=== PATIENT | female | born 1950 | race Caucasian/White ===

== ENCOUNTER 2022-09-20 12:44 | Outpatient (OUT) | payer MEDICARE, SELFPAY ==
--- NOTE | 2022-09-20 12:57 | XR_ITS ---
The [address] [address] Patient Name: SONDRA MERCHANT MRN: [id number] date: 1950 Sex: F Assigned Patient Location: [facility] Current Patient Location: Accession/Order Number: [id number] Exam Date: 09/20/2022 13:15 Report Date: 09/21/2022 10:07 At the request of: LEROY DUQUE Procedure: XR lumbar spine min 4V EXAMINATION: XR lumbar spine min 4V HISTORY: Bilateral Hip Pain, Low Back Pain , chronic COMPARISON: XR L-spine 01/26/2021, 04/06/2019 FINDINGS: BONES: Partial collapse of right half of L5 vertebral body and approximately 1.3 cm right lateral listhesis of L4 on 5. Moderate degenerative facet arthropathy L4-5, L5-S1. DISC SPACES: Marked disc space narrowing L4-5, L5-S1. PARASPINOUS: Negative. No paraspinous abnormality is seen. OTHER: Negative. XR/XR lumbar spine min 4V IMPRESSION: 1. Advanced degenerative changes which have progressed since prior study. 2. Partial collapse of right side of L5 which continues to progress; compression fracture versus neoplasm versus infectious etiology. Consider MRI for further evaluation. Electronically authenticated by: PEARL DORMAN Date: 09/21/2022 10:07
--- NOTE | 2022-09-20 12:57 | XR_ITS ---
The [address] [address] Patient Name: SONDRA MERCHANT MRN: [id number] date: 1950 Sex: F Assigned Patient Location: [facility] Current Patient Location: [facility] Accession/Order Number: [id number] Exam Date: 09/20/2022 13:15 Report Date: 09/21/2022 10:17 At the request of: LEROY DUQUE Procedure: XR pelvis 1-2V PROCEDURE: XR pelvis 1-2V HISTORY: Low Back Pain, Bilateral Hip Pain COMPARISON: XR hip left 06/11/2020, XR hip right 02/20/2019 FINDINGS: BONES:Mild narrowing of the hip joint spaces without significant periarticular osteophytes. No fracture, dislocation, or articular surface irregularity. SOFT TISSUES:Prominent calcifications within the soft tissues cephalad to the femoral neck bilaterally, unchanged and favoring heterotopic bone formation from remote injury. EFFUSION:None visible. OTHER: Advanced degenerative changes of the lower lumbar spine. XR/XR pelvis 1-2V IMPRESSION: 1. Moderate degenerative changes of hip joints bilaterally, not appreciably changed. 2. Advanced degenerative changes and anterolisthesis of lower lumbar spine which has progressed since prior studies. Please see today's XR lumbar spine report for discussion. Electronically authenticated by: PEARL DORMAN Date: 09/21/2022 10:17
== END 2022-09-20 12:45 | disposition home or self-care (01) ==
LOC: RAD 12:50
PROVIDERS: PCP Family Medicine; Visit Provider Anesthesiology Pain Medicine
DX: M54.50 Low back pain, unspecified (principal); M25.552 Pain in left hip; M25.551 Pain in right hip; M16.0 Bilateral primary osteoarthritis of hip; M47.816 Spondylosis without myelopathy or radiculopathy, lumbar region; M43.16 Spondylolisthesis, lumbar region
CPT/HCPCS: 72110; 72170

== ENCOUNTER 2022-10-05 10:47 | Outpatient (OUT) | payer MEDICARE, SELFPAY ==
--- NOTE | 2022-10-05 11:18 | PM.CN ---
Consult Note: HPI Data of Consult Patient: known to practice within the last 3 years Requesting Physician: Tammy Worrell NP Primary Care Provider: Ashia Ga MD Consult Narrative cc:: CC: Tammy Worrell NP Review of Systems ROS Status of ROS 10 or more systems reviewed and unremarkable except as noted in history and below Exam Constitutional Common normals: no apparent distress, oriented x3 and alert General appearance: frail appearing Nutritional appearance: thin and underweight Other: denies recent weight loss HENMT Common normals: normocephalic and hearing grossly normal bilaterally Head and scalp: normal to inspection Eye Common normals: PERRL Pupil: PERRL Neck & C-Spine Common normals: full ROM Cervical spine: cervical ROM normal Chest Common normals: inspection of chest normal Respiratory Common normals: normal respiratory effort, no retractions and no use of accessory muscles Back & Pelvis Thoracic spine/upper back: normal to inspection, ROM limited, pain with ROM and paraspinal muscle tenderness Lumbar spine/lower back: normal to inspection, ROM limited, pain with ROM and paraspinal muscle tenderness Other: pain with facet bearing maneuvers Extremity Common normals: normal to inspection and full ROM Neuro Common normals: oriented x3, CN's II-XII intact bilaterally, moves all extremities and no sensory deficits noted Motor exam: strength abnormal (3/5 weak upper and lower extremeties) Other: patient experiencing leg tremors/increased respirations after taking parkinsons medications. Patient has neurology follow up in October, encouraged to discuss with Neurologist. F/u with PCP for updated bloodwork. Psych Common normals: mental status grossly normal, thought process normal, cooperative, affect normal, speech normal and activity/motor behavior normal Attitude: calm Activity/motor behavior: appropriate eye contact Speech: normal speech Thought process: normal thought process Assessment and Plan Assessment and Plan (1) Lumbar spondylosis: (2) Spondylosis of lumbar region without myelopathy or radiculopathy: (3) Medication management: Plan Patient presents to office today for lumbar pain without radiculopathy. Patient has had chronic lumbar pain, years, and has failed conservative approaches NSAIDS/heat/ice, has not had PT recently. Patients recent xrays of lumbar spine/hips show degenerative changes, possible lumbar compression fx and recommending MRI to rule out neoplasm/infection/fracture. Pt reports she has moderate pain relief for 3hrs after taking her norco, no s/e from medication. Patient supplements with extra strength tylenol, not exceeding 3000mg in total, to assist with pain relief until next [place] dose. Patient has not had any recent falls/injury. Denies change in weight. No change in bowel/bladder continence. Patient had pain with facet weight bearing maneuvers bilateral lumbar back. patient experiencing leg tremors/increased respirations after taking parkinsons medications. Patient has neurology follow up in October, encouraged to discuss with Neurologist. F/u with PCP for updated bloodwork. MRI lumbar spine ordered [place] 5/325 BID refilled f/u in office after MRI
== END 2022-10-05 10:48 | disposition home or self-care (01) ==
LOC: PM 10:47
PROVIDERS: PCP Family Medicine; Visit Provider Nurse Practitioner
DX: M47.816 Spondylosis without myelopathy or radiculopathy, lumbar region (principal); Z79.899 Other long term (current) drug therapy
CPT/HCPCS: G0463

== ENCOUNTER 2022-10-18 13:25 | Outpatient (OUT) | payer MEDICARE, SELFPAY ==
--- NOTE | 2022-10-18 14:10 | MR_ITS ---
[address] [address] Patient Name: SONDRA MERCHANT MRN: [id number] date: 1950 Sex: F Assigned Patient Location: MRI Current Patient Location: Accession/Order Number: [id number] Exam Date: 10/18/2022 14:10 Report Date: 10/19/2022 11:19 At the request of: LEROY DUQUE Procedure: MR lumbar spine wo con EXAMINATION: MR lumbar spine wo con HISTORY: Lumbar spondylosis ; chronic lumbar pain radiating into hips; right leg weakness COMPARISON: XR L-spine 09/20/2022 TECHNIQUE: A variety of imaging planes and parameters were utilized for visualization of suspected pathology. FINDINGS: For the purposes of numbering, sagittal T2 image # 9 extends from the T11 vertebral body superiorly to the S4 level inferiorly. PARASPINAL AREA: Normal with no visible mass. BONES: 10 mm right lateral listhesis of L3 on 4. Moderate compression fracture of left lateral aspect of L3 inferior endplate and right lateral aspect of L4 superior endplate with marked sclerotic degenerative endplate changes. CORD/CAUDA EQUINA: Normal caliber, contour, and signal intensity. DISC LEVELS: 12-L1: No significant disc/facet abnormality, spinal stenosis, or foraminal stenosis. L1-L2: No significant disc/facet abnormality, spinal stenosis, or foraminal stenosis. L2-L3: Mild central canal and bilateral foramen narrowing. Mild diffuse disc bulging and minimal disc height reduction. Mild degenerative facet arthropathy, left greater than right. L3-L4: Marked central canal and bilateral foramen narrowing. Marked diffuse disc bulging, marked disc height reduction, and moderate degenerative facet arthropathy and ligamentum flavum thickening. L4-L5: Marked central canal and bilateral foramen narrowing. Marked diffuse disc bulging with complete loss of disc height. Moderate degenerative facet arthropathy and ligamentum flavum thickening bilaterally. L5-S1: Moderate marked central canal narrowing. Marked right, moderate left foramen narrowing. Marked trace disc bulging with complete loss of disc height. Marked degenerative facet arthropathy in the mentum flavum thickening. MR/MR lumbar spine wo con IMPRESSION: 1. Advanced degenerative changes of the lower lumbar spine resulting in marked central canal and foraminal stenosis. Electronically authenticated by: PEARL Anderson: 10/19/2022 11:19
== END 2022-10-18 13:26 | disposition home or self-care (01) ==
PROVIDERS: PCP Family Medicine; Visit Provider Anesthesiology Pain Medicine
DX: M47.816 Spondylosis without myelopathy or radiculopathy, lumbar region (principal)
CPT/HCPCS: 72148

== ENCOUNTER 2022-10-31 14:03 | Outpatient (OUT) | payer MEDICARE, SELFPAY ==
--- NOTE | 2022-10-31 14:11 | P.CN_ITS ---
Consult Note: HPI Data of Consult Patient: known to practice within the last 3 years Requesting Physician: Tammy Worrell NP Primary Care Provider: Ashia Ga MD Consult Narrative Reason for consult: imaging follow up Narrative: Martha Min a pleasant 72 year old female with chronic low back pain, bilateral hip pain, and shoulder pain presents for follow up. Patient rating 7/10 pain today and would like to discuss results of imaging and talk about injection therapy. cc:: CC: Tammy Worrell NP Review of Systems ROS Status of ROS 10 or more systems reviewed and unremarkable except as noted in history and below Exam Constitutional Documenting provider has reviewed patient's vital signs: yes Common normals: no apparent distress, oriented x3, healthy appearing, alert and well nourished Exam limitations: physical limitations General appearance: cooperative Nutritional appearance: thin HENMT Common normals: normocephalic, hearing grossly normal bilaterally and moist oral mucous membranes Head and scalp: normocephalic Eye Common normals: PERRL Pupil: PERRL Neck & C-Spine Common normals: full ROM General: normal visual inspection Chest Common normals: inspection of chest normal Respiratory Common normals: normal respiratory effort, no retractions and no use of accessory muscles Back & Pelvis Lumbar spine/lower back: ROM limited and pain with ROM Other: predominately axial low back pain without radiculopathy, bilateral facet loading positive Neuro Common normals: oriented x3, CN's II-XII intact bilaterally, moves all extrem ities, no focal motor deficits, no sensory deficits noted and deep tendon reflexes 2+ bilaterally Sensorium/orientation: alert Gait (neuro): unable to assess gait and assistive device used (wheelchair) Motor exam: strength 5/5 throughout and no movement abnormalities noted Psych Common normals: mental status grossly normal, thought process normal, cooperative, affect normal, speech normal and activity/motor behavior normal Speech: normal speech Thought process: normal thought process Results Additional Findings Additional findings: I have checked an OARRS report on this patient today and there are no aberrancies noted in the prescribing history.?? A drug screen was completed and reviewed within the last year, and if there has not been a drug screen completed we ordered one today to monitor higher risk, state monitored pain medication use. As part of providing excellent, safe, comprehensive care, the following was completed at our patient's visit: 1. A medication reconciliation and review to ensure accurate knowledge of current/active medications, including asking our patients to inform us about any xmpk-sio-viiqion medications or herbal remedies/nutritional supplements/alternative remedies. 2. A review to specifically ensure our patients have had annual screening for: elevated body mass index (BMI), tobacco use, screening for depression, and screening for unhealthy alcohol use. When screening is concerning, patients are provided with education and the specific recommendation to discuss the concerning health issue and treatment options with their primary care provider. RADHA 66% with severe pain, pain interfering with self care, cannot lift anything at all, cannot walk more than 100 yards, cannot sit for more than 10 minutes, cannot stand for more than 30 mins, cannot sleep for more than 4 hours, no social life or travel due to pain. Assessment and Plan Assessment and Plan (1) Lumbar spondylosis: (2) Medication management: (3) Chronic, continuous use of opioids: Assessment and Plan: I have refilled the patient's opioid prescriptions at the above noted dose and schedule.? I feel these medications are improving the patient's quality of life and allow them to tolerate activities of daily living as well as participate in recreational activity.? The patient does not report intolerable side effects. The patient is NOT opioid naive and non-pharmacologic and non-opioid treatment has failed to significantly relieve the patient's pain and improve functionality. The patient has a diagnosis that is related to a somatic or visceral pain etiology.??I reviewed with the patient the potential risks and side effects with the use of?opioid medications including but not limited to respiratory depression,?sedation, and even . I verified the patient has access to naloxone should?these effects occur. I advised the patient to avoid the use of any other? sedation substances including alcohol, THC, and benzodiazepines while?taking opioid medications due to the risk of compounding side effects and?detrimental outcomes. I reviewed the [employer] WORK[employer], pain treatment agreement, urine? drug screen, and opioid start talking forms. The patient was advised to let?their family know they had Naloxone in case they would need to administer?the medication.? Plan Reviewed xray and MRI findings with patient and daughter bilateral L3/4 L5/4 MBB, patient has had good relief from RFAs at this level historically last in 2019, working towards RFA refill and continue norco 5-325mg BID PRN pain f/u after procedure
== END 2022-10-31 14:04 | disposition home or self-care (01) ==
PROVIDERS: PCP Family Medicine; Visit Provider Nurse Practitioner
DX: M47.816 Spondylosis without myelopathy or radiculopathy, lumbar region (principal); Z51.81 Encounter for therapeutic drug level monitoring; Z79.891 Long term (current) use of opiate analgesic
CPT/HCPCS: G0463

== ENCOUNTER 2022-12-03 10:47 | Day surgery (SDC) | payer MEDICARE, SELFPAY ==
[2022-12-03 12:15] VITALS: BP 90/64; PULSE 70; RESP 14; TEMP 36.4; O2SAT 97
[2022-12-03] MEDS: LIDOCAINE HCL 2% PF 100 MG/5 ML VIAL INJ (13:02)
[2022-12-03] MEDS: BUPIVACAINE HCL 0.25% PF 25 MG/10 ML VIAL INJ (13:02)
[2022-12-03 13:03] VITALS: BP 151/86; PULSE 73; RESP 18; O2SAT 97
[2022-12-03] MEDS: TRIAMCINOLONE ACETONIDE 40 MG/ML VIAL INJ (13:03)
[2022-12-03 13:04] VITALS: PULSE 75; RESP 18; O2SAT 97
[2022-12-03 13:05] VITALS: BP 210/94
--- NOTE | 2022-12-03 13:06 | W.PM.PROCNOT ---
Date of procedure: 12/03/22 Pre-op diagnosis: lumbar spondylosis Post-op diagnosis: same as pre-op Procedure: Procedure: Bilateral L3/4, L4/5 medial branch block Medications: Bupivacaine 0.25% 4cc The patient was seen and examined in the preoperative holding area.? An informed consent was obtained and placed on the chart.? The patient was brought to the medical procedure unit and placed in the prone position.? A timeout was completed verifying correct patient, procedure site, positioning, plan, and special equipment.? Using aseptic technique, the needle was placed at left L3. Under direct fluoroscopic visualization a Quincke-tipped spinal needle was advanced to the junction of the superior articulating process with the transverse process at the designated medial branch segment.? Preceded by negative aspiration, the above-mentioned injectate was placed in 1 mL aliquots.? The procedure was repeated at left L4, 5.? The needle was removed and insertion site was covered. The same procedure, at the same levels, was completed on the right side. The patient was taken to the postprocedural recovery area and monitored for an appropriate length of time before found suitable for discharge in the company of a responsible adult. Anesthesia: Local Surgeon: Carlota Huertas Pathology: none sent Condition: stable Disposition: no change
== END 2022-12-03 13:09 | disposition home or self-care (01) ==
PROVIDERS: PCP Family Medicine; Visit Provider Anesthesiology
DX: M47.816 Spondylosis without myelopathy or radiculopathy, lumbar region (principal)
CPT/HCPCS: 64493; 64494

== ENCOUNTER 2022-12-19 13:40 | Outpatient (OUT) | payer MEDICARE, SELFPAY ==
--- NOTE | 2022-12-19 14:21 | P.CN_ITS ---
Consult Note: HPI Data of Consult Patient: known to practice within the last 3 years Requesting Physician: Tammy Worrell NP Primary Care Provider: Ashia Ga MD Consult Narrative Reason for consult: f/u Narrative: Martha Min a pleasant 72 year old female presents for evaluation and management of chronic low back pain. Patient rating pain 7/10, most recent procedure was bilateral L3, 4, 5 MBB without pain relief or functional improvement. Patients weight has maintained. She follows with a specialist for parkinsons. cc:: CC: Tammy Wrorell NP Review of Systems ROS Status of ROS 10 or more systems reviewed and unremarkable except as noted in history and below Musculoskeletal Reports: back pain Meds Home Medications and Allergies Home Medications Medication Instructions Recorded Confirmed Type hydrocodone 5 mg-acetaminophen 325 1 tab PO BID PRN pain #60 tabs 10/31/22 11/28/22 Rx mg tablet acetaminophen 500 mg capsule 1,000 mg PO TID PRN pain 11/28/22 12/03/22 History calcium polycarbophil 625 mg 1,250 mg PO DAILY 11/28/22 12/03/22 History tablet (Fiber (calcium polycarbophil)) carbidopa 25 mg-levodopa 100 mg 1 tab PO .5 times per day 11/28/22 12/03/22 History tablet carvedilol 25 mg tablet (Coreg) 25 mg PO BID 11/28/22 12/03/22 History citalopram 10 mg tablet 30 mg PO DAILY 11/28/22 12/03/22 History clonidine HCl 0.1 mg tablet 0.2 mg PO Q12H 11/28/22 12/03/22 History gluc iuxr-uhnllcfnaled-tztmbgs ea mucous membrane 11/28/22 History mouthwash levetiracetam 500 mg tablet 500 mg PO Q12H 11/28/22 12/03/22 History lisinopril 40 mg tablet 40 mg PO DAILY 11/28/22 12/03/22 History rotigotine 1 mg/24 hour 1 patch transdermal DAILY 11/28/22 12/03/22 History transdermal 24 hour patch (Neupro) hydrocodone 5 mg-acetaminophen 325 1 tab PO BID PRN pain #60 tabs 11/29/22 Rx mg tablet Allergies Allergy/AdvReac Type Severity Reaction Status Date / Time Penicillins Allergy Verified 11/28/22 15:03 Exam Constitutional Documenting provider has reviewed patient's vital signs: yes Common normals: no apparent distress, oriented x3, healthy appearing, alert and well nourished Exam limitations: physical limitations General appearance: cooperative Nutritional appearance: thin HENMT Common normals: normocephalic, hearing grossly normal bilaterally and moist oral mucous membranes Head and scalp: normocephalic Eye Common normals: PERRL Pupil: PERRL Neck & C-Spine Common normals: full ROM General: normal visual inspection Chest Common normals: inspection of chest normal Respiratory Common normals: normal respiratory effort, no retractions and no use of accessory muscles Back & Pelvis Lumbar spine/lower back: ROM limited and pain with ROM Other: predominately axial low back pain without radiculopathy, bilateral facet loading positive Neuro Common normals: oriented x3, CN's II-XII intact bilaterally, moves all extremities, no focal motor deficits, no sensory deficits noted and deep tendon reflexes 2+ bilaterally Sensorium/orientation: alert Gait (neuro): antalgic, shuffling and assistive device used (wheelchair and walker at home) Motor exam: strength 5/5 throughout and no movement abnormalities noted Psych Common normals: mental status grossly normal, thought process normal, coope rative, affect normal, speech normal and activity/motor behavior normal Speech: normal speech Thought process: normal thought process Results Additional Findings Additional findings: I have checked an OARRS report on this patient today and there are no aberrancies noted in the prescribing history.?? A drug screen was completed and reviewed within the last year, and if there has not been a drug screen completed we ordered one today to monitor higher risk, state monitored pain medication use. As part of providing excellent, safe, comprehensive care, the following was completed at our patient's visit: 1. A medication reconciliation and review to ensure accurate knowledge of current/active medications, including asking our patients to inform us about any qlnj-uog-viezlfk medications or herbal remedies/nutritional supplements/alternative remedies. 2. A review to specifically ensure our patients have had annual screening for: elevated body mass index (BMI), tobacco use, screening for depression, and screening for unhealthy alcohol use. When screening is concerning, patients are provided with education and the specific recommendation to discuss the concerning health issue and treatment options with their primary care provider. Assessment and Plan Assessment and Plan (1) Chronic, continuous use of opioids: Assessment and Plan: I feel these medications are improving the patient's quality of life and allow them to tolerate activities of daily living as well as participate in recreational activity.? The patient does not report intolerable side effects. The patient is NOT opioid naive and non-pharmacologic and non-opioid treatment has failed to significantly relieve the patient's pain and improve functionality. The patient has a diagnosis that is related to a somatic or visceral pain etiology. ? ?? I reviewed with the patient the potential risks and side effects with the use of? opioid medications including but not limited to respiratory depression,? sedation, and even . I verified the patient has access to naloxone should? these effects occur. I advised the patient to avoid the use of any other? sedation substances including alcohol, THC, and benzodiazepines while? taking opioid medications due to the risk of compounding side effects and? detrimental outcomes. I reviewed the [employer]ENGER [employer]ICITOR, pain treatment agreement, urine? drug screen, and opioid start talking forms. The patient was advised to let? their family know they had Naloxone in case they would need to administer? the medication.? ?? A drug screen was completed within the last year, and no aberrancies were noted regarding their use of controlled substances. The patient understands they are subject to the terms and conditions of the pain contract that they have signed. ? ?? I have checked an OARRS report on this patient today and there are no aberrancies noted in the prescribing history.? (2) Medication management: (3) Spondylosis of lumbar region without myelopathy or radiculopathy: (4) Lumbar spondylosis: (5) Low BMI: Assessment and Plan: continue follow up with pcp for weight encouraged meal replacements and increase calories Plan increase hydrocodone-oxycodone to 7.5mg-325mg BID PRN naloxone discussed and prescribed f/u 2 months
== END 2022-12-19 13:41 | disposition home or self-care (01) ==
PROVIDERS: PCP Family Medicine; Visit Provider Nurse Practitioner
DX: M47.816 Spondylosis without myelopathy or radiculopathy, lumbar region (principal); Z79.899 Other long term (current) drug therapy
CPT/HCPCS: G0463

== ENCOUNTER 2023-02-20 13:32 | Outpatient (OUT) | payer MEDICARE, SELFPAY ==
--- NOTE | 2023-02-20 14:12 | PM.CN ---
Consult Note: HPI Data of Consult Patient: known to practice within the last 3 years Requesting Physician: Tammy Worrell NP Primary Care Provider: Ashia Ga MD Consult Narrative Reason for consult: f/u Narrative: Martha Min a pleasant 72 year old female presents for evaluation and management of chronic low back pain. Patient rating pain today 8/10, and left shoulder pain for which she has an orthopedic consult. Patient finding mild benefit from dose increase and would like to discuss increasing the frequency of her medications as she finds they do not provide 8 hours of relief. cc:: CC: Tammy Worrell NP Review of Systems ROS Status of ROS 10 or more systems reviewed and unremarkable except as noted in history and below Musculoskeletal Reports: back pain Meds Home Medications and Allergies Home Medications Medication Instructions Recorded Confirmed Type acetaminophen 500 mg capsule 1,000 mg PO TID PRN pain 11/28/22 12/19/22 History calcium polycarbophil 625 mg 1,250 mg PO DAILY 11/28/22 12/19/22 History tablet (Fiber (calcium polycarbophil)) carbidopa 25 mg-levodopa 100 mg 1 tab PO .5 times per day 11/28/22 12/03/22 History tablet carvedilol 25 mg tablet (Coreg) 25 mg PO BID 11/28/22 12/19/22 History citalopram 10 mg tablet 30 mg PO DAILY 11/28/22 12/19/22 History clonidine HCl 0.1 mg tablet 0.2 mg PO Q12H 11/28/22 12/19/22 History gluc zkvh-stwlblhjndrz-iwuyykc ea mucous membrane 11/28/22 History mouthwash levetiracetam 500 mg tablet 500 mg PO Q12H 11/28/22 12/03/22 History lisinopril 40 mg tablet 40 mg PO DAILY 11/28/22 12/19/22 History rotigotine 1 mg/24 hour 1 patch transdermal DAILY 11/28/22 12/03/22 History transdermal 24 hour patch (Neupro) hydrocodone 5 mg-acetaminophen 325 1 tab PO TID PRN pain #90 tabs 12/19/22 Rx mg tablet hydrocodone 7.5 mg-acetaminophen 1 tab PO BID 12/19/22 12/19/22 History 325 mg tablet hydrocodone 7.5 mg-acetaminophen 1 tab PO BID PRN pain #60 tabs 12/19/22 Rx 325 mg tablet hydrocodone 7.5 mg-acetaminophen 1 tab PO BID PRN pain #60 tabs 01/30/23 Rx 325 mg tablet Allergies Allergy/AdvReac Type Severity Reaction Status Date / Time Penicillins Allergy Verified 11/28/22 15:03 Exam Constitutional Documenting provider has reviewed patient's vital signs: yes Common normals: no apparent distress, oriented x3, healthy appearing, alert and well nourished Exam limitations: physical limitations General appearance: cooperative Nutritional appearance: thin HENMT Common normals: normocephalic, hearing grossly normal bilaterally and moist oral mucous membranes Head and scalp: normocephalic Eye Common normals: PERRL Pupil: PERRL Neck & C-Spine Common normals: full ROM General: normal visual inspection Chest Common normals: inspection of chest normal Respiratory Common normals: normal respiratory effort, no retractions and no use of accessory muscles Back & Pelvis Lumbar spine/lower back: ROM limited and pain with ROM Other: predominately axial low back pain without radiculopathy, bilateral facet loading positive Neuro Common normals: oriented x3, CN's II-XII intact bilaterally, moves all extremities, no focal motor deficits, no sensory deficits noted and deep tendon reflexes 2+ bilaterally Sensorium/orientation: alert Gait (neuro): antalgic, shuffling and assistive device used (wheelchair and walker at home) Motor exam: strength 5/5 throughout and no movement abnormalities noted Psych Common normals: mental status grossly normal, thought process normal, cooperative, affect normal, speech normal and activity/motor behavior normal Speech: normal speech Thought process: normal thought process Assessment and Plan Assessment and Plan (1) Chronic, continuous use of opioids: Assessment and Plan: I feel these medications are improving the patient's quality of life and allow them to tolerate activities of daily living as well as participate in recreational activity.? The patient does not report intolerable side effects. The patient is NOT opioid naive and non-pharmacologic and non-opioid treatment has failed to significantly relieve the patient's pain and improve functionality. The patient has a diagnosis that is related to a somatic or visceral pain etiology. ? ?? I reviewed with the patient the potential risks and side effects with the use of? opioid medications including but not limited to respiratory depression,? sedation, and even . I verified the patient has access to naloxone should? these effects occur. I advised the patient to avoid the use of any other? sedation substances including alcohol, THC, and benzodiazepines while? taking opioid medications due to the risk of compounding side effects and? detrimental outcomes. I reviewed the [employer], pain treatment agreement, urine? drug screen, and opioid start talking forms. The patient was advised to let? their family know they had Naloxone in case they would need to administer? the medication.? ?? A drug screen was completed within the last year, and no aberrancies were noted regarding their use of controlled substances. The patient understands they are subject to the terms and conditions of the pain contract that they have signed. ? ?? I have checked an [place] report on this patient today and there are no aberrancies noted in the prescribing history.? (2) Medication management: (3) Spondylosis of lumbar region without myelopathy or radiculopathy: (4) Lumbar spondylosis: (5) Low BMI: Assessment and Plan: continue follow up with pcp for weight encouraged meal replacements and increase calories Plan increase hydrocodone-oxycodone to 7.5mg-325mg BID-TID PRN #75 tablets per month. risks vs benefits discussed. sister engaged in care plan today naloxone discussed and prescribed f/u 2-3 months for medication management
== END 2023-02-20 13:33 | disposition home or self-care (01) ==
PROVIDERS: PCP Family Medicine; Visit Provider Nurse Practitioner
DX: Z79.891 Long term (current) use of opiate analgesic (principal); Z51.81 Encounter for therapeutic drug level monitoring; M47.816 Spondylosis without myelopathy or radiculopathy, lumbar region
CPT/HCPCS: G0463

== ENCOUNTER 2023-03-13 00:46 | Outpatient (REF) | payer MEDICARE, SELFPAY ==
--- OUTSIDE RECORDS SUMMARY | 2023-03-13 00:51 | XMS_ITS | CCD ---
Author Name Unknown Address [address] [address] [place] [address] Organization [facility] Care Team Providers Care Banjo Repair Person Name Role Phone ASHIA LOTT Attending Unavaila bhargav LOTT, ASHIA VALERIO Primary Care Unavaila ble OREN, DR ASHIA Dunham Primary Care Unavailable LOTT, DR ASHIA Dunham Admitting Unavailable LOTT, DR ASHIA Dunham Attending Unavailable LOTT, DR ASHIA Dunham Attending Unavailable LOTT, DR ASHIA Dunham Consulting Unavailable LOTT, DR ASHIA Dunham Primary Care Unavailable LOTT, DR ASHIA Dunham Admitting Unavailable SHAIKH Cleopatra GRAHAM Attending Unavailable LOTT, DR ASHIA Dunham Primary Care Unavailable CURLEW, DR DIAMANTE Cruz Consulting Unavailable GLADYS, H Admitting Unavailable LOTT, DR ASHIA Dunham Consulting Unavailable LOTT, DR ASHIA Dunham Consulting Unavailable LOTT, DR ASHIA Dunham Primary Care Unavailable LOTT, DR ASHIA Dunham Admitting Unavailable LOTT, DR ASHIA Dunham Attending Unavailable DUQUE ., DR LEROY Hamm Admitting Unavailable DUQUE ., DR LEROY Hamm Attending Unavailable ELLIOTT ., CINDI Consulting Unavailable LOTT, DR ASHIA Dunham Primary Care Unavailable DUQUE ., DR LEROY Hamm Attending Unavailable ELLIOTT ., CINDI Consulting Unavailable LOTT, DR ASHIA Dunham Primary Care Unavailable DUQUE ., DR LEROY Hamm Admitting Unavailable DUQUE ., DR LEROY Hamm Attending Unavailable LOTT, DR ASHIA Dunham Primary Care Unavailable DUQUE ., DR LEROY Hamm Admitting Unavailable ELLIOTT ., CINDI Consulting Unavailable DUQUE ., DR LEROY Hamm Admitting Unavailable DUQUE ., DR LEROY aHmm Attending Unavailable LOTT, DR ASHIA Dunham Consulting Unavailable LOTT, DR ASHIA Dunham Primary Care Unavailable DUQUE ., DR LEROY Hamm Consulting Unavailable EVONMIKELIN ARMANDO Attending Unava ilable OREN, DR ASHIA Dunham Primary Care Unavailable KALYAN, NARHOLLY Admitting Unava ilAshia Brock Allergies Allergy Classification Reported Allergen(s) Allergy Type Date of Onset Reaction(s) Facility (2 sources) Penicillins Drug allergy (disorder) 08-22-19 15 [facility] Repository (2 sources) House dust mite Propensity to adverse reactions Unknown [facility] Other (2 sources) Penicillin Drug Allergy rash [facility] Other (2 sources) Pseudoephedrine Drug Allergy hives [facility] Other (2 sources) Streptococcus pneumoniae type 1 capsular polysaccharide antigen / Streptococcus pneumoniae type 10A capsular polysaccharide antigen / Streptococcus pneumoniae type 11A capsular polysaccharide antigen / Streptococcus pneumoniae type 12F capsular polysaccharide antigen / Streptococcus pneumoniae type 14 capsular polysaccharide antigen / Streptococcus pneumoniae type 15B capsular polysaccharide antigen / Streptococcus pneumoniae type 17F capsular polysaccharide antigen / Streptococcus pneumoniae type 18C capsular polysaccharide antigen / Streptococcus pneumoniae type 19A capsular polysaccharide antigen / Streptococcus pneumoniae type 19F capsular polysaccharide antigen / Streptococcus pneumoniae type 2 capsular polysaccharide antigen / Streptococcus pneumoniae type 20 capsular polysaccharide antigen / Streptococcus pneumoniae type 22F capsular polysaccharide antigen / Streptococcus pneumoniae type 23F capsular polysaccharide antigen / Streptococcus pneumoniae type 3 capsular polysaccharide antigen / Streptococcus pneumoniae type 33F capsular polysaccharide antigen / Streptococcus pneumoniae type 4 capsular polysaccharide antigen / Streptococcus pneumoniae type 5 capsular polysaccharide antigen / Streptococcus pneumoniae type 6B capsular polysaccharide antigen / Streptococcus pneumoniae type 7F capsular polysaccharide antigen / Streptococcus pneumoniae type 8 capsular polysaccharide antigen / Streptococcus pneumoniae type 9N capsular polysaccharide antigen / Streptococcus pneumoniae type 9V capsular polysaccharide antigen Drug Allergy SWELLING [facility] Other (2 sources) Substance with penicillin structure and antibacterial mechanism of action (substance) Drug allergy Unknown [facility] Other (2 sources) Allergies Reconciled Propensity to adverse reactions 12-28-19 Unknown [facility] Other Medications Current Medications Medication Drug Class(es) Dates Sig (Normalized) Sig (Original) acetaminophen 325 mg oral tablet (2 sources) take 1 tablet by mouth every four hours Tylenol 325 MG 1 tablet as needed Orally every 4 hrs Active acetaminophen 325 mg / HYDROcodone bitartrate 7.5 mg oral tablet (5 sources) Opioid Agonist Start: 03-12-2023 take 1 tablet by mouth twice daily as needed HYDROcodone-Aceta minophen 7.5-325 MG 1 tablet as needed Orally bid prn for 30 days Mar, Active Start: 01-09-2022 HYDROcodone-Ac etaminophen 5-325 MG HYDROcodone-Acetaminophen( 5-325MG Oral two times daily, as needed ) Active -Hx Entry Oral two times daily, as needed for 0 Jan, Active take 1 tablet by maninder th every six hours HYDROcodone-Acetaminophen 5-325 MG 1 tab let as needed Orally every 6 hrs Not-Taking/PRN amLODIPine 5 mg oral tablet (2 sources) Dihydropyridine Calcium Channel Savage take 1 tablet by mouth once daily amLODIPine Besylate 5 MG TAKE 1 TABLET BY MOUTH EVERY DAY for 90 Active bisacodyl 5 mg delayed release oral tablet (2 sources) Stimulant Laxative take 1 tablet by mouth every twenty-four hours Dulcolax 5 MG 1 tablet as needed Orally Once a day Active calcium carbonate 1250 mg oral tablet (2 sources) take 1 tablet by mouth every twelve hours Calcium 500 MG 1 tablet with meals Orally Twice a day Active carbidopa 25 mg / levodopa 100 mg oral tablet (4 sources) Aromatic Amino Acid Decarboxylation Inhibitor, Aromatic Amino Acid take 1 tablet by mouth every twenty-four hours Carbidopa-Levodopa 25-100 MG 1 tablet Orally Once a day for 30 days Active take 1 tablet by maninder th every twenty-four hours Carbidopa-Levodopa ER 25-100 MG 1 tablet once a day Active carvedilol 25 mg oral tablet (2 sources) alpha-Adrenergic Savage, beta-Adrenergic Savage take 1 tablet by mouth twice daily Carvedilol 25 MG TAKE 1 TABLET BY MOUTH TWICE A DAY for 90 Active citalopram 20 mg oral tablet (2 sources) Serotonin Reuptake Inhibitor take 1 tablet by mouth every twenty-four hours Citalopram Hydrobromide 20 MG 1 tablet Orally Once a day Active cloNIDine hydrochloride 0.1 mg oral tablet (2 sources) Central alpha-2 Adrenergic Agonist take 2 tablets by mouth twice daily cloNIDine HCl 0.1 MG TAKE 2 TABLETS BY MOUTH TWICE A DAY for 90 Active ferrous sulfate 325 mg oral tablet (2 sources) take 1 tablet by mouth every twenty-four hours Iron 325 (65 Fe) MG 1 tablet Orally Once a day Active hydroCHLOROthiazide 25 mg oral tablet (2 sources) Thiazide Diuretic take 1 tablet by mouth every twenty-four hours hydroCHLOROthiazide 25 MG 1 tablet in the morning Orally Once a day Active levETIRAcetam 500 mg oral tablet (4 sources) take 1 tablet by mouth twice daily levETIRAcetam 500 MG TAKE 1 TABLET BY MOUTH TWICE A DAY for 90 Active take 5 mL by mouth e very twelve hours as needed Keppra 100 MG/ML 5 ml Orally every 12 hr s Not-Taking/PRN lisinopril 40 mg oral tablet (2 sources) Angiotensin Converting Enzyme Inhibitor take 1 tablet by mouth once daily Lisinopril 40 MG TAKE 1 TABLET BY MOUTH EVERY DAY for 90 Active Magnesium (2 sources) take 2 capsules by mouth once daily at bedtime as needed Magnesium 500 MG 2 capsules at bedtime as needed Orally Once a day Active melatonin 5 mg oral tablet (2 sources) take 1 tablet by mouth every twenty-four hours Melatonin 5 MG 1 tablet at bedtime as needed with food Orally Once a day Active naproxen sodium 220 mg oral tablet (2 sources) Nonsteroidal Anti-inflammatory Drug take 1 tablet by mouth every twelve hours at mealtime as needed Aleve 220 MG 1 tablet with food or milk as needed Orally every 12 hrs Active vitamin b12 0.5 mg oral tablet (2 sources) Vitamin B12 take 1 tablet by mouth every twenty-four hours Vitamin B12 500 MCG 1 tablet Orally Once a day Active Completed/Discontinued Medications Medication Drug Class(es) Dates Sig (Normalized) Sig (Original) amitriptyline hydrochloride 25 mg oral tablet (2 sources) Tricyclic Antidepressant Start: 09-23-2017 take 1 tablet by mouth at bedtime Amitriptyline HCl 25 MG 1 tablet Orally AT BEDTIME for 30 day(s) Sep, Not-Taking/PRN Baclofen (2 sources) gamma-Aminobutyric Acid-ergic Agonist Baclofen Not-Taking/PRN Biotene Dry Mouth (2 sources) Biotene Dry Mout h Not-Taking/PRN clonazePAM 0.5 mg disintegrating oral tablet (2 sources) Benzodiazepine take 1 tablet by mouth every twenty-four hours clonazePAM 0.5 MG 1 tablet on the tongue and allow to dissolve at bedtime Orally Once a day Not-Taking/PRN Dicyclomine (2 sources) Anticholinergic Dicyclomine HCl Not-Taking/PRN Docusate (2 sources) Colace Not-Taking/PRN hyoscyamine sulfate 0.125 mg sublingual tablet (2 sources) Start: 05-22-2017 take 1 tablet under the tongue three times daily as needed Hyoscyamine Sulfate SL 0.125 MG 1 tablet under the tongue and allow to dissolve as needed Sublingual TID PRN for 30 days May, Not-Taking/PRN meclizine hydrochloride 25 mg oral tablet (2 sources) Antiemetic Meclizine HCl 25 MG Orally EVERY 6 HRS PRN Not-Taking/PRN pantoprazole 40 mg delayed release oral tablet (2 sources) Proton Pump Inhibitor take 1 tablet by mouth every twelve hours Pantoprazole Sodium 40 MG 1 tablet Orally BID Not-Taking/PRN Problems Active Problems Problem Classification Problem Date Documented Da te Episodic/Chronic Abdominal pain (12 sources) Generalized abdominal pain; Translations: [Generalized abdominal pain] Onset: 11-14-2017 Episodic Anxiety disorders (4 sources) Anxiety disorder; Translations: [Other specified anxiety disorders] Onset: 09-12-2017 Chronic Conditions associated with dizziness or vertigo (2 sources) Dizziness and giddiness; Translations: [Dizziness and giddiness] Episodic Disorders of lipid metabolism (2 sources) Hyperlipidemia; Translations: [Hyperlipidemia, unspecified] Chronic Esophageal disorders (2 sources) Esophageal reflux finding; Translations: [Esophageal reflux] Onset: 09-12-2017 Chronic Essential hypertension (2 sources) Essential hypertension; Translations: [Essential (primary) hypertension] Chronic Fluid and electrolyte disorders (3 sources) Hypo-osmolality and hyponatremia; Translations: [Hypo-osmolality and or hyponatremia] Onset: 09-14-2021 Episodic Fracture of upper limb (4 sources) Displaced fracture of base of unspecified metacarpal bone, initial encounter for closed fracture; Translations: [Closed fracture finger metacarpal neck ] Episodic Gastritis and duodenitis (4 sources) Atrophic gastritis; Translations: [Unspecified chronic gastritis without bleeding] Chronic Genitourinary symptoms and ill-defined conditions (7 sources) Frequency of micturition; Translations: [Finding of frequency of urination] Onset: 09-14-2021 Episodic Headache; including migraine (2 sources) Chronic migraine without aura, non-refractory; Translations: [Chronic migraine without aura, not intractable, without status migrainosus] Chronic Headache; including migraine (2 sources) Headache; Translations: [Headache] Episodic Immunizations and screening for infectious disease (2 sources) Vaccination given; Translations: [Encounter for immunization] Episodic Intestinal infection (2 sources) Bacterial intestinal infectious disease; Translations: [Other specified bacterial intestinal infections] Episodic Malaise and fatigue (8 sources) Other fatigue; Translations: [Asthenia] Onset: 11-14-2017 Episodic Mood disorders (2 sources) Depression; Translations: [Depression, unspecified] Chronic Nausea and vomiting (2 sources) Nausea and vomiting; Translations: [Nausea with vomiting, unspecified] Episodic Nutritional deficiencies (2 sources) Malnutrition of mild degree (Lepe: 75% to less than 90% of standard weight); Translations: [Mild protein-calorie malnutrition] Chronic Osteoarthritis (1 source) Bilateral primary osteoarthritis of hip; Translations: [BILATERAL PRIM OSTEOARTHRITIS HIP] Onset: 10-23-2021 Chronic Other aftercare (2 sources) Long-term current use of drug therapy; Translations: [Other residential (current) drug therapy] Episodic Other connective tissue disease (1 source) Sarcopenia; Translations: [SARCOPENIA] Onset: 04-29-2022 Episodic Other connective tissue disease (1 source) Muscle wasting and atrophy, not elsewhere classified, unspecified site; Translations: [MUSCLE WASTING ATROPHY NEC UNS SITE] Onset: 04-29-2022 Episodic Other connective tissue disease (2 sources) Spasm; Translations: [Cramp and spasm] Episodic Other connective tissue disease (2 sources) Pain in limb; Translations: [Pain in left hand] Episodic Other fractures (2 sources) Fracture of lumbar spine and/or pelvis; Translations: [Fracture of unspecified parts of lumbosacral spine and pelvis, initial encounter for closed fracture] Episodic Other gastrointestinal disorders (2 sources) Irritable bowel syndrome characterized by constipation; Translations: [Irritable bowel syndrome with constipation] Chronic Other gastrointestinal disorders (4 sources) Constipation; Translations: [Other constipation] Episodic Other injuries and conditions due to external causes (4 sources) History of fall; Translations: [History of falling] Onset: 09-13-2017 Episodic Other nervous system disorders (5 sources) Chronic pain syndrome; Translations: [CHRONIC PAIN SYNDROME] Onset: 10-23-2021 Chronic Other nervous system disorders (2 sources) Chronic pain; Translations: [Other chronic pain] Chronic Other nervous system disorders (2 sources) Chronic pain syndrome; Translations: [Chronic pain syndrome] Chronic Other nervous system disorders (2 sources) Neuropathy; Translations: [Polyneuropathy, unspecified] Chronic Other non-traumatic joint disorders (2 sources) Hip joint inflamed; Translations: [Unspecified arthropathy, pelvic region and thigh] Onset: 11-14-2017 Chronic Other non-traumatic joint disorders (4 sources) Pain in left hip; Translations: [PAIN IN LEFT HIP] Onset: 04-24-2022 Episodic Other non-traumatic joint disorders (1 source) Pain in right hip; Translations: [PAIN IN RIGHT HIP] Onset: 04-29-2022 Episodic Other non-traumatic joint disorders (4 sources) Arthralgia of the pelvic region and thigh; Translations: [Pain in joint, pelvic region and thigh] Onset: 10-28-2018 Episodic Other non-traumatic joint disorders (1 source) Pain in left shoulder Episodic Other nutritional; endocrine; and metabolic disorders (2 sources) Underweight; Translations: [Underweight] Episodic Other nutritional; endocrine; and metabolic disorders (2 sources) Abnormal weight loss; Translations: [Abnormal weight loss] Episodic Other nutritional; endocrine; and metabolic disorders (2 sources) Body mass index less than 20; Translations: [Body mass index (BMI) 19.9 or less, adult] Episodic Other skin disorders (2 sources) Generalized hyperhidrosis; Translations: [Generalized hyperhidrosis] Episodic Other upper respiratory disease (2 sources) Allergic rhinitis; Translations: [Allergic rhinitis, unspecified] Chronic Pancreatic disorders (not diabetes) (2 sources) Disorder of pancreas; Translations: [Other specified diseases of pancreas] Episodic Parkinson`s disease (3 sources) Parkinson's disease; Translations: [Parkinson's disease] Onset: 04-29-2022 Chronic Spondylosis; intervertebral disc disorders; other back problems (12 sources) Other intervertebral disc degeneration, lumbar region; Translations: [Spondylosis without myelopathy or radiculopathy, lumbar region] Onset: 07-20-2021 Chronic Spondylosis; intervertebral disc disorders; other back problems (8 sources) Chronic low back pain; Translations: [Low back pain] Onset: 12-26-2017 Episodic Unclassified (4 sources) LOW BACK PAIN, UNSPECIFIED; Translations: [LOW BACK PAIN, UNSPECIFIED] Onset: 10-23-2021 Past or Other Problems Problem Classification Problem Date Documented Da te Episodic/Chronic Epilepsy; convulsions (2 sources) Seizure; Translations: [Unspecified convulsions] Onset: 09-12-2017 Episodic Other screening for suspected conditions (not mental disorders or infectious disease) (4 sources) Encounter for screening mammogram for malignant neoplasm of breast; Translations: [ENC SCR MAMMO MALIG NEOPLASM BREAST] Onset: 09-19-2021 Episodic Residual codes; unclassified (2 sources) Disorientated; Translations: [Disorientation, unspecified] Onset: 07-09-2018 Episodic Residual codes; unclassified (2 sources) Requires influenza virus vaccination; Translations: [Need for prophylactic vaccination and inoculation, Influenza] Onset: 12-26-2017 Episodic Unclassified (1 source) LOW BACK PAIN, UNSPECIFIED; Translations: [LOW BACK PAIN, UNSPECIFIED] Onset: 10-19-2021 Results Test Name Value Interpretation Reference Range Facility MG MAMM SCREEN PRETTY W CADon 0 09-19-2021 MG MAMM SCREEN PRETTY W CAD Patient: MARTHA MERCHANT Exam Date: 09/19/2021 : 1950 Gender:F Ordering : DR ASHIA LOTT M.D. Admission #: [id number] Family : SHAIKH Ria GRAHAM . Order #: [id number] CLICK HERE TO VIEW EXAM RADIOLOGY REPORT PROCEDURE: MAMMOGRAM BILATERAL SCREENING DIGITAL WITH COMPUTER AIDED DETECTION COMPARISON: None. INDICATIONS: Screening mammography Calculator Name NCI Breast Cancer Risk Assessment Tool 5 Year Breast Cancer Risk Not Reported. Lifetime Breast Cancer Risk Not Reported. Personal Breast Cancer No Personal Ovarian Cancer No Treatments None Family Cancers None LOCATION: [facility] BREAST COMPOSITION: Extremely dense, which lowers the sensitivity of mammography. FINDINGS: DIAGNOSTIC CATEGORY 2--BENIGN FINDING: Moderately limited and 2D imaging due to the patient's inability to stand and Parkinson's. Scattered benign-appearing calcifications are present. RIGHT BREAST: No significant suspicious finding. LEFT BREAST: No significant suspicious finding. RECOMMENDATIONS: ROUTINE MAMMOGRAM AND CLINICAL EVALUATION IN 12 MONTHS. PLEASE NOTE: A NORMAL MAMMOGRAM DOES NOT EXCLUDE THE POSSIBILITY OF BREAST CANCER. A CLINICALLY SUSPICIOUS PALPABLE LUMP SHOULD BE BIOPSIED. Dictated by: Diamante Lopez MD on 09/19/2021 at 14:06 Approved by: Diamante Lopez MD on 09/19/2021 at 14:08 Normal [facility] CULTURE URINEon 09-14-2021 CULTURE URINE Culture Observations : LIGHT GROWTH OF MIXED GENITAL ADOLFO. NO POTENTIAL PATHOGENS SEEN. Normal [facility] Comment on above: Performed By: #### URCX #### [facility] [address] [place] [address] Dr. Ravi Hebert UA RANDOM W/MICROSCOPICon BACTERIA NONE SEEN Normal NONE SEEN [facility] Comment on above: Performed By: #### UAMIC #### [facility] [address] [place] [address] Dr. Ravi Hebert Bilirubin Ql (U) Negative Normal NEGATIVE [facility] Comment on above: Performed By: #### UAMIC #### [facility] [address] [place] [address] Dr. Ravi Hebert CAST NONE SEEN Normal NONE SEEN [facility] Comment on above: Performed By: #### UAMIC #### [facility] [address] [place] [address] Dr. Ravi Hebert Clarity (U) CLEAR Normal CLEAR [facility] Comment on above: Performed By: #### UAMIC #### [facility] [address] [place] [address] Dr. Ravi Hebert Color (U) LT. YELLOW Normal YELLOW [facility] Comment on above: Performed By: #### UAMIC #### [facility] [address] [place] [address] Dr. Ravi Hebert Crystals LM Nom (Urine sed) NONE SEEN Normal NONE SEEN [facility] Comment on above: Performed By: #### UAMIC #### [facility] [address] [place] [address] Dr. Ravi Hebert Epithelial cells LM Ql (Urine sed) FEW Abnormal NONE SEEN /RARE [facility] Comment on above: Performed By: #### UAMIC #### [facility] [address] [place] [address] Dr. Ravi Hebert Glucose Ql (U) Negative Normal NEGATIVE The [facility] Comment on above: Performed By: #### UAMIC #### [facility] [address] [place] [address] Dr. Ravi Hebert Hemoglobin Ql (U) Negative Normal NEGATIVE [facility] Comment on above: Performed By: #### UAMIC #### [facility] [address] [place] [address] Dr. Ravi Hebert Ketones Ql (U) Negative Normal NEGATIVE [facility] Comment on above: Performed By: #### UAMIC #### [facility] [address] [place] [address] Dr. Ravi Hebert LEUKOCYTES Negative Normal NEGATIVE [facility] Comment on above: Performed By: #### UAMIC #### [facility] [address] [place] [address] Dr. Ravi Hebert MUCOUS NONE SEEN Normal NONE SEEN [facility] Comment on above: Performed By: #### UAMIC #### [facility] [address] [place] [address] Dr. Ravi Hebert Nitrite Ql (U) Negative Normal NEGATIVE The [facility] Comment on above: Performed By: #### UAMIC #### [facility] [address] [place] [address] Dr. Ravi Hebert pH (U) 6.0 [pH] Normal 5-9 [facility] Comment on above: Performed By: #### UAMIC #### [facility] [address] [place] [address] Dr. Ravi Hebert RBC NONE SEEN Abnormal 0-2 [facility] Comment on above: Performed By: #### UAMIC #### [facility] [address] [place] [address] Dr. Ravi Hebert SPEC GRAVITY <=1.005 Abnormal 1.005-<=1.02 5 [facility] Comment on above: Performed By: #### UAMIC #### [facility] [address] [place] [address] Dr. Ravi Hebert UA PROTEIN Negative Normal NEGATIVE/ TRACE [facility] Comment on above: Performed By: #### UAMIC #### [facility] [address] [place] [address] Dr. Ravi Hebert Urobilinogen Qn (U) 0.2 {Naveen'U}/dL Normal 0.2 - 1.0 [facility] Comment on above: Performed By: #### UAMIC #### [facility] [address] [place] [address] Dr. Ravi Hebert WBC NONE SEEN Normal NONE SEEN [facility] Comment on above: Performed By: #### UAMIC #### [facility] [address] [place] [address] Dr. Ravi Hebert CBC AUTO DIFFon 09-08-2021 BASO # 0.0 103/ul Normal 0.0-0.1 [facility] Comment on above: Performed By: #### CBC #### [facility] [address] [place] [address] Dr. Ravi Hebert Basophils/100 WBC (Bld) 0.4 % Normal 0.2-2.0 [facility] Comment on above: Performed By: #### CBC #### [facility] [address] [place] [address] Dr. Ravi Hebert EO # 0.1 103/ul Normal 0.0-0.7 [facility] Comment on above: Performed By: #### CBC #### [facility] [address] [place] [address] Dr. Ravi Hebert Eosinophils/100 WBC (Bld) 0.8 % Critically low 0.9-7.0 [facility] Comment on above: Performed By: #### CBC #### [facility] [address] [place] [address] Dr. Ravi Hebert Erythrocyte distribution width (RBC) [Ratio] 11.8 % Normal 11.0-15.0 [facility] Comment on above: Performed By: #### CBC #### [facility] [address] [place] [address] Dr. Ravi Hebert Hematocrit (Bld) [Volume fraction] 32.8 % Critically low 36.0-48.0 [facility] Comment on above: Performed By: #### CBC #### [facility] [address] [place] [address] Dr. Ravi Hebert Hemoglobin (Bld) [Mass/Vol] 10.8 g/dL Critically low 12.0-16.0 [facility] Comment on above: Performed By: #### CBC #### [facility] [address] [place] [address] Dr. Ravi Hebert IG # 0.03 10e3/ul Normal 0.00-0.03 [facility] Comment on above: Performed By: #### CBC #### [facility] [address] [address] [address] Ravi Hebert IG % 0.4 % Normal 0.0-0.5 [facility] Comment on above: Performed By: #### CBC #### [facility] [address] [address] [address] Ravi Hebert LYMPH # 0.7 103/ul Critically low 1.2-3.8 [facility] Comment on above: Performed By: #### CBC #### [facility] [address] [place] [address] Dr. Ravi Hebert Lymphocytes/100 WBC (Bld) 9.8 % Critically low 20.5-60.0 [facility] Comment on above: Performed By: #### CBC #### [facility] [address] [place] [address] Dr. Ravi Hebert MANUAL DIFF REQ NO Normal [facility] Comment on above: Performed By: #### CBC #### [facility] [address] [address] [address] Ravi Hebert MCH (RBC) [Entitic mass] 32.8 pg Normal 26.7-34.0 [facility] Comment on above: Performed By: #### CBC #### [facility] [address] [place] [address] Dr. Ravi Hebert MCHC (RBC) [Mass/Vol] 32.9 g/dL Normal 29.9-35.2 [facility] Comment on above: Performed By: #### CBC #### [facility] [address] [address] [address] Ravi Hebert MCV (RBC) [Entitic vol] 99.7 fL Critically high 81.0-99.0 [facility] Comment on above: Performed By: #### CBC #### [facility] [address] [place] [address] Dr. Ravi Hebert MONO # 0.4 103/ul Normal 0.3-0.8 [facility] Comment on above: Performed By: #### CBC #### [facility] [address] [address] [address] Ravi Hebert Monocytes/100 WBC (Bld) 6.0 % Normal 1.7-12.0 [facility] Comment on above: Performed By: #### CBC #### [facility] [address] [address] [address] Ravi Hebert NEUT # 6.0 103/ul Normal 1.4-6.5 [facility] Comment on above: Performed By: #### CBC #### [facility] [address] [address] [address] Ravi Hebert Neutrophils/100 WBC (Bld) 82.6 % Critically high 43.0-75.0 [facility] Comment on above: Performed By: #### CBC #### [facility] [address] [place] [address] Dr. Ravi Hebert Platelet mean volume (Bld) [Entitic vol] 9.6 fL Normal 9.5-13.5 [facility] Comment on above: Performed By: #### CBC #### [facility] [address] [place] [address] Dr. Ravi Hebert PLT 223 103/ul Normal 150-450 [facility] Comment on above: Performed By: #### CBC #### [facility] [address] [address] [address] Ravi Hebert RBC 3.29 106/ul Critically low 4.20-5.40 The [facility] Comment on above: Performed By: #### CBC #### [facility] [address] [place] [address] Dr. Ravi Hebret WBC 7.2 103/ul Normal 4.0-11.0 [facility] Comment on above: Performed By: #### CBC #### [facility] [address] [place] [address] Dr. Ravi Hebert PROF 14(COMP METB)on 022 Albumin [Mass/Vol] 3.8 g/dL Normal 3.4-5.0 [facility] Comment on above: Performed By: #### CMP, TSH #### [facility] [address] [address] [address] Ravi Hebert Albumin/Globulin [Mass ratio] 1.2 {ratio} Normal [facility] Comment on above: Performed By: #### CMP, TSH #### [facility] [address] [address] [address] Ravi Hebert ALP [Catalytic activity/Vol] 69 U/L Normal 46-116 [facility] Comment on above: Performed By: #### CMP, TSH #### [facility] [address] [address] [address] Ravi Hebert ALT [Catalytic activity/Vol] 10 U/L Critically low 14-59 [facility] Comment on above: Performed By: #### CMP, TSH #### [facility] [address] [place] [address] Dr. Ravi Hebert Anion gap [Moles/Vol] 10.7 mmol/L Normal [facility] Comment on above: Performed By: #### CMP, TSH #### [facility] [address] [place] [address] Dr. Ravi Hebert AST [Catalytic activity/Vol] 22 U/L Normal 15-37 The [facility] Comment on above: Performed By: #### CMP, TSH #### [facility] [address] [place] [address] Dr. Ravi Hebert Bilirubin [Mass/Vol] 0.5 mg/dL Normal 0.2-1.0 [facility] Comment on above: Performed By: #### CMP, TSH #### [facility] [address] [place] [address] Dr. Ravi Hebert Calcium [Mass/Vol] 8.8 mg/dL Normal 8.5-10.1 [facility] Comment on above: Performed By: #### CMP, TSH #### [facility] [address] [place] [address] Dr. Ravi Hebert Chloride [Moles/Vol] 102 mmol/L Normal 98-107 [facility] Comment on above: Performed By: #### CMP, TSH #### [facility] [address] [address] [address] Ravi Hebert CO2 [Moles/Vol] 29.6 mmol/L Normal 21.0-32.0 The [facility] Comment on above: Performed By: #### CMP, TSH #### [facility] [address] [address] [address] Ravi Hebert Creatinine [Mass/Vol] 0.90 mg/dL Normal 0.55-1.02 [facility] Comment on above: Performed By: #### CMP, TSH #### [facility] [address] [address] [address] Ravi Hebert EGFR-AF LATVIAN >60 Normal >=60 The [facility] Comment on above: Performed By: #### CMP, TSH #### [facility] [address] [place] [address] Dr. Ravi Hebert EGFR-NON AF LATVIAN >60 Normal >=60 [facility] Comment on above: Performed By: #### CMP, TSH #### [facility] [address] [place] [address] Dr. Ravi Hebert Globulin (S) [Mass/Vol] 3.1 g/dL Normal [facility] Comment on above: Performed By: #### CMP, TSH #### [facility] [address] [place] [address] Dr. Ravi Hebert Glucose [Mass/Vol] 94 mg/dL Normal 74-106 [facility] Comment on above: Performed By: #### CMP, TSH #### [facility] [address] [address] [address] Ravi Hebert Potassium [Moles/Vol] 4.3 mmol/L Normal 3.5-5.1 [facility] Comment on above: Performed By: #### CMP, TSH #### [facility] [address] [place] [address] Dr. Ravi Hebert Protein [Mass/Vol] 6.9 g/dL Normal 6.4-8.2 [facility] Comment on above: Performed By: #### CMP, TSH #### [facility] [address] [place] [address] Dr. Ravi Hebert Sodium [Moles/Vol] 138 mmol/L Normal 136-145 [facility] Comment on above: Performed By: #### CMP, TSH #### [facility] [address] [address] [address] Ravi Hebert Urea nitrogen [Mass/Vol] 34.0 mg/dL Critically high 7.0-18.0 [facility] Comment on above: Performed By: #### CMP, TSH #### [facility] [address] [address] [address] Ravi Hebert Urea nitrogen/Creatin ine [Mass ratio] 37.8 mg/mg Normal [facility] Comment on above: Performed By: #### CMP, TSH #### [facility] [address] [address] [address] Ravi Hebert TSHon 09-08-2021 TSH 1.350 uIU/mL Normal 0.358-3.740 [facility] Comment on above: Performed By: #### CMP, TSH #### [facility] [address] [place] [address] Dr. Ravi Hebert PROGRESSon 06-25-2017 PROGRESS HNO ID: [id number] thor: Nicolas Dotson: (none)Author Type: PhysicianType: Progress NotesFiled: 06/25/2017 4:47 PMNote Text:Martha WhalenOB: 1950[facility]Date last seen:PAST MEDICAL HISTORYDiagnosis Date- Constipation- Convulsion (HCC)- Depression- Difficulty walking- Edema- Essential hypertension- GERD (gastroesophageal reflux disease)- Heart failure (HCC)- Hypo-osmolality and hyponatremia- Iron deficiency anemia- Onychomycosis- Osteoarthritis- Pain in toes of both feet- Parkinson disease (HCC)- Protein-calorie malnutrition (HCC)Current Outpatient Prescriptions:azelastine (ASTELIN,ASTEPRO) 0.1% nasal spraybaclofen (LIORESAL) 20 mg tabletcarbidopa-levodopa CR (SINEMET CR) 25-100 mg per tabletcarbidopa-levodopa (SINEMET 25-100) 25-100 mg per tabletcarvedilol (COREG) 25 mg tabletcitalopram (CELEXA) 20 mg tablethydroCHLOROthiazide (HYDRODIURIL, ESIDRIX) 25 mg tablethyoscyamine sublingual (LEVSIN SL) 0.125 mg subllactulose (DUPHALAC, CONSTULOSE) 10 gram/15 mL solutionlevETIRAcetam (KEPPRA) 500 mg tabletLINZESS 72 mcg capCREON 24,000-76,000 -120,000 unit cpDRlisinopril (ZESTRIL, PRINIVIL) 40 mg tabletmeclizine (ANTIVERT) 25 mg tabmetoprolol tartrate, short acting, (LOPRESSOR) 100 mg tabletOmeprazole [address] (PROTONIX) 40 mg tabletpolyethylene glycol 3350 (MIRALAX, GLYCOLAX) 17 gram/dose powderrizatriptan (MAXALT CHILD DEVELOPMENT PROFESSOR) 10 mg disintegrating tabletNo current facility-administered medications for this visit.ALLERGIESAllergen Reactions- Penicillins UnknownSubjective: Martha is a 67 year old female who is not diabetic.Presents today for evaluation and treatment of painful digital naildeformity as well as generalized foot care . Patient has been unable toprovide self nail care due to the severe nature of deformity which causespain and pressure and limits the patients abilty to wear shoe gear withoutpain. Patient is advised not to attempt self care.Class B Findings: Decrease or absence of hair growth, Pigmentarychanges, Skin texture (thin, shiny) and Nail changes (thickening)Objective: Each digital nail on the right 1 and the left 1 is elongated,thickened, ridged, lysing with friable subungual debris which, afterdebridement from the underlying nail bed, reveals a characteristicfungal/yeast/mo ld odor and consistency. There is no surroundingcellulitis, deep incurvation, or evidence of bacterial infection. Classfindings include diminished pedal pulses, lack of digital pedal hairgrowth, the above noted nail changes, some telangiectasias and lower legedema bilaterally.Lower Extremity Edema: no edema.Assessment: Symptomatic onychomycosis digital nails toes 1 Rt 1 Lt.Examination of individual toenails: R5 is normal. R4 is normal. R3 isnormal. R2 is normal. R1 is brittle, discolored, dystrophic, elongated,painful, yellow with subungual debris. L1 is brittle, discolored,dystrophic, elongated, painful, yellow, with subungual debris. L2 isnormal. L3 is normal. L4 is normal. L5 is normal.Plan: The offending nail margins were mechanically and electricallydebrided to the level of normal underlying nail bed with good reliefobtained as evidenced by pain free palpation of the digits. The patientwill be followed to maintain the length and thickness of their nails asbest as possible. Patient relates painful ambulation. We will see her backon an as needed basis or sooner should problems arise.Patient was recommended walking, exerciseRecommended: No Anti FungalPain due to onychomycosis of toenail of right footPain due to onychomycosis of toenail of left footNicolas Dominguez DPM Normal [facility] Vital Signs Date Time Vital Sign Value Performing Clinician Facility 02-15-2023 13:30-0500 Body height 162.56 cm Ashia Lott Other [facility] Other 02-15-2023 13:30-0500 Body mass index (BMI) [Ratio] 14.59 kg/m2 Ashia Lott Other [facility] Other 02-15-2023 13:30-0500 Body weight 38.56 kg Ashia Lott Other [facility] Other 02-15-2023 13:30-0500 Diastolic blood pressure 89 mm[Hg] Ashia Lott Other [facility] Other 02-15-2023 13:30-0500 Systolic blood pressure 148 mm[Hg] Ashia Lott Other [facility] Other Encounters Encounter Date Encounter Type Care Provider Facility Start: 03-12-2023 End: 03-12-2023 ambulatory Ashia Lott Other [facility] Other Start: 03-12-2023 Telephone encounter Ashia Lott [facility] Start: 02-15-2023 End: 02-15-2023 ambulatory Ashia Lott Other [facility] Other Start: 02-15-2023 Office outpatient visit 15 minutes Ashia Lott [facility] Start: 06-21-2022 ambulatory NARENDRANMEGHANN LAKSHMIPATHY Facility:[facility] Start: 04-24-2022 End: 04-25-[address] LEROY DUQUE . Facility:[facility] Start: 2022 End: 01-19-[address] LEROY DUQUE . Facility:[facility] Start: 01-09-2022 Adult health examination Ashia Lott Other [facility] Other Start: 10-19-2021 End: 10-20-[address] LEROY DUQUE . Facility:[facility] Start: 09-19-2021 End: 09-20-2021 ambulatory SHAIKH Cleopatra GRAHAM Facility:[facility] Start: 09-15-2021 End: 09-15-[address] ASHIA LOTT Facility:[facility] Start: 09-08-2021 End: 09-09-[address] ASHIA LOTT Facility:[facility] Start: 08-24-[address] ASHIA LOTT Facil ity:[facility] Start: 07-20-2021 End: 07-21-[address] LEROY DUQUE . Facility:[facility] Start: 05-15-2019 Patient encounter procedure ASHIA LOTT Facility:[facility] Procedures Date Procedure Procedure Detail Performing Clinician Screening for malign ant neoplasm of breast Ashia Lott Other Immunizations Immunization Date Immunization Notes Care Provider Fa cility 01-09-2022 influenza virus vaccine, split virus (incl. purified surface antigen) Ashia Lott Other [facility] Other 06-01-2020 COVID-19 Vaccine Moderna - Documentation Purposes Only Ashia Lott Other [facility] Other 05-05-2020 COVID-19 Vaccine Moderna - Documentation Purposes Only Ashia Lott Other [facility] Other 01-07-2020 influenza virus vaccine, split virus (incl. purified surface antigen) Ashia Oren Other [facility] Other 01-13-2019 influenza virus vaccine, split virus (incl. purified surface antigen) Ashia Oren Other [facility] Other 12-26-2017 influenza virus vaccine, split virus (incl. purified surface antigen) Ashia Oren Other [facility] Other NEGATED: Highlighted row has not occurred!12-27-2020 influenza virus vaccine, split virus (incl. purified surface antigen) Ashia Oren Other [facility] Other Payers Date Payer Category Payer Medicare [id number] 1961 Self-pay [id number] 1961 Unknown [id number] 1950 Unknown [id number] 2.16.84 [id number] 1950 Unknown [id number] 2.16.84 [id number] 1950 Unknown [id number] 2.16.84 [id number] 1950 Unknown [id number] 2.16.84 [id number] 1950 Unknown [id number] 2.16.84 [id number] 1950 Unknown [id number] 2.16.84 [id number] 1950 Unknown [id number] 2.16.84 [id number] 1950 Unknown [id number] 2.16.84 [id number] 1950 Unknown [id number] 2.16.84 [id number] Social History Date Type Detail Facility Unknown if ever smoked [facility] Other Sex Assigned At Sex Assigned At Bir th [facility] Other Evaluation note 03-12-2023 Note Date & Type Note Facility 03-12-2023 Evaluation note Encounter Date Diagnosis Assessment Notes Mar, Lumbar degenerative disc disease (ICD-10 - M51.36) [facility] Other Evaluation note 02-15-2023 Note Date & Type Note Facility 02-15-2023 Evaluation note Encounter Date Diagnosis Assessment Notes Feb, Pain, joint, shoulder, left (ICD-10 - M25.512) Agrees to ortho referral Requests Dr. Acosta [facility] Other Consultation note 04-24-2022 Note Date & Type Note Facility 04-24-2022 Note CONSULTATION CONSULTATION DATE: 04/24/2022 CHIEF COMPLAINT: Bilateral hip pain, right buttock and leg pain. HISTORY OF PRESENT ILLNESS: This is a very pleasant, 72-year-old female, who unfortunately suffers from Parkinson's. The patient is cachectic. Sitting mitigates the pain. Laying down mitigates the pain. Walking, activities, lifting aggravate her pain. Heat mitigates her pain. The patient has a relatively sedentary lifestyle. The patient suffers from Parkinson's and has difficulty in ambulation. The patient uses a Rollator at home. The patient is accompanied by her daughter. Currently, the patient takes citalopram 30 mg daily, Trinway 5/325 b.i.d., clonidine 0.1 mg b.i.d. Celebrex bothered her stomach and as such discontinued. She takes Tylenol. The patient takes Boost on an intermittent basis. The patient, in the remote past, has had an injection from Dr. Rodríguez in her right hip. The right hip is bothering her greater than her left. This was approximately two years ago. The patient's PAST MEDICAL HISTORY / SURGICAL HISTORY / REVIEW OF SYSTEMS are noted on the chart, along with the MEDICATION LIST / ALLERGIES. No recent RADIOLOGICAL IMAGES are available. PHYSICAL EXAMINATION: Upon physical examination, this is a cachectic female, who appears to be uncomfortable. The patient is constantly moving her legs from the right to the left, crossing them and uncrossing them. VITAL SIGNS: 100/68 with a heart rate of 85. At a height of 5'3 , the patient weighs 84 pounds. FOCUSED EVALUATION OF THE LUMBAR SPINE: Loss of lumbar lordosis is noted. Tightening and paravertebral spasming are present; however, given the muscle bulk decrease, difficult to ascertain. With regards to her hips, the patient's abduction/rotation do not aggravate the patient's pain. The patient is tender along the gluteal muscle on the right hand side compared to the left hand side. The trochanteric bursas are not algogenic. MUSCULOSKELETAL: Global atrophy of the muscles are noted. Generalized cachexia is present. NEUROLOGICALLY: Noncontributory. DIAGNOSIS: Current working diagnosis on the patient is bilateral hip pain, right hip greater than left; sarcopenia, muscle atrophy, Parkinson's, disuse atrophy. PLAN: We will refill the patient's Trinway 5/325 b.i.d. X-ray of her lumbar spine and pelvis has been ordered. The patient also has been given a prescription for Ensure HN and/or Boost HN two per day. Education was done with regards to possibly adding glucosamine chondroitin sulfate to improve the discomfort in her hips. The patient and her daughter understand and would like to proceed. CC: Ashia Lott M.D. [facility] Consultation note 2022 Note Date & Type Note Facility 2022 Note CONSULTATION CONSULTATION DATE: 2022 HISTORY OF PRESENT ILLNESS: This is a 72-year-old female accompanied by her sister to the clinic for a three month follow up for her chronic lower back pain and hip pain. Last procedure the patient had was radiofrequency ablation of her lumbar region in 2019. She is managed medically at this time for pain with Trinway 5/325 b.i.d. Other medications include citalopram, clonidine, Keppra and Sinemet. Patient does have Parkinsonian tremors. The patient does use a wheeled walker and reports all physical activity aggravates her back. The patient does have severe leg tremors due to her Parkinson's. Currently, she is not on an anti-inflammatory, stating that she had some GI upset but she was not taking it with food. Her pain is rated 7/10 today, but overall the patient states she has had some improvement since her last visit in October. She is moving around the house more with her wheeled walker. Patient's REVIEW OF SYSTEMS / PAST MEDICAL HISTORY / ALLERGIES and IMAGES have been reviewed and they are noted on the chart. PHYSICAL EXAM: VITAL SIGNS: Blood pressure is 94/63. Heart rate is 77. Temperature is 98.2. She is 5'3 , weighs 38.8 kg. GENERAL IMPRESSION: Pleasant, appropriate, no acute distress. Sister at chair side. Patient moving about in the chair. FOCUSED EXAM - BACK: Range of motion is guarded in lateral rotation and flexion/extension. Paravertebral muscles are non-spasmodic. Facet tenderness along the lower lumbar areas of L3-S1 with bilateral Brittney's point tenderness. MUSCULOSKELETAL: Diffuse muscle atrophy noted bilaterally. Patient is sarcopenic, walks steadily with a wheeled walker. NEUROLOGICAL: Patient is cognitively intact. No radicular pain noted. Blunted bilateral patellar and Achilles reflexes. DIAGNOSIS: Chronic pain syndrome, lumbar degenerative disc disease, lower back pain, Parkinson's. PLAN: We will trial the patient on Celebrex 100 mg b.i.d. and she was instructed to take it with solid food. She is to continue with her Boost supplements and her vitamin regimen. We will see her in three months' time unless otherwise indicated. Patient agrees with this plan. The [facility] Consultation note 10-19-2021 Note Date & Type Note Facility 10-19-2021 Note CONSULTATION CONSULTATION DATE: 10/19/2021 HISTORY OF PRESENT ILLNESS: This is a 71-year-old female, who arrives to the clinic with her sister, in a wheelchair for chronic lower back pain, bilateral hip pain. The patient has a chronic pain level above 5. Today, her pain is 7/10. She describes it as achy and a pressure-like to her lower back and hips. She does have a history of Parkinson's and is taking Sinemet. The patient lives a very sedentary lifestyle and she is quite emaciated. She does state she walks to the bathroom and back. She does take Ensure supplements daily as well. 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 She does use heat to her lower back, which is beneficial. Medications include Trinway 5/325 b.i.d., clonidine 0.1 b.i.d., citalopram, Keppra and a Neupro patch. Patient does have a strong smell of fecal matter and urine today. She does have chronic incontinence. Patient's REVIEW OF SYSTEMS / PAST MEDICAL HISTORY / ALLERGIES and IMAGES have been reviewed and they are noted on the chart. PHYSICAL EXAM: VITAL SIGNS: Blood pressure is 149/98. Heart rate is 71. Temperature is 97.7. She is 5'3 and weighs 84 pounds. GENERAL APPEARANCE: Pleasant, cooperative, uncomfortable sitting in the chair, but no acute distress. FOCUSED EXAM: Upon sitting, back was examined and is tender along compression of the lower lumbar facets of L3, L4, L5 bilaterally. Paravertebral muscles are non-spasmodic but are taut. Brittney's point is tender bilaterally. Anterior compression of bilateral hip joints is tender. Range of motion is decreased in her bilateral lower legs at the hip joint and in adduction and abduction. NEUROLOGICALLY: Diffuse hypoesthesia to bilateral lower extremities. Blunted bilateral patellar and Achilles reflexes. IMPRESSION: Chronic pain syndrome, chronic lower back pain, bilateral hip osteoarthritis and lumbar degenerative disc disease. PLAN: We will refill the Trinway at 5/325 b.i.d. Patient is taking anti-inflammatory and curcumin supplements and she was encouraged to continue to do that. The patient did inquire about medical marijuana and I directed her to talk with her PCP regarding that as that could change our pain plan of approach for her. She was encouraged to continue with the multivitamin as well as Ensure daily. She will be brought back to the clinic at the end of December for re-evaluation. Patient and sister agree with plan of care and all questions answered. The [facility] Consultation note 07-20-2021 Note Date & Type Note Facility 07-20-2021 Note CONSULTATION CONSULTATION DATE: 07/20/2021 This is a 71-year-old female returning to the clinic for a 3-month follow-up for chronic low back pain, hip pain and right leg pain. She was last seen here in the office on 04/27/2021 when, at that time, she was started on a Neupro patch by her Parkinson's physician. We had continued to medically manage her as she is not interested in the further procedures. She did have a lower lumbar ablation bilaterally in 2019. The patient was complaining of leg cramps but that has improved with her Neupro patch. The patient does have worsening pain in the morning and other activities such as standing, walking, lying and transition positions aggravate her pain. The patient has severe muscle mass loss and is of small frame. This has been addressed with her in the past regarding Boost supplements. She does live with her sister who provides her meals for her and reports she gives her three full meals daily. The patient presents to the office in a wheelchair but the patient she does walk around the inside of her house. She denies any recent falls or new motor changes. Current medications include Trinway 5/325 b.i.d., clonidine, multivitamin, Sinemet, Keppra and citalopram. REVIEW OF SYSTEMS, PAST MEDICAL HISTORY, ALLERGIES AND IMAGES: Have been reviewed and noted in the chart. PHYSICAL EXAM: VITAL SIGNS: Blood pressure 104/71, heart rate is 81, temperature is 97.3. Height is 5'3, weighs 85 pounds. . GENERAL APPEARANCE: Pleasant, appropriate and alert. Sister present. FOCUSED EXAM: BACK: Range of motion is guarded in latera rotation and flexion-extension. Diffuse muscle mass loss throughout. Spinoaxial pain is reproduced with direct compression along the posterior elements of the lumbar facets L3, L4 and L5 bilaterally. Brittney's point mildly tender bilaterally. MUSCULOSKELETAL: Motor strength bilaterally is 3 out of 5 with diffuse muscle atrophy. The patient does use a rollator to walk in the house only. NEUROLOGICAL: Patchy hypesthesia noted along L4-5 to the right lower extremity. DIAGNOSIS: Lumbar spondylosis, lumbar degenerative disk, sarcopenia and Parkinson's. PLAN: We will continue to maintain her [place] 5/325 b.i.d. I have discussed with the patient and her sister at prior office visits regarding curcumin supplement named Enhansa that is produced by [facility]. That information was shared once again with the patient and the sister. Recommended doses were discussed. The patient and sister agreed with the plan of care and we will see her in three months' time unless otherwise indicated. [facility] Signed and Approved by: CINDI ELLIOTT . 07/27/2021 17:09:00 [facility] History general Narrative - Reported Note Date & Type Note Facility History general Narrative - Reported Type Medical History [facility] Medical History ANXIETY Medical History HTN Medical History gastritis Medical History hyperlipidemia Surgical History Pelvice Exam Hysterectomy [place] 2003 Surgical History Sinus Endoscopic-Dr. Valdez Surgical History lymphnode removal - abdomen Surgical History RIGHT HIP-NERVE BLOCK-DR DUQUE OCTOBER 2018 Hospitalization History See above Hospitalization History Seizure- inpatient for 3 weeks Apr 2014 Hospitalization History FALL WITH FRACTU RED HIP X2 AND COLLARBONE (RIGHT) [facility] JUNE 2013 Hospitalization History LOW SODIUM ADMIT ASCENCION TO [facility] APR 2017 [employer] Other Summary Purpose Family History No Family History Records FoundNo Family History Records FoundNo Family History Records Found Advance Directives No Advanced Directives Records FoundNo Advanced Directives Records FoundNo Advanced Directives Records Found Reason for Referral Reason *FU 03/06 Dr. Kyree barnes at [facility] - shoulder. Diagnosis 1 Pain, joint, shoulde r, left (M25.512) Referral Organization [facility] gabriela Referring Provider First Name Ashia Referring Provider Last Name Oren Referring Provider Specialty Family [facility] cine Referred Organization [facility] Referred Provider Andrea Acosta Referred Address [address], [place],[address] Referred Provider Specialty Orthopaedic Surgery Referral Priority Routine General Notes Shyla Cade 03:35:22 PM >received today, attachments made, notes locked, referral faxed Shyla Cade 02/25/2023 11:25:19 AM >faxed first attempt letter Clinical Notes p: [phone] f: [id number] Additional Source Comments INFORMATION SOURCE (unrecogn ized section and content) DATE CREATED AUTHOR 09/12/2017 [facility] DATE CREATED AUTHOR AUTHOR'S ORGANIZ ATION 05/15/2019 [facility] DATE CREATED AUTHOR AUTHOR'S ORGANIZ ATION 06/10/2022 [facility] REASON FOR VISIT (unrecogniz ed section and content) LEFY SHOULDER HURTS, SWOLLEN No Information FOR RECORDS PERTAINING TO PATIENTS WHO ARE OR HAVE BEEN ENROLLED IN A CHEMICAL DEPENDENCY/SUBSTANCEABUSE PROGRAM, SOME INFORMATION MAY BE OMITTED. This clinical summary was aggregated from multiple sources. Caution should be exercised in using it in the provision of clinical care. This summary normalizes information from multiple sources, and as a consequence, information in this document may materially change the coding, format and clinical context of patient data. In addition, data may be omitted in some cases. CLINICAL DECISIONS SHOULD BE BASED ON THE PRIMARY CLINICAL RECORDS. [facility]. provides no warranty or guarantee of the accuracy or completeness of information in this document.
[2023-03-13 09:02] LABS: Anion Gap 9.4; Calcium 8.8 mg/dL (8.5-10.1); Carbon Dioxide 31.1 mmol/L (21.0-32.0); Chloride 103 mmol/L (98-107); Estimated GFR (African America >60 (>=60); Estimated GFR (Non-African Ame >60 (>=60); Glucose 98 mg/dL (74-106); Magnesium 2.2 mg/dL (1.8-2.4); Potassium 4.5 mmol/L (3.5-5.1); Sodium 139 mmol/L (136-145); Thyroid Stimulating Hormone 1.287 uIU/mL (0.358-3.740)
== END 2023-03-13 00:47 | disposition home or self-care (01) ==
LOC: LAB 00:46
PROVIDERS: PCP Family Medicine; Visit Provider Nurse Practitioner Family
DX: G25.81 Restless legs syndrome (principal)
CPT/HCPCS: 36415; 80048; 82607; 82728; 82746; 83735; 84100; 84443

== ENCOUNTER 2023-06-27 14:06 | Outpatient (OUT) | payer MEDICARE, SELFPAY ==
--- NOTE | 2023-06-27 15:04 | P.CN_ITS ---
Consult Note: HPI Data of Consult Patient: known to practice within the last 3 years Requesting Physician: Tammy Worrell NP Primary Care Provider: Ashia Ga MD Consult Narrative Reason for consult: f/u Narrative: Martha Min a pleasant 72 year old female presents for evaluation and management of chronic low back pain. Patient rating pain today 5/10 increasing to 8/10 with activity and ADLs. Patient reports moderate improvement in pain and functional ability with current medication regimen. Patient denies side effects. cc:: CC: Tammy Worrell NP Review of Systems ROS Status of ROS 10 or more systems reviewed and unremark able except as noted in history and below Musculoskeletal Reports: back pain Meds Home Medications and Allergies Home Medications ?Medication ?Instructions ?Recorded ?Confirmed ?Type acetaminophen 500 mg capsule 1,000 mg PO TID PRN pain 11/28/22 12/19/22 History calcium polycarbophil 625 mg 1,250 mg PO DAILY 11/28/22 12/19/22 History tablet (Fiber (calcium polycarbophil)) carbidopa 25 mg-levodopa 100 mg 1 tab PO .5 times per day 11/28/22 12/03/22 History tablet carvedilol 25 mg tablet (Coreg) 25 mg PO BID 11/28/22 12/19/22 History citalopram 10 mg tablet 30 mg PO DAILY 11/28/22 12/19/22 History clonidine HCl 0.1 mg tablet 0.2 mg PO Q12H 11/28/22 12/19/22 History gluc atig-qqphntsczfou-pgaowfw ea mucous membrane 11/28/22 History mouthwash levetiracetam 500 mg tablet 500 mg PO Q12H 11/28/22 12/03/22 History lisinopril 40 mg tablet 40 mg PO DAILY 11/28/22 12/19/22 History rotigotine 1 mg/24 hour 1 patch transdermal DAILY 11/28/22 12/03/22 History transdermal 24 hour patch (Neupro) hydrocodone 5 mg-acetaminophen 325 1 tab PO TID PRN pain #90 tabs 12/19/22 Rx mg tablet hydrocodone 7.5 mg-acetaminophen 1 tab PO BID 12/19/22 12/19/22 History 325 mg tablet hydrocodone 7.5 mg-acetaminophen 1 tab PO BID PRN pain #60 tabs 10/11/23 Rx 325 mg tablet hydrocodone 7.5 mg-acetaminophen 1 tab PO TID PRN pain 02/20/23 02/20/23 History 325 mg tablet hydrocodone 7.5 mg-acetaminophen 1 tab PO TID PRN pain #75 tabs 02/20/23 Rx 325 mg tablet naloxone 4 mg/actuation nasal 4 mg intranasal Q3M PRN opioid 02/20/23 Rx spray (Narcan) overdose #2 ea hydrocodone 7.5 mg-acetaminophen 1 tab PO TID PRN pain #75 tabs 04/10/23 Rx 325 mg tablet hydrocodone 7.5 mg-acetaminophen 1 tab PO TID PRN pain #75 tabs 05/14/23 Rx 325 mg tablet Allergies Allergy/AdvReac Type Severity Reaction Status Date / Time Penicillins Allergy Verified 11/28/22 15:03 Exam Constitutional Documenting provider has reviewed patient's vital signs: yes Common normals: no apparent distress, oriented x3, healthy appearing, alert and well nourished Exam limitations: physical limitations General appearance: cooperative Nutritional appearance: thin HENMT Common normals: normocephalic, hearing grossly normal bilaterally and moist oral mucous membranes Head and scalp: normocephalic Eye Common normals: PERRL Pupil: PERRL Neck & C-Spine Common normals: full ROM General: normal visual inspection Chest Common normals: inspection of chest normal Respiratory Common normals: normal respiratory effort, no retractions and no use of accessory muscles Back & Pelvis Lumbar spine/lower back: ROM limited and pain with ROM Other: predominately axial low back pain without radiculopathy, bilateral facet loading positive Neuro Common normals: oriented x3, CN's II-XII intact bilaterally, moves all extremities, no focal motor deficits, no sensory deficits noted and deep tendon reflexes 2+ bilaterally Sensorium/orientation: alert Gait (neuro): antalgic, shuffling and assistive device used (wheelchair and walker at home) Motor exam: strength 5/5 throughout and no movement abnormalities noted Psych Common normals: mental status grossly normal, thought process normal, coopera tive, affect normal, speech normal and activity/motor behavior normal Speech: normal speech Thought process: normal thought process Results Additional Findings Additional findings: If on a controlled substance or opioids, I have checked an [place] report on this patient and there are no aberrancies noted in the prescribing history.??If on a controlled substance or opioid a drug screen was completed and reviewed within the last year, and if there has not been a drug screen completed we ordered one today to monitor higher risk, state monitored pain medication use. As part of providing excellent, safe, comprehensive care, the following was completed at our patient's visit: 1. A medication reconciliation and review to ensure accurate knowledge of current/active medications, including asking our patients to inform us about any [id number] medications or herbal remedies/nutritional supplements/alternative remedies. 2. A review to specifically ensure our patients have had annual screening for screening for depression, screening for tobacco use, and screening for unhealthy alcohol use. For concerning screenings had a discussion with the patient, provided patient education, and recommended follow-up with primary care provider when appropriate. If patient noted with a risk of falling, they received education on strength, gait, and balance training to prevent future risk of falling. Assessment and Plan Assessment and Plan (1) Chronic, continuous use of opioids: Assessment and Plan: I feel these medications are improving the patient's quality of life and allow them to tolerate activities of daily living as well as participate in recreational activity.? The patient does not report intolerable side effects. The patient is NOT opioid naive and non-pharmacologic and non-opioid treatment has failed to significantly relieve the patient's pain and improve functionality. The patient has a diagnosis that is related to a somatic or visceral pain etiology. ? ?? I reviewed with the patient the potential risks and side effects with the use of? opioid medications including but not limited to respiratory depression,? sedation, and even . I verified the patient has access to naloxone should? these effects occur. I advised the patient to avoid the use of any other? sedation substances including alcohol, THC, and benzodiazepines while? taking opioid medications due to the risk of compounding side effects and? detrimental outcomes. I reviewed the PRESS[employer]ER, pain treatment agreement, urine? drug screen, and opioid start talking forms. The patient was advised to let? their family know they had Naloxone in case they would need to administer? the medication.? ?? A drug screen was completed within the last year, and no aberrancies were noted regarding their use of controlled substances. The patient understands they are subject to the terms and conditions of the pain contract that they have signed. ? ?? I have checked an [place]AR[place] report on this patient today and there are no aberrancies noted in the prescribing history.? (2) Medication management: (3) Spondylosis of lumbar region without myelopathy or radiculopathy: (4) Lumbar spondylosis: (5) Low BMI: Assessment and Plan: continue follow up with pcp for weight encouraged meal replacements and increase calories Plan continue hydrocodone-oxycodone to 7.5mg-325mg BID-TID PRN #75 tablets per month. risks vs benefits discussed. sister engaged in care plan today naloxone discussed and prescribed f/u 2-3 months for medication management
== END 2023-06-27 14:07 | disposition home or self-care (01) ==
PROVIDERS: PCP Family Medicine; Visit Provider Nurse Practitioner
DX: M47.816 Spondylosis without myelopathy or radiculopathy, lumbar region (principal); Z79.899 Other long term (current) drug therapy
CPT/HCPCS: G0463

== ENCOUNTER 2023-09-02 14:07 | Outpatient (OUT) | payer MEDICARE, SELFPAY ==
--- OUTSIDE RECORDS SUMMARY | 2023-09-02 14:17 | XMS_ITS | CCD ---
Author Organization [facility] Care Team Providers Care Supervisor Customer Complaint Service Name Role Phone ASHIA LOTT Attending Unavaila ble LOTT, ASHIA VALERIO Primary Care Unavaila ble LOTT, DR ASHIA Dunham Primary Care Unavailable LOTT, DR ASHIA Dunham Admitting Unavailable LOTT, DR ASHIA Dunham Attending Unavailable LOTT, DR ASHIA Dunham Attending Unavailable LOTT, DR ASHIA Dunham Consulting Unavailable LOTT, DR ASHIA Dunham Primary Care Unavailable LOTT, DR ASHIA Dunham Admitting Unavailable SHAIKH Cleopatra GRAHAM Attending Unavailable LOTT, DR ASHIA Dunham Primary Care Unavailable [place], DR DIAMANTE Cruz Consulting Unavailable SHAIKH Cleopatra GRAHAM Admitting Unavailable LOTT, DR ASHIA Dunham Consulting Unavailable LOTT, DR ASHIA Dunham Consulting Unavailable LOTT, DR ASHIA Dunham Primary Care Unavailable LOTT, DR ASHIA Dunham Admitting Unavailable LOTT, DR ASHIA Dunham Attending Unavailable DUQUE ., DR LEROY Hamm Admitting Unavailable DUQUE ., DR LEROY Hamm Attending Unavailable ELLIOTT ., CINDI Consulting Unavailable LOTT, DR ASHAI Dunham Primary Care Unavailable DUQUE ., DR LEROY Hamm Attending Unavailable ELLIOTT ., CINDI Consulting Unavailable OREN, DR ASHIA Dunham Primary Care Unavailable DUNIA ., DR LEROY Hamm Admitting Unavailable DUQUE ., DR LEROY Hamm Attending Unavailable LOTT, DR ASHIA Dunham Primary Care Unavailable DUQUE ., DR LEROY Hamm Admitting Unavailable ELLIOTT ., CINDI Consulting Unavailable DUQUE ., DR LEROY Hamm Admitting Unavailable DUQUE ., DR LEROY Hamm Attending Unavailable LOTT, DR ASHIA Dunham Consulting Unavailable LOTT, DR ASHIA Dunham Primary Care Unavailable DUQUE ., DR LEROY Hamm Consulting Unavailable LAKSHMIPATHJeff, NARENDRANATH Attending Unava ilable OREN, DR ASHIA Dunham Primary Care Unavailable EVONMITR, NARENDRANATH Admitting Unava ilAshia Brock Unavailable Allergies Allergy Classification Reported Allergen(s) Allergy Type Date of Onset Reaction(s) Facility Adrenergic Agonists (1 source) Pseudoephedrine Drug Allergy 08-19-[address] [facility] house dust allergenic extract (1 source) house dust allergenic extract Drug Allergy 08-19-19 Unknown Reaction [facility] Penicillins (antibiotic) (1 source) Penicillins Drug Allergy 08-19-19 24 Unknown Reaction [facility] Pneumococcal vaccine (1 source) Pneumococcal vaccine Drug Allergy 08-19-19 24 Swelling [facility] (2 sources) Penicillins Drug allergy (disorder) 08-22-19 15 [facility] Repository (2 sources) House dust mite Propensity to adverse reactions Unknown [facility] Other (2 sources) Penicillin Drug Allergy rash [facility] Other (2 sources) Pseudoephedrine Drug Allergy [facility] Other (2 sources) Streptococcus pneumoniae type 1 [...] 9V capsular polysaccharide antigen Drug Allergy SWELLING [facility] Other (2 sources) Substance with penicillin structure and antibacterial mechanism of action (substance) Drug allergy Unknown [facility] Other (2 sources) Allergies Reconciled Propensity to adverse reactions 12-28-19 21 Unknown [facility] Other Medications Current Medications Medication Drug Class(es) Dates Sig (Normalized) Sig (Original) aluminum hydroxide 40 mg/ml / magnesium hydroxide 40 mg/ml / simethicone 4 mg/ml oral suspension (1 source) Start: 12-05-2018 take 1 [tsp_us] by mouth once daily Alum-Mag Hydroxide-Simeth (Antacid) 200-200-20 mg/5 mL Suspension Active 2 TSP PO Daily December 05, 2018 12:00am amLODIPine 5 mg oral tablet (3 sources) Dihydropyridine Calcium Channel Savage Start: 04-22-2023 take 1 tablet by mouth once daily Amlodipine Active 1 TAB PO Daily April 22, 2023 1:00am FreeTextSig: TAKE 1 TABLET BY MOUTH EVERY DAY; Note: Source Status: Taking; Refills: 4; Qty: 90 Tablet; Provider: Oren Ang ( ) take 1 tablet by mouth once neeru y amLODIPine Besylate 5 MG TAKE 1 TABLET BY MOUTH EVERY DAY for 90 Active calcium carbonate 1250 mg oral tablet (3 sources) Start: 12-05-2018 take 1 tablet by mouth once daily Calcium Carbonate (Calcium 500) 500 mg calcium (1,250 mg) Tablet Active 500 MG PO Daily December 05, 2018 12:00am take 1 tablet by mouth every twe lve hours Calcium 500 MG 1 tablet with meals Orally Twice a day Active carbidopa 25 mg / levodopa 100 mg oral tablet (8 sources) Aromatic Amino Acid Decarboxylation Inhibitor, Aromatic Amino Acid Start: 12-05-2018 Carbidopa-Levodopa A ctive 1 TAB PO 5 times per day December 05, 2018 12:00am patient takes at 0700, 1100, 1500, 1900, 2300 Start: 12-05-2018 End: 08-16-2023 Carbidopa-Levodopa Active 1. 5 TAB PO 0700,1100 December 05, 2018 12:00am Start: 12-05-2018 End: 12-05-2018 take 1 tablet by mouth once daily Carbidopa-Levodopa Discontinued 1.5 TAB PO 0700,1100 December 05, 2018 12:00am December 05, 2018 6:38pm 1 TAB 5X DAY. 7A 11A 3P 7P 11P take 1 tablet by maninder th every twenty-four hours Carbidopa-Levodopa ER 25-100 MG 1 tablet once a day Active carvedilol 25 mg oral tablet (3 sources) alpha-Adrenergic Savage, beta-Adrenergic Savage Start: 12-05-2018 take 25 mg by mouth twice daily Carvedilol Active 25 MG PO Twice daily December 05, 2018 12:00am citalopram 20 mg oral tablet (3 sources) Serotonin Reuptake Inhibitor Start: 12-05-2018 take 20 mg by mouth once daily Citalopram Active 20 MG PO Daily December 05, 2018 12:00am cloNIDine hydrochloride 0.1 mg oral tablet (4 sources) Central alpha-2 Adrenergic Agonist Start: 12-05-2018 End: 12-08-2018 take 0.1 mg by mouth twice daily Clonidine Hcl Active 0.1 MG PO Twice daily December 08, 2018 12:00am take 2 tablets by mouth twice da arden cloNIDine HCl 0.1 MG TAKE 2 TABLETS BY MOUTH TWICE A DAY for 90 Active dicyclomine hydrochloride 20 mg oral tablet (3 sources) Anticholinergic Start: 12-05-2018 take 20 mg by mouth four times daily Dicyclomine Active 20 MG PO Four times daily December 05, 2018 12:00am Dicyclomine HCl Not-Taking/PRN hydroCHLOROthiazide 25 mg oral tablet (3 sources) Thiazide Diuretic Start: 12-05-2018 take 25 mg by mouth once daily Hydrochlorothiazide Active 25 MG PO Daily December 05, 2018 12:00am levETIRAcetam 500 mg oral tablet (7 sources) Start: 07-06-2023 take 1 tablet by mouth twice daily Levetiracetam Active 0 .ROUTE .COMPLEX 180 July 06, 2023 9:49pm TAKE 1 TABLET BY MOUTH TWICE A DAY Start: 04-22-2023 End: 08-16-2023 take 5 mL by mouth every twelve hours Levetiracetam Discontinued 500 MG PO Every 12 hours April 22, 2023 1:00am August 16, 2023 1:57pm FreeTextSi ml Orally every 12 hrs; Note: Source Status: Not-Taking\PRN; Provider: Oren Ang ( ) Start: 12-05-2018 End: 07-06-2023 take 500 mg by mouth twice daily Levetiracetam Discontinued 500 MG PO Twice daily December 05, 2018 12:00am July 06, 2023 9:49pm take 5 mL by mouth e very twelve hours as needed Keppra 100 MG/ML 5 ml Orally every 12 hrs Not-Taking/PRN lisinopril 40 mg oral tablet (4 sources) Angiotensin Converting Enzyme Inhibitor Start: 12-05-2018 End: 08-16-2023 take 1 tablet by mouth once daily Lisinopril Active 40 MG PO Daily April 22, 2023 1:00am FreeTextSig: TAKE 1 TABLET BY MOUTH EVERY DAY; Note: Source Status: Start; Refills: 1; Qty: 90 Tablet; Provider: Oren Ang ( ) melatonin 5 mg oral capsule (3 sources) Start: 12-05-2018 take 5 mg by mouth at bedtime Melatonin Active 5 MG PO Bedtime December 05, 2018 12:00am take 1 tablet by maninder th every twenty-four hours Melatonin 5 MG 1 tablet at bedtime as needed with food Orally Once a day Active pantoprazole 40 mg delayed release oral tablet (3 sources) Proton Pump Inhibitor Start: 04-22-2023 take 1 tablet by mouth twice daily Pantoprazole Active 1 TAB PO Twice daily April 22, 2023 1:00am FreeTextSi tablet Orally BID; Note: Source Status: Not-Taking\PRN; Provider: Oren Ang ( ) take 1 tablet by maninder th every twelve hours Pantoprazole Sodium 40 MG 1 tablet Orall y BID Not-Taking/PRN rOPINIRole 1 mg oral tablet (1 source) Nonergot Dopamine Agonist Start: 08-19-2023 take 1 mg by mouth three times daily Ropinirole Active 1 MG PO Three times daily August 19, 2023 12:00am vitamin b12 0.5 mg oral tablet (3 sources) Vitamin B12 Start: 12-05-2018 take 1 tablet by mouth once daily Cyanocobalamin (Vitamin B-12) (Vitamin B-12) 500 mcg Tablet Active 500 MCG PO Daily December 05, 2018 12:00am Completed/Discontinued Medications Medication Drug Class(es) Dates Sig (Normalized) Sig (Original) acetaminophen 325 mg oral tablet (4 sources) Start: 04-22-2023 End: 08-16-2023 take 1 tablet by mouth every four hours as needed Acetaminophen (Tylenol) 325 mg tablet Discontinued 325 MG PO Every 4 hours April 22, 2023 1:00am August 16, 2023 1:56pm FreeTextSi tablet as needed Orally every 4 hrs; Note: Source Status: Taking; Provider: Oren Ang ( ) Start: 12-05-2018 take 1 tablet by maninder th every six hours Acetaminophen (Acetaminophen Extra Strength) 500 mg Tablet Active 500 MG PO Q6H December 05, 2018 12:00am take 1 tablet by maninder th every four hours Tylenol 325 MG 1 tablet as needed Orally every 4 hrs Active acetaminophen 325 mg / HYDROcodone bitartrate 7.5 mg oral tablet (7 sources) Opioid Agonist Start: 04-22-2023 End: 08-19-2023 take 1 tablet by mouth twice daily as needed Hydrocodone-Acetaminophen Discontinued 1 TAB PO Twice daily April 22, 2023 1:00am August 19, 2023 2:02pm FreeTextSi tablet as needed Orally bid prn; Note: Source Status: Start; Refills: 0; Provider: Oren Dunham Start: 03-12-2023 take 1 tablet by maninder th twice daily as needed HYDROcodone-Acetaminophen 7.5-325 MG 1 tablet as needed Orally bid prn for 30 days Mar, Active Start: 01-09-2022 HYDROcodone-Ac etaminophen 5-325 MG HYDROcodone-Acetaminophen( 5-325MG Oral two times daily, as needed ) Active -Hx Entry Oral two times daily, as needed for 0 Jan, Active Start: 12-05-2018 End: 08-19-2023 take 1 tablet by mouth every twelve hours Hydrocodone-Acetaminophen Discontinued 1 TAB PO Every 12 hours December 05, 2018 12:00am August 19, 2023 2:23pm take 1 tablet by maninder th every six hours HYDROcodone-Acetaminophen 5-325 MG 1 tab let as needed Orally every 6 hrs Not-Taking/PRN amitriptyline hydrochloride 25 mg oral tablet (2 sources) Tricyclic Antidepressant Start: 09-23-2017 take 1 tablet by mouth at bedtime Amitriptyline HCl 25 MG 1 tablet Orally AT BEDTIME for 30 day(s) Sep, Not-Taking/PRN Baclofen (2 sources) gamma-Aminobutyric Acid-ergic Agonist Baclofen Not-Taking/PRN Biotene Dry Mouth (2 sources) Biotene Dry Mout h Not-Taking/PRN bisacodyl 5 mg delayed release oral tablet (3 sources) Stimulant Laxative Start: 04-22-2023 End: 08-19-2023 take 1 tablet by mouth once daily as needed Bisacodyl (Dulcolax (Bisacodyl)) 5 mg tablet,delayed release (DR/EC) Discontinued 5 MG PO Daily April 22, 2023 1:00am August 19, 2023 1:59pm FreeTextSi tablet as needed Orally Once a day; Note: Source Status: Taking; Provider: Oren Ang ( ) take 1 tablet by maninder th every twenty-four hours Dulcolax 5 MG 1 tablet as needed Orally Once a day Active bismuth subsalicylate 35 mg/ml oral suspension (1 source) Bismuth Start: 12-05-2018 End: 04-22-2023 take 1 mL by mouth every hour Bismuth Subsalicylate (Pepto-Bismol Max St) 525 mg/15 mL Suspension Discontinued 30 ML PO Every hour December 05, 2018 12:00am April 22, 2023 3:35pm clonazePAM 0.5 mg disintegrating oral tablet (4 sources) Benzodiazepine Start: 04-22-2023 End: 08-16-2023 take 1 tablet by mouth once daily at bedtime Clonazepam Discontinued MG PO April 22, 2023 1:00am August 16, 2023 1:55pm FreeTextSi tablet on the tongue and allow to dissolve at bedtime Orally Once a day; Note: Source Status: Not-Taking\PRN; Provider: Oren Ang ( ) Start: 12-05-2018 End: 08-19-2023 take 0.5 mg by mouth once daily Clonazepam Discontinue d 0.5 MG PO Daily December 05, 2018 12:00am August 19, 2023 2:00pm take 1 tablet by maninder th every twenty-four hours clonazePAM 0.5 MG 1 tablet on the tongue and allow to dissolve at bedtime Orally Once a day Not-Taking/PRN docusate sodium 100 mg oral capsule (3 sources) Start: 12-05-2018 End: 08-19-2023 take 100 mg by mouth twice daily Docusate Sodium Discontinued 100 MG PO Twice daily December 05, 2018 12:00am August 19, 2023 2:01pm Colace Not-Takin g/PRN ferrous sulfate 325 mg oral tablet (3 sources) Start: 12-05-2018 End: 08-19-2023 take 1 tablet by mouth once daily Ferrous Sulfate (Iron) 325 mg (65 mg iron) Tablet Discontinued 325 MG PO Daily December 05, 2018 12:00am August 19, 2023 2:02pm hyoscyamine sulfate 0.125 mg sublingual tablet (2 sources) Start: 05-22-2017 take 1 tablet under the tongue three times daily as needed Hyoscyamine Sulfate SL 0.125 MG 1 tablet under the tongue and allow to dissolve as needed Sublingual TID PRN for 30 days May, Not-Taking/PRN Magnesium (3 sources) Start: 12-05-2018 End: 08-19-2023 take 500 mg by mouth once daily Magnesium Discontinued 500 MG PO Daily December 05, 2018 12:00am August 19, 2023 2:03pm take 2 capsules by m outh once daily at bedtime as needed Magnesium 500 MG 2 capsules at bedtime a s needed Orally Once a day Active meclizine hydrochloride 25 mg oral tablet (2 sources) Antiemetic Meclizine HCl 25 MG Orally EVERY 6 HRS PRN Not-Taking/PRN melatonin 5 mg / vitamin b6 1 mg oral tablet (1 source) Start: 04-22-19 End: 08-19-19 take 1 tablet by mouth once daily at bedtime Melatonin-Pyridoxine (Vit B6) Discontinued 1 TAB PO Daily at bedtime April 22, 2023 1:00am August 19, 2023 2:03pm FreeTextSi tablet at bedtime as needed with food Orally Once a day; Note: Source Status: Taking; Provider: Oren Ang ( ) naproxen sodium 220 mg oral tablet (4 sources) Nonsteroidal Anti-inflammatory Drug Start: 04-22-19 End: 08-19-19 take 1 tablet by mouth every twelve hours at mealtime as needed Naproxen Sodium Discontinued 220 MG PO Every 12 hours April 22, 2023 1:00am August 19, 2023 2:04pm FreeTextSi tablet with food or milk as needed Orally every 12 hrs; Note: Source Status: Taking; Provider: Oren Ang ( ) Start: 12-05-2018 End: 08-16-2023 take 1 capsule by mouth every eight hours Naproxen Sodium (Aleve) 220 mg Capsule Discontinued 220 MG PO Q8H December 05, 2018 12:00am August 16, 2023 1:55pm take 1 tablet by maninder th every twelve hours at mealtime as needed Aleve 220 MG 1 tablet with food or milk as needed Orally every 12 hrs Active prasterone 50 mg oral capsule (1 source) Start: 12-05-2018 End: 08-19-2023 take 1 capsule by mouth once daily Prasterone (Dhea) (Dhea) 50 mg Capsule Discontinued 50 MG PO Daily December 05, 2018 12:00am August 19, 2023 2:04pm Problems Active Problems Problem Classification Problem Date [...] (2 sources) Hyperlipidemia; Translations: [Hyperlipidemia, unspecified] Chronic Epilepsy; convulsions (3 sources) Seizure; Translations: [Unspecified convulsions] Onset: 09-12-2017 12-06-2018 Episodic Esophageal disorders (2 sources) Esophageal reflux finding; Translations: [Esophageal reflux] Onset: 09-12-2017 Chronic Essential hypertension (4 sources) Essential hypertension; Translations: [Essential (primary) hypertension] 12-05-2018 Chronic Fluid and electrolyte disorders (7 sources) Hypo-osmolality and hyponatremia; Translations: [Hypo-osmolality and or hyponatremia] Onset: 09-14-2021 12-06-2018 Episodic Fracture of upper limb (6 sources) Displaced fracture of base of unspecified metacarpal bone, initial encounter for closed fracture; Translations: [Closed fracture finger metacarpal neck ] 12-05-2018 Episodic Gastritis and duodenitis (4 sources) Atrophic [...] bacterial intestinal infections] Episodic Malaise and fatigue (10 sources) Other fatigue; Translations: [Asthenia] Onset: 11-14-2017 Episodic Mood disorders (2 sources) Depression; Translations: [Depression, unspecified] Chronic Nausea and vomiting (4 sources) Nausea and vomiting; Translations: [Nausea with vomiting, unspecified] 08-19-2023 Episodic Nutritional deficiencies (2 sources) Malnutrition of mild degree (Lepe: 75% to less than 90% of standard weight); Translations: [Mild protein-calorie malnutrition] Chronic Osteoarthritis (1 source) Bilateral primary osteoarthritis of hip; Translations: [BILATERAL PRIM OSTEOARTHRITIS HIP] Onset: 10-23-2021 Chronic Other aftercare (2 sources) Long-term current use of drug therapy; Translations: [Other nursing home (current) drug therapy] Episodic Other connective tissue [...] syndrome with constipation] Chronic Other gastrointestinal disorders (5 sources) Constipation; Translations: [Other constipation] 12-05-2018 Episodic Other injuries and conditions due to [...] Translations: [Low back pain] Onset: 12-26-2017 Episodic Superficial injury; contusion (1 source) Contusion of face; Translations: [Contusion of other part of head, initial encounter] 12-05-2018 Episodic Syncope (1 source) Syncope; Translations: [Syncope and collapse] 12-05-2018 Episodic Unclassified (1 source) Parkinson's disease; Translations: [Parkinson's disease] 12-06-2018 Chronic Unclassified (4 sources) LOW BACK PAIN, UNSPECIFIED; Translations: [LOW BACK PAIN, UNSPECIFIED] Onset: 10-23-2021 Past or Other Problems Problem Classification Problem Date Documented Da te Episodic/Chronic Other screening for suspected conditions (not mental [...] MG MAMM SCREEN PRETTY W CAD Patient: AMRTHA MERCHANT Exam Date: 09/19/2021 : 1950 Gender:F Ordering : DR ASHIA LOTT M.D. Admission #: [id number] Family : SHAIKH Ria GRAHAM . Order #: [id number] CLICK HERE TO VIEW EXAM RADIOLOGY REPORT PROCEDURE: MAMMOGRAM BILATERAL SCREENING DIGITAL WITH COMPUTER AIDED DETECTION COMPARISON: None. INDICATIONS: Screening mammography Calculator Name NCI Breast Cancer Risk Assessment Tool 5 Year Breast Cancer Risk Not Reported. Lifetime Breast Cancer Risk Not Reported. Personal Breast Cancer No Personal Ovarian Cancer No Treatments None Family Cancers None LOCATION: [facility] BREAST COMPOSITION: Extremely dense, which lowers the [...] MD on 09/19/2021 at 14:08 Normal [facility] CULTURE URINEon 09-14-2021 CULTURE URINE Culture Observations : LIGHT GROWTH OF MIXED GENITAL ADOLFO. NO POTENTIAL PATHOGENS SEEN. Normal [facility] Comment on above: Performed By: #### URCX #### [facility] [address] [place] [address] Dr. Ravi Hebert UA RANDOM W/MICROSCOPICon BACTERIA NONE SEEN Normal NONE SEEN [facility] Comment on above: Performed By: #### UAMIC #### [facility] [address] [place] [address] Dr. Ravi Hebert Bilirubin Ql (U) Negative Normal NEGATIVE [facility] Comment on above: Performed By: #### UAMIC #### [facility] [address] [place] [address] Dr. Ravi Hebert CAST NONE SEEN Normal NONE SEEN [facility] Comment on above: Performed By: #### UAMIC #### [facility] [address] [place] [address] Dr. Ravi Hebert Clarity (U) CLEAR Normal CLEAR [facility] Comment on above: Performed By: #### UAMIC #### [facility] [address] [place] [address] Dr. Ravi Hebert Color (U) LT. YELLOW Normal YELLOW [facility] Comment on above: Performed By: #### UAMIC #### [facility] [address] [place] [address] Dr. Ravi Hebert Crystals LM Nom (Urine sed) NONE SEEN Normal NONE SEEN [facility] Comment on above: Performed By: #### UAMIC #### [facility] [address] [place] [address] Dr. Ravi Hebert Epithelial cells LM Ql (Urine sed) FEW Abnormal NONE SEEN /RARE [facility] Comment on above: Performed By: #### UAMIC #### [facility] [address] [place] [address] Dr. Ravi Hebert Glucose Ql (U) Negative Normal NEGATIVE [facility] Comment on above: Performed By: #### UAMIC #### [facility] [address] [place] [address] Dr. Ravi Hebert Hemoglobin Ql (U) Negative Normal NEGATIVE [facility] Comment on above: Performed By: #### UAMIC #### [facility] [address] [place] [address] Dr. Ravi Hebert Ketones Ql (U) Negative Normal NEGATIVE [facility] Comment on above: Performed By: #### UAMIC #### [facility] [address] [place] [address] Dr. Ravi Hebert LEUKOCYTES Negative Normal NEGATIVE [facility] Comment on above: Performed By: #### UAMIC #### [facility] [address] [place] [address] Dr. Ravi Hebert MUCOUS NONE SEEN Normal NONE SEEN [facility] Comment on above: Performed By: #### UAMIC #### [facility] [address] [place] [address] Dr. Ravi Hebert Nitrite Ql (U) Negative Normal NEGATIVE [facility] Comment on above: Performed By: #### UAMIC #### [facility] [address] [place] [address] Dr. Ravi Hebert pH (U) 6.0 [pH] Normal 5-9 [facility] Comment on above: Performed By: #### UAMIC #### [facility] [address] [place] [address] Dr. Ravi Hebert RBC NONE SEEN Abnormal 0-2 [facility] Comment on above: Performed By: #### UAMIC #### [facility] [address] [place] [address] Dr. Ravi Hebert SPEC GRAVITY <=1.005 Abnormal 1.005-<=1.02 5 [facility] Comment on above: Performed By: #### UAMIC #### [facility] [address] [place] [address] Dr. Ravi Hebert UA PROTEIN Negative Normal NEGATIVE/ TRACE [facility] Comment on above: Performed By: #### UAMIC #### [facility] [address] [place] [address] Dr. Ravi Hebert Urobilinogen Qn (U) 0.2 {Naveen'U}/dL Normal 0.2 - 1.0 [facility] Comment on above: Performed By: #### UAMIC #### [facility] [address] [place] [address] Dr. Ravi Hebert WBC NONE SEEN Normal NONE SEEN [facility] Comment on above: Performed By: #### UAMIC #### [facility] [address] [place] [address] Dr. Ravi Hebert CBC AUTO DIFFon 09-08-2021 BASO # 0.0 103/ul Normal 0.0-0.1 [facility] Comment on above: Performed By: #### CBC #### [facility] [address] [place] [address] Dr. Ravi Hebert Basophils/100 WBC (Bld) 0.4 % Normal 0.2-2.0 [facility] Comment on above: Performed By: #### CBC #### [facility] [address] [place] [address] Dr. Ravi Hebert EO # 0.1 103/ul Normal 0.0-0.7 [facility] Comment on above: Performed By: #### CBC #### [facility] [address] [place] [address] Dr. Ravi Hebert Eosinophils/100 WBC (Bld) 0.8 % Critically low 0.9-7.0 [facility] Comment on above: Performed By: #### CBC #### [facility] [address] [place] [address] Dr. Ravi Hebert Erythrocyte distribution width (RBC) [Ratio] 11.8 % Normal 11.0-15.0 [facility] Comment on above: Performed By: #### CBC #### [facility] [address] [address] [address] Ravi Hebert Hematocrit (Bld) [Volume fraction] 32.8 % Critically low 36.0-48.0 [facility] Comment on above: Performed By: #### CBC #### [facility] [address] [address] [address] Ravi Hebert Hemoglobin (Bld) [Mass/Vol] 10.8 g/dL Critically low 12.0-16.0 [facility] Comment on above: Performed By: #### CBC #### [facility] [address] [place] [address] Dr. Ravi Hebert IG # 0.03 10e3/ul Normal 0.00-0.03 [facility] Comment on above: Performed By: #### CBC #### [facility] [address] [place] [address] Dr. Ravi Hebert IG % 0.4 % Normal 0.0-0.5 [facility] Comment on above: Performed By: #### CBC #### [facility] [address] [place] [address] Dr. Ravi Hebert LYMPH # 0.7 103/ul Critically low 1.2-3.8 [facility] Comment on above: Performed By: #### CBC #### [facility] [address] [place] [address] Dr. Ravi Hebert Lymphocytes/100 WBC (Bld) 9.8 % Critically low 20.5-60.0 [facility] Comment on above: Performed By: #### CBC #### [facility] [address] [place] [address] Dr. Ravi Hebert MANUAL DIFF REQ NO Normal [facility] Comment on above: Performed By: #### CBC #### [facility] [address] [place] [address] Dr. Ravi Hebert MCH (RBC) [Entitic mass] 32.8 pg Normal 26.7-34.0 [facility] Comment on above: Performed By: #### CBC #### [facility] [address] [place] [address] Dr. Ravi Hebert MCHC (RBC) [Mass/Vol] 32.9 g/dL Normal 29.9-35.2 [facility] Comment on above: Performed By: #### CBC #### [facility] [address] [place] [address] Dr. Ravi Hebert MCV (RBC) [Entitic vol] 99.7 fL Critically high 81.0-99.0 [facility] Comment on above: Performed By: #### CBC #### [facility] [address] [place] [address] Dr. Ravi Hebert MONO # 0.4 103/ul Normal 0.3-0.8 [facility] Comment on above: Performed By: #### CBC #### [facility] [address] [place] [address] Dr. Ravi Hebert Monocytes/100 WBC (Bld) 6.0 % Normal 1.7-12.0 [facility] Comment on above: Performed By: #### CBC #### [facility] [address] [place] [address] Dr. Ravi Hebert NEUT # 6.0 103/ul Normal 1.4-6.5 [facility] Comment on above: Performed By: #### CBC #### [facility] [address] [place] [address] Dr. Ravi Hebert Neutrophils/100 WBC (Bld) 82.6 % Critically high 43.0-75.0 [facility] Comment on above: Performed By: #### CBC #### [facility] [address] [place] [address] Dr. Ravi Hebert Platelet mean volume (Bld) [Entitic vol] 9.6 fL Normal 9.5-13.5 [facility] Comment on above: Performed By: #### CBC #### [facility] [address] [place] [address] Dr. Ravi Hebert PLT 223 103/ul Normal 150-450 [facility] Comment on above: Performed By: #### CBC #### [facility] [address] [place] [address] Dr. Ravi Hebert RBC 3.29 106/ul Critically low 4.20-5.40 [facility] Comment on above: Performed By: #### CBC #### [facility] [address] [place] [address] Dr. Ravi Hebert WBC 7.2 103/ul Normal 4.0-11.0 [facility] Comment on above: Performed By: #### CBC #### [facility] [address] [place] [address] Dr. Ravi Hebert PROF 14(COMP METB)on 022 Albumin [Mass/Vol] 3.8 g/dL Normal 3.4-5.0 [facility] Comment on above: Performed By: #### CMP, TSH #### [facility] [address] [place] [address] Dr. Ravi Hebert Albumin/Globulin [Mass ratio] 1.2 {ratio} Normal [facility] Comment on above: Performed By: #### CMP, TSH #### [facility] [address] [place] [address] Dr. Ravi Hebert ALP [Catalytic activity/Vol] 69 U/L Normal 46-116 [facility] Comment on above: Performed By: #### CMP, TSH #### [facility] [address] [place] [address] Dr. Ravi Hebert ALT [Catalytic activity/Vol] 10 U/L Critically low 14-59 [facility] Comment on above: Performed By: #### CMP, TSH #### [facility] [address] [place] [address] Dr. Ravi Hebert Anion gap [Moles/Vol] 10.7 mmol/L Normal [facility] Comment on above: Performed By: #### CMP, TSH #### [facility] [address] [place] [address] Dr. Ravi Hebert AST [Catalytic activity/Vol] 22 U/L Normal 15-37 [facility] Comment on above: Performed By: #### CMP, TSH #### [facility] [address] [place] [address] Dr. Ravi Hebert Bilirubin [Mass/Vol] 0.5 mg/dL Normal 0.2-1.0 [facility] Comment on above: Performed By: #### CMP, TSH #### [facility] [address] [place] [address] Dr. Ravi Hebert Calcium [Mass/Vol] 8.8 mg/dL Normal 8.5-10.1 [facility] Comment on above: Performed By: #### CMP, TSH #### [facility] [address] [address] [address] Ravi Hebert Chloride [Moles/Vol] 102 mmol/L Normal 98-107 [facility] Comment on above: Performed By: #### CMP, TSH #### [facility] [address] [place] [address] Dr. Ravi Hebert CO2 [Moles/Vol] 29.6 mmol/L Normal 21.0-32.0 [facility] Comment on above: Performed By: #### CMP, TSH #### [facility] [address] [place] [address] Dr. Ravi Hebert Creatinine [Mass/Vol] 0.90 mg/dL Normal 0.55-1.02 [facility] Comment on above: Performed By: #### CMP, TSH #### [facility] [address] [place] [address] Dr. Ravi Hebert EGFR-AF VENEZUELAN >60 Normal >=60 [facility] Comment on above: Performed By: #### CMP, TSH #### [facility] [address] [place] [address] Dr. Ravi Hebert EGFR-NON AF VENEZUELAN >60 Normal >=60 [facility] Comment on above: Performed By: #### CMP, TSH #### [facility] [address] [place] [address] Dr. Ravi Hebert Globulin (S) [Mass/Vol] 3.1 g/dL Normal [facility] Comment on above: Performed By: #### CMP, TSH #### [facility] [address] [place] [address] Dr. Ravi Hebert Glucose [Mass/Vol] 94 mg/dL Normal 74-106 [facility] Comment on above: Performed By: #### CMP, TSH #### [facility] [address] [address] [address] Ravi Hebert Potassium [Moles/Vol] 4.3 mmol/L Normal 3.5-5.1 [facility] Comment on above: Performed By: #### CMP, TSH #### [facility] [address] [address] [address] Ravi Hebert Protein [Mass/Vol] 6.9 g/dL Normal 6.4-8.2 [facility] Comment on above: Performed By: #### CMP, TSH #### [facility] [address] [address] [address] Ravi Hebert Sodium [Moles/Vol] 138 mmol/L Normal 136-145 [facility] Comment on above: Performed By: #### CMP, TSH #### [facility] [address] [address] [address] Ravi Hebert Urea nitrogen [Mass/Vol] 34.0 mg/dL Critically high 7.0-18.0 [facility] Comment on above: Performed By: #### CMP, TSH #### [facility] [address] [address] [address] Ravi Hebert Urea nitrogen/Creatin ine [Mass ratio] 37.8 mg/mg Normal [facility] Comment on above: Performed By: #### CMP, TSH #### [facility] [address] [address] [address] Ravi Hebert TSHon 09-08-2021 TSH 1.350 uIU/mL Normal 0.358-3.740 [facility] Comment on above: Performed By: #### CMP, TSH #### [facility] [address] [address] [address] Ravi Hebert PROGRESSon 06-25-2017 PROGRESS HNO ID: [id number] thor: Nicolas Dotson: (none)Author Type: PhysicianType: Progress NotesFiled: 06/25/2017 4:47 PMNote Text:Martha WhalenOB: 1950[facility]:Date last seen:PAST MEDICAL HISTORYDiagnosis Date- [...] 3350 (MIRALAX, GLYCOLAX) 17 gram/dose powderrizatriptan (MAXALT PERSONAL TRAINER) 10 mg disintegrating tabletNo current facility-administered medications [...] due to onychomycosis of toenail of left footThomas Roly Dominguez DPM Normal [facility] Vital Signs Date Time Vital Sign Value Performing Clinician Facility 08-19-2023 13:51-0400 Body height 162.56 cm [facility] 08-19-2023 13:51-0400 Body mass index (BMI) [Ratio] 14.6 kg/m2 [facility] 08-19-2023 13:51-0400 Body temperature 97.4 [degF] [facility] 08-19-2023 13:51-0400 Body weight 38.72 kg [facility] 08-19-2023 13:51-0400 Diastolic blood pressure 67 mm[Hg] [facility] 08-19-2023 13:51-0400 Heart rate 56 /min [facility] 08-19-2023 13:51-0400 Systolic blood pressure 134 mm[Hg] [facility] 02-15-2023 13:30-0500 Body height 162.56 cm Ashia Lott [facility] 02-15-2023 13:30-0500 Body mass index (BMI) [Ratio] 14.59 kg/m2 Ashia Lott [facility] 02-15-2023 13:30-0500 Body weight 38.56 kg Ashia Lott Other [facility] 02-15-2023 13:30-0500 Diastolic blood pressure 89 mm[Hg] Ashia Lott Other [facility] 02-15-2023 13:30-0500 Systolic blood pressure 148 mm[Hg] Ashia Lott Other [facility] Other Encounters Encounter Date Encounter Type Care Provider Facility Start: 08-19-2023 End: 08-19-2023 ambulatory [facility] Work Phone: Start: 08-19-2023 End: 08-19-2023 Patient encounter procedure [facility] Work Phone: Start: 03-12-2023 End: 03-12-2023 ambulatory Ashia Lott [facility] Start: 03-12-2023 Telephone encounter Ashia Lott [facility] Start: 02-15-2023 End: 02-15-2023 ambulatory Ashia Lott [facility] Start: 02-15-2023 Office outpatient visit 15 minutes Ashia Lott [facility] Start: 06-21-2022 ambulatory NARENDRANATH LAKSHMIPATHY Facility: Start: 04-24-2022 End: 04-25-[address] LEROY DUQUE . Facility:[facility] Start: 2022 End: 01-19-[address] LEROY DUQUE . Facility:[facility] Start: 01-09-2022 Adult health examination Ashia Lott Other [facility] Other Start: 10-19-2021 End: 10-20-[address] LEROY DUQUE . Facility:[facility] Start: 09-19-2021 End: 09-20-2021 ambulatory SHAIKH Cleopatra GRAHAM Facility:[facility] Start: 09-15-2021 End: 09-15-[address] ASHIA LOTT Facility:[facility] Start: 09-08-2021 End: 09-09-[address] ASHIA LOTT Facility:[facility] Start: 08-24-[address] ASHIA LOTT Facil ity:[facility] Start: 07-20-2021 End: 07-21-[address] LEROY DUQUE . Facility:[facility] Start: 05-15-2019 Patient encounter procedure ASHIA LOTT Facility:[facility] Procedures Date Procedure Procedure Detail Performing Clinician Screening for malign ant neoplasm of breast Ashia Lott Other Plan of Treatment Date Care Activity Detail Author Comprehensive metabo lic 2000 panel - Serum or Plasma [facility] enter [facility] Immunizations Immunization Date Immunization Notes Care Provider Fa cility 02-27-2022 COVID-19 mRNA Bivale nt Booster (Moderna) [facility] 01-09-2022 influenza virus vaccine, split virus (incl. purified surface antigen) Ashia Lott Other [facility] Other 01-09-2022 influenza virus vaccine, unspecified formulation [facility] 01-17-2021 COVID-19 mRNA-1273 (Moderna) [facility] 06-01-2020 COVID-19 Vaccine Moderna - Documentation Purposes Only Ashia Lott Other [facility] 05-05-2020 COVID-19 Vaccine Moderna - Documentation Purposes Only Ashia Lott Other [facility] 01-07-2020 influenza virus vaccine, split virus (incl. purified surface antigen) Ashia Lott [facility] 01-07-2020 influenza virus vaccine, unspecified formulation [facility] 01-13-2019 influenza virus vaccine, split virus (incl. purified surface antigen) Ashia Lott [facility] 01-13-2019 influenza virus vaccine, unspecified formulation [facility] 12-05-2018 tetanus and diphther ia toxoids, adsorbed, preservative free, for adult use (5 Lf of tetanus toxoid and 2 Lf of diphtheria toxoid) [facility] 12-05-2018 tetanus toxoid, reduced diphtheria toxoid, and acellular pertussis vaccine, adsorbed [facility] 12-26-2017 influenza virus vaccine, split virus (incl. purified surface antigen) Ashia Lott Other [facility] Other 12-26-2017 influenza virus vaccine, unspecified formulation [facility] NEGATED: Highlighted row has not occurred!12-27-2020 influenza virus vaccine, split virus (incl. purified surface antigen) Ashia Lott Other [facility] Other Payers Date Payer Category Payer Medicare [id number] 1961 Self-pay [id number] 1961 Unknown [id number] 1950 Unknown [id number] 2.16.84 [id number] 1950 Unknown [id number] 2.16.84 [id number] 1950 Unknown [id number] 2.16.84 [id number] 1950 Unknown [id number] 2.16.84 [id number] 1948 Unknown [id number] 2.16.84 [id number] 1948 Unknown [id number] 2.16.84 [id number] 1948 Unknown [id number] 2.16.84 [id number] 1950 Unknown [id number] 2.16.84 [id number] 1950 Unknown [id number] 2.16.84 [id number] Self-pay Self Pay [id number] Social History Date Type Detail Facility Unknown if ever smoked [facility] Other Sex Assigned At Sex Assigned At Bir [facility] Other Start: 12-06-2018 Tobacco smoking status DEIS Never smoked tobacco (finding) [facility] Start: 1950 Sex Assigned At Female F [facility] Evaluation note 03-12-2023 Note Date & Type Note Facility 03-12-2023 Evaluation note Encounter Date Diagnosis Assessment Notes Mar, Lumbar degenerative disc disease (ICD-10 - M51.36) [facility] Evaluation note 02-15-2023 Note Date & Type Note Facility 02-15-2023 Evaluation note Encounter Date Diagnosis Assessment Notes Feb, Pain, joint, shoulder, left (ICD-10 - M25.512) Agrees to ortho referral Requests Dr. Acosta [facility] Other Consultation note 04-24-2022 Note Date & [...] the patient takes citalopram 30 mg daily, Cameron 5/325 b.i.d., clonidine 0.1 mg b.i.d. Celebrex [...] atrophy. PLAN: We will refill the patient's Cameron 5/325 b.i.d. X-ray of her lumbar spine and pelvis has been ordered. The patient also has been given a prescription for Ensure HN and/or Boost HN two per day. Education was done with regards to possibly adding glucosamine chondroitin sulfate to improve the discomfort in her hips. The patient and her daughter understand and would like to proceed. CC: Ashia Lott M.D. [facility] Consultation note 2022 Note Date & Type Note Facility 2022 Note CONSULTATION CONSULTATION DATE: 2022 HISTORY OF PRESENT ILLNESS: This is a 72-year-old female accompanied by her sister to the clinic for a three month follow up for her chronic lower back pain and hip pain. Last procedure the patient had was radiofrequency ablation of her lumbar region in 2018. She is managed medically at this time for pain with Cameron 5/325 b.i.d. Other medications include citalopram, clonidine, [...] indicated. Patient agrees with this plan. [facility] Consultation note 10-19-2021 Note Date & Type [...] Ensure supplements daily as well. Standing, walking, dry man hours and physical activity aggravate her pain. She does use heat to her lower back, which is beneficial. Medications include Cameron 5/325 b.i.d., clonidine 0.1 b.i.d., citalopram, Keppra [...] disc disease. PLAN: We will refill the Cameron at 5/325 b.i.d. Patient is taking anti-inflammatory [...] of care and all questions answered. [facility] Consultation note 07-20-2021 Note Date & Type [...] or new motor changes. Current medications include Cameron 5/325 b.i.d., clonidine, multivitamin, Sinemet, Keppra and [...] PLAN: We will continue to maintain her Cameron 5/325 b.i.d. I have discussed with the patient and her sister at prior office visits regarding curcumin supplement named Enhansa that is produced by [facility]. That information was shared once again with the patient and the sister. Recommended doses were discussed. The patient and sister agreed with the plan of care and we will see her in three months' time unless otherwise indicated. [facility] Signed and Approved by: CINDI ELLIOTT . 07/27/2021 17:09:00 [facility] Evaluation note Note Date & Type Note Facility Evaluation note Diagnosis Onset Date Fatigue acute Hypertension acute Hypokalemia acute Hyponatremia acute Nausea acute [facility] Work Phone: History general Narrative - Reported Note Date & Type Note Facility History general Narrative - Reported Type Medical History [facility] Medical History ANXIETY Medical History HTN Medical History gastritis Medical History hyperlipidemia Surgical History Pelvice Exam Hysterectomy Vasquez 2003 Surgical History Sinus Endoscopic-Dr. Valdez Surgical History lymphnode removal - abdomen Surgical History RIGHT HIP-NERVE BLOCK-DR DUQUE OCTOBER 2018 Hospitalization History See above Hospitalization History Seizure- inpatient for 3 weeks Apr 2014 Hospitalization History FALL WITH FRACTU RED HIP X2 AND COLLARBONE (RIGHT) [facility] JUNE 2013 Hospitalization History LOW SODIUM ADMIT ASCENCION TO [facility] APR 2017 [facility] Other Summary Purpose Family History Relationship Condition Age at Onset Recorded Date/T vern father Unknown grandparent Unknown Not Specified Hypertension Unknown Unknown sister Malignant neoplasm Unknown Advance Directives Advance Directive Response Recorded Date/ Time Advance Directives No June 19, 2 018 7:46am Reason for Referral Reason *FU 03/06 Dr. Kyree barnes at [place] - shoulder. Diagnosis 1 Pain, joint, shoulde r, left (M25.512) Referral Organization [facility] gabriela Referring Provider First Name Ashia Referring Provider Last Name Oren Referring Provider Specialty Family [facility] Referred Organization [facility] Referred Provider Andrea Acosta Referred Address [address],[address] Referred Provider Specialty Orthopaedic Surgery Referral Priority Routine General Notes RohitShyla santana 03:35:22 PM >received today, attachments made, notes locked, referral faxed Shyla Cade 02/25/2023 11:25:19 AM >faxed first attempt letter Clinical Notes p: [phone] f: [id number] Chief Complaint and Reason for Visit Chief Complaint chills, nausea Reason for Visit Fatigue Hypertension Hypokalemia Hyponatremia Nausea Additional Source Comments INFORMATION SOURCE (unrecogn ized section and content) DATE CREATED AUTHOR 09/12/2017 [facility] DATE CREATED AUTHOR AUTHOR'S ORGANIZ ATION 05/15/2019 [facility] DATE CREATED AUTHOR AUTHOR'S ORGANIZ ATION 06/10/2022 [facility] REASON FOR VISIT (unrecogniz ed section and content) LEFY SHOULDER HURTS, SWOLLEN No Information Care Teams (unrecognized sec tion and content) Team Status: Active Member Role Status Dates Ashia Lott MD Primary Care Provider Active Team Status: Inactive Member Role Status Dates Ashia Lott MD Primary Care Provide r, Attending Provider Active Start: August 19, 2023 End: August 19, 2023 Goals (unrecognized section and content) Goals may be documented in a n alternate section FOR RECORDS PERTAINING TO PATIENTS WHO ARE [...] BE BASED ON THE PRIMARY CLINICAL RECORDS. [employer] provides no warranty or guarantee of the accuracy or completeness of information in this document.
[2023-09-02 14:50] LABS: Basophils Percent Auto 0.3 % (0.2-2.0); Eosinophils Absolute Auto 0.1 10^3/uL (0.0-0.7); Eosinophils Percent Auto 1.8 % (0.9-7.0); Hematocrit 31.5 % (36.0-48.0); Hemoglobin 10.4 g/dL (12.0-16.0); Immature Granulocytes Abs Auto 0.01 10^3/uL (0.00-0.03); Immature Granulocytes Pct Auto 0.1 % (0.0-0.5); Lymphocytes Absolute Auto 0.9 10^3/uL (1.2-3.8); Lymphocytes Percent Auto 13.1 % (20.5-60.0); Mean Corpuscular Hemoglobin 31.8 pg (26.7-34.0); Mean Corpuscular Volume 96.3 fL (81.0-99.0); Mean Platelet Volume 9.4 fL (9.5-13.5); Monocytes Absolute Auto 0.6 10^3/uL (0.3-0.8); Monocytes Percent Auto 8.2 % (1.7-12.0); Neutrophils Absolute Auto 5.2 10^3/uL (1.4-6.5); Neutrophils Percent Auto 76.5 % (43.0-75.0); Platelet Count 235 10^3/uL (150-450); Red Blood Count 3.27 10^6/uL (4.20-5.40); White Blood Count 6.7 10^3/uL (4.0-11.0)
[2023-09-02 15:21] LABS: Alanine Aminotransferase 7 U/L (14-59); Albumin Level 3.3 g/dL (3.4-5.0); Alkaline Phosphatase 87 U/L (46-116); Anion Gap 11.8; Aspartate Amino Transferase 16 U/L (15-37); Bilirubin Total 0.5 mg/dL (0.2-1.0); Carbon Dioxide 29.2 mmol/L (21.0-32.0); Chloride 102 mmol/L (98-107); Estimated GFR (African America >60 (>=60); Estimated GFR (Non-African Ame 60 (>=60); Globulin 3.3 g/dL; Glucose 99 mg/dL (74-106); Sodium 138 mmol/L (136-145); TSH W/ REFLEX FT4 1.862 uIU/mL (0.358-3.740); Total Protein 6.6 g/dL (6.4-8.2)
== END 2023-09-02 14:08 | disposition home or self-care (01) ==
PROVIDERS: PCP Family Medicine; Visit Provider Family Medicine
DX: R53.83 Other fatigue (principal); R11.0 Nausea; E87.6 Hypokalemia; I10 Essential (primary) hypertension; E87.1 Hypo-osmolality and hyponatremia
CPT/HCPCS: 36415; 80053; 84443; 85025

== ENCOUNTER 2023-09-19 13:04 | Outpatient (OUT) | payer MEDICARE, SELFPAY ==
--- NOTE | 2023-09-19 13:24 | PM.CN ---
Consult Note: HPI Data of Consult Patient: known to practice within the last 3 years Requesting Physician: Tammy Worrell NP Primary Care Provider: Ashia Ga MD Consult Narrative Reason for consult: f/u Narrative: Martha Min a pleasant 72 year old female presents for evaluation and management of chronic low back pain. Patient rating pain today 7/10 increasing to 8/10 with activity and ADLs. Patient reports moderate improvement in pain and functional ability with current medication regimen. Patient denies side effects. cc:: CC: Tammy Worrell NP Review of Systems ROS Status of ROS 10 or more systems reviewed and unremarkable except as noted in history and below Musculoskeletal Reports: back pain Meds Home Medications and Allergies Home Medications ?Medication ?Instructions ?Recorded ?Confirmed ?Type acetaminophen 500 mg capsule 1,000 mg PO TID PRN pain 11/28/22 12/19/22 History calcium polycarbophil 625 mg 1,250 mg PO DAILY 11/28/22 12/19/22 History tablet (Fiber (calcium polycarbophil)) carbidopa 25 mg-levodopa 100 mg 1 tab PO .5 times per day 11/28/22 12/03/22 History tablet carvedilol 25 mg tablet (Coreg) 25 mg PO BID 11/28/22 12/19/22 History citalopram 10 mg tablet 30 mg PO DAILY 11/28/22 12/19/22 History clonidine HCl 0.1 mg tablet 0.2 mg PO Q12H 11/28/22 12/19/22 History gluc mbde-kqhhpqbcyzib-jixayxp ea mucous membrane 11/28/22 History mouthwash levetiracetam 500 mg tablet 500 mg PO Q12H 11/28/22 12/03/22 History lisinopril 40 mg tablet 40 mg PO DAILY 11/28/22 12/19/22 History rotigotine 1 mg/24 hour 1 patch transdermal DAILY 11/28/22 12/03/22 History transdermal 24 hour patch (Neupro) hydrocodone 5 mg-acetaminophen 325 1 tab PO TID PRN pain #90 tabs 12/19/22 Rx mg tablet hydrocodone 7.5 mg-acetaminophen 1 tab PO TID PRN pain 02/20/23 02/20/23 History 325 mg tablet naloxone 4 mg/actuation nasal 4 mg intranasal Q3M PRN opioid 02/20/23 Rx spray (Narcan) overdose #2 ea hydrocodone 7.5 mg-acetaminophen 1 tab PO TID PRN pain #75 tabs 06/27/23 Rx 325 mg tablet hydrocodone 7.5 mg-acetaminophen 1 tab PO TID PRN pain #75 tabs 07/19/23 Rx 325 mg tablet hydrocodone 7.5 mg-acetaminophen 1 tab PO TID PRN pain #75 tabs 08/28/23 Rx 325 mg tablet Allergies Allergy/AdvReac Type Severity Reaction Status Date / Time Penicillins Allergy Verified 11/28/22 15:03 Exam Constitutional Documenting provider has reviewed patient's vital signs: yes Common normals: no apparent distress, oriented x3, healthy appearing, alert and well nourished Exam limitations: physical limitations General appearance: cooperative Nutritional appearance: thin HENMT Common normals: normocephalic, hearing grossly normal bilaterally and moist oral mucous membranes Head and scalp: normocephalic Eye Common normals: PERRL Pupil: PERRL Neck & C-Spine Common normals: full ROM General: normal visual inspection Chest Common normals: inspection of chest normal Respiratory Common normals: normal respiratory effort, no retractions and no use of accessory muscles Back & Pelvis Lumbar spine/lower back: ROM limited and pain with ROM Other: predominately axial low back pain without radiculopathy, bilateral facet loading positive strength 4/5 in BLE intermittent heaviness/weakness Extremity Common normals: full ROM Neuro Common normals: oriented x3, CN's II-XII intact bilaterally, moves all extremities, no sensory deficits noted and deep tendon reflexes 2+ bilaterally Sensorium/orientation: alert Gait (neuro): antalgic, shuffling and assistive device used (wheelchair and walker at home) Motor exam: strength abnormal and movement abnormality noted Psych Common normals: mental status grossly normal, thought process normal, cooperative, affect normal, speech normal and activity/motor behavior normal Speech: normal speech Thought process: normal thought process Results Additional Findings Additional findings: If on a controlled substance or opioids, I have checked an [place] report on this patient and there are no aberrancies noted in the prescribing history.??If on a controlled substance or opioid a drug screen was completed and reviewed within the last year, and if there has not been a drug screen completed we ordered one today to monitor higher risk, state monitored pain medication use. As part of providing excellent, safe, comprehensive care, the following was completed at our patient's visit: 1. A medication reconciliation and review to ensure accurate knowledge of current/active medications, including asking our patients to inform us about any mexs-fny-rqodtfj medications or herbal remedies/nutritional supplements/alternative remedies. 2. A review to specifically ensure our patients have had annual screening for screening for depression, screening for tobacco use, and screening for unhealthy alcohol use. For concerning screenings had a discussion with the patient, provided patient education, and recommended follow-up with primary care provider when appropriate. If patient noted with a risk of falling, they received education on strength, gait, and balance training to prevent future risk of falling. Assessment and Plan Assessment and Plan (1) Chronic, continuous use of opioids: Assessment and Plan: I feel these medications are improving the patient's quality of life and allow them to tolerate activities of daily living as well as participate in recreational activity.? The patient does not report intolerable side effects. The patient is NOT opioid naive and non-pharmacologic and non-opioid treatment has failed to significantly relieve the patient's pain and improve functionality. The patient has a diagnosis that is related to a somatic or visceral pain etiology. ? ?? I reviewed with the patient the potential risks and side effects with the use of? opioid medications including but not limited to respiratory depression,? sedation, and even . I verified the patient has access to naloxone should? these effects occur. I advised the patient to avoid the use of any other? sedation substances including alcohol, THC, and benzodiazepines while? taking opioid medications due to the risk of compounding side effects and? detrimental outcomes. I reviewed the BIOPHYSICS PROFESSOR, pain treatment agreement, urine? drug screen, and opioid start talking forms. The patient was advised to let? their family know they had Naloxone in case they would need to administer? the medication.? ?? A drug screen was completed within the last year, and no aberrancies were noted regarding their use of controlled substances. The patient understands they are subject to the terms and conditions of the pain contract that they have signed. ? ?? I have checked an [place]AR[place] report on this patient today and there are no aberrancies noted in the prescribing history.? (2) Medication management: (3) Lumbar spondylosis: (4) Low BMI: Assessment and Plan: continue follow up with pcp for weight encouraged meal replacements and increase calories (5) Lumbar stenosis with neurogenic claudication: Plan continue hydrocodone-oxycodone to 7.5mg-325mg BID-TID PRN #75 tablets per month. risks vs benefits discussed. sister engaged in care plan today naloxone discussed and prescribed declining additional intervention therapy f/u 2-3 months for medication management
== END 2023-09-19 13:05 | disposition home or self-care (01) ==
LOC: PM 13:04
PROVIDERS: PCP Family Medicine; Visit Provider Nurse Practitioner
DX: M47.816 Spondylosis without myelopathy or radiculopathy, lumbar region (principal); M48.062 Spinal stenosis, lumbar region with neurogenic claudication; Z79.899 Other long term (current) drug therapy
CPT/HCPCS: G0463

== ENCOUNTER 2023-12-18 13:34 | Outpatient (OUT) | payer MEDICARE, SELFPAY ==
--- NOTE | 2023-12-18 13:49 | PM.CN ---
Consult Note: HPI Data of Consult Patient: known to practice within the last 3 years Requesting Physician: Tammy Worrell NP Primary Care Provider: Ashia Ga MD Consult Narrative Reason for consult: f/u Narrative: Martha Min a pleasant 72 year old female presents for evaluation and management of chronic low back pain. Patient rating pain today 5/10 increasing to 8/10 with activity and ADLs. Patient reports moderate improvement in pain and functional ability with current medication regimen. Patient denies side effects. Continues to f/u with [facility] for parkinsons. noticing increased pain in left leg, pain aching. pain increasing with sitting and weather changes, improved with lying and heat. cc:: CC: Tammy Worrell NP Review of Systems ROS Status of ROS 10 or more systems reviewed and unremarkable except as noted in history and below Musculoskeletal Reports: back pain Meds Home Medications and Allergies Home Medications ?Medication ?Instructions ?Recorded ?Confirmed ?Type acetaminophen 500 mg capsule 1,000 mg PO TID PRN pain 11/28/22 12/19/22 History calcium polycarbophil 625 mg 1,250 mg PO DAILY 11/28/22 12/19/22 History tablet (Fiber (calcium polycarbophil)) carbidopa 25 mg-levodopa 100 mg 1 tab PO .5 times per day 11/28/22 12/03/22 History tablet carvedilol 25 mg tablet (Coreg) 25 mg PO BID 11/28/22 12/19/22 History citalopram 10 mg tablet 30 mg PO DAILY 11/28/22 12/19/22 History clonidine HCl 0.1 mg tablet 0.2 mg PO Q12H 11/28/22 12/19/22 History gluc gtyk-rrvmrzshzhzc-jwtrnqs ea mucous membrane 11/28/22 History mouthwash levetiracetam 500 mg tablet 500 mg PO Q12H 11/28/22 12/03/22 History lisinopril 40 mg tablet 40 mg PO DAILY 11/28/22 12/19/22 History rotigotine 1 mg/24 hour 1 patch transdermal DAILY 11/28/22 12/03/22 History transdermal 24 hour patch (Neupro) hydrocodone 5 mg-acetaminophen 325 1 tab PO TID PRN pain #90 tabs 12/19/22 Rx mg tablet hydrocodone 7.5 mg-acetaminophen 1 tab PO TID PRN pain 02/20/23 02/20/23 History 325 mg tablet naloxone 4 mg/actuation nasal 4 mg intranasal Q3M PRN opioid 02/20/23 Rx spray (Narcan) overdose #2 ea hydrocodone 7.5 mg-acetaminophen 1 tab PO TID PRN pain #75 tabs 06/27/23 Rx 325 mg tablet hydrocodone 7.5 mg-acetaminophen 1 tab PO TID PRN pain #75 tabs 07/19/23 Rx 325 mg tablet hydrocodone 7.5 mg-acetaminophen 1 tab PO TID PRN pain #75 tabs 08/28/23 Rx 325 mg tablet hydrocodone 7.5 mg-acetaminophen See Rx Instructions .Route 10/23/23 Rx 325 mg tablet .COMPLEX PRN pain #75 tabs hydrocodone 7.5 mg-acetaminophen See Rx Instructions .Route 11/21/23 Rx 325 mg tablet .COMPLEX PRN pain #75 tabs Allergies Allergy/AdvReac Type Severity Reaction Status Date / Time Penicillins Allergy Verified 11/28/22 15:03 Exam Constitutional Documenting provider has reviewed patient's vital signs: yes Common normals: no apparent distress, oriented x3, healthy appearing, alert and well nourished Exam limitations: physical limitations General appearance: cooperative Nutritional appearance: thin HENMT Common normals: normocephalic, hearing grossly normal bilaterally and moist oral mucous membranes Head and scalp: normocephalic Eye Common normals: PERRL Pupil: PERRL Neck & C-Spine Common normals: full ROM General: normal visual inspection Chest Common normals: inspection of chest normal Respiratory Common normals: normal respiratory effort, no retractions and no use of accessory muscles Back & Pelvis Lumbar spine/lower back: ROM limited and pain with ROM Other: predominately axial low back pain without radiculopathy, bilateral facet loading positive strength 4/5 in BLE intermittent heaviness/weakness Extremity Common normals: full ROM Neuro Common normals: oriented x3, CN's II-XII intact bilaterally, moves all extremities, no focal motor deficits, no sensory deficits noted and deep tendon reflexes 2+ bilaterally Sensorium/orientation: alert Gait (neuro): antalgic, shuffling and assistive device used (wheelchair and walker at home) Motor exam: strength 5/5 throughout and no movement abnormalities noted Psych Common normals: mental status grossly normal, thought process normal, cooperative, affect normal, speech normal and activity/motor behavior normal Speech: normal speech Thought process: normal thought process Results Additional Findings Additional findings: If on a controlled substance or opioids, I have checked an [place] report on this patient and there are no aberrancies noted in the prescribing history.??If on a controlled substance or opioid a drug screen was completed and reviewed within the last year, and if there has not been a drug screen completed we ordered one today to monitor higher risk, state monitored pain medication use. As part of providing excellent, safe, comprehensive care, the following was completed at our patient's visit: 1. A medication reconciliation and review to ensure accurate knowledge of current/active medications, including asking our patients to inform us about any wvnk-fmd-zzvdbsh medications or herbal remedies/nutritional supplements/alternative remedies. 2. A review to specifically ensure our patients have had annual screening for screening for depression, screening for tobacco use, and screening for unhealthy alcohol use. For concerning screenings had a discussion with the patient, provided patient education, and recommended follow-up with primary care provider when appropriate. If patient noted with a risk of falling, they received education on strength, gait, and balance training to prevent future risk of falling. Assessment and Plan Assessment and Plan (1) Chronic, continuous use of opioids: Assessment and Plan: I feel these medications are improving the patient's quality of life and allow them to tolerate activities of daily living as well as participate in recreational activity.? The patient does not report intolerable side effects. The patient is NOT opioid naive and non-pharmacologic and non-opioid treatment has failed to significantly relieve the patient's pain and improve functionality. The patient has a diagnosis that is related to a somatic or visceral pain etiology. ? ?? I reviewed with the patient the potential risks and side effects with the use of? opioid medications including but not limited to respiratory depression,? sedation, and even . Within the last 12 months I have verified the patient has access to naloxone should? these effects occur. The patient was advised to let? their family know they had Naloxone in case they would need to administer? the medication. I advised the patient to avoid the use of any other? sedation substances including alcohol, THC, and benzodiazepines while? taking opioid medications due to the risk of compounding side effects and? detrimental outcomes. within the last 12 months I have reviewed the FINANCIAL INVESTMENT ADVISER, pain treatment agreement and urine drug screen.? ?? A drug screen was completed within the last year, and no aberrancies were noted regarding their use of controlled substances. The patient understands they are subject to the terms and conditions of the pain contract that they have signed. ? ?? I have checked an [place] report on this patient today and there are no aberrancies noted in the prescribing history.? (2) Medication management: (3) Lumbar spondylosis: (4) Low BMI: Assessment and Plan: continue follow up with pcp for weight encouraged meal replacements and increase calories (5) Lumbar stenosis with neurogenic claudication: Plan continue hydrocodone-oxycodone to 7.5mg-325mg BID-TID PRN #75 tablets per month. risks vs benefits discussed. sister engaged in care plan today naloxone discussed and prescribed within the last 12 months declining additional intervention therapy f/u 3 months for medication management, sooner if needed
--- OUTSIDE RECORDS SUMMARY | 2023-12-18 13:56 | XMS_ITS | CCD ---
Author Organization [facility] Care Team Providers Care Spa Manager/Esthetician Name Role Phone ASHIA LOTT Attending Unavaila [...] LOTT, DR ASHIA Dunham Primary Care Unavailable [place], DR DIAMANTE Cruz Consulting Unavailable SHAIKH Cleopatra GRAHAM Admitting Unavailable LOTT, DR ASHIA Dunham Consulting Unavailable LOTT, DR ASHIA Dunham Consulting Unavailable LOTT, DR ASHIA Dunham Primary Care Unavailable LOTT, DR ASHIA Dunham Admitting Unavailable OLTT, DR ASHIA Dunham Attending Unavailable DUQUE ., [...] Agonists (1 source) Pseudoephedrine Drug Allergy 08-19-19 [facility] house dust allergenic extract (1 source) house dust allergenic extract Drug Allergy 08-19-19 Unknown Reaction [facility] Penicillins (antibiotic) (1 source) Penicillins Drug Allergy 08-19-19 Unknown Reaction [facility] Pneumococcal vaccine (1 source) Pneumococcal vaccine Drug Allergy 08-19-19 [facility] (3 sources) Penicillins Drug allergy (disorder) 08-22-19 15 Unknown Reaction [facility] (2 sources) House dust mite Propensity to adverse reactions Unknown [facility] Other (2 sources) Penicillin Drug Allergy rash [facility] Other (3 sources) Pseudoephedrine Drug Allergy 09-02-19 [facility] (2 sources) Streptococcus pneumoniae type 1 capsular [...] 9V capsular polysaccharide antigen Drug Allergy SWELLING [facility] Other (2 sources) Substance with penicillin structure and antibacterial mechanism of action (substance) Drug allergy Unknown [facility] Other (2 sources) Allergies Reconciled Propensity to adverse reactions 12-28-19 Unknown [facility] Other (1 source) house dust allergenic extract Drug Allergy 09-02-19 Unknown Reaction [facility] (1 source) Pneumococcal vaccine Drug Allergy 09-02-19 24 Swelling [facility] Medications Current Medications Medication Drug Class(es) Dates Sig (Normalized) Sig (Original) aluminum hydroxide 40 mg/ml / magnesium hydroxide 40 mg/ml / simethicone 4 mg/ml oral suspension (2 sources) Start: 12-05-2018 take 1 [tsp_us] by mouth once daily Alum-Mag Hydroxide-Simeth (Antacid) 200-200-20 mg/5 mL Suspension Active 2 TSP PO Daily December 05, 2018 12:00am amLODIPine 5 mg oral tablet (4 sources) Dihydropyridine Calcium Channel Savage Start: 04-22-2023 [...] Active calcium carbonate 1250 mg oral tablet (4 sources) Start: 12-05-2018 take 1 tablet by mouth once daily Calcium Carbonate (Calcium 500) 500 mg calcium (1,250 mg) Tablet Active 500 MG PO Daily December 05, 2018 12:00am take 1 tablet by mouth every twe lve hours Calcium 500 MG 1 tablet with meals Orally Twice a day Active carbidopa 25 mg / levodopa 100 mg oral tablet (12 sources) Aromatic Amino Acid Decarboxylation Inhibitor, Aromatic [...] day Active carvedilol 25 mg oral tablet (4 sources) alpha-Adrenergic Savage, beta-Adrenergic Savage Start: 12-05-2018 take 25 mg by mouth twice daily Carvedilol Active 25 MG PO Twice daily December 05, 2018 12:00am citalopram 20 mg oral tablet (4 sources) Serotonin Reuptake Inhibitor Start: 12-05-2018 take 20 mg by mouth once daily Citalopram Active 20 MG PO Daily December 05, 2018 12:00am cloNIDine hydrochloride 0.1 mg oral tablet (6 sources) Central alpha-2 Adrenergic Agonist Start: 12-05-2018 End: 12-08-2018 take 0.1 mg by mouth twice daily Clonidine Hcl Active 0.1 MG PO Twice daily December 08, 2018 12:00am take 2 tablets by mouth twice da arden cloNIDine HCl 0.1 MG TAKE 2 TABLETS BY MOUTH TWICE A DAY for 90 Active dicyclomine hydrochloride 20 mg oral tablet (4 sources) Anticholinergic Start: 12-05-2018 take 20 mg by mouth four times daily Dicyclomine Active 20 MG PO Four times daily December 05, 2018 12:00am Dicyclomine HCl Not-Taking/PRN hydroCHLOROthiazide 25 mg oral tablet (4 sources) Thiazide Diuretic Start: 12-05-2018 take 25 mg by mouth once daily Hydrochlorothiazide Active 25 MG PO Daily December 05, 2018 12:00am levETIRAcetam 500 mg oral tablet (10 sources) Start: 07-06-2023 take 1 tablet by [...] hrs Not-Taking/PRN lisinopril 40 mg oral tablet (6 sources) Angiotensin Converting Enzyme Inhibitor Start: 12-05-2018 End: 08-16-2023 take 1 tablet by mouth once daily Lisinopril Active 40 MG PO Daily April 22, 2023 1:00am FreeTextSig: TAKE 1 TABLET BY MOUTH EVERY DAY; Note: Source Status: Start; Refills: 1; Qty: 90 Tablet; Provider: Oren Ang ( ) melatonin 5 mg oral capsule (4 sources) Start: 12-05-2018 take 5 mg by mouth at bedtime Melatonin Active 5 MG PO Bedtime December 05, 2018 12:00am take 1 tablet by maninder th every twenty-four hours Melatonin 5 MG 1 tablet at bedtime as needed with food Orally Once a day Active pantoprazole 40 mg delayed release oral tablet (4 sources) Proton Pump Inhibitor Start: 04-22-2023 take 1 tablet by mouth twice daily Pantoprazole Active 1 TAB PO Twice daily April 22, 2023 1:00am FreeTextSi tablet Orally BID; Note: Source Status: Not-Taking\PRN; Provider: Oren Ang ( ) take 1 tablet by maninder th every twelve hours Pantoprazole Sodium 40 MG 1 tablet Orall y BID Not-Taking/PRN rOPINIRole 1 mg oral tablet (2 sources) Nonergot Dopamine Agonist Start: 08-19-2023 take 1 mg by mouth three times daily Ropinirole Active 1 MG PO Three times daily August 19, 2023 12:00am vitamin b12 0.5 mg oral tablet (4 sources) Vitamin B12 Start: 12-05-2018 take 1 tablet by mouth once daily Cyanocobalamin (Vitamin B-12) (Vitamin B-12) 500 mcg Tablet Active 500 MCG PO Daily December 05, 2018 12:00am Completed/Discontinued Medications Medication Drug Class(es) Dates Sig (Normalized) Sig (Original) acetaminophen 325 mg oral tablet (6 sources) Start: 04-22-2023 End: 08-16-2023 take 1 [...] / HYDROcodone bitartrate 7.5 mg oral tablet (9 sources) Opioid Agonist Start: 04-22-2023 End: 08-19-2023 [...] bisacodyl 5 mg delayed release oral tablet (4 sources) Stimulant Laxative Start: 04-22-2023 End: 08-19-2023 [...] Active bismuth subsalicylate 35 mg/ml oral suspension (2 sources) Bismuth Start: 12-05-2018 End: 04-22-2023 take 1 mL by mouth every hour Bismuth Subsalicylate (Pepto-Bismol Max St) 525 mg/15 mL Suspension Discontinued 30 ML PO Every hour December 05, 2018 12:00am April 22, 2023 3:35pm clonazePAM 0.5 mg disintegrating oral tablet (6 sources) Benzodiazepine Start: 04-22-2023 End: 08-16-2023 take [...] Not-Taking/PRN docusate sodium 100 mg oral capsule (4 sources) Start: 12-05-2018 End: 08-19-2023 take 100 mg by mouth twice daily Docusate Sodium Discontinued 100 MG PO Twice daily December 05, 2018 12:00am August 19, 2023 2:01pm Colace Not-Takin g/PRN ferrous sulfate 325 mg oral tablet (4 sources) Start: 12-05-2018 End: 08-19-2023 take 1 [...] PRN for 30 days May, Not-Taking/PRN Magnesium (4 sources) Start: 12-05-2018 End: 08-19-2023 take 500 [...] / vitamin b6 1 mg oral tablet (2 sources) Start: 04-22-19 End: 08-19-19 take 1 tablet by mouth once daily at bedtime Melatonin-Pyridoxine (Vit B6) Discontinued 1 TAB PO Daily at bedtime April 22, 2023 1:00am August 19, 2023 2:03pm FreeTextSi tablet at bedtime as needed with food Orally Once a day; Note: Source Status: Taking; Provider: Oren Ang ( ) naproxen sodium 220 mg oral tablet (6 sources) Nonsteroidal Anti-inflammatory Drug Start: 04-22-19 End: [...] hrs Active prasterone 50 mg oral capsule (2 sources) Start: 12-05-2018 End: 08-19-2023 take 1 capsule [...] Hyperlipidemia; Translations: [Hyperlipidemia, unspecified] Chronic Epilepsy; convulsions (4 sources) Seizure; Translations: [Unspecified convulsions] Onset: 09-12-2017 12-06-2018 Episodic Esophageal disorders (2 sources) Esophageal reflux finding; Translations: [Esophageal reflux] Onset: 09-12-2017 Chronic Essential hypertension (6 sources) Essential hypertension; Translations: [Essential (primary) hypertension] 12-05-2018 Chronic Fluid and electrolyte disorders (11 sources) Hypo-osmolality and hyponatremia; Translations: [Hypo-osmolality and or hyponatremia] Onset: 09-14-2021 12-06-2018 Episodic Fracture of upper limb (8 sources) Displaced fracture of base of unspecified [...] bacterial intestinal infections] Episodic Malaise and fatigue (12 sources) Other fatigue; Translations: [Asthenia] Onset: 11-14-2017 Episodic Mood disorders (2 sources) Depression; Translations: [Depression, unspecified] Chronic Nausea and vomiting (6 sources) Nausea and vomiting; Translations: [Nausea with vomiting, unspecified] 08-19-2023 Episodic Nutritional deficiencies (2 sources) Malnutrition of mild degree (Lepe: 75% to less than 90% of standard weight); Translations: [Mild protein-calorie malnutrition] Chronic Osteoarthritis (1 source) Bilateral primary osteoarthritis of hip; Translations: [BILATERAL PRIM OSTEOARTHRITIS HIP] Onset: 10-23-2021 Chronic Other aftercare (2 sources) Long-term current use of drug therapy; Translations: [Other correction (current) drug therapy] Episodic Other connective tissue [...] syndrome with constipation] Chronic Other gastrointestinal disorders (6 sources) Constipation; Translations: [Other constipation] 12-05-2018 Episodic [...] pain] Onset: 12-26-2017 Episodic Superficial injury; contusion (2 sources) Contusion of face; Translations: [Contusion of other part of head, initial encounter] 12-05-2018 Episodic Syncope (2 sources) Syncope; Translations: [Syncope and collapse] 12-05-2018 Episodic Unclassified (2 sources) Parkinson's disease; Translations: [Parkinson's disease] 12-06-2018 Chronic [...] Test Name Value Interpretation Reference Range Facility Basophils Auto (Bld) [#/Vol] on 09-02-2023 Basophils (Bld) [#/Vol] 0.0 10 3/uL 0.0-0.1 [facility] Basophils/100 WBC Auto (Bld) on 09-02-2023 Basophils/100 WBC (Bld) 0.3 % 0.2-2.0 [facility] Eosinophils/100 WBC Auto (Bl d)on 09-02-2023 Eosinophils/100 WBC (Bld) 1.8 % 0.9-7.0 [facility] Erythrocyte distribution wid th Auto (RBC) [Ratio]on 09-02-2023 Erythrocyte distribution width (RBC) [Ratio] 12.0 % 11.0-15.0 [facility] Estimated glomerular filtrat ion rate (GFR) non- Americanon 09-02-2023 GFR/1.73 sq M.predicted among non-blacks MDRD (S/P/Bld) [Vol rate/Area] 60 mL/min/{1.73_m2} >=60 [facility] Globulin Calc (S) [Mass/Vol] on 09-02-2023 Globulin (S) [Mass/Vol] 3.3 g/dL [facility] Hematocrit Auto (Bld) [Volum e fraction]on 09-02-2023 Hematocrit (Bld) [Volume fraction] 31.5 % 36.0-48.0 [facility] Hemoglobin [Mass/volume] in Bloodon 09-02-2023 Hemoglobin (Bld) [Mass/Vol] 10.4 g/dL 12.0-16.0 [facility] Laboratory - Chemistry and C hemistry - challengeon 09-02-2023 Albumin [Mass/Vol] 3.3 g/dL 3.4-5.[address] [facility] ALP [Catalytic activity/Vol] 87 U/L 46-116 [facility] ALT [Catalytic activity/Vol] 7 U/L 14-59 [facility] AST [Catalytic activity/Vol] 16 U/L 15-37 [facility] Bilirubin [Mass/Vol] 0.5 mg/dL 0.2-1.0 [facility] Calcium [Mass/Vol] 9.0 mg/dL 8.5-10.[address] [facility] Chloride [Moles/Vol] 102 mmol/L 98-107 [facility] CO2 [Moles/Vol] 29.2 mmol/L 21.0-32.0 [facility] Creatinine [Mass/Vol] 0.92 mg/dL 0.55-1.02 [facility] GFR/1.73 sq M.predicted MDRD (S/P/Bld) [Vol rate/Area] mL/min/{1.73_m2} >=60 [facility] Glucose [Mass/Vol] 99 mg/dL 74-[address] [facility] Potassium [Moles/Vol] 5.0 mmol/L 3.5-5.1 [facility] Protein [Mass/Vol] 6.6 g/dL 6.4-8.[address] [facility] Sodium [Moles/Vol] 138 mmol/L 136-[address] [facility] TSH Qn 1.862 m[IU]/L 0.358-3.740 [facility] Urea nitrogen [Mass/Vol] 35.0 mg/dL 7.0-18.0 [facility] Urea nitrogen/Creatinin e [Mass ratio] 38.0 mg/mg [facility] Laboratory - Hematology and Cell countson 09-02-2023 Immature granulocytes/100 WBC (Bld) 0.1 % 0.0-0.5 [facility] Leukocytes [#/volume] correc ascencion for nucleated erythrocytes in Blood by Automated counon 09-02-2023 WBC corrected for nucl RBC Auto (Bld) [#/Vol] 6.7 10 3/uL 4.0-11.0 [facility] Lymphocytes Auto (Bld) [#/Vo l]on 09-02-2023 Lymphocytes (Bld) [#/Vol] 0.9 10 3/uL 1.2-3.8 [facility] Lymphocytes/100 WBC Auto (Bl d)on 09-02-2023 Lymphocytes/100 WBC (Bld) 13.1 % 20.5-60.0 [facility] MCH Auto (RBC) [Entitic mass ]on 09-02-2023 MCH (RBC) [Entitic mass] 31.8 pg 26.7-34.0 [facility] MCHC Auto (RBC) [Mass/Vol]on 09-02-2023 MCHC (RBC) [Mass/Vol] 33.0 g/dL 29.9-35.2 [facility] MCV Auto (RBC) [Entitic vol] on 09-02-2023 MCV (RBC) [Entitic vol] 96.3 fL 81.0-99.0 [facility] Monocytes Auto (Bld) [#/Vol] on 09-02-2023 Monocytes (Bld) [#/Vol] 0.6 10 3/uL 0.3-0.8 [facility] Monocytes/100 WBC Auto (Bld) on 09-02-2023 Monocytes/100 WBC (Bld) 8.2 % 1.7-12.0 [facility] Neutrophils Auto (Bld) [#/Vo l]on 09-02-2023 Neutrophils (Bld) [#/Vol] 5.2 10 3/uL 1.4-6.5 [facility] Neutrophils/100 WBC Auto (Bl d)on 09-02-2023 Neutrophils/100 WBC (Bld) 76.5 % 43.0-75.0 [facility] No Panel Informationon 09-01 Eosinophils # (Auto) 0.1 10 3/uL 0.0-0.7 [facility] Immature Granulocyte # (Auto) 0.01 10 3/uL 0.00-0.03 [facility] Platelet mean volume Auto (B ld) [Entitic vol]on 09-02-2023 Platelet mean volume (Bld) [Entitic vol] 9.4 fL 9.5-13.5 [facility] Platelets Auto (Bld) [#/Vol] on 09-02-2023 Platelets (Bld) [#/Vol] 235 10 3/uL 150-450 [facility] RBC Auto (Bld) [#/Vol]on RBC (Bld) [#/Vol] 3.27 10 6/uL 4.20-5.40 [facility] Serum or plasma albumin/glob ulin mass ratioon 09-02-2023 Albumin/Globulin [Mass ratio] 1.0 {ratio} [facility] Serum or plasma anion gap de terminationon 09-02-2023 Anion gap [Moles/Vol] 11.8 mmol/L [facility] MG MAMM SCREEN PRETTY W CADon 0 09-19-2021 MG MAMM SCREEN PRETTY W CAD Patient: MARTHA MERCHANT Exam Date: 09/19/2021 : 1950 Gender:F Ordering : DR ASHIA LOTT M.D. Admission #: [id number] Family : SHAIKH Ria MAWOODY . Order #: [id number] CLICK HERE TO VIEW EXAM RADIOLOGY REPORT PROCEDURE: MAMMOGRAM BILATERAL SCREENING DIGITAL WITH COMPUTER AIDED DETECTION COMPARISON: None. INDICATIONS: Screening mammography Calculator Name NCI Breast Cancer Risk Assessment Tool 5 Year Breast Cancer Risk Not Reported. Lifetime Breast Cancer Risk Not Reported. Personal Breast Cancer No Personal Ovarian Cancer No Treatments None Family Cancers None LOCATION: [facility] BREAST COMPOSITION: Extremely dense, which lowers [...] MD on 09/19/2021 at 14:08 Normal [facility] CULTURE URINEon 09-14-2021 CULTURE URINE Culture Observations : LIGHT GROWTH OF MIXED GENITAL ADOLFO. NO POTENTIAL PATHOGENS SEEN. Normal [facility] Comment on above: Performed By: #### U RCX #### [facility] [address] [place] [address] Dr. Ravi Hebert UA RANDOM W/MICROSCOPICon BACTERIA NONE SEEN Normal NONE SEEN [facility] Comment on above: Performed By: #### U AMIC #### [facility] [address] [place] [address] Dr. Ravi Hebert Bilirubin Ql (U) Negative Normal NEGATIVE [facility] Comment on above: Performed By: #### U AMIC #### [facility] [address] [place] [address] Dr. Ravi Hebert CAST NONE SEEN Normal NONE SEEN [facility] Comment on above: Performed By: #### U AMIC #### [facility] [address] [place] [address] Dr. Ravi Hebert Clarity (U) CLEAR Normal CLEAR [facility] Comment on above: Performed By: #### U AMIC #### [facility] [address] [place] [address] Dr. Ravi Hebert Color (U) LT. YELLOW Normal YELLOW [facility] Comment on above: Performed By: #### U AMIC #### [facility] [address] [address] [address] Ravi Hebert Crystals LM Nom (Urine sed) NONE SEEN Normal NONE SEEN [facility] Comment on above: Performed By: #### U AMIC #### [facility] [address] [address] [address] Ravi Hebert Epithelial cells LM Ql (Urine sed) FEW Abnormal NONE SEEN /RARE [facility] Comment on above: Performed By: #### U AMIC #### [facility] [address] [address] [address] Ravi Hebert Glucose Ql (U) Negative Normal NEGATIVE [facility] Comment on above: Performed By: #### U AMIC #### [facility] [address] [place] [address] Dr. Ravi Hebert Hemoglobin Ql (U) Negative Normal NEGATIVE [facility] Comment on above: Performed By: #### U AMIC #### [facility] [address] [address] [address] Ravi Hebert Ketones Ql (U) Negative Normal NEGATIVE [facility] Comment on above: Performed By: #### U AMIC #### [facility] [address] [place] [address] Dr. Ravi Hebert LEUKOCYTES Negative Normal NEGATIVE [facility] Comment on above: Performed By: #### U AMIC #### [facility] [address] [address] [address] Ravi Hebert MUCOUS NONE SEEN Normal NONE SEEN [facility] Comment on above: Performed By: #### U AMIC #### [facility] [address] [address] [address] Ravi Hebert Nitrite Ql (U) Negative Normal NEGATIVE [facility] Comment on above: Performed By: #### U AMIC #### [facility] [address] [place] [address] Dr. Ravi Hebert pH (U) 6.0 [pH] Normal 5-9 [facility] Comment on above: Performed By: #### U AMIC #### [facility] [address] [place] [address] Dr. Ravi Hebert RBC NONE SEEN Abnormal 0-2 [facility] Comment on above: Performed By: #### U AMIC #### [facility] [address] [place] [address] Dr. Ravi Hebert SPEC GRAVITY <=1.005 Abnormal 1.005-<=1.02 5 [facility] Comment on above: Performed By: #### U AMIC #### [facility] [address] [place] [address] Dr. Ravi Hebert UA PROTEIN Negative Normal NEGATIVE/ TRACE [facility] Comment on above: Performed By: #### U AMIC #### [facility] [address] [place] [address] Dr. Ravi Hebert Urobilinogen Qn (U) 0.2 {Naveen'U}/dL Normal 0.2 - 1.0 [facility] Comment on above: Performed By: #### U AMIC #### [facility] [address] [place] [address] Dr. Ravi Hebert WBC NONE SEEN Normal NONE SEEN [facility] Comment on above: Performed By: #### U AMIC #### [facility] [address] [place] [address] Dr. Ravi Hebert CBC AUTO DIFFon 09-08-2021 BASO # 0.0 103/ul Normal 0.0-0.1 [facility] Comment on above: Performed By: #### C BC #### [facility] [address] [place] [address] Dr. Ravi Hebert Basophils/100 WBC (Bld) 0.4 % Normal 0.2-2.0 [facility] Comment on above: Performed By: #### C BC #### [facility] [address] [place] [address] Dr. Ravi Hebert EO # 0.1 103/ul Normal 0.0-0.7 [facility] Comment on above: Performed By: #### C BC #### [facility] [address] [place] [address] Dr. Ravi Hebert Eosinophils/100 WBC (Bld) 0.8 % Critically low 0.9-7.0 [facility] Comment on above: Performed By: #### C BC #### [facility] [address] [place] [address] Dr. Ravi Hebert Erythrocyte distribution width (RBC) [Ratio] 11.8 % Normal 11.0-15.0 [facility] Comment on above: Performed By: #### C BC #### [facility] [address] [place] [address] Dr. Ravi Hebert Hematocrit (Bld) [Volume fraction] 32.8 % Critically low 36.0-48.0 [facility] Comment on above: Performed By: #### C BC #### [facility] [address] [place] [address] Dr. Ravi Hebert Hemoglobin (Bld) [Mass/Vol] 10.8 g/dL Critically low 12.0-16.0 [facility] Comment on above: Performed By: #### C BC #### [facility] [address] [place] [address] Dr. Ravi Hebert IG # 0.03 10e3/ul Normal 0.00-0.03 [facility] Comment on above: Performed By: #### C BC #### [facility] [address] [place] [address] Dr. Ravi Hebert IG % 0.4 % Normal 0.0-0.5 [facility] Comment on above: Performed By: #### C BC #### [facility] [address] [place] [address] Dr. Ravi Hebert LYMPH # 0.7 103/ul Critically low 1.2-3.8 [facility] Comment on above: Performed By: #### C BC #### [facility] [address] [place] [address] Dr. Ravi Hebert Lymphocytes/100 WBC (Bld) 9.8 % Critically low 20.5-60.0 [facility] Comment on above: Performed By: #### C BC #### [facility] [address] [place] [address] Dr. Ravi Hebert MANUAL DIFF REQ NO Normal [facility] Comment on above: Performed By: #### C BC #### [facility] [address] [place] [address] Dr. Ravi Hebert MCH (RBC) [Entitic mass] 32.8 pg Normal 26.7-34.0 [facility] Comment on above: Performed By: #### C BC #### [facility] [address] [place] [address] Dr. Ravi Hebert MCHC (RBC) [Mass/Vol] 32.9 g/dL Normal 29.9-35.2 [facility] Comment on above: Performed By: #### C BC #### [facility] [address] [place] [address] Dr. Ravi Hebert MCV (RBC) [Entitic vol] 99.7 fL Critically high 81.0-99.0 [facility] Comment on above: Performed By: #### C BC #### [facility] [address] [place] [address] Dr. Ravi Hebert MONO # 0.4 103/ul Normal 0.3-0.8 [facility] Comment on above: Performed By: #### C BC #### [facility] [address] [place] [address] Dr. Ravi Hebert Monocytes/100 WBC (Bld) 6.0 % Normal 1.7-12.0 [facility] Comment on above: Performed By: #### C BC #### [facility] [address] [place] [address] Dr. Ravi Hebert NEUT # 6.0 103/ul Normal 1.4-6.5 [facility] Comment on above: Performed By: #### C BC #### [facility] [address] [place] [address] Dr. Ravi Hebert Neutrophils/100 WBC (Bld) 82.6 % Critically high 43.0-75.0 [facility] Comment on above: Performed By: #### C BC #### [facility] [address] [place] [address] Dr. Ravi Hebert Platelet mean volume (Bld) [Entitic vol] 9.6 fL Normal 9.5-13.5 [facility] Comment on above: Performed By: #### C BC #### [facility] [address] [place] [address] Dr. Ravi Hebert PLT 223 103/ul Normal 150-450 [facility] [facility] Comment on above: Performed By: #### C BC #### [facility] [address] [place] [address] Dr. Ravi Hebert RBC 3.29 106/ul Critically low 4.20-5.40 [facility] Comment on above: Performed By: #### C BC #### [facility] [address] [place] [address] Dr. Ravi Hebert WBC 7.2 103/ul Normal 4.0-11.0 [facility] Comment on above: Performed By: #### C BC #### [facility] [address] [place] [address] Dr. Ravi Hebert PROF 14(COMP METB)on 022 Albumin [Mass/Vol] 3.8 g/dL Normal 3.4-5.0 [facility] Comment on above: Performed By: #### C MP, TSH #### [facility] [address] [place] [address] Dr. Ravi Hebert Albumin/Globulin [Mass ratio] 1.2 {ratio} Normal [facility] Comment on above: Performed By: #### C MP, TSH #### [facility] [address] [place] [address] Dr. Ravi Hebert ALP [Catalytic activity/Vol] 69 U/L Normal 46-116 [facility] Comment on above: Performed By: #### C MP, TSH #### [facility] [address] [place] [address] Dr. Ravi Hebert ALT [Catalytic activity/Vol] 10 U/L Critically low 14-59 [facility] Comment on above: Performed By: #### C MP, TSH #### [facility] [address] [place] [address] Dr. Ravi Hebert Anion gap [Moles/Vol] 10.7 mmol/L Normal [facility] Comment on above: Performed By: #### C MP, TSH #### [facility] [address] [place] [address] Dr. Ravi Hebert AST [Catalytic activity/Vol] 22 U/L Normal 15-37 [facility] Comment on above: Performed By: #### C MP, TSH #### [facility] [address] [place] [address] Dr. Ravi Hebert Bilirubin [Mass/Vol] 0.5 mg/dL Normal 0.2-1.0 [facility] Comment on above: Performed By: #### C MP, TSH #### [facility] [address] [place] [address] Dr. Ravi Hebert Calcium [Mass/Vol] 8.8 mg/dL Normal 8.5-10.1 [facility] Comment on above: Performed By: #### C MP, TSH #### [facility] [address] [place] [address] Dr. Ravi Hebert Chloride [Moles/Vol] 102 mmol/L Normal 98-107 [facility] Comment on above: Performed By: #### C MP, TSH #### [facility] [address] [place] [address] Dr. Ravi Hebert CO2 [Moles/Vol] 29.6 mmol/L Normal 21.0-32.0 [facility] Comment on above: Performed By: #### C MP, TSH #### [facility] [address] [place] [address] Dr. Ravi Hebert Creatinine [Mass/Vol] 0.90 mg/dL Normal 0.55-1.02 [facility] Comment on above: Performed By: #### C MP, TSH #### [facility] [address] [place] [address] Dr. Ravi Hebert EGFR-AF ZAMBIAN >60 Normal >=60 [facility] Comment on above: Performed By: #### C MP, TSH #### [facility] [address] [place] [address] Dr. Ravi Hebert EGFR-NON AF ZAMBIAN >60 Normal >=60 [facility] Comment on above: Performed By: #### C MP, TSH #### [facility] [address] [address] [address] Ravi Hebert Globulin (S) [Mass/Vol] 3.1 g/dL Normal [facility] Comment on above: Performed By: #### C MP, TSH #### [facility] [address] [address] [address] Ravi Hebert Glucose [Mass/Vol] 94 mg/dL Normal 74-106 [facility] Comment on above: Performed By: #### C MP, TSH #### [facility] [address] [address] [address] Ravi Hebert Potassium [Moles/Vol] 4.3 mmol/L Normal 3.5-5.1 [facility] Comment on above: Performed By: #### C MP, TSH #### [facility] [address] [place] [address] Dr. Ravi Hebert Protein [Mass/Vol] 6.9 g/dL Normal 6.4-8.2 [facility] Comment on above: Performed By: #### C MP, TSH #### [facility] [address] [place] [address] Dr. Ravi Hebert Sodium [Moles/Vol] 138 mmol/L Normal 136-145 [facility] Comment on above: Performed By: #### C MP, TSH #### [facility] [address] [address] [address] Ravi Hebert Urea nitrogen [Mass/Vol] 34.0 mg/dL Critically high 7.0-18.0 [facility] Comment on above: Performed By: #### C MP, TSH #### [facility] [address] [place] [address] Dr. Ravi Hebert Urea nitrogen/Creatinin e [Mass ratio] 37.8 mg/mg Normal [facility] Comment on above: Performed By: #### C MP, TSH #### [facility] [address] [address] [address] Ravi Hebert TSHon 07-01-2022 TSH 1.350 uIU/mL Normal 0.358-3.740 [facility] Comment on above: Performed By: #### C MP, TSH #### [facility] [address] [address] [address] Ravi Hebert PROGRESSon 06-25-2017 PROGRESS HNO ID: [id number] thor: Nicolas Campbellice: (none)Author Type: PhysicianType: Progress NotesFiled: 06/25/2017 4:47 PMNote Text:Martha WhalenOB: 1950[facility]Date last seen:PAST MEDICAL HISTORYDiagnosis Date- Constipation- Convulsion [...] 3350 (MIRALAX, GLYCOLAX) 17 gram/dose powderrizatriptan (MAXALT PLATINUMSMITH) 10 mg disintegrating tabletNo current facility-administered medications [...] from the underlying nail bed, reveals a characteristicfungal/yeast/m old odor and consistency. There is no surroundingcellulitis, [...] due to onychomycosis of toenail of left footThalvaro Dominguez DPM Normal [facility] Vital Signs Date Time Vital Sign Value Performing Clinician Facility 09-02-2023 14:55-0400 Body height 162.56 cm [facility] 09-02-2023 14:55-0400 Body mass index (BMI) [Ratio] 14.3 kg/m2 [facility] 09-02-2023 14:55-0400 Body weight 38 kg [facility] 09-02-2023 14:55-0400 Diastolic blood pressure 84 mm[Hg] [facility] 09-02-2023 14:55-0400 Heart rate 88 /min [facility] 09-02-2023 14:55-0400 Systolic blood pressure 138 mm[Hg] [facility] 08-19-2023 13:51-0400 Body height 162.56 cm [facility] 08-19-2023 13:51-0400 Body mass index (BMI) [Ratio] 14.6 kg/m2 [facility] 08-19-2023 13:51-0400 Body temperature 97.4 [degF] [facility] 08-19-2023 13:51-0400 Body weight 38.72 kg [facility] 08-19-2023 13:51-0400 Diastolic blood pressure 67 mm[Hg] [facility] 08-19-2023 13:51-0400 Heart rate 56 /min [facility] 08-19-2023 13:51-0400 Systolic blood pressure 134 mm[Hg] [facility] 02-15-2023 13:30-0500 Body height 162.56 cm Ashia Lott Other [facility] Other 02-15-2023 13:30-0500 Body mass index (BMI) [Ratio] 14.59 kg/m2 Ashia Lott Other [facility] Other 02-15-2023 13:30-0500 Body weight 38.56 kg Ashia Lott Other [facility] Other 02-15-2023 13:30-0500 Diastolic blood pressure 89 mm[Hg] Ashia Lott Other [facility] Other 02-15-2023 13:30-0500 Systolic blood pressure 148 mm[Hg] Ashia Oren Other [facility] Other Encounters Encounter Date Encounter Type Care Provider Facility Start: 09-02-2023 End: 09-02-2023 ambulatory [facility] Work Phone: Start: 09-02-2023 End: 09-02-2023 Patient encounter procedure [facility] Physician [facility] Work Phone: Start: 08-19-2023 End: 08-19-2023 ambulatory [facility] Work Phone: Start: 08-19-2023 End: 08-19-2023 Patient encounter procedure [facility] Work Phone: Start: 03-12-2023 End: 03-12-2023 ambulatory Ashia Ltot Other [facility] Other Start: 03-12-2023 Telephone encounter Ashia Lott [facility] Start: 02-15-2023 End: 02-15-2023 ambulatory Ashia Lott Other [facility] Other Start: 02-15-2023 Office outpatient visit 15 minutes Ashia Lott [facility] Start: 06-21-2022 ambulatory NARENDRANATH LAKSHMIPATHY Facility:[facility] Start: 04-24-2022 End: 04-25-[address] LEROY DUQUE . Facility:[facility] Start: 2022 End: 01-19-[address] LEROY DUQUE . Facility:[facility] Start: 01-09-2022 Adult health examination Ashia Ltot Other [facility] Other Start: 10-19-2021 End: 10-20-[address] LEROY DUQUE . Facility:[facility] Start: 09-19-2021 End: 09-20-2021 ambulatory SHAIKH Cleopatra GLADYS Facility:[facility] Start: 09-15-2021 End: 09-15-[address] ASHIA LOTT Facility:[facility] Start: 09-08-2021 End: 09-09-[address] ASHIA LOTT Facility:[facility] Start: 08-24-[address] ASHIA LOTT Facil ity:[facility] Start: 07-20-2021 End: 07-21-[address] LEROY Fallon Facility:[facility] Start: 05-15-2019 Patient encounter procedure ASHIA LOTT Facility:[facility] Procedures Date Procedure Procedure Detail Performing Clinician Screening for malign ant neoplasm of breast Ashia Lott Other Plan of Treatment Date Care Activity Detail Author Comprehensive metabo lic 2000 panel - Serum or Plasma [facility] enter [facility] Immunizations Immunization Date Immunization Notes Care Provider Fa cility 02-27-2022 COVID-19 mRNA Bivale nt Booster (Moderna) [facility] 01-09-2022 influenza virus vaccine, split virus (incl. purified surface antigen) Ashia Lott Other [facility] Other 01-09-2022 influenza virus vaccine, unspecified formulation [facility] 01-17-2021 COVID-19 mRNA-1273 (Moderna) [facility] 06-01-2020 COVID-19 Vaccine Moderna - Documentation Purposes Only Ashia Lott Other [facility] 05-05-2020 COVID-19 Vaccine Moderna - Documentation Purposes Only Ashia Lott Other [facility] 01-07-2020 influenza virus vaccine, split virus (incl. purified surface antigen) Ashia Lott Other [facility] Other 01-07-2020 influenza virus vaccine, unspecified formulation [facility] 01-13-2019 influenza virus vaccine, split virus (incl. purified surface antigen) Ashia Lott Other [facility] Other 01-13-2019 influenza virus vaccine, unspecified formulation [facility] 12-05-2018 tetanus and diphther ia toxoids, adsorbed, preservative free, for adult use (5 Lf of tetanus toxoid and 2 Lf of diphtheria toxoid) [facility] 12-05-2018 tetanus toxoid, reduced diphtheria toxoid, and acellular pertussis vaccine, adsorbed [facility] 12-26-2017 influenza virus vaccine, split virus (incl. purified surface antigen) Ashia Lott Other [facility] Other 12-26-2017 influenza virus vaccine, unspecified formulation [facility] NEGATED: Highlighted row has not occurred!12-27-2020 influenza virus vaccine, split virus (incl. purified surface antigen) Ashia Lott Other [facility] Other Payers Date Payer Category Payer Medicare [id number] 1961 Self-pay [id number] 1961 Unknown [id number] 1950 Unknown [id number] 2.16.84 [id number] 1950 Unknown [id number] 2.16.84 [id number] 1950 Unknown [id number] 2.16.84 [id number] 1950 Unknown [id number] 2.16.84 [id number] 1950 Unknown [id number] 2.16.84 [id number] 1950 Unknown [id number] 2.16.84 [id number] 1950 Unknown [id number] 2.16.84 [id number] 1950 Unknown [id number] 2.16.84 [id number] 1950 Unknown [id number] 2.16.84 [id number] Self-pay Self Pay [id number] Social History Date Type Detail Facility Unknown if ever smoked [facility] Other Sex Assigned At Sex Assigned At Bir th [facility] Other Start: 12-06-2018 End: 08-30-2023 Tobacco smoking status NHIS Never smoked tobacco (finding) [facility] Start: 1950 Sex Assigned At Female F [facility] Evaluation note 03-12-2023 Note Date & Type Note Facility 03-12-2023 Evaluation note Encounter Date Diagnosis Assessment Notes Mar, Lumbar degenerative disc disease (ICD-10 - M51.36) [facility] Other Evaluation note 02-15-2023 Note Date & Type Note Facility 02-15-2023 Evaluation note Encounter Date Diagnosis Assessment Notes Feb, Pain, joint, shoulder, left (ICD-10 - M25.512) Agrees to ortho referral Requests Dr. Acosta [facility] Other Consultation note 04-24-2022 Note Date & [...] the patient takes citalopram 30 mg daily, Osco 5/325 b.i.d., clonidine 0.1 mg b.i.d. Celebrex [...] atrophy. PLAN: We will refill the patient's Osco 5/325 b.i.d. X-ray of her lumbar spine and pelvis has been ordered. The patient also has been given a prescription for Ensure HN and/or Boost HN two per day. Education was done with regards to possibly adding glucosamine chondroitin sulfate to improve the discomfort in her hips. The patient and her daughter understand and would like to proceed. CC: Ashia Lott M.D. [facility] Consultation note 2022 Note Date & [...] medically at this time for pain with Osco 5/325 b.i.d. Other medications include citalopram, clonidine, [...] indicated. Patient agrees with this plan. [facility] Consultation note 10-19-2021 Note Date & [...] Ensure supplements daily as well. 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 She does use heat to her lower back, which is beneficial. Medications include Osco 5/325 b.i.d., clonidine 0.1 b.i.d., citalopram, Keppra [...] disc disease. PLAN: We will refill the Osco at 5/325 b.i.d. Patient is taking anti-inflammatory [...] of care and all questions answered. [facility] Consultation note 07-20-2021 Note Date & [...] or new motor changes. Current medications include Osco 5/325 b.i.d., clonidine, multivitamin, Sinemet, Keppra and [...] PLAN: We will continue to maintain her Osco 5/325 b.i.d. I have discussed with the patient and her sister at prior office visits regarding curcumin supplement named Enhansa that is produced by [facility]. That information was shared once again with the patient and the sister. Recommended doses were discussed. The patient and sister agreed with the plan of care and we will see her in three months' time unless otherwise indicated. [facility] Signed and Approved by: CINDI ELLIOTT . 07/27/2021 17:09:00 [facility] Evaluation note Note Date & Type Note Facility Evaluation note Diagnosis Onset Date Fatigue acute Hypertension acute Hypokalemia acute Hyponatremia acute Nausea acute [facility] Work Phone: History general Narrative - Reported [...] RED HIP X2 AND COLLARBONE (RIGHT) [facility] JUNE 2013 Hospitalization History LOW SODIUM ADMIT ASCENCION TO [facility] APR 2017 [facility] Other Summary Purpose Family History Relationship Condition Age at Onset Recorded Date/T vern father Unknown grandparent Unknown Not Specified Hypertension Unknown Unknown sister Malignant neoplasm Unknown Advance Directives Advance Directive Response Recorded Date/ Time Advance Directives No June 19, 018 7:46am Advance Directive Response Recorded Date/ Time Advance Directives No August 29 24 11:39am Reason for Referral Reason *FU 03/06 Dr. Kyree barnes at [place] - shoulder. Diagnosis 1 Pain, joint, shoulde r, left (M25.512) [facility]erral Organization [facility] Referring Provider First Name Ashia Referring Provider Last Name Oren Referring Provider Specialty Family [facility] Referred Organization [facility] Referred Provider Andrea Acosta Referred Address [address], [place],[address] Referred Provider Specialty Orthopaedic Surgery Referral Priority Routine General Notes Shyla Cade 03:35:22 PM >received today, attachments made, notes locked, referral faxed Shyla Cade 02/25/2023 11:25:19 AM >faxed first attempt letter Clinical Notes p: [phone] f: [id number] Chief Complaint and Reason for Visit Chief Complaint chills, nausea Reason for Visit Fatigue Hypertension Hypokalemia Hyponatremia Nausea Chief Complaint chills, nausea fell, right rib pain Reason for Visit Fatigue Hypertension Hypokalemia Hyponatremia Nausea Additional Source Comments INFORMATION SOURCE (unrecogn ized section and content) DATE CREATED AUTHOR 09/12/2017 [facility] DATE CREATED AUTHOR AUTHOR'S ORGANIZ ATION 05/15/2019 [facility] DATE CREATED AUTHOR AUTHOR'S ORGANIZ ATION 06/10/2022 [facility] REASON FOR VISIT (unrecogniz ed section and content) LEFY SHOULDER HURTS, SWOLLEN No Information Care Teams (unrecognized sec tion and content) Team Status: Active Member Role Status Dates Ashia Lott MD Primary Care Provider Active Team Status: Inactive Member Role Status Dates Ashia Lott MD Primary Care Provide r, Attending Provider Active Start: August 19, 2023 End: August 19, 2023 Team Status: Inactive Member Role Status Dates Ashia Lott MD Primary Care Provide r, Attending Provider Active Start: September 02, 2023 End: September 02, 2023 Goals (unrecognized section and content) Goals [...] BE BASED ON THE PRIMARY CLINICAL RECORDS. [facility]. provides no warranty or guarantee of the accuracy or completeness of information in this document.
== END 2023-12-18 13:35 | disposition home or self-care (01) ==
LOC: PM 13:34
PROVIDERS: PCP Family Medicine; Visit Provider Nurse Practitioner
DX: Z79.891 Long term (current) use of opiate analgesic (principal); Z51.81 Encounter for therapeutic drug level monitoring; M47.816 Spondylosis without myelopathy or radiculopathy, lumbar region; M48.062 Spinal stenosis, lumbar region with neurogenic claudication
CPT/HCPCS: G0463

== ENCOUNTER 2024-02-17 12:04 | Outpatient (OUT) | payer MEDICARE, SELFPAY ==
--- NOTE | 2024-02-17 | XR_ITS ---
The [address] [address] Patient Name: SONDRA MERCHANT MRN: [id number] date: 1950 Sex: F Assigned Patient Location: Current Patient Location: Accession/Order Number: [id number] Exam Date: 02/17/2024 12:05 Report Date: 02/18/2024 10:04 At the request of: PEARL AVALOS Procedure: XR shoulder PRETTY min 2V EXAMINATION: XR shoulder PRETTY min 2V HISTORY: BILATERAL SHOULDER PAIN COMPARISON: XR chest 11/24/2020, XR shoulder right 06/24/2018 FINDINGS: RIGHT FINDINGS: BONES: Evidence of remote humeral neck and tuberosity fractures with irregular healing. Cortical irregularity along superior margin of the humeral head/greater tuberosity. The glenohumeral joint is not well seen due to patient positioning. Remote fracture and healing of the distal clavicle. SOFT TISSUES: No visible soft tissue swelling. OTHER: Negative. LEFT FINDINGS: BONES: Remote fracture versus disruption of the left acromioclavicular joint with marked widening. Irregular appearance of the coracoid process. Suspect prominent articular surface irregularity of the humeral head. The glenohumeral joint is not well seen due to patient positioning. SOFT TISSUES: No visible soft tissue swelling. OTHER: Negative. XR/XR shoulder PRETTY min 2V IMPRESSION: RIGHT CONCLUSION: Very limited examination since patient was imaged sitting in a wheelchair resulting in improper positioning. Marked degenerative changes and evidence of old healed fractures. LEFT CONCLUSION: Very limited examination since patient was examined sitting in a wheelchair resulting in proper positioning. Marked degenerative changes and old fractures/separation. Electronically authenticated by: PEARL DORMAN Date: 02/18/2024 10:04
== END 2024-02-17 12:05 | disposition home or self-care (01) ==
LOC: EC 12:04
PROVIDERS: PCP Family Medicine; Visit Provider Orthopaedic Surgery
DX: M25.511 Pain in right shoulder (principal); M25.512 Pain in left shoulder; M19.012 Primary osteoarthritis, left shoulder; M19.011 Primary osteoarthritis, right shoulder; S42.214 Unspecified nondisplaced fracture of surgical neck of right humerus
CPT/HCPCS: 73030

== ENCOUNTER 2024-04-08 13:49 | Outpatient (OUT) | payer MEDICARE, SELFPAY ==
--- OUTSIDE RECORDS SUMMARY | 2024-04-08 14:01 | XMS_ITS | CCD ---
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 Name Role Phone ASHIA LOTT Attending Unavaila ble LOTT, ASHIA VALERIO Primary Care Unavaila bhargav LOTT, DR ASHIA Dunham Primary Care Unavailable LOTT, DR ASHIA Dunham Admitting Unavailable LOTT, DR ASHIA Dunham Attending Unavailable LOTT, DR ASHIA Dunham Attending Unavailable LOTT, DR ASHIA Dunham Consulting Unavailable LOTT, DR ASHIA Dunham Primary Care Unavailable LOTT, DR ASHIA Dunham Admitting Unavailable SHAIKH Cleopatra GRAHAM Attending Unavailable LOTT, DR ASHIA Dunham Primary Care Unavailable DURHAM[place]IL[place], DR DIAMANTE Cruz Consulting Unavailable GLADYS, H Admitting Unavailable LOTT, DR ASHIA Dunham Consulting Unavailable LOTT, DR ASHIA Dunham Consulting Unavailable LOTT, DR ASHIA Dunham Primary Care Unavailable LOTT, DR ASHIA uDnham Admitting Unavailable LOTT, DR ASHIA Dunham Attending Unavailable DUQUE ., DR LEROY Hamm Admitting Unavailable DUQUE ., DR LEROY Hamm Attending Unavailable ELLIOTT ., CINDI Consulting Unavailable LOTT, DR ASHIA Dunham Primary Care Unavailable DUQUE ., DR LEROY Hamm Attending Unavailable LEXI ., CINDI Consulting Unavailable LOTT, DR ASHIA [...] DUQUE ., DR LEROY Hamm Consulting Unavailable KELIN BIGGS Attending Unava ilable OREN, DR ASHIA Dunham Primary Care Unavailable KELIN BIGGS Admitting Unava ilAshia Brock Unavailable Hui HELTON, Trini Unavailable Tyrone DO, Bren Unavailable Allergies Allergy Classification Reported Allergen(s) Allergy Type Date of Onset Reaction(s) Facility Adrenergic Agonists (1 source) Pseudoephedrine Drug Allergy 08-19-[address] [facility] house dust allergenic extract (1 source) house dust allergenic extract Drug Allergy 08-19-19 Unknown Reaction [facility] Penicillins (antibiotic) (1 source) Penicillins Drug Allergy 08-19-19 24 Unknown Reaction [facility] Pneumococcal vaccine (1 source) Pneumococcal vaccine Drug Allergy 08-19-19 24 Swelling [facility] (3 sources) Penicillins Drug allergy (disorder) 08-22-19 15 Unknown Reaction [facility] Repository (2 sources) House dust mite Propensity to adverse reactions Unknown [facility] Other (2 sources) Penicillin Drug Allergy rash [facility] Other (3 sources) Pseudoephedrine Drug Allergy 09-02-[address] [facility] (2 sources) Streptococcus pneumoniae type 1 capsular [...] 9V capsular polysaccharide antigen Drug Allergy SWELLING [facility] Other (2 sources) Substance with penicillin structure and antibacterial mechanism of action (substance) Drug allergy Unknown [facility] Other (2 sources) Allergies Reconciled Propensity to adverse reactions 12-28-19 21 Unknown [facility] Other (1 source) house dust allergenic extract Drug Allergy 09-02-19 24 Unknown Reaction [facility] (1 source) Pneumococcal vaccine Drug Allergy 09-02-19 24 Swelling [facility] (1 source) Penicillins Drug Allergy 09-10-19 18 Rash [facility] Medications Current Medications Medication Drug Class(es) Dates [...] mg / levodopa 100 mg oral tablet (15 sources) Aromatic Amino Acid Decarboxylation Inhibitor, Aromatic Amino Acid Start: 03-18-2024 carbidopa-levodopa (Sinemet) 25-100 MG tablet Indications: Parkinson's disease, unspecified whether dyskinesia present, unspecified whether manifestations fluctuate (CMS/HCC) TAKE 1 AND 1/2 TABLETS BY MOUTH AT 7AM, 11 AM, 3PM, AND 7PM. TAKE 1 TABLET AT 11PM EVERYDAY 630 tablet 03/18/2024 Active Start: 12-11-2023 carbidopa-levo dopa CR (Sinemet CR) 25-100 MG ER tablet Indications: Parkinson's disease, unspecified whether dyskinesia present, unspecified whether manifestations fluctuate (CMS/HCC) TAKE 1 AND 1/2 TABLETS AT 7AM AND 11AM THEN 1 TABLET AT 3PM,7PM, AND 11PM. Do not crush, chew, or split. 540 tablet 12/11/2023 Active Start: 12-09-2023 End: 03-18-2024 carbidopa-levodopa (Sinemet) 25-100 MG tablet Indications: Parkinson's disease, unspecified whether dyskinesia present, unspecified whether manifestations fluctuate (CMS/HCC) TAKE 1 AND 1/2 TABLETS BY MOUTH AT 7AM, 11 AM, 3PM, AND 7PM. TAKE 1 TABLET AT 11PM EVERYDAY 630 tablet 12/09/2023 03/18/2024 Discontinued Start: 12-05-2018 Carbidopa-Levo dopa Active 1 TAB PO 5 times per day [...] 7P 11P take 1 tablet by maninder every twenty-four hours Carbidopa-Levodopa ER 25-100 MG [...] 2018 12:00am levETIRAcetam 500 mg oral tablet (11 sources) Start: 02-13-2024 take 1 tablet by mouth in the morning levETIRAcetam (Keppra) 500 MG tablet Indications: Seizure (CMS/HCC) Take 1 tablet (500 mg) by mouth in the morning and 1 tablet (500 mg) before bedtime. 60 tablet 1 02/13/2024 Active Start: 07-06-2023 take 1 tablet by maninder th twice daily Levetiracetam Active 0 .ROUTE .COMPLEX [...] 1 tablet Orall y BID Not-Taking/PRN rOPINIRole 0.25 mg oral tablet (3 sources) Nonergot Dopamine Agonist Start: 09-02-2023 take 1 tablet by mouth in the morning, then take 1 tablet by mouth in the evening, then take 1 tablet by mouth at bedtime rOPINIRole (Requip) 0.25 MG tablet Indications: Parkinson's disease, unspecified whether dyskinesia present, unspecified whether manifestations fluctuate (CMS/HCC) Take 1 tablet (0.25 mg) by mouth in the morning and 1 tablet (0.25 mg) in the evening and 1 tablet (0.25 mg) before bedtime. 270 tablet 09/02/2023 Active Start: 08-19-2023 take 1 mg by mouth t hree times daily Ropinirole Active 1 MG PO [...] Nonsteroidal Anti-inflammatory Drug Start: 04-22-19 End: 08-19-19 24 take 1 tablet by mouth every twelve [...] current use of drug therapy; Translations: [Other joint terminal attack controller (current) drug therapy] Episodic Other connective tissue [...] Constipation; Translations: [Other constipation] 12-05-2018 Episodic Other hereditary and degenerative nervous system conditions (1 source) Restless legs; Translations: [Restless legs syndrome] Onset: 07-16-2023 07-16-2023 Chronic Other injuries and conditions due to external causes (4 sources) History of fall; Translations: [History of falling] Onset: 09-13-2017 Episodic Other nervous system disorders (5 sources) Chronic pain syndrome; Translations: [CHRONIC PAIN SYNDROME] Onset: 10-23-2021 Chronic Other nervous system disorders (3 sources) Chronic pain; Translations: [Other chronic pain] Onset: 07-16-2023 07-16-2023 Chronic Other nervous system disorders (2 sources) [...] Translations: [Syncope and collapse] 12-05-2018 Episodic Unclassified (4 sources) Parkinson's disease; Translations: [Parkinson's disease] Onset: 07-16-2023 12-06-2018 Chronic Unclassified (4 sources) LOW BACK PAIN, UNSPECIFIED; Translations: [LOW BACK PAIN, UNSPECIFIED] Onset: 10-23-2021 Past or Other Problems Problem Classification Problem Date Documented Da te Episodic/Chronic Other nervous system disorders (1 source) Sensory ataxia ; 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] Onset: 07-16-2023 07-16-2023 Episodic Other screening for suspected conditions (not [...] Basophils (Bld) [#/Vol] 0.0 10 3/uL 0.0-0.1 [facility] Basophils/100 WBC Auto (Bld) on 09-02-2023 Basophils/100 WBC (Bld) 0.3 % 0.2-2.0 [facility] Eosinophils/100 WBC Auto (Bl d)on 09-02-2023 Eosinophils/100 WBC (Bld) 1.8 % 0.9-7.0 [facility] Erythrocyte distribution wid th Auto (RBC) [Ratio]on 09-02-2023 Erythrocyte distribution width (RBC) [Ratio] 12.0 % 11.0-15.0 [facility] Estimated glomerular filtrat ion rate (GFR) non- Americanon 09-02-2023 GFR/1.73 sq M.predicted among non-blacks MDRD (S/P/Bld) [Vol rate/Area] 60 mL/min/{1.73_m2} >=60 [facility] Globulin Calc (S) [Mass/Vol] on 09-02-2023 Globulin (S) [Mass/Vol] 3.3 g/dL [facility] Hematocrit Auto (Bld) [Volum e fraction]on 09-02-2023 Hematocrit (Bld) [Volume fraction] 31.5 % 36.0-48.0 [facility] Hemoglobin [Mass/volume] in Bloodon 09-02-2023 Hemoglobin (Bld) [Mass/Vol] 10.4 g/dL 12.0-16.0 [facility] Laboratory - Chemistry and C hemistry - challengeon 09-02-2023 Albumin [Mass/Vol] 3.3 g/dL 3.4-5.0 [facility] ALP [Catalytic activity/Vol] 87 U/L 46-116 [facility] ALT [Catalytic activity/Vol] 7 U/L 14-59 [facility] AST [Catalytic activity/Vol] 16 U/L 15-37 [facility] Bilirubin [Mass/Vol] 0.5 mg/dL 0.2-1.0 [facility] Calcium [Mass/Vol] 9.0 mg/dL 8.5-10.1 [facility] Chloride [Moles/Vol] 102 mmol/L 98-107 [facility] CO2 [Moles/Vol] 29.2 mmol/L 21.0-32.0 [facility] Creatinine [Mass/Vol] 0.92 mg/dL 0.55-1.02 [facility] GFR/1.73 sq M.predicted MDRD (S/P/Bld) [Vol rate/Area] mL/min/{1.73_m2} >=60 [facility] Glucose [Mass/Vol] 99 mg/dL 74-106 [facility] Potassium [Moles/Vol] 5.0 mmol/L 3.5-5.1 [facility] Protein [Mass/Vol] 6.6 g/dL 6.4-8.2 [facility] Sodium [Moles/Vol] 138 mmol/L 136-145 [facility] TSH Qn 1.862 m[IU]/L 0.358-3.740 [facility] Urea nitrogen [Mass/Vol] 35.0 mg/dL 7.0-18.0 [facility] Urea nitrogen/Creatinin e [Mass ratio] 38.0 mg/mg [facility] Laboratory - Hematology and Cell countson 09-02-2023 Immature granulocytes/100 WBC (Bld) 0.1 % 0.0-0.5 [facility] Leukocytes [#/volume] correc hema for nucleated erythrocytes in Blood by Automated counon 09-02-2023 WBC corrected for nucl RBC Auto (Bld) [#/Vol] 6.7 10 3/uL 4.0-11.0 [facility] Lymphocytes Auto (Bld) [#/Vo l]on 09-02-2023 Lymphocytes (Bld) [#/Vol] 0.9 10 3/uL 1.2-3.8 [facility] Lymphocytes/100 WBC Auto (Bl d)on 09-02-2023 Lymphocytes/100 WBC (Bld) 13.1 % 20.5-60.0 [facility] MCH Auto (RBC) [Entitic mass ]on 09-02-2023 MCH (RBC) [Entitic mass] 31.8 pg 26.7-34.0 [facility] MCHC Auto (RBC) [Mass/Vol]on 09-02-2023 MCHC (RBC) [Mass/Vol] 33.0 g/dL 29.9-35.2 [facility] MCV Auto (RBC) [Entitic vol] on 09-02-2023 MCV (RBC) [Entitic vol] 96.3 fL 81.0-99.0 [facility] Monocytes Auto (Bld) [#/Vol] on 09-02-2023 Monocytes (Bld) [#/Vol] 0.6 10 3/uL 0.3-0.8 [facility] Monocytes/100 WBC Auto (Bld) on 09-02-2023 Monocytes/100 WBC (Bld) 8.2 % 1.7-12.0 [facility] Neutrophils Auto (Bld) [#/Vo l]on 09-02-2023 Neutrophils (Bld) [#/Vol] 5.2 10 3/uL 1.4-6.5 [facility] Neutrophils/100 WBC Auto (Bl d)on 09-02-2023 Neutrophils/100 WBC (Bld) 76.5 % 43.0-75.0 [facility] No Panel Informationon 09-01 Eosinophils # (Auto) 0.1 10 3/uL 0.0-0.7 [facility] Immature Granulocyte # (Auto) 0.01 10 3/uL 0.00-0.03 [facility] Platelet mean volume Auto (B ld) [Entitic vol]on 09-02-2023 Platelet mean volume (Bld) [Entitic vol] 9.4 fL 9.5-13.5 [facility] Platelets Auto (Bld) [#/Vol] on 09-02-2023 Platelets (Bld) [#/Vol] 235 10 3/uL 150-450 [facility] RBC Auto (Bld) [#/Vol]on RBC (Bld) [#/Vol] 3.27 10 6/uL 4.20-5.40 [facility] Serum or plasma albumin/glob ulin mass ratioon 09-02-2023 Albumin/Globulin [Mass ratio] 1.0 {ratio} [facility] Serum or plasma anion gap de terminationon 09-02-2023 Anion gap [Moles/Vol] 11.8 mmol/L [facility] MG MAMM SCREEN PRETTY W CADon 0 09-19-2021 MG MAMM SCREEN PRETTY W CAD Patient: MARTHA MERCHANT Exam Date: 09/19/2021 : 1950 Gender:F Ordering : DR ASHIA LOTT M.D. Admission #: [id number] Family : SHAIKH Ria GRAHAM . Order #: [id number] CLICK HERE TO VIEW EXAM RADIOLOGY REPORT PROCEDURE: MAMMOGRAM BILATERAL SCREENING DIGITAL WITH COMPUTER AIDED DETECTION COMPARISON: None. INDICATIONS: Screening mammography Calculator Name NCI Breast Cancer Risk Assessment Tool 5 Year Breast Cancer Risk Not Reported. Lifetime Breast Cancer Risk Not Reported. Personal Breast Cancer No Personal Ovarian Cancer No Treatments None Family Cancers None LOCATION: [facility] BREAST COMPOSITION: Extremely dense, which lowers [...] MD on 09/19/2021 at 14:08 Normal [facility] CULTURE URINEon 09-14-2021 CULTURE URINE Culture Observations : LIGHT GROWTH OF MIXED GENITAL ADOLFO. NO POTENTIAL PATHOGENS SEEN. Normal [facility] Comment on above: Performed By: #### U RCX #### [facility] [address], [place] [address] Dr. Ravi Hebert UA RANDOM W/MICROSCOPICon BACTERIA NONE SEEN Normal NONE SEEN [facility] Comment on above: Performed By: #### U AMIC #### [facility] [address], [place] [address] Dr. Ravi Hebert Bilirubin Ql (U) Negative Normal NEGATIVE [facility] Comment on above: Performed By: #### U AMIC #### [facility] [address] [place] [address] [address] Ravi Hebert CAST NONE SEEN Normal NONE SEEN [facility] Comment on above: Performed By: #### U AMIC #### [facility] [address] [address] [address] Ravi Hebert Clarity (U) CLEAR Normal CLEAR [facility] Comment on above: Performed By: #### U AMIC #### [facility] [address] [address] [address] Ravi Hebert Color (U) LT. YELLOW Normal YELLOW [facility] Comment on above: Performed By: #### U AMIC #### [facility] [address] [place] [address] Dr. Ravi Hebert Crystals LM Nom (Urine sed) NONE SEEN Normal NONE SEEN [facility] Comment on above: Performed By: #### U AMIC #### [facility] [address] [address] [address] Ravi Hebert Epithelial cells LM Ql (Urine sed) FEW Abnormal NONE SEEN /RARE [facility] Comment on above: Performed By: #### U AMIC #### [facility] [address] [place] [address] Dr. Ravi Hebert Glucose Ql (U) Negative Normal NEGATIVE [facility] Comment on above: Performed By: #### U AMIC #### [facility] [address] [address] [address] Ravi Hebert Hemoglobin Ql (U) Negative Normal NEGATIVE [facility] Comment on above: Performed By: #### U AMIC #### [facility] [address] [place] [address] Dr. Ravi Hebert Ketones Ql (U) Negative Normal NEGATIVE [facility] Comment on above: Performed By: #### U AMIC #### [facility] [address] [place] [address] Dr. Ravi Hebert LEUKOCYTES Negative Normal NEGATIVE [facility] Comment on above: Performed By: #### U AMIC #### [facility] [address] [place] [address] Dr. Ravi Hebert MUCOUS NONE SEEN Normal NONE SEEN [facility] Comment on above: Performed By: #### U AMIC #### [facility] [address] [place] [address] Dr. Ravi Hebert Nitrite Ql (U) Negative Normal NEGATIVE [facility] Comment on above: Performed By: #### U AMIC #### [facility] [address] [place] [address] Dr. Ravi Hebert pH (U) 6.0 [pH] Normal 5-9 [facility] Comment on above: Performed By: #### U AMIC #### [facility] [address] [place] [address] Dr. Ravi Hebert RBC NONE SEEN Abnormal 0-2 [facility] Comment on above: Performed By: #### U AMIC #### [facility] [address] [place] [address] Dr. Ravi Hebert SPEC GRAVITY <=1.005 Abnormal 1.005-<=1.02 5 [facility] Comment on above: Performed By: #### U AMIC #### [facility] [address] [place] [address] Dr. Ravi Hebert UA PROTEIN Negative Normal NEGATIVE/ TRACE [facility] Comment on above: Performed By: #### U AMIC #### [facility] [address] [place] [address] Dr. Ravi Hebert Urobilinogen Qn (U) 0.2 {Naveen'U}/dL Normal 0.2 - 1.0 [facility] Comment on above: Performed By: #### U AMIC #### [facility] [address] [place] [address] Dr. Ravi Hebert WBC NONE SEEN Normal NONE SEEN [facility] Comment on above: Performed By: #### U AMIC #### [facility] [address] [place] [address] Dr. Ravi Hebert CBC AUTO DIFFon 09-08-2021 BASO # 0.0 103/ul Normal 0.0-0.1 [facility] Comment on above: Performed By: #### C BC #### [facility] [address] [place] [address] Dr. Ravi Hebert Basophils/100 WBC (Bld) 0.4 % Normal 0.2-2.0 [facility] Comment on above: Performed By: #### C BC #### [facility] [address] [place] [address] Dr. Ravi Hebert EO # 0.1 103/ul Normal 0.0-0.7 [facility] Comment on above: Performed By: #### C BC #### [facility] [address] [place] [address] Dr. Ravi Hebert Eosinophils/100 WBC (Bld) 0.8 % Critically low 0.9-7.0 [facility] Comment on above: Performed By: #### C BC #### [facility] [address] [place] [address] Dr. Ravi Hebert Erythrocyte distribution width (RBC) [Ratio] 11.8 % Normal 11.0-15.0 [facility] Comment on above: Performed By: #### C BC #### [facility] [address] [place] [address] Dr. Ravi Hebert Hematocrit (Bld) [Volume fraction] 32.8 % Critically low 36.0-48.0 [facility] Comment on above: Performed By: #### C BC #### [facility] [address] [place] [address] Dr. Ravi Hebert Hemoglobin (Bld) [Mass/Vol] 10.8 g/dL Critically low 12.0-16.0 [facility] Comment on above: Performed By: #### C BC #### [facility] [address] [place] [address] Dr. Ravi Hebert IG # 0.03 10e3/ul Normal 0.00-0.03 [facility] Comment on above: Performed By: #### C BC #### [facility] [address] [place] [address] Dr. Ravi Hebert IG % 0.4 % Normal 0.0-0.5 [facility] Comment on above: Performed By: #### C BC #### [facility] [address] [address] [address] Ravi Hebert LYMPH # 0.7 103/ul Critically low 1.2-3.8 [facility] Comment on above: Performed By: #### C BC #### [facility] [address] [place] [address] Dr. Ravi Hebert Lymphocytes/100 WBC (Bld) 9.8 % Critically low 20.5-60.0 [facility] Comment on above: Performed By: #### C BC #### [facility] [address] [place] [address] Dr. Ravi Hebert MANUAL DIFF REQ NO Normal [facility] Comment on above: Performed By: #### C BC #### [facility] [address] [place] [address] Dr. Ravi Hebert MCH (RBC) [Entitic mass] 32.8 pg Normal 26.7-34.0 [facility] Comment on above: Performed By: #### C BC #### [facility] [address] [place] [address] Dr. Ravi Hebert MCHC (RBC) [Mass/Vol] 32.9 g/dL Normal 29.9-35.2 [facility] Comment on above: Performed By: #### C BC #### [facility] [address] [place] [address] Dr. Ravi Hebert MCV (RBC) [Entitic vol] 99.7 fL Critically high 81.0-99.0 [facility] Comment on above: Performed By: #### C BC #### [facility] [address] [place] [address] Dr. Ravi Hebert MONO # 0.4 103/ul Normal 0.3-0.8 [facility] Comment on above: Performed By: #### C BC #### [facility] [address] [place] [address] Dr. Ravi Hebert Monocytes/100 WBC (Bld) 6.0 % Normal 1.7-12.0 [facility] Comment on above: Performed By: #### C BC #### [facility] [address] [place] [address] Dr. Ravi Hebert NEUT # 6.0 103/ul Normal 1.4-6.5 [facility] Comment on above: Performed By: #### C BC #### [facility] [address] [place] [address] Dr. Ravi Hebert Neutrophils/100 WBC (Bld) 82.6 % Critically high 43.0-75.0 [facility] Comment on above: Performed By: #### C BC #### [facility] [address] [place] [address] Dr. Ravi Hebert Platelet mean volume (Bld) [Entitic vol] 9.6 fL Normal 9.5-13.5 [facility] Comment on above: Performed By: #### C BC #### [facility] [address] [place] [address] Dr. Ravi Hebert PLT 223 103/ul Normal 150-450 [facility] Comment on above: Performed By: #### C BC #### [facility] [address] [place] [address] Dr. Ravi Hebert RBC 3.29 106/ul Critically low 4.20-5.40 [facility] Comment on above: Performed By: #### C BC #### [facility] [address] [place] [address] Dr. Ravi Hebert WBC 7.2 103/ul Normal 4.0-11.0 [facility] Comment on above: Performed By: #### C BC #### [facility] [address] [place] [address] Dr. Ravi Hebert PROF 14(COMP METB)on 022 Albumin [Mass/Vol] 3.8 g/dL Normal 3.4-5.0 [facility] Comment on above: Performed By: #### C MP, TSH #### [facility] [address] [place] [address] Dr. Ravi Hebert Albumin/Globulin [Mass ratio] 1.2 {ratio} Normal [facility] Comment on above: Performed By: #### C MP, TSH #### [facility] [address] [address] [address] Ravi Hebert ALP [Catalytic activity/Vol] 69 U/L Normal 46-116 [facility] Comment on above: Performed By: #### C MP, TSH #### [facility] [address] [address] [address] Ravi Hebert ALT [Catalytic activity/Vol] 10 U/L Critically low 14-59 [facility] Comment on above: Performed By: #### C MP, TSH #### [facility] [address] [address] [address] Ravi Hebert Anion gap [Moles/Vol] 10.7 mmol/L Normal [facility] Comment on above: Performed By: #### C MP, TSH #### [facility] [address] [place] [address] Dr. Ravi Hebert AST [Catalytic activity/Vol] 22 U/L Normal 15-37 [facility] Comment on above: Performed By: #### C MP, TSH #### [facility] [address] [place] [address] Dr. Ravi Hebert Bilirubin [Mass/Vol] 0.5 mg/dL Normal 0.2-1.0 [facility] Comment on above: Performed By: #### C MP, TSH #### [facility] [address] [place] [address] Dr. Ravi Hebert Calcium [Mass/Vol] 8.8 mg/dL Normal 8.5-10.1 [facility] Comment on above: Performed By: #### C MP, TSH #### [facility] [address] [place] [address] Dr. Ravi Hebert Chloride [Moles/Vol] 102 mmol/L Normal 98-107 [facility] Comment on above: Performed By: #### C MP, TSH #### [facility] [address] [place] [address] Dr. Ravi Hebert CO2 [Moles/Vol] 29.6 mmol/L Normal 21.0-32.0 [facility] Comment on above: Performed By: #### C MP, TSH #### [facility] [address] [place] [address] Dr. Ravi Hebert Creatinine [Mass/Vol] 0.90 mg/dL Normal 0.55-1.02 [facility] Comment on above: Performed By: #### C MP, TSH #### [facility] [address] [place] [address] Dr. Ravi Hebert EGFR-AF CYMRO >60 Normal >=60 [facility] Comment on above: Performed By: #### C MP, TSH #### [facility] [address] [place] [address] Dr. Ravi Hebert EGFR-NON AF CYMRO >60 Normal >=60 [facility] Comment on above: Performed By: #### C MP, TSH #### [facility] [address] [place] [address] Dr. Ravi Hebert Globulin (S) [Mass/Vol] 3.1 g/dL Normal [facility] Comment on above: Performed By: #### C MP, TSH #### [facility] [address] [place] [address] Dr. Ravi Hebert Glucose [Mass/Vol] 94 mg/dL Normal 74-106 [facility] Comment on above: Performed By: #### C MP, TSH #### [facility] [address] [place] [address] Dr. Ravi Hebert Potassium [Moles/Vol] 4.3 mmol/L Normal 3.5-5.1 [facility] Comment on above: Performed By: #### C MP, TSH #### [facility] [address] [place] [address] Dr. Ravi Hebert Protein [Mass/Vol] 6.9 g/dL Normal 6.4-8.2 [facility] Comment on above: Performed By: #### C MP, TSH #### [facility] [address] [place] [address] Dr. Ravi Hebert Sodium [Moles/Vol] 138 mmol/L Normal 136-145 [facility] Comment on above: Performed By: #### C MP, TSH #### [facility] [address] [place] [address] Dr. Ravi Hebert Urea nitrogen [Mass/Vol] 34.0 mg/dL Critically high 7.0-18.0 [facility] Comment on above: Performed By: #### C MP, TSH #### [facility] [address] [address] [address] Ravi Hebert Urea nitrogen/Creatinin e [Mass ratio] 37.8 mg/mg Normal [facility] Comment on above: Performed By: #### C MP, TSH #### [facility] [address] [address] [address] Ravi Hebert TSHon 09-08-2021 TSH 1.350 uIU/mL Normal 0.358-3.740 [facility] Comment on above: Performed By: #### C MP, TSH #### [facility] [address] [address] [address] Ravi Hebert PROGRESSon 06-25-2017 PROGRESS HNO ID: [id number] thor: Nicolas Dotson: (none)Author Type: PhysicianType: Progress NotesFiled: 06/25/2017 4:47 PMNote Text:Martha WhalenOB: 1950[facility]Date last seen:PAST MEDICAL HISTORYDiagnosis Date- Constipation- [...] 3350 (MIRALAX, GLYCOLAX) 17 gram/dose powderrizatriptan ([employer]) 10 mg disintegrating tabletNo current facility-administered medications [...] toenail of left footNicolas Dominguez DPM Normal [facility] Vital Signs Date Time Vital Sign Value Performing Clinician Facility 09-02-2023 14:55-0400 Body height 162.56 cm [facility] 09-02-2023 14:55-0400 Body mass index (BMI) [Ratio] 14.3 kg/m2 [facility] 09-02-2023 14:55-0400 Body weight 38 kg [facility] 09-02-2023 14:55-0400 Diastolic blood pressure 84 mm[Hg] [facility] 09-02-2023 14:55-0400 Heart rate 88 /min [facility] 09-02-2023 14:55-0400 Systolic blood pressure 138 mm[Hg] [facility] 08-19-2023 13:51-0400 Body height 162.56 cm [facility] 08-19-2023 13:51-0400 Body mass index (BMI) [Ratio] 14.6 kg/m2 [facility] 08-19-2023 13:51-0400 Body temperature 97.4 [degF] [facility] 08-19-2023 13:51-0400 Body weight 38.72 kg [facility] 08-19-2023 13:51-0400 Diastolic blood pressure 67 mm[Hg] [facility] 08-19-2023 13:51-0400 Heart rate 56 /min [facility] 08-19-2023 13:51-0400 Systolic blood pressure 134 mm[Hg] [facility] 02-15-2023 13:30-0500 Body height 162.56 cm Ashia Lott Other [facility] Other 02-15-2023 13:30-0500 Body mass index (BMI) [Ratio] 14.59 kg/m2 Ashia Lott Other [facility] Other 02-15-2023 13:30-0500 Body weight 38.56 kg Ashia Lott Other [facility] Other 02-15-2023 13:30-0500 Diastolic blood pressure 89 mm[Hg] Ashia Lott Other [facility] Other 02-15-2023 13:30-0500 Systolic blood pressure 148 mm[Hg] Ashia Lott Other [employer] [facility] Other Encounters Encounter Date Encounter Type Care Provider Facility Start: 03-18-2024 End: 03-18-2024 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: [facility]NS[facility] Comment on above: Parkinson's disease, unspecified whether dyskinesia present, unspecified whether manifestations fluctuate ([facility]) Start: 09-02-2023 End: 09-02-2023 ambulatory [facility] Work Phone: Start: 09-02-2023 End: 09-02-2023 Patient encounter procedure [facility] Physician [facility] Work Phone: Start: 08-19-2023 End: 08-19-2023 ambulatory [facility] Work Phone: Start: 08-19-2023 End: 08-19-2023 Patient encounter procedure [facility] Physician [facility] Work Phone: Start: 03-12-2023 End: 03-12-2023 ambulatory Ashia Lott Other [facility] Other Start: 03-12-2023 Telephone encounter Ashia Lott [facility] Start: 02-15-2023 End: 02-15-2023 ambulatory Ashia Lott Other [employer] [facility] Other Start: 02-15-2023 Office outpatient vi sit 15 minutes Ashia Lott [facility] Start: 06-21-2022 ambulatory KELIN BARNARDMIPATHY Facility:[facility] Start: 04-24-2022 End: 04-25-[address] LEROY DUQUE . Facility:[facility] Start: 2022 End: 01-19-[address] LEROY DUQUE . Facility:[facility] Start: 01-09-2022 Adult health examination Margo Lott Other [employer] [facility] Other Start: 10-19-2021 End: 10-20-[address] LEROY DUQUE . Facility:[facility] Start: 09-19-2021 End: 09-20-2021 ambulatory Cleopatra GLADYS Facility:[facility] Start: 09-15-2021 End: 09-15-[address] ASHIA LOTT Facility:[facility] Start: 09-08-2021 End: 09-09-[address] ASHIA LOTT Facility:[facility] Start: 08-24-[address] ASHIA LOTT Facil ity:[facility] Start: 07-20-2021 End: 07-21-[address] LEROY DUQUE . Facility:[facility] Start: 05-15-2019 Patient encounter procedure ASHIA LOTT Facility:[facility] Procedures Date Procedure Procedure Detail Performing Clinician Screening for malign ant neoplasm of breast Ashia Lott Other Plan of Treatment Date Care Activity Detail Author Start: 04-02-2024 End: 04-02-2024 Patient encounter procedure 04/02/2024 2:00 PM EST Office Visit [facility]NS[facility] [address] [place] [address] Trini Ames NP [address] [place], [place] [facility] JOHNSON Start: 11-10-2023 Influenza vaccination Influenza Vaccine (#1) [facility] Start: 06-27-2019 Pneumococcal Vaccine: 65+ Years (2 of 2 - PCV) Pneumococcal Vaccine: 65+ Years (2 of 2 - PCV) 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 02-27-2022 COVID-19 mRNA Bivale nt Booster (Moderna) [facility] 01-09-2022 influenza virus vaccine, split virus (incl. purified surface antigen) Ashia Lott Other [facility] Other 01-09-2022 influenza virus vaccine, unspecified formulation [facility] 01-17-2021 COVID-19 mRNA-1273 (Moderna) [facility] 06-01-2020 COVID-19 Vaccine Moderna - Documentation Purposes Only Ashia Lott Other [facility] 05-05-2020 COVID-19 Vaccine Moderna - Documentation Purposes Only Ashia Lott Other [facility] 01-07-2020 influenza virus vaccine, split virus (incl. purified surface antigen) Ashia Lott Other [employer] Other 01-07-2020 influenza virus vaccine, unspecified formulation [facility] 01-13-2019 influenza virus vaccine, split virus (incl. purified surface antigen) Ashia oLtt Other [employer] Other 01-13-2019 influenza virus vaccine, unspecified formulation [facility] 12-05-2018 tetanus and diphther ia toxoids, adsorbed, preservative free, for adult use (5 Lf of tetanus toxoid and 2 Lf of diphtheria toxoid) [facility] 12-05-2018 tetanus toxoid, reduced diphtheria toxoid, and acellular pertussis vaccine, adsorbed [facility] 12-26-2017 influenza virus vaccine, split virus (incl. purified surface antigen) Ashia Lott Other [employer] [facility] Other 12-26-2017 influenza virus vaccine, unspecified formulation [facility] NEGATED: Highlighted row has not occurred!12-27-2020 influenza virus vaccine, split virus (incl. purified surface antigen) Ashia Lott Other [employer] Other Payers Date Payer Category Payer Medicare MEDICARE [id number] 1961 Medicare [id number] 1961 Self-pay [id number] 1961 Unknown [id number] 1950 Unknown [id number] 1950 Unknown [id number] 1950 Unknown [id number] 1948 Unknown [id number] 1948 Unknown [id number] 1950 Unknown [id number] 1950 Unknown [id number] 1948 Unknown [id number] 1950 Unknown [id number] Self-pay Self Pay [id number] Social History Date Type Detail Facility Unknown if ever smoked [facility] [employer] Other Start: 07-16-2023 Sex Assigned At N [facility] [employer] Other Start: 12-06-2018 End: 07-16-2023 Tobacco smoking status NHIS Never smoked tobacco (finding) [facility] Start: 1950 Sex Assigned At Female F [facility] Start: 07-16-2023 Tobacco use and exposure Smokeless tobacco non-user [facility] Start: 07-16-2023 Alcoholic beverage intake Lifetime non-drinker (finding) [facility] Start: 07-16-2023 History of Social function [facility] Start: 1950 Sex assigned at Not on file N [facility] Clinical Notes 07-20-2021 to 03-18-2024 Telephone Encounter - Patrice Sainz MA - 03/18/2024 11:02 AM ESTTelephone Encounter - Patrice Sainz MA - 03/18/2024 11:02 AM EST Note Date & Type Note Facility 03-18-2024 Telephone encounter Note Form atting of this note might be different from the original. Received a new rx request for Keppra. The pt has an appt scheduled for 04/02/2024. Per the last tele enc ND agreed to send the med up to March. Okay to send to get to f/u appt? Please advise. Tele enc dated 02/17/2024 [facility] 03-18-2024 Miscellaneous Notes Formattin g of this note might be different from the original. Received a new rx request for Keppra. The pt has an appt scheduled for 04/02/2024. Per the last tele enc ND agreed to send the med up to March. Okay to send to get to f/u appt? Please advise. Tele enc dated 02/17/2024 documented in this encounter [facility] 03-12-2023 Evaluation note Encounter Date Diagnosis Assessment Notes Mar, Lumbar degenerative disc disease (ICD-10 - M51.36) [facility] Other 12-08-2023 Evaluation note* Encounter Date Diagnosis Assessment Notes Treatment Notes Treatment Clinical Notes Feb, Pain, joint, shoulder, left (ICD-10 - M25.512) Agrees to ortho referral Requests Dr. Acosta [facility] Other 02-14-2023 NoteCONSULTATION CONSULTATION DATE: 04/24/2022 CHIEF COMPLAINT: Bilateral hip [...] the patient takes citalopram 30 mg daily, Wolverton 5/325 b.i.d., clonidine 0.1 mg b.i.d. Celebrex [...] atrophy. PLAN: We will refill the patient's Wolverton 5/325 b.i.d. X-ray of her lumbar spine and pelvis has been ordered. The patient also has been given a prescription for Ensure HN and/or Boost HN two per day. Education was done with regards to possibly adding glucosamine chondroitin sulfate to improve the discomfort in her hips. The patient and her daughter understand and would like to proceed. CC: Ashia Lott M.D.[id number] NoteCONSULTATION CONSULTATION DATE: 2022 HISTORY OF PRESENT ILLNESS: This is a 72-year-old female accompanied by her sister to the clinic for a three month follow up for her chronic lower back pain and hip pain. Last procedure the patient had was radiofrequency ablation of her lumbar region in 2018. She is managed medically at this time for pain with Wolverton 5/325 b.i.d. Other medications include citalopram, clonidine, [...] unless otherwise indicated. Patient agrees with this plan.[facility] 10-19-2021 NoteCONSULTATION CONSULTATION DATE: 10/19/2021 HISTORY OF PRESENT ILLNESS: [...] Ensure supplements daily as well. 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 She does use heat to her lower back, which is beneficial. Medications include Wolverton 5/325 b.i.d., clonidine 0.1 b.i.d., citalopram, Keppra [...] disc disease. PLAN: We will refill the Wolverton at 5/325 b.i.d. Patient is taking anti-inflammatory [...] with plan of care and all questions answered.[facility] [id number] NoteCONSULTATION CONSULTATION DATE: 07/20/2021 This is a 71-year-old [...] or new motor changes. Current medications include Wolverton 5/325 b.i.d., clonidine, multivitamin, Sinemet, Keppra and [...] PLAN: We will continue to maintain her Wolverton 5/325 b.i.d. I have discussed with the patient and her sister at prior office visits regarding curcumin supplement named Enhansa that is produced by [facility]. That information was shared once again with the patient and the sister. Recommended doses were discussed. The patient and sister agreed with the plan of care and we will see her in three months' time unless otherwise indicated. [facility] Signed and Approved by: CINDI ELLIOTT . 07/27/2021 17:09:00[facility] Diagnosis Onset Date Resolution Status Fatigue acute Hypertension acute Hypokalemia acute Hyponatremia acute Nausea acute [facility] Work Phone: Evaluation note* Diagnosis Parkinson's disease, unspecified whether dyskinesia present, unspecified whether manifestations fluctuate ([facility]) documented in this encounter [facility] N[facility]ative - Reported* Type Description Date Medical History PARKINSONS Medical History ANXIETY Medical History HTN Medical History gastritis Medical History hyperlipidemia Surgical History Pelvice Exam Hysterectomy Daniels 2004 Surgical History Sinus Endoscopic-Dr. Valdez Surgical History lymphnode removal - abdomen Surgical History RIGHT HIP-NERVE BLOCK-DR DUQUE OCTOBER 2018 Hospitalization History See above Hospitalization History Seizure- inpatient for 3 weeks Apr 2014 Hospitalization History FALL WITH FRACTU RED HIP X2 AND COLLARBONE (RIGHT) [facility] JUNE 2013 Hospitalization History LOW SODIUM ADMITTED TO [facility] APR 2017 [employer] [facility] Other Summary Purpose Family History Relationship Condition Age at Onset Recorded Date/T vern father Unknown grandparent Unknown Not Specified Hypertension Unknown Unknown sister Malignant neoplasm Unknown Advance Directives Advance Directive Response Recorded Date/ Time Advance Directives No June 19 018 7:46am Advance Directive Response Recorded Date/ Time Advance Directives No August 29 11:39am Reason for Referral Reason *FU 03/06 Dr. Kyree barnes at [place] - shoulder. Diagnosis 1 Pain, joint, shoulde r, left (M25.635) Referral Organization [facility] gabriela Referring Provider First Name Ashia Referring Provider Last Name Oren Referring Provider Specialty Family [facility] Referred Organization [facility] Referred Provider Andrea Acosta Referred Address [address], [place],[address] Referred Provider Specialty Orthopaedic Surgery Referral Priority Routine General Notes Shyla Cade 03:35:22 PM >received today, attachments made, notes locked, referral faxed Shyla Cade 02/25/2023 11:25:19 AM >faxed first attempt letter Clinical Notes p: [phone] f: [id number] Chief Complaint and Reason for Visit Chief Complaint chills, nausea Reason for Visit Fatigue Hypertension Hypokalemia Hyponatremia Nausea Chief Complaint chills, nausea fell, right rib pain Reason for Visit Fatigue Hypertension Hypokalemia Hyponatremia Nausea Additional Source Comments INFORMATION SOURCE (unrecogn ized section and content) DATE CREATED AUTHOR 09/12/2017 [facility] DATE CREATED AUTHOR AUTHOR'S ORGANIZ ATION 05/15/2019 [facility] DATE CREATED AUTHOR AUTHOR'S ORGANIZ ATION 06/10/2022 [facility] REASON FOR VISIT (unrecogniz ed section and content) Reason Comments Med Refill Care Teams (unrecognized sec tion and content) [...] September 02, 2023 End: September 02, 2023 [employer]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 [employer] provides no warranty or guarantee of the accuracy or completeness of information in this document.
--- NOTE | 2024-04-08 14:12 | PM.CN ---
Consult Note: HPI Data of Consult Patient: known to practice within the last 3 years Requesting Physician: Tammy Worrell NP Primary Care Provider: Ashia Ga MD Consult Narrative Reason for consult: f/u Narrative: Martha Min a pleasant 74 year old female presents for evaluation and management of chronic low back pain. Patient rating pain today 6/10 increasing to 8/10 with activity and ADLs. Patient reports moderate improvement in pain and functional ability with current medication regimen. Patient denies side effects. Continues to f/u with [facility] for parkinsons. Pain increases with sitting too long, standing, walking, activity and sleep. utilizes wheeled walker and wheelchair as needed, has had two falls in the last 6 months without injury. cc:: CC: Tammy Worrell NP Review of Systems ROS Status of ROS 10 or more systems reviewed and unremarkable except as noted in history and below Musculoskeletal Reports: back pain and joint pain Meds Home Medications and Allergies Home Medications ?Medication ?Instructions ?Recorded ?Confirmed ?Type acetaminophen 500 mg capsule 1,000 mg PO TID PRN pain 11/28/22 12/19/22 History calcium polycarbophil 625 mg 1,250 mg PO DAILY 11/28/22 12/19/22 History tablet (Fiber (calcium polycarbophil)) carbidopa 25 mg-levodopa 100 mg 1 tab PO .5 times per day 11/28/22 12/03/22 History tablet carvedilol 25 mg tablet (Coreg) 25 mg PO BID 11/28/22 12/19/22 History citalopram 10 mg tablet 30 mg PO DAILY 11/28/22 12/19/22 History clonidine HCl 0.1 mg tablet 0.2 mg PO Q12H 11/28/22 12/19/22 History gluc eadl-[id number] ea mucous membrane 11/28/22 History mouthwash levetiracetam 500 mg tablet 500 mg PO Q12H 11/28/22 12/03/22 History lisinopril 40 mg tablet 40 mg PO DAILY 11/28/22 12/19/22 History rotigotine 1 mg/24 hour 1 patch transdermal DAILY 11/28/22 12/03/22 History transdermal 24 hour patch (Neupro) naloxone 4 mg/actuation nasal 4 mg intranasal Q3M PRN opioid 02/20/23 Rx spray (Narcan) overdose #2 ea hydrocodone 7.5 mg-acetaminophen See Rx Instructions .Route 01/01/24 Rx 325 mg tablet .COMPLEX pain #75 tabs hydrocodone 7.5 mg-acetaminophen See Rx Instructions .Route 02/10/24 Rx 325 mg tablet .COMPLEX PRN pain #75 tabs hydrocodone 7.5 mg-acetaminophen See Rx Instructions .Route 03/19/24 Rx 325 mg tablet .COMPLEX PRN pain #75 tabs Allergies Allergy/AdvReac Type Severity Reaction Status Date / Time Penicillins Allergy Verified 11/28/22 15:03 Exam Constitutional Documenting provider has reviewed patient's vital signs: yes Common normals: no apparent distress, oriented x3, healthy appearing, alert and well nourished Exam limitations: physical limitations General appearance: cooperative Nutritional appearance: thin HENMT Common normals: normocephalic, hearing grossly normal bilaterally and moist oral mucous membranes Head and scalp: normocephalic Eye Common normals: PERRL Pupil: PERRL Neck & C-Spine Common normals: full ROM General: normal visual inspection Chest Common normals: inspection of chest normal Respiratory Common normals: normal respiratory effort, no retractions and no use of accessory muscles Back & Pelvis Lumbar spine/lower back: ROM limited and pain with ROM Other: predominately axial low back pain without radiculopathy on exam, bilateral facet loading positive strength 4/5 in BLE intermittent heaviness/weakness Extremity Common normals: full ROM Neuro Common normals: oriented x3, CN's II-XII intact bilaterally, moves all extremities, no focal motor deficits, no sensory deficits noted and deep tendon reflexes 2+ bilaterally Sensorium/orientation: alert Gait (neuro): antalgic, shuffling and assistive device used (wheelchair and walker at home) Motor exam: no movement abnormalities noted Psych Common normals: mental status grossly normal, thought process normal, cooperative, affect normal, speech normal and activity/motor behavior normal Speech: normal speech Thought process: normal thought process Results Additional Findings Additional findings: If on a controlled substance or opioids, I have checked an [place]AR[place] report on this patient and there are no aberrancies noted in the prescribing history.??If on a controlled substance or opioid a drug screen was completed and reviewed within the last year, and if there has not been a drug screen completed we ordered one today to monitor higher risk, state monitored pain medication use. As part of providing excellent, safe, comprehensive care, the following was completed at our patient's visit: 1. A medication reconciliation and review to ensure accurate knowledge of current/active medications, including asking our patients to inform us about any [id number]-qhuhnfv medications or herbal remedies/nutritional supplements/alternative remedies. 2. A review to specifically ensure our patients have had annual screening for screening for depression, screening for tobacco use, and screening for unhealthy alcohol use. For concerning screenings had a discussion with the patient, provided patient education, and recommended follow-up with primary care provider when appropriate. If patient noted with a risk of falling, they received education on strength, gait, and balance training to prevent future risk of falling. Portions of this note may have been carried over from the previous visit and updated as appropriate. Please note this office utilizes paper charting in addition to the electronic medical record. A list of current medications, vitals, and PMH is available there as the clinical staff outside of myself do not have access to [facility] charting during the clinic day operations. As part of providing quality comprehensive care the current medications, vitals, and PMH were reviewed in the paper chart. Assessment and Plan Assessment and Plan (1) Lumbar stenosis with neurogenic claudication: (2) Lumbar spondylosis: (3) Chronic, continuous use of opioids: Assessment and Plan: I feel these medications are improving the patient's quality of life and allow them to tolerate activities of daily living as well as participate in recreational activity.? The patient does not report intolerable side effects. The patient is NOT opioid naive and non-pharmacologic and non-opioid treatment has failed to significantly relieve the patient's pain and improve functionality. The patient has a diagnosis that is related to a somatic or visceral pain etiology. ? ?? I reviewed with the patient the potential risks and side effects with the use of? opioid medications including but not limited to respiratory depression,? sedation, and even . Within the last 12 months I have verified the patient has access to naloxone should? these effects occur. The patient was advised to let? their family know they had Naloxone in case they would need to administer? the medication. I advised the patient to avoid the use of any other? sedation substances including alcohol, THC, and benzodiazepines while? taking opioid medications due to the risk of compounding side effects and? detrimental outcomes. within the last 12 months I have reviewed the [employer], pain treatment agreement and urine drug screen.? ?? A drug screen was completed within the last year, and no aberrancies were noted regarding their use of controlled substances. The patient understands they are subject to the terms and conditions of the pain contract that they have signed. ? ?? I have checked an OARRS report on this patient today and there are no aberrancies noted in the prescribing history.? Plan continue current medications declining PT for frequent falls, encouraged wheeled walker use update UDS today for medication monitoring of chronic prescription opioids f/u 3 months, sooner if needed
== END 2024-04-08 13:50 | disposition home or self-care (01) ==
LOC: PM 13:49
PROVIDERS: PCP Family Medicine; Visit Provider Nurse Practitioner
DX: M48.062 Spinal stenosis, lumbar region with neurogenic claudication (principal); M47.816 Spondylosis without myelopathy or radiculopathy, lumbar region; Z79.891 Long term (current) use of opiate analgesic
CPT/HCPCS: G0463

== ENCOUNTER 2024-05-22 16:47 | Inpatient (IN) | payer MEDICARE, SELFPAY ==
[2024-05-22] VITALS (33 sets, daily range): BP systolic 107–152; BP diastolic 55–86; PULSE 67–75; TEMP 36.3–36.6; O2SAT 93–100; BMI 15.8
--- OUTSIDE RECORDS SUMMARY | 2024-05-22 16:55 | XMS_ITS | CCD ---
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 Name Role Phone ASHIA LOTT Attending Unavaila [...] LOTT, DR ASHIA Dunham Primary Care Unavailable SENATH, DR DIAMANTE Cruz Consulting Unavailable SHAIKH GRAHAM H Admitting Unavailable LOTT, DR ASHIA Dunham Consulting Unavailable LOTT, DR ASHIA Dunham Consulting Unavailable LOTT, DR ASHIA Dunham Primary Care Unavailable LOTT, DR ASHIA Dunham Admitting Unavailable OLTT, DR ASHIA Dunham Attending Unavailable DUQUE ., DR LEROY Hamm Admitting Unavailable DUQUE ., DR LEROY Hamm Attending Unavailable LEXI ., CINDI Consulting Unavailable OREN, DR ASHIA Dunham Primary Care Unavailable DUQUE ., DR LEROY Hamm Attending Unavailable ELLIOTT ., CINDI Consulting Unavailable OREN, DR ASHIA Dunham Primary Care Unavailable DUQUE [...] Unavailable KELIN BIGGS Admitting Unava ilAshia Brock Hui HELTON, Juno Unavailable Bren Hansen DO Unavailable rOen NELSON, Ashia Unavailable JUNO AMES Attending Unavailable Allergies Allergy Classification Reported Allergen(s) Allergy Type Date of Onset Reaction(s) Facility Adrenergic Agonists (1 source) Pseudoephedrine Drug Allergy 08-19-19 24 [facility] house dust allergenic extract (1 source) house dust allergenic extract Drug Allergy 08-19-19 24 Unknown Reaction [facility] Penicillins (antibiotic) (1 source) Penicillins Drug Allergy 08-19-19 24 Unknown Reaction [facility] Pneumococcal vaccine (1 source) Pneumococcal vaccine Drug Allergy 08-19-19 24 Swelling [facility] (3 sources) Penicillins Drug allergy (disorder) 08-22-19 15 Unknown Reaction [facility] Repository (2 sources) House dust mite Propensity to adverse reactions Unknown [facility] Other (2 sources) Penicillin Drug Allergy rash [facility] Other (3 sources) Pseudoephedrine Drug Allergy 09-02-19 24 [facility] (2 sources) Streptococcus pneumoniae type 1 [...] 9V capsular polysaccharide antigen Drug Allergy SWELLING [employer] [facility] Other (2 sources) Substance with penicillin structure and antibacterial mechanism of action (substance) Drug allergy Unknown [facility] Other (2 sources) Allergies Reconciled Propensity to adverse reactions 12-28-19 21 Unknown [facility] Other (1 source) house dust allergenic extract Drug Allergy 09-02-19 24 Unknown Reaction [facility] (1 source) Pneumococcal vaccine Drug Allergy 09-02-19 24 Swelling [facility] (3 sources) Penicillins Drug Allergy 09-10-19 18 Rash [facility] [...] mg / levodopa 100 mg oral tablet (19 sources) Aromatic Amino Acid Decarboxylation Inhibitor, Aromatic Amino Acid Start: 12-11-2023 carbidopa-levodopa C R (Sinemet CR) 25-100 MG ER tablet Indications: [...] 11PM EVERYDAY 630 tablet 03/18/2024 Active Start: 12-05-2018 Carbidopa-Levo dopa Active 1 TAB [...] 2018 12:00am levETIRAcetam 500 mg oral tablet (14 sources) Start: 02-13-2024 End: 05-14-2024 take 1 tablet by mouth in the morning levETIRAcetam (Keppra) 500 MG tablet Indications: Seizure (CMS/HCC) Take 1 tablet (500 mg) by mouth in the morning and 1 tablet (500 mg) before bedtime. Do all this for 60 doses. 60 tablet 04/14/2024 05/14/2024 Active Start: 07-06-2023 take 1 tablet by [...] BID Not-Taking/PRN rOPINIRole 0.25 mg oral tablet (5 sources) Nonergot Dopamine Agonist Start: 09-02-2023 take [...] tablet (2 sources) Start: 04-22-19 End: 08-19-19 24 take 1 tablet by mouth once daily [...] Hyperlipidemia; Translations: [Hyperlipidemia, unspecified] Chronic Epilepsy; convulsions (5 sources) Seizure; Translations: [Unspecified convulsions] Onset: 09-12-2017 [...] current use of drug therapy; Translations: [Other long term care social worker (current) drug therapy] Episodic Other connective tissue [...] Other hereditary and degenerative nervous system conditions (3 sources) Restless legs; Translations: [Restless legs syndrome] Onset: 07-16-2023 07-16-2023 Chronic Other injuries and conditions due to external causes (4 sources) History of fall; Translations: [History of falling] Onset: 09-13-2017 Episodic Other nervous system disorders (5 sources) Chronic pain syndrome; Translations: [CHRONIC PAIN SYNDROME] Onset: 10-23-2021 Chronic Other nervous system disorders (5 sources) Chronic pain; Translations: [Other chronic pain] [...] Translations: [Syncope and collapse] 12-05-2018 Episodic Unclassified (6 sources) Parkinson's disease; Translations: [Parkinson's disease] Onset: 07-16-2023 12-06-2018 Chronic Unclassified (4 sources) LOW BACK PAIN, UNSPECIFIED; Translations: [LOW BACK PAIN, UNSPECIFIED] Onset: 10-23-2021 Past or Other Problems Problem Classification Problem Date Documented Da te Episodic/Chronic Other nervous system disorders (3 sources) Sensory ataxia ; 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 [...] Basophils (Bld) [#/Vol] 0.0 10 3/uL 0.0-0.1 [facility] Basophils/100 WBC Auto (Bld) on 09-02-2023 Basophils/100 WBC (Bld) 0.3 % 0.2-2.0 [facility] Eosinophils/100 WBC Auto (Bl d)on 09-02-2023 Eosinophils/100 WBC (Bld) 1.8 % 0.9-7.0 [facility] Erythrocyte distribution wid th Auto (RBC) [Ratio]on 09-02-2023 Erythrocyte distribution width (RBC) [Ratio] 12.0 % 11.0-15.0 [facility] Estimated glomerular filtrat ion rate (GFR) non- Americanon 09-02-2023 GFR/1.73 sq M.predicted among non-blacks MDRD (S/P/Bld) [Vol rate/Area] 60 mL/min/{1.73_m2} >=60 [facility] Globulin Calc (S) [Mass/Vol] on 09-02-2023 Globulin (S) [Mass/Vol] 3.3 g/dL [facility] Hematocrit Auto (Bld) [Volum e fraction]on 09-02-2023 Hematocrit (Bld) [Volume fraction] 31.5 % 36.0-48.0 [facility] Hemoglobin [Mass/volume] in Bloodon 09-02-2023 Hemoglobin (Bld) [Mass/Vol] 10.4 g/dL 12.0-16.0 [facility] Laboratory - Chemistry and C hemistry - challengeon 09-02-2023 Albumin [Mass/Vol] 3.3 g/dL 3.4-5.0 [facility] ALP [Catalytic activity/Vol] 87 U/L 46-116 [facility] ALT [Catalytic activity/Vol] 7 U/L 14-59 [facility] AST [Catalytic activity/Vol] 16 U/L 15-37 [facility] Bilirubin [Mass/Vol] 0.5 mg/dL 0.2-1.0 [facility] Calcium [Mass/Vol] 9.0 mg/dL 8.5-10.1 [facility] Chloride [Moles/Vol] 102 mmol/L 98-107 [facility] CO2 [Moles/Vol] 29.2 mmol/L 21.0-32.0 [facility] Creatinine [Mass/Vol] 0.92 mg/dL 0.55-1.02 [facility] GFR/1.73 sq M.predicted MDRD (S/P/Bld) [Vol rate/Area] mL/min/{1.73_m2} >=60 [facility] Glucose [Mass/Vol] 99 mg/dL 74-106 [facility] Potassium [Moles/Vol] 5.0 mmol/L 3.5-5.1 [facility] Protein [Mass/Vol] 6.6 g/dL 6.4-8.2 [facility] Sodium [Moles/Vol] 138 mmol/L 136-145 [facility] TSH Qn 1.862 m[IU]/L 0.358-3.740 [facility] Urea nitrogen [Mass/Vol] 35.0 mg/dL 7.0-18.0 [facility] Urea nitrogen/Creatinin e [Mass ratio] 38.0 mg/mg [facility] Laboratory - Hematology and Cell countson 09-02-2023 Immature granulocytes/100 WBC (Bld) 0.1 % 0.0-0.5 [facility] Leukocytes [#/volume] correc hema for nucleated erythrocytes in Blood by Automated counon 09-02-2023 WBC corrected for nucl RBC Auto (Bld) [#/Vol] 6.7 10 3/uL 4.0-11.0 [facility] Lymphocytes Auto (Bld) [#/Vo l]on 09-02-2023 Lymphocytes (Bld) [#/Vol] 0.9 10 3/uL 1.2-3.8 [facility] Lymphocytes/100 WBC Auto (Bl d)on 09-02-2023 Lymphocytes/100 WBC (Bld) 13.1 % 20.5-60.0 [facility] MCH Auto (RBC) [Entitic mass ]on 09-02-2023 MCH (RBC) [Entitic mass] 31.8 pg 26.7-34.0 [facility] MCHC Auto (RBC) [Mass/Vol]on 09-02-2023 MCHC (RBC) [Mass/Vol] 33.0 g/dL 29.9-35.2 [facility] MCV Auto (RBC) [Entitic vol] on 09-02-2023 MCV (RBC) [Entitic vol] 96.3 fL 81.0-99.0 [facility] Monocytes Auto (Bld) [#/Vol] on 09-02-2023 Monocytes (Bld) [#/Vol] 0.6 10 3/uL 0.3-0.8 [facility] Monocytes/100 WBC Auto (Bld) on 09-02-2023 Monocytes/100 WBC (Bld) 8.2 % 1.7-12.0 [facility] Neutrophils Auto (Bld) [#/Vo l]on 09-02-2023 Neutrophils (Bld) [#/Vol] 5.2 10 3/uL 1.4-6.5 [facility] Neutrophils/100 WBC Auto (Bl d)on 09-02-2023 Neutrophils/100 WBC (Bld) 76.5 % 43.0-75.0 [facility] No Panel Informationon 09-01 Eosinophils # (Auto) 0.1 10 3/uL 0.0-0.7 [facility] Immature Granulocyte # (Auto) 0.01 10 3/uL 0.00-0.03 [facility] Platelet mean volume Auto (B ld) [Entitic vol]on 09-02-2023 Platelet mean volume (Bld) [Entitic vol] 9.4 fL 9.5-13.5 [facility] Platelets Auto (Bld) [#/Vol] on 09-02-2023 Platelets (Bld) [#/Vol] 235 10 3/uL 150-450 [facility] RBC Auto (Bld) [#/Vol]on RBC (Bld) [#/Vol] 3.27 10 6/uL 4.20-5.40 [facility] Serum or plasma albumin/glob ulin mass ratioon 09-02-2023 Albumin/Globulin [Mass ratio] 1.0 {ratio} [facility] Serum or plasma anion gap de terminationon 09-02-2023 Anion gap [Moles/Vol] 11.8 mmol/L [facility] MG MAMM SCREEN PRETTY W CADon 0 7-12-2022 MG MAMM SCREEN PRETTY W CAD Patient: MARTHA MERCHANT Exam Date: 09/19/2021 : 1950 Gender:F Ordering : DR ASHIA LOTT M.D. Admission #: [id number] Family : SHAIKH Ria GRAHAM . Order #: [id number] CLICK HERE TO VIEW EXAM RADIOLOGY REPORT PROCEDURE: MAMMOGRAM BILATERAL SCREENING DIGITAL WITH COMPUTER AIDED DETECTION COMPARISON: None. INDICATIONS: Screening mammography Calculator Name NCI Breast Cancer Risk Assessment Tool 5 Year Breast Cancer Risk Not Reported. Lifetime Breast Cancer Risk Not Reported. Personal Breast Cancer No Personal Ovarian Cancer No Treatments None Family Cancers None LOCATION: [facility] BREAST COMPOSITION: Extremely dense, which lowers the [...] MD on 09/19/2021 at 14:08 Normal [facility] CULTURE URINEon 09-14-2021 CULTURE URINE Culture Observations : LIGHT GROWTH OF MIXED GENITAL ADOLFO. NO POTENTIAL PATHOGENS SEEN. Normal [facility] Comment on above: Performed By: #### U RCX #### [facility] [address] [place] [address] Dr. Ravi Hebert UA RANDOM W/MICROSCOPICon BACTERIA NONE SEEN Normal NONE SEEN [facility] Comment on above: Performed By: #### U AMIC #### [facility] [address] [address] [address] Ravi Hebert Bilirubin Ql (U) Negative Normal NEGATIVE [facility] Comment on above: Performed By: #### U AMIC #### [facility] [address] [place] [address] Dr. Ravi Hebert CAST NONE SEEN Normal NONE SEEN [facility] Comment on above: Performed By: #### U AMIC #### [facility] [address] [address] [address] Ravi Hebert Clarity (U) CLEAR Normal CLEAR [facility] Comment on above: Performed By: #### U AMIC #### [facility] [address] [address] [address] Ravi Hebert Color (U) LT. YELLOW Normal YELLOW [facility] Comment on above: Performed By: #### U AMIC #### [facility] [address] [address] [address] Ravi Hebert Crystals LM Nom (Urine sed) NONE SEEN Normal NONE SEEN [facility] Comment on above: Performed By: #### U AMIC #### [facility] [address] [place] [address] Dr. Ravi Hebert Epithelial cells LM Ql (Urine sed) FEW Abnormal NONE SEEN /RARE [facility] Comment on above: Performed By: #### U AMIC #### [facility] [address] [place] [address] Dr. Ravi Hebert Glucose Ql (U) Negative Normal NEGATIVE [facility] Comment on above: Performed By: #### U AMIC #### [facility] [address] [address] [address] Ravi Hebert Hemoglobin Ql (U) Negative Normal NEGATIVE [facility] Comment on above: Performed By: #### U AMIC #### [facility] [address] [address] [address] Ravi Hebert Ketones Ql (U) Negative Normal NEGATIVE [facility] Comment on above: Performed By: #### U AMIC #### [facility] [address] [address] [address] Ravi Hebert LEUKOCYTES Negative Normal NEGATIVE [facility] Comment on above: Performed By: #### U AMIC #### [facility] [address] [place] [address] Dr. Ravi Hebert MUCOUS NONE SEEN Normal NONE SEEN [facility] Comment on above: Performed By: #### U AMIC #### [facility] [address] [place] [address] Dr. Ravi Hebert Nitrite Ql (U) Negative Normal NEGATIVE [facility] Comment on above: Performed By: #### U AMIC #### [facility] [address] [place] [address] Dr. Ravi Hebert pH (U) 6.0 [pH] Normal 5-9 [facility] Comment on above: Performed By: #### U AMIC #### [facility] [address] [place] [address] Dr. Ravi Hebert RBC NONE SEEN Abnormal 0-2 [facility] Comment on above: Performed By: #### U AMIC #### [facility] [address] [place] [address] Dr. Ravi Hebert SPEC GRAVITY <=1.005 Abnormal 1.005-<=1.02 5 [facility] Comment on above: Performed By: #### U AMIC #### [facility] [address] [place] [address] Dr. Ravi Hebert UA PROTEIN Negative Normal NEGATIVE/ TRACE [facility] Comment on above: Performed By: #### U AMIC #### [facility] [address] [place] [address] Dr. Ravi Hebert Urobilinogen Qn (U) 0.2 {Naveen'U}/dL Normal 0.2 - 1.0 [facility] Comment on above: Performed By: #### U AMIC #### [facility] [address] [place] [address] Dr. Ravi Hebert WBC NONE SEEN Normal NONE SEEN [facility] Comment on above: Performed By: #### U AMIC #### [facility] [address] [place] [address] Dr. Ravi Hebert CBC AUTO DIFFon 09-08-2021 BASO # 0.0 103/ul Normal 0.0-0.1 [facility] Comment on above: Performed By: #### C BC #### [facility] [address] [place] [address] Dr. Ravi Hebert Basophils/100 WBC (Bld) 0.4 % Normal 0.2-2.0 [facility] Comment on above: Performed By: #### C BC #### [facility] [address] [place] [address] Dr. Ravi Hebert EO # 0.1 103/ul Normal 0.0-0.7 [facility] Comment on above: Performed By: #### C BC #### [facility] [address] [place] [address] Dr. Ravi Hebert Eosinophils/100 WBC (Bld) 0.8 % Critically low 0.9-7.0 [facility] Comment on above: Performed By: #### C BC #### [facility] [address] [place] [address] Dr. Ravi Hebert Erythrocyte distribution width (RBC) [Ratio] 11.8 % Normal 11.0-15.0 [facility] Comment on above: Performed By: #### C BC #### [facility] [address] [place] [address] Dr. Ravi Hebert Hematocrit (Bld) [Volume fraction] 32.8 % Critically low 36.0-48.0 [facility] Comment on above: Performed By: #### C BC #### [facility] [address] [place] [address] Dr. Ravi Hebert Hemoglobin (Bld) [Mass/Vol] 10.8 g/dL Critically low 12.0-16.0 [facility] Comment on above: Performed By: #### C BC #### [facility] [address] [place] [address] Dr. Ravi Hebert IG # 0.03 10e3/ul Normal 0.00-0.03 [facility] Comment on above: Performed By: #### C BC #### [facility] [address] [place] [address] Dr. Ravi Hebert IG % 0.4 % Normal 0.0-0.5 [facility] Comment on above: Performed By: #### C BC #### [facility] [address] [place] [address] Dr. Ravi Hebert LYMPH # 0.7 103/ul Critically low 1.2-3.8 [facility] Comment on above: Performed By: #### C BC #### [facility] [address] [place] [address] Dr. Ravi Hebert Lymphocytes/100 WBC (Bld) 9.8 % Critically low 20.5-60.0 [facility] Comment on above: Performed By: #### C BC #### [facility] [address] [place] [address] Dr. Ravi Hebert MANUAL DIFF REQ NO Normal [facility] Comment on above: Performed By: #### C BC #### [facility] [address] [place] [address] Dr. Ravi Hebert MCH (RBC) [Entitic mass] 32.8 pg Normal 26.7-34.0 [facility] Comment on above: Performed By: #### C BC #### [facility] [address] [place] [address] Dr. Ravi Hebert MCHC (RBC) [Mass/Vol] 32.9 g/dL Normal 29.9-35.2 [facility] Comment on above: Performed By: #### C BC #### [facility] [address] [place] [address] Dr. Ravi Hebert MCV (RBC) [Entitic vol] 99.7 fL Critically high 81.0-99.0 [facility] Comment on above: Performed By: #### C BC #### [facility] [address] [place] [address] Dr. Ravi Hebert MONO # 0.4 103/ul Normal 0.3-0.8 [facility] Comment on above: Performed By: #### C BC #### [facility] [address] [place] [address] Dr. Ravi Hebert Monocytes/100 WBC (Bld) 6.0 % Normal 1.7-12.0 [facility] Comment on above: Performed By: #### C BC #### [facility] [address] [place] [address] Dr. Ravi Hebert NEUT # 6.0 103/ul Normal 1.4-6.5 [facility] Comment on above: Performed By: #### C BC #### [facility] [address] [place] [address] Dr. Ravi Hebert Neutrophils/100 WBC (Bld) 82.6 % Critically high 43.0-75.0 [facility] Comment on above: Performed By: #### C BC #### [facility] [address] [place] [address] Dr. Ravi Hebert Platelet mean volume (Bld) [Entitic vol] 9.6 fL Normal 9.5-13.5 [facility] Comment on above: Performed By: #### C BC #### [facility] [address] [place] [address] Dr. Ravi Hebert PLT 223 103/ul Normal 150-450 [facility] Comment on above: Performed By: #### C BC #### [facility] [address] [place] [address] Dr. Ravi Hebert RBC 3.29 106/ul Critically low 4.20-5.40 [facility] Comment on above: Performed By: #### C BC #### [facility] [address] [place] [address] Dr. Ravi Hebert WBC 7.2 103/ul Normal 4.0-11.0 [facility] Comment on above: Performed By: #### C BC #### [facility] [address] [place] [address] Dr. Ravi Hebert PROF 14(COMP METB)on 022 Albumin [Mass/Vol] 3.8 g/dL Normal 3.4-5.0 [facility] Comment on above: Performed By: #### C MP, TSH #### [facility] [address] [place] [address] Dr. Ravi Hebert Albumin/Globulin [Mass ratio] 1.2 {ratio} Normal [facility] Comment on above: Performed By: #### C MP, TSH #### [facility] [address] [place] [address] Dr. Ravi Hebert ALP [Catalytic activity/Vol] 69 U/L Normal 46-116 [facility] Comment on above: Performed By: #### C MP, TSH #### [facility] [address] [address] [address] Ravi Hebert ALT [Catalytic activity/Vol] 10 U/L Critically low 14-59 [facility] Comment on above: Performed By: #### C MP, TSH #### [facility] [address] [address] [address] Ravi Hebert Anion gap [Moles/Vol] 10.7 mmol/L Normal [facility] Comment on above: Performed By: #### C MP, TSH #### [facility] [address] [address] [address] Ravi Hebert AST [Catalytic activity/Vol] 22 U/L Normal 15-37 [facility] Comment on above: Performed By: #### C MP, TSH #### [facility] [address] [address] [address] Ravi Hebert Bilirubin [Mass/Vol] 0.5 mg/dL Normal 0.2-1.0 [facility] Comment on above: Performed By: #### C MP, TSH #### [facility] [address] [address] [address] Ravi Hebert Calcium [Mass/Vol] 8.8 mg/dL Normal 8.5-10.1 [facility] Comment on above: Performed By: #### C MP, TSH #### [facility] [address] [place] [address] Dr. Ravi Hebert Chloride [Moles/Vol] 102 mmol/L Normal 98-107 [facility] Comment on above: Performed By: #### C MP, TSH #### [facility] [address] [address] [address] Ravi Hebert CO2 [Moles/Vol] 29.6 mmol/L Normal 21.0-32.0 [facility] Comment on above: Performed By: #### C MP, TSH #### [facility] [address] [address] [address] Ravi Hebert Creatinine [Mass/Vol] 0.90 mg/dL Normal 0.55-1.02 [facility] Comment on above: Performed By: #### C MP, TSH #### [facility] [address] [address] [address] Ravi Hebert EGFR-AF DOMINICAN >60 Normal >=60 [facility] Comment on above: Performed By: #### C MP, TSH #### [facility] [address] [address] [address] Ravi Hebert EGFR-NON AF DOMINICAN >60 Normal >=60 [facility] Comment on above: Performed By: #### C MP, TSH #### [facility] [address] [address] [address] Ravi Hebert Globulin (S) [Mass/Vol] 3.1 g/dL Normal [facility] Comment on above: Performed By: #### C MP, TSH #### [facility] [address] [place] [address] Dr. Ravi Hebert Glucose [Mass/Vol] 94 mg/dL Normal 74-106 [facility] Comment on above: Performed By: #### C MP, TSH #### [facility] [address] [place] [address] Dr. Ravi Hebert Potassium [Moles/Vol] 4.3 mmol/L Normal 3.5-5.1 [facility] Comment on above: Performed By: #### C MP, TSH #### [facility] [address] [place] [address] Dr. Ravi Hebert Protein [Mass/Vol] 6.9 g/dL Normal 6.4-8.2 [facility] [facility] Comment on above: Performed By: #### C MP, TSH #### [facility] [address] [place] [address] Dr. Ravi Hebert Sodium [Moles/Vol] 138 mmol/L Normal 136-145 [facility] Comment on above: Performed By: #### C MP, TSH #### [facility] [address] [place] [address] Dr. Ravi Hebert Urea nitrogen [Mass/Vol] 34.0 mg/dL Critically high 7.0-18.0 [facility] Comment on above: Performed By: #### C MP, TSH #### [facility] [address] [address] [address] Ravi Hebert Urea nitrogen/Creatinin e [Mass ratio] 37.8 mg/mg Normal [facility] Comment on above: Performed By: #### C MP, TSH #### [facility] [address] [address] [address] Ravi Hebert TSHon 09-08-2021 TSH 1.350 uIU/mL Normal 0.358-3.740 [facility] Comment on above: Performed By: #### C MP, TSH #### [facility] [address] [address] [address] Ravi Hebert PROGRESSon 06-25-2017 PROGRESS HNO ID: [id number] thor: Nicolas Dotson: (none)Author Type: PhysicianType: Progress NotesFiled: 06/25/2017 4:47 PMNote Text:Martha FriedyDOB: 1950[facility]:Date last seen:PAST MEDICAL HISTORYDiagnosis Date- [...] 3350 (MIRALAX, GLYCOLAX) 17 gram/dose powderrizatriptan (MAXALT PARALLEL COMPUTING SOFTWARE ENGINEER) 10 mg disintegrating tabletNo current facility-administered medications [...] to onychomycosis of toenail of left footThalvaro Dominguez, DPM Normal [facility] Vital Signs Date Time Vital Sign Value Performing Clinician Facility 09-02-2023 14:55-0400 Body height 162.56 cm [facility] 09-02-2023 14:55-0400 Body mass index (BMI) [Ratio] 14.3 kg/m2 [facility] 09-02-2023 14:55-0400 Body weight 38 kg [facility] 09-02-2023 14:55-0400 Diastolic blood pressure 84 mm[Hg] [facility] 09-02-2023 14:55-0400 Heart rate 88 /min [facility] 09-02-2023 14:55-0400 Systolic blood pressure 138 mm[Hg] [facility] 08-19-2023 13:51-0400 Body height 162.56 cm [facility] 08-19-2023 13:51-0400 Body mass index (BMI) [Ratio] 14.6 kg/m2 [facility] 08-19-2023 13:51-0400 Body temperature 97.4 [degF] [facility] 08-19-2023 13:51-0400 Body weight 38.72 kg [facility] 08-19-2023 13:51-0400 Diastolic blood pressure 67 mm[Hg] [facility] 08-19-2023 13:51-0400 Heart rate 56 /min [facility] 08-19-2023 13:51-0400 Systolic blood pressure 134 mm[Hg] [facility] 02-15-2023 13:30-0500 Body height 162.56 cm Ashia Lott Other [facility] Other 02-15-2023 13:30-0500 Body mass index (BMI) [Ratio] 14.59 kg/m2 Ashia Lott Other [facility] Other 02-15-2023 13:30-0500 Body weight 38.56 kg Ashia Oren Other [facility] Other 02-15-2023 13:30-0500 Diastolic blood pressure 89 mm[Hg] Ashia Oren Other [facility] Other 02-15-2023 13:30-0500 Systolic blood pressure 148 mm[Hg] Ashia Oren Other [facility] Other Encounters Encounter Date Encounter Type Care Provider Facility Start: 05-13-2024 End: 05-13-2024 ambulatory JUNO AMES Not Available Start: 05-13-2024 End: 05-13-2024 Bamboo flowsheet Juno Ames [employer] Work Phone: [facility] [place] Start: 05-13-2024 End: 05-13-2024 Bamboo flowsheet Juno Ames [employer] Work Phone: [facility] [place] Start: 04-14-2024 End: 04-14-2024 Refill Bren Hansen DO Work Phone: [facility] Comment on above: Seizure (CMS/HCC) Start: 03-18-2024 End: 03-18-2024 Refill Juno Ames [employer] Work Phone: [facility] [place] Comment on above: Parkinson's disease, unspecified whether dyskinesia present, unspecified whether manifestations fluctuate (CMS/HCC) Start: 09-02-2023 End: 09-02-2023 ambulatory [facility] Work Phone: Start: 09-02-2023 End: 09-02-2023 Patient encounter procedure [facility] Work Phone: Start: 08-19-2023 End: 08-19-2023 ambulatory [facility] Work Phone: Start: 08-19-2023 End: 08-19-2023 Patient encounter procedure [facility] Work Phone: Start: 03-12-2023 End: 03-12-2023 ambulatory Ashia Lott Other [facility] Other Start: 03-12-2023 Telephone encounter Ashia Lott [facility] Start: 02-15-2023 End: 02-15-2023 ambulatory Ashia Lott Other [facility] Other Start: 02-15-2023 Office outpatient vi sit 15 minutes Ashia Lott [facility] Start: 06-21-2022 ambulatory KELIN BARNARDMIPATHJeff Facility:[facility] Start: 04-24-2022 End: 04-25-[address] LEROY DUQUE . Facility:[facility] Start: 2022 End: 01-19-[address] LEROY DUQUE . Facility:[facility] Start: 01-09-2022 Adult health examination Margo Lott Other [facility] Other Start: 10-19-2021 End: 10-20-[address] LEROY DUQUE . Facility:[facility] Start: 09-19-2021 End: 09-20-2021 ambulatory SHAIKH Cleopatra GRAHAM Facility:[facility] Start: 09-15-2021 End: 09-15-[address] ASHIA LOTT Facility:[facility] Start: 09-08-2021 End: 09-09-[address] ASHIA LOTT Facility:[facility] Start: 08-24-[address] ASHIA LOTT Facil ity:[facility] Start: 07-20-2021 End: 07-21-[address] LEROY DUQUE . Facility:[facility] Start: 05-15-2019 Patient encounter procedure ASHIA LOTT Facility:[facility] Procedures Date Procedure Procedure Detail Performing Clinician Screening for malign ant neoplasm of breast Ashia Lott Other Plan of Treatment Date Care Activity Detail Author Start: 05-25-2024 End: 05-25-2024 Patient encounter procedure 05/25/2024 1:40 PM EDT Office Visit [facility] [place] [address] [place] [id number] Juno Ames NP [address] [place], [place] [facility] Start: 05-13-2024 End: 05-13-2024 Patient encounter procedure 05/13/2024 2:20 PM EST Office Visit [facility] [place] [address] [place] [id number] Juno Ames NP [address] [place], [place] Arrived [facility] Comment on above: Arrived Start: 04-02-2024 End: 04-02-2024 Patient encounter procedure 04/02/2024 2:00 PM EST Office Visit [facility] [place] [address] [place] [address] Juno Ames NP [address] [place] [facility] [place] Start: 11-10-2023 Influenza vaccination Influenza Vacc ine (#1) [facility] Start: 06-27-2019 Pneumococcal Vaccine : 65+ Years (2 of 2 - PCV) Pneumococcal Vaccine: 65+ Years (2 of 2 - PCV) [facility] Comprehensive metabo lic 2000 panel - Serum or Plasma [facility] Immunizations Immunization Date Immunization Notes Care Provider Fa cility 03-13-2023 influenza virus vaccine, unspecified formulation Juno Ames [employer] Work Phone: [facility] 02-27-2022 COVID-19 mRNA Bivale nt Booster (Moderna) [facility] 01-09-2022 influenza virus vaccine, split virus (incl. purified surface antigen) Ashia Lott Other [facility] Other 01-09-2022 influenza virus vaccine, unspecified formulation [facility] 01-17-2021 COVID-19 mRNA-1273 (Moderna) [facility] 06-01-2020 COVID-19 Vaccine Moderna - Documentation Purposes Only Ashia Lott Other [facility] 05-05-2020 COVID-19 Vaccine Moderna - Documentation Purposes Only Ashai Lott Other [facility] 01-07-2020 influenza virus vaccine, split virus (incl. purified surface antigen) Ashia Lott Other [facility] Other 01-07-2020 influenza virus vaccine, unspecified formulation [facility] 01-13-2019 influenza virus vaccine, split virus (incl. purified surface antigen) Ashia Lott Other [facility] Other 01-13-2019 influenza virus vaccine, unspecified formulation [facility] 12-05-2018 tetanus and diphther ia toxoids, adsorbed, preservative free, for adult use (5 Lf of tetanus toxoid and 2 Lf of diphtheria toxoid) [facility] 12-05-2018 tetanus toxoid, reduced diphtheria toxoid, and acellular pertussis vaccine, adsorbed [facility] 12-26-2017 influenza virus vaccine, split virus (incl. purified surface antigen) Ashia Lott Other [facility] [employer] [facility] Other 12-26-2017 influenza virus vaccine, unspecified formulation [facility] NEGATED: Highlighted row has not occurred!12-27-2020 influenza virus vaccine, split virus (incl. purified surface antigen) Ashia Lott Other [facility] Other Payers Date Payer Category Payer Private Health Insurance AARCaryl Kovacs [id number] 2013 Medicare MEDICARE [id number] 1959 Medicare [id number] 1959 Self-pay [id number] 1959 Unknown [id number] 1950 Unknown [id number] .593 1948 Unknown [id number] [id number] .593 1948 Unknown [id number] [id number] .593 1948 Unknown [id number] [id number] .593 1948 Unknown [id number] 2.16.840.1.536003.3.579.2 .593 1948 Unknown [id number] [id number] .593 1948 Unknown [id number] 2.16.840.1.424291.3.579.2 .593 1948 Unknown [id number] [id number] .593 1948 Unknown [id number] [id number] .593 1950 Unknown [id number] [id number] .1259 Self-pay Self Pay [id number] Social History Date Type Detail Facility Unknown if ever smoked [facility] Other Start: 07-16-2023 Sex Assigned At N [facility] Other Start: 12-06-2018 End: 07-16-2023 Tobacco smoking status NHIS Never smoked tobacco (finding) [facility] Start: 1950 Sex Assigned At Female [facility] Start: 07-16-2023 Tobacco use and exposure Smokeless tobacco non-user [facility] Start: 07-16-2023 Alcoholic beverage intake Lifetime non-drinker (finding) [facility] Start: 07-16-2023 History of Social function [facility] Start: 1950 Sex assigned at Not on file N [facility] Clinical Notes 07-20-2021 to 04-14-2024 Telephone Encounter - Patrice Sainz MA - 04/14/2024 1:34 PM ESTTelephone Encounter - Patrice Sainz MA - 04/14/2024 1:34 PM ESTTelephone Encounter - Patrice Sainz MA - 03/18/2024 11:02 AM EST Note Date & Type Note Facility 04-14-2024 Telephone encounter Note Form atting of this note might be different from the original. Pharmacy requests refill of keppra. I know there has been some back and forth on compliance issues. Are we able to send the refill in order to get to the next appt on 05/25/2024. Please advise. [facility] 04-14-2024 Miscellaneous Notes Formattin g of this note might be different from the original. Pharmacy requests refill of keppra. I know there has been some back and forth on compliance issues. Are we able to send the refill in order to get to the next appt on 05/25/2024. Please advise. documented in this encounter [facility] 03-18-2024 Telephone encounter Note Form atting of this note might be different from the original. Received a new rx request for Keppra. The pt has an appt scheduled for 04/02/2024. Per the last tele enc ND agreed to send the med up to March. Okay to send to get to f/u appt? Please advise. Tele enc dated 02/17/2024 [facility] 03-18-2024 Miscellaneous Notes Formattin g of this note might be different from the original. Received a new rx request for Keppra. The pt has an appt scheduled for 04/02/2024. Per the last tele enc ND agreed to send the med up to March. Okay to send to get to f/u appt? Please advise. Tele enc dated 02/17/2024 documented in this encounter [facility] 03-12-2023 Evaluation note Encounter Date Diagnosis Assessment Notes Mar, Lumbar degenerative disc disease (ICD-10 - M51.36) [facility] Other 12-08-2023 Evaluation note* Encounter Date Diagnosis Assessment Notes Treatment Notes Treatment Clinical Notes Feb, Pain, joint, shoulder, left (ICD-10 - M25.512) Agrees to ortho referral Requests Dr. Acosta [facility] Other 02-14-2023 NoteCONSULTATION CONSULTATION DATE: 04/24/2022 CHIEF [...] the patient takes citalopram 30 mg daily, Oslo 5/325 b.i.d., clonidine 0.1 mg b.i.d. Celebrex [...] atrophy. PLAN: We will refill the patient's Oslo 5/325 b.i.d. X-ray of her lumbar spine and pelvis has been ordered. The patient also has been given a prescription for Ensure HN and/or Boost HN two per day. Education was done with regards to possibly adding glucosamine chondroitin sulfate to improve the discomfort in her hips. The patient and her daughter understand and would like to proceed. CC: Ashia Lott M.D.[facility] [id number] NoteCONSULTATION CONSULTATION DATE: 2022 HISTORY OF PRESENT ILLNESS: This is a 72-year-old female accompanied by her sister to the clinic for a three month follow up for her chronic lower back pain and hip pain. Last procedure the patient had was radiofrequency ablation of her lumbar region in 2018. She is managed medically at this time for pain with Oslo 5/325 b.i.d. Other medications include citalopram, clonidine, [...] otherwise indicated. Patient agrees with this plan.[facility] 10-19-2021 NoteCONSULTATION CONSULTATION DATE: 10/19/2021 HISTORY OF [...] Ensure supplements daily as well. 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 She does use heat to her lower back, which is beneficial. Medications include Oslo 5/325 b.i.d., clonidine 0.1 b.i.d., citalopram, Keppra [...] disc disease. PLAN: We will refill the Oslo at 5/325 b.i.d. Patient is taking anti-inflammatory [...] plan of care and all questions answered.[facility] [id number] NoteCONSULTATION CONSULTATION DATE: 07/20/2021 This is a [...] or new motor changes. Current medications include Oslo 5/325 b.i.d., clonidine, multivitamin, Sinemet, Keppra and [...] PLAN: We will continue to maintain her Oslo 5/325 b.i.d. I have discussed with the patient and her sister at prior office visits regarding curcumin supplement named Enhansa that is produced by [facility]. That information was shared once again with the patient and the sister. Recommended doses were discussed. The patient and sister agreed with the plan of care and we will see her in three months' time unless otherwise indicated. [facility] Signed and Approved by: CINDI ELLIOTT . 07/27/2021 17:09:00[facility] Diagnosis Onset Date Resolution Status Fatigue acute Hypertension acute Hypokalemia acute Hyponatremia acute Nausea acute [facility] Work Phone: Evaluation note* Diagnosis Parkinson's disease, unspecified whether dyskinesia present, unspecified whether manifestations fluctuate (CMS/HCC) [facility] Diagnosis Seizure (CMS/HCC) Other convulsions documented in this encounter [facility] Narrative - Reported* Type Description Date Medical History [place] Medical History ANXIETY Medical History HTN Medical History gastritis Medical History hyperlipidemia Surgical History Pelvice Exam Hysterectomy [place] 2003 Surgical History Sinus Endoscopic-Dr. Valdez Surgical History lymphnode removal - abdomen Surgical History RIGHT HIP-NERVE BLOCK-DR DUQUE OCTOBER 2018 Hospitalization History See above Hospitalization History Seizure- inpatient for 3 weeks Apr 2014 Hospitalization History FALL WITH FRACTU RED HIP X2 AND COLLARBONE (RIGHT) [facility] JUNE 2013 Hospitalization History LOW SODIUM ADMITTED TO [facility] APR 2017 [facility] Other Summary Purpose Family History No Family History Records Found Relationship Condition Age at Onset Recorded Date/T vern father Unknown grandparent Unknown Not Specified Hypertension Unknown Unknown sister Malignant neoplasm Unknown Advance Directives No Advanced Directives Records Found Advance Directive Response Recorded Date/ Time Advance Directives No June 19 018 7:46am Advance Directive Response Recorded Date/ Time Advance Directives No August 29 24 11:39am Reason for Referral Reason *FU 03/06 Dr. Kyree barnes at [place] - shoulder. Diagnosis 1 Pain, joint, shoulde r, left (M25.512) Referral Organization [facility] gabriela Referring Provider First Name Ashia Referring Provider Last Name Oren Referring Provider Specialty Family Medi cine Referred Organization [facility] Referred Provider Andrea Acosta Referred Address [address] [facility] [address],[place],[address] Referred Provider Specialty Orthopaedic Surgery Referral Priority Routine General Notes Shyla Cade 03:35:22 PM >received today, attachments made, notes locked, referral faxed Alyssia Shyla 02/25/2023 11:25:19 AM >faxed first attempt letter Clinical Notes p: [phone] f: [id number] Chief Complaint and Reason for Visit Chief Complaint chills, nausea Reason for Visit Fatigue Hypertension Hypokalemia Hyponatremia Nausea Chief Complaint chills, nausea fell, right rib pain Reason for Visit Fatigue Hypertension Hypokalemia Hyponatremia Nausea Additional Source Comments INFORMATION SOURCE (unrecogn ized section and content) DATE CREATED AUTHOR 09/12/2017 [facility] DATE CREATED AUTHOR AUTHOR'S ORGANIZ ATION 05/15/2019 [facility] DATE CREATED AUTHOR AUTHOR'S ORGANIZ ATION 06/10/2022 [facility] DATE CREATED AUTHOR AUTHOR'S ORGANIZ ATION 05/15/2024 [facility] dical Specialists EPIC REASON FOR VISIT (unrecogniz ed section and content) Reason Comments Med Refill Reason Comments Med Change Request Care Teams (unrecognized sec tion and content) [...] September 02, 2023 End: September 02, 2023 [employer]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 Relationship Specialty Start Date End Date Juno Ames NP [address] [place], [place] Nurse Practitioner Neurology 01/24/24 Bren Hansen DO [address] [place] [address] Referring Physician Neurology 01/24/24 [employer] Relationship Specialty Start Date End Date Juno Ames NP [address] [place] Nurse Practitioner Neurology 01/24/24 Bren Hansen DO [address] [place] [address] Referring Physician Neurology 01/24/24 Ashia Lott MD [facility] [place] [address] Referring Physician Family Medicine 05/13/24 Goals (unrecognized section and content) Goals may [...] BE BASED ON THE PRIMARY CLINICAL RECORDS. [employer] provides no warranty or guarantee of the accuracy or completeness of information in this document.
--- NOTE | 2024-05-22 16:59 | ECG_ITS ---
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 Measurements Intervals [place] Rate: 74 P: 80 WI: 170 QRS: 63 QRSD: 84 T: 77 QT: 408 QTc: 435 Interpretive Statements 1100 Sinus rhythm 9110 normal ECG Compared to ECG 10/15/2018 19:19:03 Incomplete right bundle-branch block no longer present Electronically Signed On 05-22-2024 20:53:24 EDT by LAWRENCE LONGORIA M.D.
--- NOTE | 2024-05-22 17:05 | ED.GENADUL1 ---
HPI HPI - General Adult General Chief complaint: Altered Mental Status Stated complaint: Tremors Time Seen by Provider: 05/22/24 16:57 Source: patient Mode of arrival: ambulance History of Present Illness HPI narrative: Patient is a 74-year-old female who is presenting by EMS for increasing tremors at home. Patient has IV established, patient was given Versed 2.5 mg IV to help control patient so she could be placed on EMS cot and brought into the ER. Patient was having more flailing, tremors, involuntary movements at home. Patient lives at home with sister. There is 15 cats that patient lives at home with, living conditions are not sanitary per EMS staff. Adult Protective Services will be called. Patient is alert and orient x 3, GCS of 14; -1 for eye-opening. Patient has history of hypertension and Parkinson's. Patient is on Coreg, hydrocodone, Lamictal, Norvasc, lisinopril, and ceteloprem (sp?). Uncertain outpatient ambulates at home whether it is for 2 feet, cane or walker. Sister is not here for additional history.. Reported that patient did fall, uncertain when. No reported blood thinners. All systems are negative except as noted/marked. All systems reviewed and otherwise negative. Nurses note and vital signs reviewed and patient is not hypoxic. Patient is very cachectic, failure to thrive, slightly sedated secondary to IV Versed that was given. No current tremors, twitching or involuntary movements noted. General: The patient appears well and in no apparent distress. Patient is resting comfortably on cart. Patient is not toxic, lethargic, or listless Skin: Warm, dry, no pallor noted. There is no rash noted. No petechiae, purpura. Patient has several scratches to her arms, lower extremities, feet, no secondary signs of infection. Head: Normocephalic, atraumatic; patient does have mild ecchymosis around the right superior orbit. No bony crepitus. Eye: Normal conjunctiva, no drainage, EOMI. PERRL Ears, Nose, Mouth, and Throat: oral mucosa is very dry. Nares patent. Mouth without vesicles. Cardiovascular: Regular Rate and Rhythm, no murmur, gallop, rub Respiratory: Patient is in no distress, no accessory muscle use, lungs are clear to auscultation, no wheezing, rales or rhonchi Back: non-tender, no CVA tenderness bilaterally to percussion. No CT LS midline pain GI: no tenderness to palpation, no masses appreciated. No rebound, guarding, or rigidity noted. No distention Musculoskeletal: Patient has full range of motion of all of the extremities with passive range of motion done by myself, no grimace to the face noted or moaning with range of motion of all extremities. No motor, sensory, or focal neurological deficits : Patient has no acute abnormalities noted to area, Kelli Roberto RN was at bedside during the exam. Patient does have stage I ulceration noted to her sacrum/coccyx, no break in the skin around her buttocks. No signs of perirectal or perianal abscess. No pilonidal cyst. No other signs of acute abuse or assault. Neurological: A&O x4, very soft-spoken speech. Patient does know person place and time. Psychiatric: Cooperative, but patient needs several for persistent light or light touching to answer questions. Related Data Home Medications ?Medication ?Instructions ?Recorded ?Confirmed acetaminophen 500 mg capsule 1,000 mg PO TID PRN pain 11/28/22 12/19/22 calcium polycarbophil 625 mg 1,250 mg PO DAILY 11/28/22 12/19/22 tablet (Fiber (calcium polycarbophil)) carbidopa 25 mg-levodopa 100 mg 1 tab PO .5 times per day 11/28/22 05/22/24 tablet carvedilol 25 mg tablet (Coreg) 25 mg PO BID 11/28/22 05/22/24 citalopram 10 mg tablet 30 mg PO DAILY 11/28/22 05/22/24 clonidine HCl 0.1 mg tablet 0.2 mg PO Q12H 11/28/22 12/19/22 gluc [id number] ea mucous membrane 11/28/22 mouthwash levetiracetam 500 mg tablet 500 mg PO Q12H 11/28/22 05/22/24 lisinopril 40 mg tablet 40 mg PO DAILY 11/28/22 05/22/24 rotigotine 1 mg/24 hour 1 patch transdermal DAILY 11/28/22 12/03/22 transdermal 24 hour patch (Neupro) Previous Rx's ?Medication ?Instructions ?Recorded naloxone 4 mg/actuation nasal 4 mg intranasal Q3M PRN opioid 02/20/23 spray (Narcan) overdose #2 ea hydrocodone 7.5 mg-acetaminophen See Rx Instructions .Route 01/01/24 325 mg tablet .COMPLEX pain #75 tabs hydrocodone 7.5 mg-acetaminophen See Rx Instructions .Route 02/10/24 325 mg tablet .COMPLEX PRN pain #75 tabs hydrocodone 7.5 mg-acetaminophen See Rx Instructions .Route 03/19/24 325 mg tablet .COMPLEX PRN pain #75 tabs hydrocodone 7.5 mg-acetaminophen See Rx Instructions .Route 04/22/24 325 mg tablet .COMPLEX PRN pain #75 tabs Allergies Allergy/AdvReac Type Severity Reaction Status Date / Time Penicillins Allergy Hives Verified 05/22/24 18:18 Opioid HPI Opioid Management Most Recent Opioid Data: Last Pain Scale 4 05/22/24 18:53 05/22/24 Last MAR Pain Assessment 05/22/24 18:53 Exam Constitutional Vital Signs, click to edit/add: Last Vital Signs Temp 97.8 F 05/22/24 16:49 Pulse 72 05/22/24 19:20 Resp 18 05/22/24 17:30 BP 141/83 05/22/24 19:15 Pulse Ox 100 05/22/24 19:10 O2 Del Method Nasal Cannula 05/22/24 17:06 O2 Flow Rate 2 05/22/24 17:06 Course Vital Signs Vital signs: Vital Signs Temperature 97.8 F 05/22/24 16:49 Pulse Rate 75 05/22/24 16:49 Respiratory Rate 22 H 05/22/24 16:49 Blood Pressure 117/55 05/22/24 16:49 Pulse Oximetry 94 L 05/22/24 16:49 Oxygen Delivery Method Room Air 05/22/24 16:49 Temperature 97.8 F 05/22/24 16:49 Pulse Rate 72 05/22/24 19:20 Respiratory Rate 18 05/22/24 17:30 Blood Pressure 141/83 05/22/24 19:15 Pulse Oximetry 100 05/22/24 19:10 Oxygen Delivery Method Nasal Cannula 05/22/24 17:06 Oxygen Delivery Flow Rate 2 05/22/24 17:06 Medical Decision Making MDM Narrative Medical decision making narrative: Adult Protective Services will be called by Staci KAY as recommended by EMS staff. Secondary to living conditions, 15 cats at home, living with sister, and unsanitary living conditions per EMS. Patient has CT of the head, cervical spine, facial bones along with thorough testing with IV fluids. 1810 lengthy conversation was had with sister at bedside. Patient left the house at approximately 1135 this morning. Patient came back home at approximately 2:30 PM. Patient went to the [facility] in [place] today and came back home. Patient was found on the ground. Patient has been having these episodes where she is having more tremors and Parkinson-like symptoms. This has been getting worse in the past 2 months. Patient did see Dr. Hansen approximately [address] Hansen is patient's neurologist. Patient's Requip medication was stopped. Patient uses a rollator to get around at home. Patient's sister is a good source of history. Patient's episodes are becoming harder to handle. Episodes could happen once or twice a day. Patient lays in bed, when patient has these episodes, patient is flailing and she does hit her head and her arms against the headboard. No significant changes to patient's diet, but she does not eat or drink much. When patient came home around 230 this afternoon, patient was found on the ground stuck in between the bed and another table. Patient was flailing and having one of her episodes. When I walk in to the room to speak to sister at this time, patient is sitting up, much more alert and awake and oriented and speaking in sentences. Patient is able to answer questions along with her sister. Patient's mouth and tongue are very dry, patient was given water by myself and she is drinking. Patient has chronic pain. She asked for one of her pain pills of hydrocodone that she normally takes at home which will be given to her. 1820 Staci KAY contacted APS, report has been made to err on the side of caution for patient's safety. Sister does seems very conscientious, caring, nice, and appears to care for her sister and wants to do a good job taking care of her. However, There is just a concern on patient's stability, possibility of too much to handle at home with her Parkinson's and these episodes and sisters ability to help take care of her. Also concerns from EMS about the cleanliness and conditions of the home. Patient did come in smelling of urine, unkempt, cachectic, and appearing in a failure to thrive condition. 1900 I have spoken to Guillermina HUFFMAN, and patient is admitted to the hospitalist service. CT of the head, cervical spine, facial bones showed no acute findings. Patient has been given IV fluids. Patient will be admitted for NICKY, dehydration. Patient has been given 1 L of IV fluid so far. Patient is admitted for dehydration, NICKY. Patient will need PT and OT, and web content & social media manager assessment to see if patient is safe to be at home along with safe her sister to help take care of her at home. Lab Data Lab results reviewed: Yes I reviewed the patient's lab results Labs: Lab Results 05/22/24 05/22/24 05/22/24 Range/Units 17:00 17:06 17:09 WBC 9.5 (4.0-11.0) 10^3/uL RBC 2.86 L (4.20-5.40) 10^6/uL Hgb 9.2 L (12.0-16.0) g/dL Hct 28.2 L (36.0-48.0) % MCV 98.6 (81.0-99.0) fL MCH 32.2 (26.7-34.0) pg MCHC 32.6 (29.9-35.2) g/dL RDW 12.7 (11.0-15.0) % Plt Count 201 (150-450) 10^3/uL MPV 10.0 (9.5-13.5) fL Seg Neuts % (Manual) 89.0 H (43.0-75.0) Lymphocytes % (Manual) 4.0 L (20.5-60.0) % Monocytes % (Manual) 4.0 (1.7-12.0) % Eosinophils % (Manual) 3.0 (0.9-7.0) % Basophils % (Manual) 0.0 L (0.2-2.0) % Neutrophils # (Manual) 8.45 H (1.4-6.5) 10^3/uL Lymphocytes # (Manual) 0.38 L (1.20-3.80) 10^3/uL Monocytes # (Manual) 0.38 (0.30-0.80) 10^3/uL Eosinophils # (Manual) 0.28 (0.00-0.70) 10^3/uL Basophils # (Manual) 0.00 (0.00-0.10) 10^3/uL PT 11.9 H (9.0-11.6) sec INR 1.14 VBG pH (7.330-7.430) VBG pCO2 (40.0-52.0) mmHg Sodium 141 (136-145) mmol/L Potassium 4.5 (3.5-5.1) mmol/L Chloride 106 (98-107) mmol/L Carbon Dioxide 25.0 (21.0-32.0) mmol/L Anion Gap 14.5 BUN 52.0 H (7.0-18.0) mg/dL Creatinine 1.24 H (0.55-1.02) mg/dL Est GFR ( Amer) 51 L (>=60 mL/min/1.73m^2) Est GFR (Non-Af Amer) 42 L (>=60 mL/min/1.73m^2) BUN/Creatinine Ratio 41.9 Glucose 78 (74-106) mg/dL Lactate 2.2 H* (0.4-2.0) mmol/L Calcium 8.5 (8.5-10.1) mg/dL Total Bilirubin 0.8 (0.2-1.0) mg/dL AST 45 H (15-37) U/L ALT 9 L (14-59) U/L Alkaline Phosphatase 113 (46-116) U/L Ammonia (11-32) umol/L Total Creatine Kinase 864 H* (26-192) U/L Troponin I High Sens 16.5 (4.0-51.3) pg/mL Total Protein 5.8 L (6.4-8.2) g/dL Albumin 3.2 L (3.4-5.0) g/dL Globulin 2.6 g/dL Albumin/Globulin Ratio 1.2 TSH 3.129 (0.358-3.740) uIU/mL Urine Color Yellow (YELLOW) Urine Clarity Clear (CLEAR) Urine pH 5.5 (5.0-9.0) Ur Specific [place] 1.025 (1.005-1.025) Urine Protein 30 A (NEG/TRACE) mg/dL Urine Glucose (UA) Negative (NEGATIVE) mg/dL Urine Ketones 15 A (NEGATIVE) mg/dL Urine Occult Blood Negative (NEGATIVE) Urine Nitrite Negative (NEGATIVE) Urine Bilirubin Negative (NEGATIVE) Urine Urobilinogen 0.2 (0.2-1.0) EU/dL Ur Leukocyte Esterase Negative (NEGATIVE) Urine RBC 0-2 (0-2) #/HPF Urine WBC 0-2 A (NONE SEEN) #/HPF Ur Squamous Epith Cells Rare (NONE/RARE) #/LPF Urine Crystals None seen (None Seen) #/HPF Urine Bacteria Trace A (NONE SEEN) #/HPF Urine Casts None seen (NONE SEEN) #/LPF Urine Mucus Small A (NONE SEEN) Ur Culture Indicated? No POC Glucose 82 (74-106) mg/dL 05/22/24 Range/Units 17:11 WBC (4.0-11.0) 10^3/uL RBC (4.20-5.40) 10^6/uL Hgb (12.0-16.0) g/dL Hct (36.0-48.0) % MCV (81.0-99.0) fL MCH (26.7-34.0) pg MCHC (29.9-35.2) g/dL RDW (11.0-15.0) % Plt Count (150-450) 10^3/uL MPV (9.5-13.5) fL Seg Neuts % (Manual) (43.0-75.0) Lymphocytes % (Manual) (20.5-60.0) % Monocytes % (Manual) (1.7-12.0) % Eosinophils % (Manual) (0.9-7.0) % Basophils % (Manual) (0.2-2.0) % Neutrophils # (Manual) (1.4-6.5) 10^3/uL Lymphocytes # (Manual) (1.20-3.80) 10^3/uL Monocytes # (Manual) (0.30-0.80) 10^3/uL Eosinophils # (Manual) (0.00-0.70) 10^3/uL Basophils # (Manual) (0.00-0.10) 10^3/uL PT (9.0-11.6) sec INR VBG pH 7.404 (7.330-7.430) VBG pCO2 38.4 L (40.0-52.0) mmHg Sodium (136-145) mmol/L Potassium (3.5-5.1) mmol/L Chloride (98-107) mmol/L Carbon Dioxide (21.0-32.0) mmol/L Anion Gap BUN (7.0-18.0) mg/dL Creatinine (0.55-1.02) mg/dL Est GFR ( Amer) (>=60 mL/min/1.73m^2) Est GFR (Non-Af Amer) (>=60 mL/min/1.73m^2) BUN/Creatinine Ratio Glucose (74-106) mg/dL Lactate (0.4-2.0) mmol/L Calcium (8.5-10.1) mg/dL Total Bilirubin (0.2-1.0) mg/dL AST (15-37) U/L ALT (14-59) U/L Alkaline Phosphatase (46-116) U/L Ammonia <10 L (11-32) umol/L Total Creatine Kinase (26-192) U/L Troponin I High Sens (4.0-51.3) pg/mL Total Protein (6.4-8.2) g/dL Albumin (3.4-5.0) g/dL Globulin g/dL Albumin/Globulin Ratio TSH (0.358-3.740) uIU/mL Urine Color (YELLOW) Urine Clarity (CLEAR) Urine pH (5.0-9.0) Ur Specific [place] (1.005-1.025) Urine Protein (NEG/TRACE) mg/dL Urine Glucose (UA) (NEGATIVE) mg/dL Urine Ketones (NEGATIVE) mg/dL Urine Occult Blood (NEGATIVE) Urine Nitrite (NEGATIVE) Urine Bilirubin (NEGATIVE) Urine Urobilinogen (0.2-1.0) EU/dL Ur Leukocyte Esterase (NEGATIVE) Urine RBC (0-2) #/HPF Urine WBC (NONE SEEN) #/HPF Ur Squamous Epith Cells (NONE/RARE) #/LPF Urine Crystals (None Seen) #/HPF Urine Bacteria (NONE SEEN) #/HPF Urine Casts (NONE SEEN) #/LPF Urine Mucus (NONE SEEN) Ur Culture Indicated? POC Glucose (74-106) mg/dL Patient's BUN and creatinine are 52/1.24. Patient does have protein and ketones in her urine. ECG Data Attestation: I personally reviewed and interpreted this ECG as follows: (EKG interpretation. Baseline normal sinus rhythm at 74 beats minute. Normal axis deviation. No acute ST elevation, no acute ectopy. QTc of 435.) Discharge Plan Discharge Chief Complaint: Altered Mental Status Clinical Impression: Tremors of nervous system, Proteinuria, NICKY (acute kidney injury), Dehydration, CHI (closed head injury), Rhabdomyolysis, Parkinson's disease Patient Disposition: Admitted As Inpatient Time of Disposition Decision: 19:11 Condition: Fair
--- NOTE | 2024-05-22 17:07 | PC.NURSE ---
pt sedated at this time by EMS
[2024-05-22 17:10] LABS: Glucometer 82 mg/dL (74-106)
[2024-05-22 17:14] LABS: Bilirubin Urine NEGATIVE (NEGATIVE); Blood Urine NEGATIVE (NEGATIVE); Clarity Urine CLEAR (CLEAR); Color Urine YELLOW (YELLOW); Glucose Urine UA NEGATIVE (NEGATIVE); Ketones Urine 15 mg/dL (NEGATIVE); Leukocyte Esterase Urine NEGATIVE (NEGATIVE); Nitrite Urine NEGATIVE (NEGATIVE); Protein Urine 30 mg/dL (NEG/TRACE); Specific Gravity Urine 1.025 (1.005-1.025); Urobilinogen Urine 0.2 EU/dL (0.2-1.0); pH Urine 5.5 (5.0-9.0)
[2024-05-22] MEDS: 0.9 % SODIUM CHLORIDE 1,000 ML 1000 ML IV (17:16)
[2024-05-22 17:25] LABS: Hematocrit 28.2 % (36.0-48.0); Hemoglobin 9.2 g/dL (12.0-16.0); Mean Corpuscular HGB Conc 32.6 g/dL (29.9-35.2); Mean Corpuscular Hemoglobin 32.2 pg (26.7-34.0); Mean Corpuscular Volume 98.6 fL (81.0-99.0); Platelet Count 201 10^3/uL (150-450); Red Blood Count 2.86 10^6/uL (4.20-5.40); Red Cell Distribution Width 12.7 % (11.0-15.0); White Blood Count 9.5 10^3/uL (4.0-11.0)
[2024-05-22 17:26] LABS: RBC Urine 0-2 #/HPF (0-2); WBC Urine 0-2 #/HPF (NONE SEEN)
[2024-05-22 17:27] LABS: Bacteria Urine TRACE #/HPF (NONE SEEN); Cast Seen? NONE SEEN #/LPF (NONE SEEN); Crystals Seen? None Seen #/HPF (None Seen); Mucus Urine SMALL (NONE SEEN); Squamous Epithelial Cell Urine RARE #/LPF (NONE/RARE); Urine Culture Indicated NO
[2024-05-22 17:29] LABS: PCO2 VBG 38.4 mmHg (40.0-52.0); pH VBG 7.404 (7.330-7.430)
[2024-05-22 17:34] LABS: Alanine Aminotransferase 9 U/L (14-59); Albumin Globulin Ratio 1.2; Albumin Level 3.2 g/dL (3.4-5.0); Alkaline Phosphatase 113 U/L (46-116); Anion Gap 14.5; Aspartate Amino Transferase 45 U/L (15-37); BUN Creatinine Ratio 41.9; Bilirubin Total 0.8 mg/dL (0.2-1.0); Calcium 8.5 mg/dL (8.5-10.1); Chloride 106 mmol/L (98-107); Estimated GFR (African America 51 (>=60 mL/min/1.73m^2); Estimated GFR (Non-African Ame 42 (>=60 mL/min/1.73m^2); Globulin 2.6 g/dL; Glucose 78 mg/dL (74-106); Potassium 4.5 mmol/L (3.5-5.1); Sodium 141 mmol/L (136-145); Total Protein 5.8 g/dL (6.4-8.2)
[2024-05-22 17:39] LABS: INR 1.14; Prothrombin Time 11.9 sec (9.0-11.6)
[2024-05-22 17:42] LABS: Thyroid Stimulating Hormone 3.129 uIU/mL (0.358-3.740); Troponin I High Sensitivity 16.5 pg/mL (4.0-51.3)
[2024-05-22 17:46] LABS: Eosinophils Absolute Manual 0.28 10^3/uL (0.00-0.70); Lymphocytes Absolute Manual 0.38 10^3/uL (1.20-3.80); Monocytes Absolute Manual 0.38 10^3/uL (0.30-0.80); Segmented Neut Absolute Manual 8.45 10^3/uL (1.4-6.5)
[2024-05-22 17:46] LABS: Ammonia <10 umol/L (11-32)
[2024-05-22 17:48] LABS: Creatine Kinase 864 U/L (26-192); Lactate/Lactic Acid 2.2 mmol/L (0.4-2.0)
[2024-05-22] MEDS: HYDROCODONE/ACET 5-325 MG TABLET 1 TAB PO (18:53)
[2024-05-22 20:15] LABS: Lactate/Lactic Acid 1.1 mmol/L (0.4-2.0)
--- OUTSIDE RECORDS SUMMARY | 2024-05-22 20:23 | XMS_ITS | CCD ---
Author Organization [facility] Care Team Providers Care Medical Billing Clerk Name Role Phone ASHIA LOTT Attending Unavaila [...] LOTT, DR ASHIA Dunham Primary Care Unavailable REMINGTON, DR DIAMANTE Cruz Consulting Unavailable SHAIKH GRAHAM H Admitting Unavailable LOTT, DR ASHIA Dunham Consulting Unavailable LOTT, DR ASHIA Dunham Consulting Unavailable LOTT, DR ASHIA Dunham Primary Care Unavailable LOTT, DR ASIHA Dunham Admitting Unavailable LOTT, DR ASHIA Dunham [...] HELTON, Juno Unavailable Bren Hansen DO Unavailable Oren NELSON, Ashia Unavailable JUNO AMES Attending Unavailable Allergies Allergy Classification Reported Allergen(s) Allergy Type Date of Onset Reaction(s) Facility Adrenergic Agonists (1 source) Pseudoephedrine Drug Allergy 08-19-19 24 [facility] house dust allergenic extract (1 source) house dust allergenic extract Drug Allergy 08-19-19 24 Unknown Reaction [facility] Penicillins (antibiotic) (1 source) Penicillins Drug Allergy 08-19-19 24 Unknown Reaction [facility] Pneumococcal vaccine (1 source) Pneumococcal vaccine Drug Allergy 08-19-19 24 [facility] (3 sources) Penicillins Drug allergy (disorder) 08-22-19 15 Unknown Reaction [facility] (2 sources) House dust mite Propensity to adverse reactions Unknown [facility] Other (2 sources) Penicillin Drug Allergy rash [facility] Other (3 sources) Pseudoephedrine Drug Allergy 09-02-19 24 [facility] (2 sources) Streptococcus pneumoniae type 1 [...] 9V capsular polysaccharide antigen Drug Allergy SWELLING [facility] [employer] Other (2 sources) Substance with penicillin structure and antibacterial mechanism of action (substance) Drug allergy Unknown [facility] Other (2 sources) Allergies Reconciled Propensity to adverse reactions 12-28-19 21 Unknown [facility] Other (1 source) house dust allergenic extract Drug Allergy 09-02-19 24 Unknown Reaction [facility] (1 source) Pneumococcal vaccine Drug Allergy 09-02-19 24 [facility] (3 sources) Penicillins Drug Allergy 09-10-19 18 [...] Taking; Refills: 4; Qty: 90 Tablet; Provider: rOen Ang ( ) take 1 tablet by [...] current use of drug therapy; Translations: [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) drug therapy] Episodic Other connective tissue [...] Basophils (Bld) [#/Vol] 0.0 10 3/uL 0.0-0.1 [facility] Basophils/100 WBC Auto (Bld) on 09-02-2023 Basophils/100 WBC (Bld) 0.3 % 0.2-2.0 [facility] Eosinophils/100 WBC Auto (Bl d)on 09-02-2023 Eosinophils/100 WBC (Bld) 1.8 % 0.9-7.0 [facility] Erythrocyte distribution wid th Auto (RBC) [Ratio]on 09-02-2023 Erythrocyte distribution width (RBC) [Ratio] 12.0 % 11.0-15.0 [facility] Estimated glomerular filtrat ion rate (GFR) non- Americanon 09-02-2023 GFR/1.73 sq M.predicted among non-blacks MDRD (S/P/Bld) [Vol rate/Area] 60 mL/min/{1.73_m2} >=60 [facility] Globulin Calc (S) [Mass/Vol] on 09-02-2023 Globulin (S) [Mass/Vol] 3.3 g/dL [facility] Hematocrit Auto (Bld) [Volum e fraction]on 09-02-2023 Hematocrit (Bld) [Volume fraction] 31.5 % 36.0-48.0 [facility] Hemoglobin [Mass/volume] in Bloodon 09-02-2023 Hemoglobin (Bld) [Mass/Vol] 10.4 g/dL 12.0-16.0 [facility] Laboratory - Chemistry and C hemistry - challengeon 09-02-2023 Albumin [Mass/Vol] 3.3 g/dL 3.4-5.0 [facility] ALP [Catalytic activity/Vol] 87 U/L 46-116 [facility] ALT [Catalytic activity/Vol] 7 U/L 14-59 [facility] AST [Catalytic activity/Vol] 16 U/L 15-37 [facility] Bilirubin [Mass/Vol] 0.5 mg/dL 0.2-1.0 [facility] Calcium [Mass/Vol] 9.0 mg/dL 8.5-10.1 [facility] Chloride [Moles/Vol] 102 mmol/L 98-107 [facility] CO2 [Moles/Vol] 29.2 mmol/L 21.0-32.0 [facility] Creatinine [Mass/Vol] 0.92 mg/dL 0.55-1.02 [facility] GFR/1.73 sq M.predicted MDRD (S/P/Bld) [Vol rate/Area] mL/min/{1.73_m2} >=60 [facility] Glucose [Mass/Vol] 99 mg/dL 74-106 [facility] Potassium [Moles/Vol] 5.0 mmol/L 3.5-5.1 [facility] Protein [Mass/Vol] 6.6 g/dL 6.4-8.2 [facility] Sodium [Moles/Vol] 138 mmol/L 136-145 [facility] TSH Qn 1.862 m[IU]/L 0.358-3.740 [facility] Urea nitrogen [Mass/Vol] 35.0 mg/dL 7.0-18.0 [facility] Urea nitrogen/Creatinin e [Mass ratio] 38.0 mg/mg [facility] Laboratory - Hematology and Cell countson 09-02-2023 Immature granulocytes/100 WBC (Bld) 0.1 % 0.0-0.5 [facility] Leukocytes [#/volume] correc hema for nucleated erythrocytes in Blood by Automated counon 09-02-2023 WBC corrected for nucl RBC Auto (Bld) [#/Vol] 6.7 10 3/uL 4.0-11.0 [facility] Lymphocytes Auto (Bld) [#/Vo l]on 09-02-2023 Lymphocytes (Bld) [#/Vol] 0.9 10 3/uL 1.2-3.8 [facility] Lymphocytes/100 WBC Auto (Bl d)on 09-02-2023 Lymphocytes/100 WBC (Bld) 13.1 % 20.5-60.0 [facility] MCH Auto (RBC) [Entitic mass ]on 09-02-2023 MCH (RBC) [Entitic mass] 31.8 pg 26.7-34.0 [facility] MCHC Auto (RBC) [Mass/Vol]on 09-02-2023 MCHC (RBC) [Mass/Vol] 33.0 g/dL 29.9-35.2 [facility] MCV Auto (RBC) [Entitic vol] on 09-02-2023 MCV (RBC) [Entitic vol] 96.3 fL 81.0-99.0 [facility] Monocytes Auto (Bld) [#/Vol] on 09-02-2023 Monocytes (Bld) [#/Vol] 0.6 10 3/uL 0.3-0.8 [facility] Monocytes/100 WBC Auto (Bld) on 09-02-2023 Monocytes/100 WBC (Bld) 8.2 % 1.7-12.0 [facility] Neutrophils Auto (Bld) [#/Vo l]on 09-02-2023 Neutrophils (Bld) [#/Vol] 5.2 10 3/uL 1.4-6.5 [facility] Neutrophils/100 WBC Auto (Bl d)on 09-02-2023 Neutrophils/100 WBC (Bld) 76.5 % 43.0-75.0 [facility] No Panel Informationon 09-01 Eosinophils # (Auto) 0.1 10 3/uL 0.0-0.7 [facility] Immature Granulocyte # (Auto) 0.01 10 3/uL 0.00-0.03 [facility] Platelet mean volume Auto (B ld) [Entitic vol]on 09-02-2023 Platelet mean volume (Bld) [Entitic vol] 9.4 fL 9.5-13.5 [facility] Platelets Auto (Bld) [#/Vol] on 09-02-2023 Platelets (Bld) [#/Vol] 235 10 3/uL 150-450 [facility] RBC Auto (Bld) [#/Vol]on RBC (Bld) [#/Vol] 3.27 10 6/uL 4.20-5.40 [facility] Serum or plasma albumin/glob ulin mass ratioon 09-02-2023 Albumin/Globulin [Mass ratio] 1.0 {ratio} [facility] Serum or plasma anion gap de terminationon 09-02-2023 Anion gap [Moles/Vol] 11.8 mmol/L [facility] MG MAMM SCREEN PRETTY W CADon 0 7-12-2022 MG MAMM SCREEN PRETTY W CAD Patient: MARTHA MERCHANT Exam Date: 09/19/2021 : 1950 Gender:F Ordering : DR ASHIA LOTT M.D. Admission #: [id number] Family : SHAIKH Ria GRAHAM . Order #: [id number] CLICK HERE TO VIEW EXAM RADIOLOGY REPORT PROCEDURE: MAMMOGRAM BILATERAL SCREENING DIGITAL WITH COMPUTER AIDED DETECTION COMPARISON: None. INDICATIONS: Screening mammography Calculator Name NCI Breast Cancer Risk Assessment Tool 5 Year Breast Cancer Risk Not Reported. Lifetime Breast Cancer Risk Not Reported. Personal Breast Cancer No Personal Ovarian Cancer No Treatments None Family Cancers None LOCATION: [facility] BREAST COMPOSITION: Extremely dense, which lowers the [...] MD on 09/19/2021 at 14:08 Normal [facility] CULTURE URINEon 09-14-2021 CULTURE URINE Culture Observations : LIGHT GROWTH OF MIXED GENITAL ADOLFO. NO POTENTIAL PATHOGENS SEEN. Normal [facility] Comment on above: Performed By: #### U RCX #### [facility] [address] [place] [address] Dr. Ravi Hebert UA RANDOM W/MICROSCOPICon BACTERIA NONE SEEN Normal NONE SEEN [facility] Comment on above: Performed By: #### U AMIC #### [facility] [address] [address] [address] Ravi Hebert Bilirubin Ql (U) Negative Normal NEGATIVE [facility] Comment on above: Performed By: #### U AMIC #### [facility] [address] [place] [address] Dr. Ravi Hebert CAST NONE SEEN Normal NONE SEEN [facility] Comment on above: Performed By: #### U AMIC #### [facility] [address] [address] [address] Ravi Hebert Clarity (U) CLEAR Normal CLEAR [facility] Comment on above: Performed By: #### U AMIC #### [facility] [address] [address] [address] Ravi Hebert Color (U) LT. YELLOW Normal YELLOW [facility] Comment on above: Performed By: #### U AMIC #### [facility] [address] [address] [address] Ravi Hebert Crystals LM Nom (Urine sed) NONE SEEN Normal NONE SEEN [facility] Comment on above: Performed By: #### U AMIC #### [facility] [address] [place] [address] Dr. Ravi Hebert Epithelial cells LM Ql (Urine sed) FEW Abnormal NONE SEEN /RARE [facility] Comment on above: Performed By: #### U AMIC #### [facility] [address] [place] [address] Dr. Ravi Hebert Glucose Ql (U) Negative Normal NEGATIVE [facility] Comment on above: Performed By: #### U AMIC #### [facility] [address] [address] [address] Ravi Hebert Hemoglobin Ql (U) Negative Normal NEGATIVE [facility] Comment on above: Performed By: #### U AMIC #### [facility] [address] [address] [address] Ravi Hebert Ketones Ql (U) Negative Normal NEGATIVE [facility] Comment on above: Performed By: #### U AMIC #### [facility] [address] [address] [address] Ravi Hebert LEUKOCYTES Negative Normal NEGATIVE [facility] Comment on above: Performed By: #### U AMIC #### [facility] [address] [place] [address] Dr. Ravi Heebrt MUCOUS NONE SEEN Normal NONE SEEN [facility] Comment on above: Performed By: #### U AMIC #### [facility] [address] [place] [address] Dr. Ravi Hebert Nitrite Ql (U) Negative Normal NEGATIVE [facility] Comment on above: Performed By: #### U AMIC #### [facility] [address] [place] [address] Dr. Ravi Hebert pH (U) 6.0 [pH] Normal 5-9 [facility] Comment on above: Performed By: #### U AMIC #### [facility] [address] [place] [address] Dr. Ravi Hebert RBC NONE SEEN Abnormal 0-2 [facility] Comment on above: Performed By: #### U AMIC #### [facility] [address] [place] [address] Dr. Ravi Hebert SPEC GRAVITY <=1.005 Abnormal 1.005-<=1.02 5 [facility] Comment on above: Performed By: #### U AMIC #### [facility] [address] [place] [address] Dr. Ravi Hebert UA PROTEIN Negative Normal NEGATIVE/ TRACE [facility] Comment on above: Performed By: #### U AMIC #### [facility] [address] [place] [address] Dr. Ravi Hebert Urobilinogen Qn (U) 0.2 {Naveen'U}/dL Normal 0.2 - 1.0 [facility] Comment on above: Performed By: #### U AMIC #### [facility] [address] [place] [address] Dr. Ravi Hebert WBC NONE SEEN Normal NONE SEEN [facility] Comment on above: Performed By: #### U AMIC #### [facility] [address] [place] [address] Dr. Ravi Hebert CBC AUTO DIFFon 09-08-2021 BASO # 0.0 103/ul Normal 0.0-0.1 [facility] Comment on above: Performed By: #### C BC #### [facility] [address] [place] [address] Dr. Ravi Hebert Basophils/100 WBC (Bld) 0.4 % Normal 0.2-2.0 [facility] Comment on above: Performed By: #### C BC #### [facility] [address] [place] [address] Dr. Ravi Hebert EO # 0.1 103/ul Normal 0.0-0.7 [facility] Comment on above: Performed By: #### C BC #### [facility] [address] [place] [address] Dr. Ravi Hebert Eosinophils/100 WBC (Bld) 0.8 % Critically low 0.9-7.0 [facility] Comment on above: Performed By: #### C BC #### [facility] [address] [place] [address] Dr. Ravi Hebert Erythrocyte distribution width (RBC) [Ratio] 11.8 % Normal 11.0-15.0 [facility] Comment on above: Performed By: #### C BC #### [facility] [address] [place] [address] Dr. Ravi Hebert Hematocrit (Bld) [Volume fraction] 32.8 % Critically low 36.0-48.0 [facility] Comment on above: Performed By: #### C BC #### [facility] [address] [place] [address] Dr. Ravi Hebert Hemoglobin (Bld) [Mass/Vol] 10.8 g/dL Critically low 12.0-16.0 [facility] Comment on above: Performed By: #### C BC #### [facility] [address] [place] [address] Dr. Ravi Hebert IG # 0.03 10e3/ul Normal 0.00-0.03 [facility] Comment on above: Performed By: #### C BC #### [facility] [address] [place] [address] Dr. Ravi Hebert IG % 0.4 % Normal 0.0-0.5 [facility] Comment on above: Performed By: #### C BC #### [facility] [address] [place] [address] Dr. Ravi Hebert LYMPH # 0.7 103/ul Critically low 1.2-3.8 [facility] Comment on above: Performed By: #### C BC #### [facility] [address] [place] [address] Dr. Ravi Hebert Lymphocytes/100 WBC (Bld) 9.8 % Critically low 20.5-60.0 [facility] Comment on above: Performed By: #### C BC #### [facility] [address] [place] [address] Dr. Ravi Hebert MANUAL DIFF REQ NO Normal [facility] Comment on above: Performed By: #### C BC #### [facility] [address] [place] [address] Dr. Ravi Hebert MCH (RBC) [Entitic mass] 32.8 pg Normal 26.7-34.0 [facility] Comment on above: Performed By: #### C BC #### [facility] [address] [place] [address] Dr. Ravi Hebert MCHC (RBC) [Mass/Vol] 32.9 g/dL Normal 29.9-35.2 [facility] Comment on above: Performed By: #### C BC #### [facility] [address] [place] [address] Dr. Ravi Hebert MCV (RBC) [Entitic vol] 99.7 fL Critically high 81.0-99.0 [facility] Comment on above: Performed By: #### C BC #### [facility] [address] [place] [address] Dr. Ravi Hebert MONO # 0.4 103/ul Normal 0.3-0.8 [facility] Comment on above: Performed By: #### C BC #### [facility] [address] [place] [address] Dr. Ravi Hebert Monocytes/100 WBC (Bld) 6.0 % Normal 1.7-12.0 [facility] Comment on above: Performed By: #### C BC #### [facility] [address] [place] [address] Dr. Ravi Hebert NEUT # 6.0 103/ul Normal 1.4-6.5 [facility] Comment on above: Performed By: #### C BC #### [facility] [address] [place] [address] Dr. Ravi Hebert Neutrophils/100 WBC (Bld) 82.6 % Critically high 43.0-75.0 [facility] Comment on above: Performed By: #### C BC #### [facility] [address] [place] [address] Dr. Ravi Hebert Platelet mean volume (Bld) [Entitic vol] 9.6 fL Normal 9.5-13.5 [facility] Comment on above: Performed By: #### C BC #### [facility] [address] [place] [address] Dr. Ravi Hebert PLT 223 103/ul Normal 150-450 [facility] Comment on above: Performed By: #### C BC #### [facility] [address] [place] [address] Dr. Ravi Hebert RBC 3.29 106/ul Critically low 4.20-5.40 [facility] Comment on above: Performed By: #### C BC #### [facility] [address] [place] [address] Dr. Ravi Hebert WBC 7.2 103/ul Normal 4.0-11.0 [facility] Comment on above: Performed By: #### C BC #### [facility] [address] [place] [address] Dr. Ravi Hebert PROF 14(COMP METB)on 022 Albumin [Mass/Vol] 3.8 g/dL Normal 3.4-5.0 [facility] Comment on above: Performed By: #### C MP, TSH #### [facility] [address] [place] [address] Dr. Ravi Hebert Albumin/Globulin [Mass ratio] 1.2 {ratio} Normal [facility] Comment on above: Performed By: #### C MP, TSH #### [facility] [address] [place] [address] Dr. Ravi Hebert ALP [Catalytic activity/Vol] 69 U/L Normal 46-116 [facility] Comment on above: Performed By: #### C MP, TSH #### [facility] [address] [address] [address] Ravi Hebert ALT [Catalytic activity/Vol] 10 U/L Critically low 14-59 [facility] Comment on above: Performed By: #### C MP, TSH #### [facility] [address] [address] [address] Ravi Hebert Anion gap [Moles/Vol] 10.7 mmol/L Normal [facility] Comment on above: Performed By: #### C MP, TSH #### [facility] [address] [address] [address] Ravi Hebert AST [Catalytic activity/Vol] 22 U/L Normal 15-37 [facility] Comment on above: Performed By: #### C MP, TSH #### [facility] [address] [address] [address] Ravi Hebert Bilirubin [Mass/Vol] 0.5 mg/dL Normal 0.2-1.0 [facility] Comment on above: Performed By: #### C MP, TSH #### [facility] [address] [address] [address] Ravi Hebert Calcium [Mass/Vol] 8.8 mg/dL Normal 8.5-10.1 [facility] Comment on above: Performed By: #### C MP, TSH #### [facility] [address] [place] [address] Dr. Ravi Hebert Chloride [Moles/Vol] 102 mmol/L Normal 98-107 [facility] Comment on above: Performed By: #### C MP, TSH #### [facility] [address] [address] [address] Ravi Hebert CO2 [Moles/Vol] 29.6 mmol/L Normal 21.0-32.0 [facility] Comment on above: Performed By: #### C MP, TSH #### [facility] [address] [address] [address] Ravi Hebert Creatinine [Mass/Vol] 0.90 mg/dL Normal 0.55-1.02 [facility] Comment on above: Performed By: #### C MP, TSH #### [facility] [address] [address] [address] Ravi Hebert EGFR-AF SAMMARINESE >60 Normal >=60 [facility] Comment on above: Performed By: #### C MP, TSH #### [facility] [address] [address] [address] Ravi Hebert EGFR-NON AF SAMMARINESE >60 Normal >=60 [facility] Comment on above: Performed By: #### C MP, TSH #### [facility] [address] [address] [address] Ravi Hebert Globulin (S) [Mass/Vol] 3.1 g/dL Normal [facility] Comment on above: Performed By: #### C MP, TSH #### [facility] [address] [place] [address] Dr. Ravi Hebert Glucose [Mass/Vol] 94 mg/dL Normal 74-106 [facility] Comment on above: Performed By: #### C MP, TSH #### [facility] [address] [place] [address] Dr. Ravi Hebert Potassium [Moles/Vol] 4.3 mmol/L Normal 3.5-5.1 [facility] Comment on above: Performed By: #### C MP, TSH #### [facility] [address] [place] [address] Dr. Ravi Hebert Protein [Mass/Vol] 6.9 g/dL Normal 6.4-8.2 [facility] Comment on above: Performed By: #### C MP, TSH #### [facility] [address] [place] [address] Dr. Ravi Hebert Sodium [Moles/Vol] 138 mmol/L Normal 136-145 [facility] Comment on above: Performed By: #### C MP, TSH #### [facility] [address] [place] [address] Dr. Ravi Hebert Urea nitrogen [Mass/Vol] 34.0 mg/dL Critically high 7.0-18.0 [facility] Comment on above: Performed By: #### C MP, TSH #### [facility] [address] [address] [address] Ravi Hebert Urea nitrogen/Creatinin e [Mass ratio] 37.8 mg/mg Normal [facility] Comment on above: Performed By: #### C MP, TSH #### [facility] [address] [address] [address] Ravi Hebert TSHon 09-08-2021 TSH 1.350 uIU/mL Normal 0.358-3.740 [facility] Comment on above: Performed By: #### C MP, TSH #### [facility] [address] [address] [address] Ravi Hebert PROGRESSon 06-25-2017 PROGRESS HNO ID: [id number] thor: Nicolas Dotson: (none)Author Type: PhysicianType: Progress NotesFiled: 06/25/2017 4:47 PMNote Text:Martha FriedyDOB: 1950[facility]:Date last seen:PAST MEDICAL HISTORYDiagnosis [...] 3350 (MIRALAX, GLYCOLAX) 17 gram/dose powderrizatriptan (MAXALT QUALITY ASSURANCE ENGINEER) 10 mg disintegrating tabletNo current facility-administered [...] of left footThalvaro Dominguez, DPM Normal [facility] Vital Signs Date Time Vital Sign Value Performing Clinician Facility 09-02-2023 14:55-0400 Body height 162.56 cm [facility] 09-02-2023 14:55-0400 Body mass index (BMI) [Ratio] 14.3 kg/m2 [facility] 09-02-2023 14:55-0400 Body weight 38 kg [facility] 09-02-2023 14:55-0400 Diastolic blood pressure 84 mm[Hg] [facility] 09-02-2023 14:55-0400 Heart rate 88 /min [facility] 09-02-2023 14:55-0400 Systolic blood pressure 138 mm[Hg] [facility] 08-19-2023 13:51-0400 Body height 162.56 cm [facility] 08-19-2023 13:51-0400 Body mass index (BMI) [Ratio] 14.6 kg/m2 [facility] 08-19-2023 13:51-0400 Body temperature 97.4 [degF] [facility] 08-19-2023 13:51-0400 Body weight 38.72 kg [facility] 08-19-2023 13:51-0400 Diastolic blood pressure 67 mm[Hg] [facility] 08-19-2023 13:51-0400 Heart rate 56 /min [facility] 08-19-2023 13:51-0400 Systolic blood pressure 134 mm[Hg] [facility] 02-15-2023 13:30-0500 Body height 162.56 cm Ashia Lott Other [facility] Other 02-15-2023 13:30-0500 Body mass index (BMI) [Ratio] 14.59 kg/m2 Ashia Lott Other [facility] Other 02-15-2023 13:30-0500 Body weight 38.56 kg Ashia Oren Other [facility] Other 02-15-2023 13:30-0500 Diastolic blood pressure 89 mm[Hg] Ashia Oren Other [facility] Other 02-15-2023 13:30-0500 Systolic blood pressure 148 mm[Hg] Ashia Oren Other [facility] Other Encounters Encounter Date Encounter Type Care Provider Facility Start: 05-13-2024 End: 05-13-2024 ambulatory JUNO AMES Not Available Start: 05-13-2024 End: 05-13-2024 Bamboo flowsheet Juno Ames EDI ARCHITECT Work Phone: [facility] [place] Start: 05-13-2024 End: 05-13-2024 Bamboo flowsheet Juno Ames EDI ARCHITECT Work Phone: [facility] [place] Start: 04-14-2024 End: 04-14-2024 Refill Bren [place] DO Work Phone: [facility] Comment on above: Seizure (CMS/HCC) Start: 03-18-2024 End: 03-18-2024 Refill Jnuo Ames EDI ARCHITECT Work Phone: [facility] [place] Comment on above: Parkinson's disease, unspecified whether dyskinesia present, unspecified whether manifestations fluctuate (CMS/HCC) Start: 09-02-2023 End: 09-02-2023 ambulatory [facility] Work Phone: Start: 09-02-2023 End: 09-02-2023 Patient encounter procedure [facility] Work Phone: Start: 08-19-2023 End: 08-19-2023 ambulatory [facility] Work Phone: Start: 08-19-2023 End: 08-19-2023 Patient encounter procedure [facility] Work Phone: Start: 03-12-2023 End: 03-12-2023 ambulatory Ashia Lott Other [facility] Other Start: 03-12-2023 Telephone encounter Ashia Lott [facility] Start: 02-15-2023 End: 02-15-2023 ambulatory Ashia Lott Other [facility] Other Start: 02-15-2023 Office outpatient vi sit 15 minutes Ashia Lott [facility] Start: 06-21-2022 ambulatory KELIN BARNARDMIPATHJeff Facility:[facility] Start: 04-24-2022 End: 04-25-[address] LEROY DUQUE . Facility:[facility] Start: 2022 End: 01-19-[address] LEROY DUQUE . Facility:[facility] Start: 01-09-2022 Adult health examination Margo Lott Other [facility] Other Start: 10-19-2021 End: 10-20-[address] LEROY DUQUE . Facility:[facility] Start: 09-19-2021 End: 09-20-2021 ambulatory SHAIKH Cleopatra GRAHAM Facility:[facility] Start: 09-15-2021 End: 09-15-[address] ASHIA LOTT Facility:[facility] Start: 09-08-2021 End: 09-09-[address] ASHIA LOTT Facility:[facility] Start: 08-24-[address] ASHIA LOTT Facil ity:[facility] Start: 07-20-2021 End: 07-21-[address] LEROY DUQUE . Facility:[facility] Start: 05-15-2019 Patient encounter procedure ASHIA LOTT Facility:[facility] Procedures Date Procedure Procedure Detail Performing Clinician Screening for malign ant neoplasm of breast Ashia Lott Other Plan of Treatment Date Care Activity Detail Author Start: 05-25-2024 End: 05-25-2024 Patient encounter procedure 05/25/2024 1:40 PM EDT Office Visit [facility] [place] [address] [place] [id number] Juno Ames NP [address] [place], [place] [facility] Start: 05-13-2024 End: 05-13-2024 Patient encounter procedure 05/13/2024 2:20 PM EST Office Visit [facility] [place] [address] [place] [phone] Juno Ames NP [address] [place], [place] Arrived [facility] Comment on above: Arrived Start: 04-02-2024 End: 04-02-2024 Patient encounter procedure 04/02/2024 2:00 PM EST Office Visit [facility] [place] [address] [place] [address] Juno Ames NP [address] [place] [facility] [place] Start: 11-10-2023 Influenza vaccination Influenza Vacc ine (#1) [facility] Start: 06-27-2019 Pneumococcal Vaccine : 65+ Years (2 of 2 - PCV) Pneumococcal Vaccine: 65+ Years (2 of 2 - PCV) [facility] Comprehensive metabo lic 2000 panel - Serum or Plasma [facility] Immunizations Immunization Date Immunization Notes Care Provider Fa cility 03-13-2023 influenza virus vaccine, unspecified formulation Juno Ames EDI ARCHITECT Work Phone: [facility] 02-27-2022 COVID-19 mRNA Bivale nt Booster (Moderna) [facility] 01-09-2022 influenza virus vaccine, split virus (incl. purified surface antigen) Ashia Lott Other [facility] Other 01-09-2022 influenza virus vaccine, unspecified formulation [facility] 01-17-2021 COVID-19 mRNA-1273 (Moderna) [facility] 06-01-2020 COVID-19 Vaccine Moderna - Documentation Purposes Only Ashia Lott Other [facility] 05-05-2020 COVID-19 Vaccine Moderna - Documentation Purposes Only Ashia Lott Other [facility] 01-07-2020 influenza virus vaccine, split virus (incl. purified surface antigen) Ashia Lott Other [facility] Other 01-07-2020 influenza virus vaccine, unspecified formulation [facility] 01-13-2019 influenza virus vaccine, split virus (incl. purified surface antigen) Ashia Lott Other [facility] Other 01-13-2019 influenza virus vaccine, unspecified formulation [facility] 12-05-2018 tetanus and diphther ia toxoids, adsorbed, preservative free, for adult use (5 Lf of tetanus toxoid and 2 Lf of diphtheria toxoid) [facility] 12-05-2018 tetanus toxoid, reduced diphtheria toxoid, and acellular pertussis vaccine, adsorbed [facility] 12-26-2017 influenza virus vaccine, split virus (incl. purified surface antigen) Ashia Lott Other [facility] Other 12-26-2017 influenza virus vaccine, unspecified formulation [facility] NEGATED: Highlighted row has not occurred!12-27-2020 influenza virus vaccine, split virus (incl. purified surface antigen) Ashia Lott Other [facility] Other Payers Date Payer Category Payer Private Health Insurance AARCaryl Kovacs [id number] 2013 Medicare MEDICARE [id number] 1959 Medicare [id number] 1959 Self-pay [id number] 1959 Unknown [id number] 1948 Unknown [id number] .593 1948 Unknown [id number] [id number] .593 1948 Unknown [id number] [id number] .593 1948 Unknown [id number] [id number] .593 1948 Unknown [id number] [id number] .593 1948 Unknown [id number] [id number] .593 1948 Unknown [id number] 2.16.840.1.035296.3.579.2 .593 1948 Unknown [id number] 2.16.840.1.127906.3.579.2 .593 1948 Unknown [id number] [id number] .593 1948 Unknown [id number] [id number] .1259 Self-pay Self Pay [id number] Social History Date Type Detail Facility Unknown if ever smoked [facility] Other Start: 07-16-2023 Sex Assigned At N [facility] Other Start: 12-06-2018 End: 07-16-2023 Tobacco smoking status NHIS Never smoked tobacco (finding) [facility] Start: 1950 Sex Assigned At Female F [facility] Start: 07-16-2023 Tobacco use and exposure Smokeless tobacco non-user [facility] Start: 07-16-2023 Alcoholic beverage intake Lifetime non-drinker (finding) [facility] Start: 07-16-2023 History of Social function [facility] Start: 1950 Sex assigned at Not on file N [facility] Clinical Notes 07-20-2021 [...] the next appt on 05/25/2024. Please advise. [facility] 04-14-2024 Miscellaneous Notes Formattin g of this note might be different from the original. Pharmacy requests refill of keppra. I know there has been some back and forth on compliance issues. Are we able to send the refill in order to get to the next appt on 05/25/2024. Please advise. documented in this encounter [facility] 03-18-2024 Telephone encounter Note Form atting of this note might be different from the original. Received a new rx request for Keppra. The pt has an appt scheduled for 04/02/2024. Per the last tele enc ND agreed to send the med up to March. Okay to send to get to f/u appt? Please advise. Tele enc dated 02/17/2024 [facility] 03-18-2024 Miscellaneous Notes Formattin g of this note might be different from the original. Received a new rx request for Keppra. The pt has an appt scheduled for 04/02/2024. Per the last tele enc ND agreed to send the med up to March. Okay to send to get to f/u appt? Please advise. Tele enc dated 02/17/2024 documented in this encounter [facility] 03-12-2023 Evaluation note Encounter Date Diagnosis Assessment Notes Mar, Lumbar degenerative disc disease (ICD-10 - M51.36) [facility] Other 12-08-2023 Evaluation note* Encounter Date Diagnosis Assessment Notes Treatment Notes Treatment Clinical Notes Feb, Pain, joint, shoulder, left (ICD-10 - M25.512) Agrees to ortho referral Requests Dr. Acosta [facility] [employer] Other 02-14-2023 NoteCONSULTATION CONSULTATION DATE: 04/24/2022 CHIEF [...] the patient takes citalopram 30 mg daily, Callaway 5/325 b.i.d., clonidine 0.1 mg b.i.d. Celebrex [...] atrophy. PLAN: We will refill the patient's Callaway 5/325 b.i.d. X-ray of her lumbar spine and pelvis has been ordered. The patient also has been given a prescription for Ensure HN and/or Boost HN two per day. Education was done with regards to possibly adding glucosamine chondroitin sulfate to improve the discomfort in her hips. The patient and her daughter understand and would like to proceed. CC: Ashia Lott M.D.[id number] NoteCONSULTATION CONSULTATION DATE: 2022 HISTORY OF PRESENT ILLNESS: This is a 72-year-old female accompanied by her sister to the clinic for a three month follow up for her chronic lower back pain and hip pain. Last procedure the patient had was radiofrequency ablation of her lumbar region in 2018. She is managed medically at this time for pain with Callaway 5/325 b.i.d. Other medications include citalopram, clonidine, [...] otherwise indicated. Patient agrees with this plan.[facility] 10-19-2021 NoteCONSULTATION CONSULTATION DATE: 10/19/2021 HISTORY OF [...] supplements daily as well. 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 She does use heat to her lower back, which is beneficial. Medications include Callaway 5/325 b.i.d., clonidine 0.1 b.i.d., citalopram, Keppra [...] disc disease. PLAN: We will refill the Callaway at 5/325 b.i.d. Patient is taking anti-inflammatory [...] plan of care and all questions answered.[facility] [id number] NoteCONSULTATION CONSULTATION DATE: 07/20/2021 This is a [...] or new motor changes. Current medications include Callaway 5/325 b.i.d., clonidine, multivitamin, Sinemet, Keppra and [...] PLAN: We will continue to maintain her Callaway 5/325 b.i.d. I have discussed with the patient and her sister at prior office visits regarding curcumin supplement named Enhansa that is produced by [employer] [place] [facility]. That information was shared once again with the patient and the sister. Recommended doses were discussed. The patient and sister agreed with the plan of care and we will see her in three months' time unless otherwise indicated. [facility] Signed and Approved by: CINDI ELLIOTT . 07/27/2021 17:09:00[facility] Diagnosis Onset Date Resolution Status Fatigue acute Hypertension acute Hypokalemia acute Hyponatremia acute Nausea acute [facility] Work Phone: Evaluation note* Diagnosis Parkinson's disease, unspecified whether dyskinesia present, unspecified whether manifestations fluctuate (CMS/HCC) [facility] Diagnosis Seizure (CMS/HCC) Other convulsions documented in this encounter [facility] Narrative - Reported* Type Description Date Medical History [place] Medical History ANXIETY Medical History HTN Medical History gastritis Medical History hyperlipidemia Surgical History Pelvice Exam Hysterectomy [place] 2003 Surgical History Sinus Endoscopic-Dr. Valdez Surgical History lymphnode removal - abdomen Surgical History RIGHT HIP-NERVE BLOCK-DR DUQUE OCTOBER 2018 Hospitalization History See above Hospitalization History Seizure- inpatient for 3 weeks Apr 2014 Hospitalization History FALL WITH FRACTU RED HIP X2 AND COLLARBONE (RIGHT) [facility] JUNE 2013 Hospitalization History LOW SODIUM ADMITTED TO [facility] APR 2017 [facility] Other Summary Purpose Family History No Family [...] Reason *FU 03/06 Dr. Kyree barnes at [facility] - shoulder. Diagnosis 1 Pain, joint, shoulde r, left (M25.512) Referral Organization [facility] gabriela Referring Provider First Name Ashia Referring Provider Last Name Oren Referring Provider Specialty Family Medi cine Referred Organization [facility] Referred Provider Andrea Acosta Referred Address [address],[place],[address] Referred Provider Specialty Orthopaedic Surgery Referral Priority Routine General Notes Shyla Cade 03:35:22 PM >received today, attachments made, notes locked, referral faxed Alyssia Shyla 02/25/2023 11:25:19 AM >faxed first attempt letter Clinical Notes p: [phone] f: [id number] Chief Complaint and Reason for Visit Chief Complaint chills, nausea Reason for Visit Fatigue Hypertension Hypokalemia Hyponatremia Nausea Chief Complaint chills, nausea fell, right rib pain Reason for Visit Fatigue Hypertension Hypokalemia Hyponatremia Nausea Additional Source Comments INFORMATION SOURCE (unrecogn ized section and content) DATE CREATED AUTHOR 09/12/2017 [facility] DATE CREATED AUTHOR AUTHOR'S ORGANIZ ATION 05/15/2019 [facility] DATE CREATED AUTHOR AUTHOR'S ORGANIZ ATION 06/10/2022 [facility] DATE CREATED AUTHOR AUTHOR'S ORGANIZ ATION 05/15/2024 [facility] EPIC REASON FOR VISIT [...] September 02, 2023 End: September 02, 2023 Medical Billing Clerk Relationship Specialty Start Date End Date Juno Ames NP [address] [place], [place] Nurse Practitioner Neurology 01/24/24 Bren Hansen DO [address] [place] [address] Referring Physician Neurology 01/24/24 Medical Billing Clerk Relationship Specialty Start Date End Date Juno Ames NP [address] [place] Nurse Practitioner Neurology 01/24/24 Bren Hansen DO [address] [place] [address] Referring Physician Neurology 01/24/24 Ashia Lott MD [facility] [place] [address] Referring Physician Family Medicine 05/13/24 Goals [...] BE BASED ON THE PRIMARY CLINICAL RECORDS. [employer] provides no warranty or guarantee of the accuracy or completeness of information in this document.
[2024-05-22] MEDS: PSYLLIUM SUGAR FREE 5.8 GM POWDER PACKET 3.4 GM PO (22:03)
[2024-05-22] MEDS: 0.9 % SODIUM CHLORIDE 1,000 ML 125 ML IV (22:04)
[2024-05-22] MEDS: CARBIDOPA/LEVODOPA 25 MG-100 MG TABLET 1 TAB PO (22:05)
[2024-05-22] MEDS: CARVEDILOL 25 MG TABLET PO (22:05)
[2024-05-23] VITALS (19 sets, daily range): BP systolic 121–152; BP diastolic 75–87; PULSE 63–96; TEMP 36.3–37.2; O2SAT 89–97
[2024-05-23] MEDS: HYDROCODONE/ACET 5-325 MG TABLET 1 TAB PO (05:42)
[2024-05-23] MEDS: CARBIDOPA/LEVODOPA 25 MG-100 MG TABLET 1 TAB PO ×5 (05:43→21:32)
[2024-05-23] MEDS: 0.9 % SODIUM CHLORIDE 1,000 ML 125 ML IV (05:43)
[2024-05-23 06:08] LABS: Basophils Percent Auto 0.3 % (0.2-2.0); Eosinophils Absolute Auto 0.1 10^3/uL (0.0-0.7); Eosinophils Percent Auto 1.7 % (0.9-7.0); Hematocrit 29.7 % (36.0-48.0); Hemoglobin 9.5 g/dL (12.0-16.0); Immature Granulocytes Abs Auto 0.01 10^3/uL (0.00-0.03); Immature Granulocytes Pct Auto 0.2 % (0.0-0.5); Lymphocytes Absolute Auto 0.6 10^3/uL (1.2-3.8); Lymphocytes Percent Auto 9.1 % (20.5-60.0); Mean Corpuscular Hemoglobin 31.9 pg (26.7-34.0); Mean Corpuscular Volume 99.7 fL (81.0-99.0); Mean Platelet Volume 9.9 fL (9.5-13.5); Monocytes Absolute Auto 0.5 10^3/uL (0.3-0.8); Monocytes Percent Auto 7.5 % (1.7-12.0); Neutrophils Absolute Auto 5.2 10^3/uL (1.4-6.5); Neutrophils Percent Auto 81.2 % (43.0-75.0); Platelet Count 195 10^3/uL (150-450); Red Blood Count 2.98 10^6/uL (4.20-5.40); Red Cell Distribution Width 12.7 % (11.0-15.0); White Blood Count 6.4 10^3/uL (4.0-11.0)
[2024-05-23 06:29] LABS: Alanine Aminotransferase <6 U/L (14-59); Albumin Globulin Ratio 1.2; Albumin Level 3.1 g/dL (3.4-5.0); Alkaline Phosphatase 116 U/L (46-116); Anion Gap 13.5; Aspartate Amino Transferase 48 U/L (15-37); BUN Creatinine Ratio 52.6; Bilirubin Total 0.7 mg/dL (0.2-1.0); Calcium 8.5 mg/dL (8.5-10.1); Carbon Dioxide 24.6 mmol/L (21.0-32.0); Chloride 107 mmol/L (98-107); Estimated GFR (African America >60 (>=60 mL/min/1.73m^2); Estimated GFR (Non-African Ame >60 (>=60 mL/min/1.73m^2); Globulin 2.6 g/dL; Glucose 71 mg/dL (74-106); Magnesium 2.3 mg/dL (1.8-2.4); Potassium 4.1 mmol/L (3.5-5.1); Sodium 141 mmol/L (136-145); Total Protein 5.7 g/dL (6.4-8.2)
[2024-05-23] MEDS: CITALOPRAM HYDROBROMIDE 20 MG TABLET 30 MG PO (08:05)
[2024-05-23] MEDS: LISINOPRIL 20 MG TABLET 40 MG PO (08:05)
[2024-05-23] MEDS: AMLODIPINE BESYLATE 5 MG TABLET PO (08:06)
[2024-05-23] MEDS: CARVEDILOL 25 MG TABLET PO ×2 (08:06→21:32)
[2024-05-23] MEDS: PSYLLIUM SUGAR FREE 5.8 GM POWDER PACKET 3.4 GM PO (08:06)
--- NOTE | 2024-05-23 08:51 | PM.HP ---
HPI H&P: HPI History of Present Illness Chief complaint: SEIZURES, NICKY, DEHYDRATION, RHABDO Narrative: Patient is a 74 y.o white female with past medical history of Parkinson's disease (Sees [facility]), Chronic lumbar back pain (sees pain clinic), Hypertension, who presented to the ER last night with a fall after being in [place] for the day for eye appointment. She lives with her sister and 15 cats. Apparently per EMS, the house was unfit and patient was found down in urine. Per ER note and sister accounts, she last seen neurologist 2 weeks ago and had medication adjustment but continues to have movement issues. She fell yesterday and was was found down on the floor. This morning patient is resting comfortably in bed. She is alert and oriented x 3. She says her parkinson's disease has been progressing and making it difficult for her to eat or drink as the tremors makes it difficult. She uses a rolling walker to get around the house and get to the restroom. Her Sister assists her and takes her to appointments. She admits to frequent falls and after reviewing her last pain clinic note from 04/04/24, she was having fall then but refused PT. Patient appears very Cathexic. She is complaining of some neck stiffness. She has a black right eye, upper eyelid. She denies any other complaints or issues at this time. ER findings: WBC's 6.4, Hb 9.5, Cr 1.24, lactate 2.2, AST 48, ALT 6, CK 864, Trop 16.5, Alb 3.1, urine was positive for protein and ketones. Opioid HPI Opioid Management Most Recent Pain and Opioid Data: Last Pain Scale 5 05/23/24 05:42 05/23/24 Last Pain Assessment 05/23/24 10:54 Last MAR Pain Assessment 05/23/24 05:42 Last ORT Total Score 1 05/22/24 20:27 05/22/24 Last ORT Risk Category Low Risk 05/22/24 20:27 05/22/24 Ur Phencyclidine Scrn Negative (NEGATIVE) 05/22/24 17:06 05/22/24 Review of Systems ROS Narrative ROS: a complete review of systems were reviewed with patient and are positive as below or listed in History of Chief Complaint. General: no fever, chills, night sweats Head: no headache, did fall yesterday trauma, no visual changes, nausea or vomiting Skin: no reported rashes, itching or sores Eyes: no blurriness of vision Ears: no reported hearing loss, vertigo, earache, or tinnitus Throat: no sore throat, hoarseness, swelling of neck, or tongue pain Heart: no chest pain Lungs: no shortness of breath or cough GI: no diarrhea or vomiting/nausea Urinary: no urinary urgency, frequency or pain Neuro: no numbness or tingling, chronic back pain in low back, neck stiffness HEM: no bleeding issues or bruising ENDO: no thyroid problems Psych: no anxiety or depression [facility] Medical History (Updated 05/23/24 @ 09:01 by Staci Tinajero DO) Primary hypertension ?I10 - Essential (primary) hypertension (ICD-10) Chronic, continuous use of opioids ?F11.90 - Opioid use, unspecified, uncomplicated (ICD-10) Spondylosis of lumbar region without myelopathy or radiculopathy ?M47.816 - Spondylosis without myelopathy or radiculopathy, lumbar region (ICD-10) Lumbar spondylosis ?M47.816 - Spondylosis without myelopathy or radiculopathy, lumbar region (ICD-10) Tremors of nervous system ?R25.1 - Tremor, unspecified (ICD-10) Lumbar stenosis with neurogenic claudication ?M48.062 - Spinal stenosis, lumbar region with neurogenic claudication (ICD-10) Parkinson's disease ?G20.A1 - Parkinson's disease without dyskinesia, without mention of fluctuations (ICD-10) Social History Highest level of school completed/degree received: high school graduate Meds Home Medications and Allergies Home Medications ?Medication ?Instructions ?Recorded ?Confirmed ?Type acetaminophen 500 mg capsule 1,000 mg PO TID PRN pain 11/28/22 05/22/24 History calcium polycarbophil 625 mg 1,250 mg PO DAILY 11/28/22 05/22/24 History tablet (Fiber (calcium polycarbophil)) carbidopa 25 mg-levodopa 100 mg 1 tab PO .5 times per day 11/28/22 05/22/24 History tablet carvedilol 25 mg tablet (Coreg) 25 mg PO BID 11/28/22 05/22/24 History citalopram 10 mg tablet 30 mg PO DAILY 11/28/22 05/22/24 History levetiracetam 500 mg tablet 500 mg PO Q12H 11/28/22 05/22/24 History lisinopril 40 mg tablet 40 mg PO DAILY 11/28/22 05/22/24 History naloxone 4 mg/actuation nasal 4 mg intranasal Q3M PRN opioid 02/20/23 05/22/24 Rx spray (Narcan) overdose #2 ea hydrocodone 7.5 mg-acetaminophen See Rx Instructions .Route 01/01/24 05/22/24 Rx 325 mg tablet .COMPLEX pain #75 tabs amlodipine 5 mg tablet 5 mg PO QDAY 05/22/24 05/22/24 History carbidopa ER 25 mg-levodopa 100 mg tab PO 05/22/24 History tablet,extended release Allergies Allergy/AdvReac Type Severity Reaction Status Date / Time Penicillins Allergy Hives Verified 05/22/24 18:18 Exam Narrative Exam Narrative: General: Patient is alert, and oriented to person, place and time with normal affect, severe Cachexia Skin: multiple small abrasions, skin tears on arms and legs, ecchymosis of the right upper eyelid and forhead Head: acephalic Eyes: PERRLA, no nystagmus present, conjunctiva clear, no scleral icterus Ears: normal gross auditory acuity Nose: symmetric, no discharge, no maxillary or frontal sinus tenderness Heart: Normal rate and rhythm, no murmurs/rubs/gallops Lungs: no audible wheezes, crackles and normal breath sounds all lung valadez Abdomen: Normal audible bowel sounds, no distension, No palpable masses, no organomegaly, no rebound/guarding/ or rigidity Musculoskeletal: muscle atrophy noted, ROM is limited due to being in hospital bed, no swelling bilateral lower extremities Neuro: CN II-X grossly intact Constitutional Vital Signs, click to edit/add: Last Vital Signs Temp 97.4 F L 05/23/24 07:46 Pulse 67 05/23/24 07:57 Resp 18 05/23/24 07:46 BP 150/77 H 05/23/24 07:46 Pulse Ox 97 05/23/24 07:46 O2 Del Method Nasal Cannula 05/23/24 07:46 O2 Flow Rate 1 05/23/24 07:46 Results Labs Labs: Short CBC 05/22/24 05/23/24 Range/Units 17:00 06:00 WBC 9.5 6.4 (4.0-11.0) 10^3/uL Hgb 9.2 L 9.5 L (12.0-16.0) g/dL Hct 28.2 L 29.7 L (36.0-48.0) % Plt Count 201 195 (150-450) 10^3/uL BMP 05/22/24 05/23/24 17:00 06:00 Sodium 141 141 Potassium 4.5 4.1 Chloride 106 107 Carbon Dioxide 25.0 24.6 BUN 52.0 H 40.0 H Creatinine 1.24 H 0.76 Glucose 78 71 L Calcium 8.5 8.5 Cardiac Enzymes 05/22/24 Range/Units 17:00 Total Creatine Kinase 864 H* (26-192) U/L Liver Function 05/22/24 05/23/24 Range/Units 17:00 06:00 Total Bilirubin 0.8 0.7 (0.2-1.0) mg/dL AST 45 H 48 H (15-37) U/L ALT 9 L <6 L (14-59) U/L Alkaline Phosphatase 113 116 (46-116) U/L Albumin 3.2 L 3.1 L (3.4-5.0) g/dL Urine 05/22/24 Range/Units 17:06 Urine Color Yellow (YELLOW) Urine Clarity Clear (CLEAR) Urine pH 5.5 (5.0-9.0) Ur Specific [place] 1.025 (1.005-1.025) Urine Protein 30 A (NEG/TRACE) mg/dL Urine Glucose (UA) Negative (NEGATIVE) mg/dL ABG ABG results: 05/22/24 17:11 VBG pH 7.404 VBG pCO2 38.4 L Assessment and Plan Assessment and Plan (1) Rhabdomyolysis: Assessment and Plan: elevated CK level of 864 with NICKY and Liver enzyme elevation. Monitor and treat with IVF, stop NS and add LR @150 cc/hr. Qualifiers: Encounter type: initial encounter Rhabdomyolysis type: traumatic Qualified Code(s): T79.6XXA - Traumatic ischemia of muscle, initial encounter (2) NICKY (acute kidney injury): Assessment and Plan: cr was 1.24, down to 0.76 continue with IVF (3) Dehydration: Assessment and Plan: continue IVF (4) Lumbar stenosis with neurogenic claudication: Assessment and Plan: continue home opiate regimen, UDS normal (5) Parkinson's disease: Assessment and Plan: continue carbidopa/levodopa Qualifiers: Dyskinesia presence: with dyskinesia Fluctuating manifestations: with fluctuating manifestations Qualified Code(s): G20.B2 - Parkinson's disease with dyskinesia, with fluctuations (6) Primary hypertension: Assessment and Plan: continue coreg and amlodipine (7) Tremors of nervous system: Assessment and Plan: Per MAY, patient was previously on Keppra, could be progression of Parkinson's. (8) Frequent falls: Assessment and Plan: will get PT/OT evaluations, may need home health vs skilled rehab (9) Severe malnutrition: Assessment and Plan: albumin was 3.1, will start ensure and get dietary consult when available. Plan Patient is a full code continue Heparin for DVT prophylaxis Patient is inpatient status and is expected to cross 2 midnights for hospital necessary care to treat her acute rhabdo, severe malnutrition Urinary Catheter Management Urinary Catheter Management Straight: Cath placed during this visit: yes Urethral indwelling: No Insertion date: 05/22/24
[2024-05-23] MEDS: LACTATED RINGER'S SOLUTION 1,000 ML 150 ML IV ×3 (09:22→22:18)
[2024-05-23] MEDS: ENSURE ORIGINAL 237 ML BOTTLE PO ×2 (09:25→21:32)
[2024-05-23 09:46] LABS: Amphetamine Screen Urine NEGATIVE (NEGATIVE); Barbiturates Screen Urine NEGATIVE (NEGATIVE); Benzodiazepines Screen Urine NEGATIVE (NEGATIVE); Buprenorphine Screen Urine NEGATIVE (NEGATIVE); Cannabinoid Screen Urine NEGATIVE (NEGATIVE); Cocaine Screen Urine NEGATIVE (NEGATIVE); Methadone Screen Urine NEGATIVE (NEGATIVE); Methamphetamines Screen Urine NEGATIVE (NEGATIVE); Opiate Screen Urine POSITIVE (NEGATIVE); Oxycodone Screen Urine NEGATIVE (NEGATIVE); Phencyclidine Screen Urine NEGATIVE (NEGATIVE); Tricyclic Antidepressant Urine NEGATIVE (NEGATIVE)
[2024-05-24] VITALS (21 sets, daily range): BP systolic 109–180; BP diastolic 64–98; PULSE 65–80; TEMP 36.4–37.7; O2SAT 92–97
[2024-05-24] MEDS: LACTATED RINGER'S SOLUTION 1,000 ML 150 ML IV ×2 (05:08→12:01)
[2024-05-24] MEDS: CARBIDOPA/LEVODOPA 25 MG-100 MG TABLET 1 TAB PO ×3 (05:08→14:39)
[2024-05-24 06:02] LABS: Basophils Percent Auto 0.1 % (0.2-2.0); Eosinophils Percent Auto 0.6 % (0.9-7.0); Hematocrit 32.8 % (36.0-48.0); Hemoglobin 10.9 g/dL (12.0-16.0); Immature Granulocytes Abs Auto 0.01 10^3/uL (0.00-0.03); Immature Granulocytes Pct Auto 0.1 % (0.0-0.5); Lymphocytes Absolute Auto 0.7 10^3/uL (1.2-3.8); Lymphocytes Percent Auto 9.2 % (20.5-60.0); Mean Corpuscular HGB Conc 33.2 g/dL (29.9-35.2); Mean Corpuscular Volume 96.2 fL (81.0-99.0); Mean Platelet Volume 9.7 fL (9.5-13.5); Monocytes Absolute Auto 0.5 10^3/uL (0.3-0.8); Monocytes Percent Auto 7.2 % (1.7-12.0); Neutrophils Absolute Auto 5.9 10^3/uL (1.4-6.5); Neutrophils Percent Auto 82.8 % (43.0-75.0); Platelet Count 191 10^3/uL (150-450); Red Blood Count 3.41 10^6/uL (4.20-5.40); Red Cell Distribution Width 12.7 % (11.0-15.0); White Blood Count 7.1 10^3/uL (4.0-11.0)
[2024-05-24 06:21] LABS: Alanine Aminotransferase 14 U/L (14-59); Albumin Globulin Ratio 0.9; Albumin Level 2.8 g/dL (3.4-5.0); Alkaline Phosphatase 115 U/L (46-116); Anion Gap 9.8; Aspartate Amino Transferase 35 U/L (15-37); BUN Creatinine Ratio 43.8; Bilirubin Total 0.6 mg/dL (0.2-1.0); Calcium 8.7 mg/dL (8.5-10.1); Carbon Dioxide 29.2 mmol/L (21.0-32.0); Chloride 104 mmol/L (98-107); Estimated GFR (African America >60 (>=60 mL/min/1.73m^2); Estimated GFR (Non-African Ame >60 (>=60 mL/min/1.73m^2); Glucose 104 mg/dL (74-106); Magnesium 1.8 mg/dL (1.8-2.4); Sodium 139 mmol/L (136-145); Total Protein 5.8 g/dL (6.4-8.2)
[2024-05-24 06:31] LABS: Creatine Kinase 410 U/L (26-192)
--- NOTE | 2024-05-24 08:07 | PM.PN ---
Progress Note: Subjective Subjective Interval history: Patient is sitting comfortably in her chair eating breakfast. Appears to have a good appetite this morning. I missed her sister who came in late yesterday evening. I discussed with patient findings that her labs are improving. Still with weakness, PT is recommending skilled rehab which patient seems amendable to. No other issues or complaints at this time. Exam Narrative Exam Narrative: General: Patient is alert, and oriented to person, place and time with normal affect, severe Cachexia Skin: multiple small abrasions, skin tears on arms and legs, ecchymosis of the right upper eyelid and forhead Head: acephalic Eyes: PERRLA, no nystagmus present, conjunctiva clear, no scleral icterus Ears: normal gross auditory acuity Nose: symmetric, no discharge, no maxillary or frontal sinus tenderness Heart: Normal rate and rhythm, no murmurs/rubs/gallops Lungs: no audible wheezes, crackles and normal breath sounds all lung valadez Abdomen: Normal audible bowel sounds, no distension, No palpable masses, no organomegaly, no rebound/guarding/ or rigidity Musculoskeletal: muscle atrophy noted, ROM is limited due to being in hospital bed, no swelling bilateral lower extremities Neuro: CN II-X grossly intact Constitutional Vital Signs, click to edit/add: Last Vital Signs Temp 97.7 F 05/24/24 07:05 Pulse 65 05/24/24 07:42 Resp 18 05/24/24 07:05 BP 180/98 H 05/24/24 07:05 Pulse Ox 92 L 05/24/24 07:05 O2 Del Method Room Air 05/24/24 07:05 O2 Flow Rate 1 05/23/24 07:46 Progress Note: Objective Labs Labs: Short CBC 05/24/24 Range/Units 05:53 WBC 7.1 (4.0-11.0) 10^3/uL Hgb 10.9 L (12.0-16.0) g/dL Hct 32.8 L (36.0-48.0) % Plt Count 191 (150-450) 10^3/uL BMP 05/24/24 05:53 Sodium 139 Potassium 4.0 Chloride 104 Carbon Dioxide 29.2 BUN 28.0 H Creatinine 0.64 Glucose 104 Calcium 8.7 Cardiac Enzymes 05/24/24 Range/Units 05:53 Total Creatine Kinase 410 H* (26-192) U/L Liver Function 05/24/24 Range/Units 05:53 Total Bilirubin 0.6 (0.2-1.0) mg/dL AST 35 (15-37) U/L ALT 14 (14-59) U/L Alkaline Phosphatase 115 (46-116) U/L Albumin 2.8 L (3.4-5.0) g/dL Progress Note: A&P Assessment and Plan (1) Rhabdomyolysis: Assessment and Plan: elevated CK level of 864 but down to 410 today, with NICKY and Liver enzyme elevation on presentation that also have resolved. Monitor and treat with IVF, decrease LR @150 cc/hr to 100cc/hr Qualifiers: Encounter type: initial encounter Rhabdomyolysis type: traumatic Qualified Code(s): T79.6XXA - Traumatic ischemia of muscle, initial encounter (2) NICKY (acute kidney injury): Assessment and Plan: resolved with IVF. (3) Dehydration: Assessment and Plan: resolved with IVF, still not eating and drinking great to will continue just decrease rate today. (4) Lumbar stenosis with neurogenic claudication: Assessment and Plan: continue home opiate regimen, UDS appropriate (5) Parkinson's disease: Assessment and Plan: continue carbidopa/levodopa Qualifiers: Dyskinesia presence: with dyskinesia Fluctuating manifestations: with fluctuating manifestations Qualified Code(s): G20.B2 - Parkinson's disease with dyskinesia, with fluctuations (6) Primary hypertension: Assessment and Plan: continue coreg and amlodipine (7) Tremors of nervous system: Assessment and Plan: progression of Parkinson's. (8) Frequent falls: Assessment and Plan: PT/OT evaluations, may need home health vs skilled rehab (9) Severe malnutrition: Assessment and Plan: albumin was 3.1, continue ensure and get dietary consult when available. (10) Hypotension due to hypovolemia: Assessment and Plan: stop amlodipine, decrease coreg to 12.5mg BID, decrease lisinopril to 20mg daily Plan Patient is a full code continue Heparin for DVT prophylaxis Urinary Catheter Management Urinary Catheter Management Straight: Cath placed during this visit: yes Urethral indwelling: No Insertion date: 05/22/24
[2024-05-24] MEDS: PSYLLIUM SUGAR FREE 5.8 GM POWDER PACKET 3.4 GM PO (09:06)
[2024-05-24] MEDS: CARVEDILOL 25 MG TABLET 12.5 MG PO (09:07)
[2024-05-24] MEDS: LISINOPRIL 20 MG TABLET PO (09:08)
[2024-05-24] MEDS: CITALOPRAM HYDROBROMIDE 20 MG TABLET 30 MG PO (09:09)
[2024-05-24] MEDS: ENOXAPARIN SODIUM 30 MG/0.3 ML SYRINGE SUBQ (09:12)
[2024-05-24] MEDS: ENSURE ORIGINAL 237 ML BOTTLE PO ×2 (09:12→20:09)
[2024-05-24] MEDS: LEVETIRACETAM 500 MG TABLET PO ×2 (14:39→20:09)
[2024-05-24] MEDS: CARBIDOPA/LEVODOPA CR 25-100 MG TABLET 1 TAB PO ×3 (15:26→23:23)
[2024-05-24] MEDS: CARBIDOPA/LEVODOPA 25 MG-100 MG TABLET 1.5 TAB PO ×3 (15:27→23:23)
[2024-05-24] MEDS: ACETAMINOPHEN 500 MG TABLET 1000 MG PO (15:27)
[2024-05-24] MEDS: LORAZEPAM 2 MG/ML VIAL 0.5 MG IV (17:33)
[2024-05-24] MEDS: LACTATED RINGER'S SOLUTION 1,000 ML 100 ML IV (18:44)
[2024-05-24] MEDS: CARVEDILOL 12.5 MG TABLET PO (20:09)
[2024-05-24] MEDS: HYDROCODONE/ACET 5-325 MG TABLET 1 TAB PO (20:09)
[2024-05-24] MEDS: BACLOFEN 10 MG TABLET PO (23:23)
[2024-05-25] VITALS (16 sets, daily range): BP systolic 138–164; BP diastolic 25–96; PULSE 62–77; TEMP 36.4–36.7; O2SAT 94–99
[2024-05-25] MEDS: LACTATED RINGER'S SOLUTION 1,000 ML 100 ML IV (05:15)
[2024-05-25] MEDS: CARBIDOPA/LEVODOPA 25 MG-100 MG TABLET 1.5 TAB PO ×5 (06:16→22:11)
[2024-05-25] MEDS: BACLOFEN 10 MG TABLET PO ×3 (06:17→22:10)
[2024-05-25] MEDS: CARBIDOPA/LEVODOPA CR 25-100 MG TABLET 1 TAB PO ×5 (06:17→22:11)
[2024-05-25 06:29] LABS: Basophils Percent Auto 0.4 % (0.2-2.0); Eosinophils Absolute Auto 0.1 10^3/uL (0.0-0.7); Eosinophils Percent Auto 1.3 % (0.9-7.0); Hematocrit 28.5 % (36.0-48.0); Hemoglobin 9.4 g/dL (12.0-16.0); Immature Granulocytes Abs Auto 0.01 10^3/uL (0.00-0.03); Immature Granulocytes Pct Auto 0.2 % (0.0-0.5); Lymphocytes Absolute Auto 0.9 10^3/uL (1.2-3.8); Lymphocytes Percent Auto 15.3 % (20.5-60.0); Mean Corpuscular Hemoglobin 32.3 pg (26.7-34.0); Mean Corpuscular Volume 97.9 fL (81.0-99.0); Monocytes Absolute Auto 0.6 10^3/uL (0.3-0.8); Monocytes Percent Auto 10.4 % (1.7-12.0); Neutrophils Percent Auto 72.4 % (43.0-75.0); Platelet Count 185 10^3/uL (150-450); Red Blood Count 2.91 10^6/uL (4.20-5.40); Red Cell Distribution Width 12.7 % (11.0-15.0); White Blood Count 5.6 10^3/uL (4.0-11.0)
[2024-05-25 06:43] LABS: Alanine Aminotransferase <6 U/L (14-59); Albumin Globulin Ratio 1.1; Albumin Level 2.7 g/dL (3.4-5.0); Alkaline Phosphatase 99 U/L (46-116); Anion Gap 7.4; Aspartate Amino Transferase 32 U/L (15-37); BUN Creatinine Ratio 28.6; Bilirubin Total 0.5 mg/dL (0.2-1.0); Calcium 8.1 mg/dL (8.5-10.1); Carbon Dioxide 31.4 mmol/L (21.0-32.0); Chloride 105 mmol/L (98-107); Estimated GFR (African America >60 (>=60 mL/min/1.73m^2); Estimated GFR (Non-African Ame >60 (>=60 mL/min/1.73m^2); Globulin 2.5 g/dL; Glucose 81 mg/dL (74-106); Magnesium 1.6 mg/dL (1.8-2.4); Potassium 3.8 mmol/L (3.5-5.1); Sodium 140 mmol/L (136-145); Total Protein 5.2 g/dL (6.4-8.2)
[2024-05-25 06:49] LABS: Creatine Kinase 287 U/L (26-192)
--- NOTE | 2024-05-25 07:46 | P.PN_ITS ---
Progress Note: Subjective Subjective Interval history: Yesterday Evening patient had episode of her pain and her legs and arms started to jump like she was a fish out of water per nursing staff. Patient was given one time dose of IV Ativan and started on Baclofen. Symptoms seemed to resolve. Patient was alert during the entire episode. This did not appear to have a seizure but more abnormal muscle contractors. This morning patient was walking with her rolling walker with PT. Steps are abnormal due to her Parkinson's. She thinks the Baclofen helped her symptoms. No other concerns or complaints today. Exam Narrative Exam Narrative: General: Patient is alert, and oriented to person, place and time with normal affect, severe Cachexia Skin: multiple small abrasions, skin tears on arms and legs, ecchymosis of the right upper eyelid and forehead Head: acephalic Eyes: PERRLA, no nystagmus present, conjunctiva clear, no scleral icterus Ears: normal gross auditory acuity Nose: symmetric, no discharge, no maxillary or frontal sinus tenderness Heart: Normal rate and rhythm, no murmurs/rubs/gallops Lungs: no audible wheezes, crackles and normal breath sounds all lung valadez Abdomen: Normal audible bowel sounds, no distension, No palpable masses, no organomegaly, no rebound/guarding/ or rigidity Musculoskeletal: muscle atrophy noted, ROM is limited due to being in hospital bed, no swelling bilateral lower extremities Neuro: CN II-X grossly intact Constitutional Vital Signs, click to edit/add: Last Vital Signs Temp 97.6 F 05/25/24 06:27 Pulse 68 05/25/24 06:27 Resp 18 05/25/24 06:27 BP 157/25 H 05/25/24 06:27 Pulse Ox 94 L 05/25/24 06:27 O2 Del Method Room Air 05/25/24 06:27 O2 Flow Rate 1 05/23/24 07:46 Progress Note: Objective Labs Labs: Short CBC 05/25/24 Range/Units 06:09 WBC 5.6 (4.0-11.0) 10^3/uL Hgb 9.4 L (12.0-16.0) g/dL Hct 28.5 L (36.0-48.0) % Plt Count 185 (150-450) 10^3/uL BMP 05/25/24 06:09 Sodium 140 Potassium 3.8 Chloride 105 Carbon Dioxide 31.4 BUN 20.0 H Creatinine 0.70 Glucose 81 Calcium 8.1 L Cardiac Enzymes 05/25/24 Range/Units 06:09 Total Creatine Kinase 287 H (26-192) U/L Liver Function 05/25/24 Range/Units 06:09 Total Bilirubin 0.5 (0.2-1.0) mg/dL AST 32 (15-37) U/L ALT <6 L (14-59) U/L Alkaline Phosphatase 99 (46-116) U/L Albumin 2.7 L (3.4-5.0) g/dL Progress Note: A&P Assessment and Plan (1) Rhabdomyolysis: Assessment and Plan: elevated CK level of 864 but down to 287 today, with NICKY and Liver enzyme elevation on presentation that also have resolved and are now at normal range. Monitor and treat with IVF which will be stopped today. , Qualifiers: Encounter type: initial encounter Rhabdomyolysis type: traumatic Qualified Code(s): T79.6XXA - Traumatic ischemia of muscle, initial encounter (2) NICKY (acute kidney injury): Assessment and Plan: resolved with IVF (3) Hypomagnesemia: Assessment and Plan: replace with oral magnesium daily (4) Dehydration: Assessment and Plan: resolved with IVF (5) Lumbar stenosis with neurogenic claudication: Assessment and Plan: continue home opiate regimen, UDS appropriate (6) Parkinson's disease: Assessment and Plan: continue carbidopa/levodopa Qualifiers: Dyskinesia presence: with dyskinesia Fluctuating manifestations: with fluctuating manifestations Qualified Code(s): G20.B2 - Parkinson's disease with dyskinesia, with fluctuations (7) Primary hypertension: Assessment and Plan: continue coreg and lisinopril (8) Tremors of nervous system: Assessment and Plan: restarted Keppra 500mg BID and start Baclofen last night (9) Frequent falls: Assessment and Plan: PT/OT evaluations, awaiting precert for skilled rehab (10) Severe malnutrition: Assessment and Plan: albumin was 3.1, continue ensure and get dietary consult when available. (11) Hypotension due to hypovolemia: Assessment and Plan: coreg to 12.5mg BID, decreased lisinopril to 20mg daily Plan Patient is a full code continue Heparin for DVT prophylaxis Plan today is awaiting precert for halfway facility Urinary Catheter Management Urinary Catheter Management Straight: Cath placed during this visit: yes Urethral indwelling: No Insertion date: 05/22/24
[2024-05-25] MEDS: ENSURE ORIGINAL 237 ML BOTTLE PO ×2 (08:27→22:10)
[2024-05-25] MEDS: ENOXAPARIN SODIUM 30 MG/0.3 ML SYRINGE SUBQ (08:27)
[2024-05-25] MEDS: CARVEDILOL 12.5 MG TABLET PO ×2 (08:28→22:10)
[2024-05-25] MEDS: PSYLLIUM SUGAR FREE 5.8 GM POWDER PACKET PO (08:28)
[2024-05-25] MEDS: MAGNESIUM OXIDE 400 MG TABLET PO ×2 (08:28→22:10)
[2024-05-25] MEDS: HYDROCODONE/ACET 5-325 MG TABLET 1 TAB PO ×2 (08:28→22:10)
[2024-05-25] MEDS: DOCUSATE SODIUM 100 MG CAPSULE 200 MG PO (08:30)
[2024-05-25] MEDS: LISINOPRIL 20 MG TABLET PO (08:30)
[2024-05-25] MEDS: LEVETIRACETAM 500 MG TABLET PO ×2 (08:31→22:11)
[2024-05-25] MEDS: CITALOPRAM HYDROBROMIDE 20 MG TABLET 10 MG PO (08:31)
[2024-05-25] MEDS: MAGNESIUM SULFATE IN WATER 2 GM/50 ML PREMIX IV (08:31)
--- NOTE | 2024-05-25 09:00 | CM.NOTE ---
Rounds made with Dr. Tinajero, discussed with pt discharge planning. Pt is open to skilled therapy at discharge. Pt requests [facility]. Charlie txt sent to [facility]. No discharge today
--- NOTE | 2024-05-25 10:24 | REH.PTDLY ---
Physical Therapy Daily Note PT Daily Note/Assess Start: 05/25/24 10:17 Freq: Status: Active Protocol: Document 05/25/24 09:50 KSCAIO (Rec: 05/25/24 10:24 KSTEINLE [id number]) Physical Therapy Daily Note/Assessment Time In 09:38 Time Out 09:54 Subjective Pt up in chair upon arrival, agreeable to therapy. Needs to use restroom. Therapeutic Exercise 5 Minutes (minutes) Therapeutic Exercise 0 Units Therapeutic Exercise Instructed in B LE exs with legs elevated in chair 10x Treatment ea with SLR, hip abd slides, and heel slides. AA with AP for stretch at end range 10x ea. Therapeutic Activity 10 Minutes (minutes) Therapeutic Activity 1 Units Therapeutic Activity Pt uses SW to ambulate to bathroom Min A 15 feet with Comments pt having narrow gait with feet crossing at times. Cues for pt to widen gait and keep walker on ground during stance, pt tends to just hold SW and this is too heavy for her. Pt does not ambulate safely with SW, pt states she uses a rollator at home. CGA with toilet transfers for safety. Utilized RW with gait into hallway with pt having improved gait quality however pt continues to have narrow stance and cross feet. Min A with turning for safety and cues for pt to slow down. Pt also tends to not be aware of obstacles to her R and runs into objects with RW with cues to correct. Min A with returning to sit for safety and assistance to position pt in chair with feet elevated. Total Therapy 15 Minutes Total Physical 1 Therapy Units Daily Note Summary Utilized RW today with improved gait compared to SW, however pt continues to ambulate with narrow stance, stepping on her own feet at times causing a tripping hazard. Pt would benefit from SNF at this time over going home due to safety concerns with gait.
--- NOTE | 2024-05-25 10:31 | SWNOTE1 ---
SW did speak to pt in regards to rehab. Pt is open to going to rehab and voiced she has been to [facility] before in past and she stated it was alright. She did ask about [facility] as well. SW did ask pt if her group home plan was to return home, she stated she is hoping that she can. SW did explain to pt that if she were to need group home placement after rehab or assisted living that the [facility] does not have Medicaid beds. SW asked if she has thought about [place] or group home? She stated she has. SW explained that [facility] would assist with Medicaid transition in to [place] of [place] and this may be more beneficial. SW asked if pt's sister was coming in? She stated she was here yesterday, but not sure when she is coming today. SW asked permission to call her sister, she stated yes. SW called pt's sister and left a message. Pt is alright with SW reaching out to [facility] to see if they have an opening.
--- NOTE | 2024-05-25 10:37 | SWNOTE1 ---
SW consult was for [facility]PS to be notified. Per ED documentation, Staci KAY already called and notified [facility]PS. Per ED documentation EMS was calling as well.
--- NOTE | 2024-05-25 10:40 | SWNOTE1 ---
Referral sent to [facility]. Referral included face sheet, ED note, H&P, provider notes, case management report, nursing notes, diagnostic imaging, med list, and PT notes.
--- NOTE | 2024-05-25 10:55 | SWNOTE1 ---
ERIK received message from Guillermina at [facility] and they can accept. ERIK faxed OT note and diagnostic imaging over to Guillermina at [facility] for precert.
[2024-05-25] MEDS: ACETAMINOPHEN 500 MG TABLET 1000 MG PO ×2 (11:14→18:24)
--- NOTE | 2024-05-25 12:18 | SWNOTE1 ---
SW received message from [facility] and they started precert.
--- NOTE | 2024-05-25 12:39 | CM.NOTE ---
Important Message From Medicare discussed with pt, pt verbalizes understanding and signs paper. Original given to pt and copy placed on pt's chart.
[2024-05-25] MEDS: LORAZEPAM 2 MG/ML VIAL 0.5 MG IV (13:41)
[2024-05-26 03:55] VITALS: BP 168/88; PULSE 66; TEMP 36.4; O2SAT 98
[2024-05-26 05:08] VITALS: O2SAT 95
[2024-05-26] MEDS: BACLOFEN 10 MG TABLET PO (06:05)
[2024-05-26] MEDS: CARBIDOPA/LEVODOPA CR 25-100 MG TABLET 1 TAB PO ×2 (06:06→10:30)
[2024-05-26] MEDS: CARBIDOPA/LEVODOPA 25 MG-100 MG TABLET 1.5 TAB PO ×2 (06:06→10:31)
[2024-05-26 06:12] LABS: Basophils Percent Auto 0.5 % (0.2-2.0); Eosinophils Absolute Auto 0.1 10^3/uL (0.0-0.7); Eosinophils Percent Auto 3.1 % (0.9-7.0); Hematocrit 31.7 % (36.0-48.0); Hemoglobin 10.3 g/dL (12.0-16.0); Immature Granulocytes Abs Auto 0.01 10^3/uL (0.00-0.03); Immature Granulocytes Pct Auto 0.2 % (0.0-0.5); Lymphocytes Absolute Auto 0.6 10^3/uL (1.2-3.8); Lymphocytes Percent Auto 14.6 % (20.5-60.0); Mean Corpuscular HGB Conc 32.5 g/dL (29.9-35.2); Mean Corpuscular Hemoglobin 31.6 pg (26.7-34.0); Mean Corpuscular Volume 97.2 fL (81.0-99.0); Mean Platelet Volume 9.9 fL (9.5-13.5); Monocytes Absolute Auto 0.4 10^3/uL (0.3-0.8); Monocytes Percent Auto 8.7 % (1.7-12.0); Neutrophils Absolute Auto 3.1 10^3/uL (1.4-6.5); Neutrophils Percent Auto 72.9 % (43.0-75.0); Platelet Count 191 10^3/uL (150-450); Red Blood Count 3.26 10^6/uL (4.20-5.40); Red Cell Distribution Width 12.7 % (11.0-15.0); White Blood Count 4.2 10^3/uL (4.0-11.0)
[2024-05-26 06:30] LABS: Creatine Kinase 218 U/L (26-192)
[2024-05-26 06:33] LABS: Alanine Aminotransferase <6 U/L (14-59); Albumin Level 2.9 g/dL (3.4-5.0); Alkaline Phosphatase 110 U/L (46-116); Anion Gap 5.7; Aspartate Amino Transferase 32 U/L (15-37); Bilirubin Total 0.6 mg/dL (0.2-1.0); Calcium 8.5 mg/dL (8.5-10.1); Carbon Dioxide 32.9 mmol/L (21.0-32.0); Chloride 103 mmol/L (98-107); Estimated GFR (African America >60 (>=60 mL/min/1.73m^2); Estimated GFR (Non-African Ame >60 (>=60 mL/min/1.73m^2); Globulin 2.8 g/dL; Glucose 87 mg/dL (74-106); Magnesium 2.2 mg/dL (1.8-2.4); Potassium 3.6 mmol/L (3.5-5.1); Sodium 138 mmol/L (136-145); Total Protein 5.7 g/dL (6.4-8.2)
[2024-05-26 07:38] VITALS: BP 154/88; PULSE 60; TEMP 36.6; O2SAT 94
--- NOTE | 2024-05-26 08:56 | P.PN_ITS ---
Progress Note: Subjective Subjective Interval history: Patient is resting well in the bed today. Still with some leg movements. She reports Ativan helped. I discussed placing her on Twice daily ativan to see if this improves her movements. No other complaints at this time. She will be discharged to the [facility] today. Exam Narrative Exam Narrative: General: Patient is alert, and oriented to person, place and time with normal affect, severe Cachexia Skin: multiple small abrasions, skin tears on arms and legs, ecchymosis of the right upper eyelid and forehead Head: acephalic Eyes: PERRLA, no nystagmus present, conjunctiva clear, no scleral icterus Ears: normal gross auditory acuity Nose: symmetric, no discharge, no maxillary or frontal sinus tenderness Heart: Normal rate and rhythm, no murmurs/rubs/gallops Lungs: no audible wheezes, crackles and normal breath sounds all lung valadez Abdomen: Normal audible bowel sounds, no distension, No palpable masses, no organomegaly, no rebound/guarding/ or rigidity Musculoskeletal: muscle atrophy noted, ROM is limited due to being in hospital bed, no swelling bilateral lower extremities Neuro: CN II-X grossly intact Constitutional Vital Signs, click to edit/add: Last Vital Signs Temp 97.8 F 05/26/24 07:38 Pulse 60 05/26/24 07:38 Resp 16 05/26/24 07:38 BP 154/88 H 05/26/24 07:38 Pulse Ox 94 L 05/26/24 07:38 O2 Del Method Room Air 05/26/24 07:38 O2 Flow Rate 1 05/26/24 03:55 Progress Note: Objective Labs Labs: Short CBC 05/26/24 Range/Units 05:52 WBC 4.2 (4.0-11.0) 10^3/uL Hgb 10.3 L (12.0-16.0) g/dL Hct 31.7 L (36.0-48.0) % Plt Count 191 (150-450) 10^3/uL BMP 05/26/24 05:52 Sodium 138 Potassium 3.6 Chloride 103 Carbon Dioxide 32.9 H BUN 16.0 Creatinine 0.64 Glucose 87 Calcium 8.5 Cardiac Enzymes 05/26/24 Range/Units 05:52 Total Creatine Kinase 218 H (26-192) U/L Liver Function 05/26/24 Range/Units 05:52 Total Bilirubin 0.6 (0.2-1.0) mg/dL AST 32 (15-37) U/L ALT <6 L (14-59) U/L Alkaline Phosphatase 110 (46-116) U/L Albumin 2.9 L (3.4-5.0) g/dL Progress Note: A&P Assessment and Plan (1) Rhabdomyolysis: Assessment and Plan: elevated CK level of 864 but down to 287 today, with NICKY and Liver enzyme elevation on presentation that also have resolved and are now at normal range. Qualifiers: Encounter type: initial encounter Rhabdomyolysis type: traumatic Qualified Code(s): T79.6XXA - Traumatic ischemia of muscle, initial encounter (2) NICKY (acute kidney injury): Assessment and Plan: resolved with IVF (3) Hypomagnesemia: Assessment and Plan: replace with oral magnesium daily, will recommend oral replacement daily (4) Dehydration: Assessment and Plan: resolved with IVF (5) Lumbar stenosis with neurogenic claudication: Assessment and Plan: continue home opiate regimen, UDS appropriate (6) Parkinson's disease: Assessment and Plan: continue carbidopa/levodopa Qualifiers: Dyskinesia presence: with dyskinesia Fluctuating manifestations: with fluctuating manifestations Qualified Code(s): G20.B2 - Parkinson's disease with dyskinesia, with fluctuations (7) Primary hypertension: Assessment and Plan: continue coreg and lisinopril (8) Tremors of nervous system: Assessment and Plan: Keppra 500mg BID, baclofen, but Ativan seems to help best. Will consider BID ATIVAN (9) Frequent falls: Assessment and Plan: PT/OT evaluations, awaiting precert for skilled rehab (10) Severe malnutrition: Assessment and Plan: albumin was 3.1, continue ensure (11) Hypotension due to hypovolemia: Assessment and Plan: coreg to 25mg BID, decreased lisinopril to 20mg daily, stopped amlodipine Plan Patient is a full code continue Heparin for DVT prophylaxis precert for fdc facility, to the [facility] today Urinary Catheter Management Urinary Catheter Management Straight: Cath placed during this visit: yes Urethral indwelling: No Insertion date: 05/22/24
[2024-05-26] MEDS: HYDROCODONE/ACET 5-325 MG TABLET 1 TAB PO (08:59)
[2024-05-26] MEDS: PSYLLIUM SUGAR FREE 5.8 GM POWDER PACKET PO (08:59)
[2024-05-26] MEDS: ENSURE ORIGINAL 237 ML BOTTLE PO (08:59)
[2024-05-26] MEDS: ENOXAPARIN SODIUM 30 MG/0.3 ML SYRINGE SUBQ (09:00)
[2024-05-26] MEDS: MAGNESIUM OXIDE 400 MG TABLET PO (09:00)
[2024-05-26] MEDS: LISINOPRIL 20 MG TABLET PO (09:00)
[2024-05-26] MEDS: CITALOPRAM HYDROBROMIDE 20 MG TABLET 10 MG PO (09:00)
[2024-05-26] MEDS: LEVETIRACETAM 500 MG TABLET PO (09:00)
[2024-05-26] MEDS: CARVEDILOL 12.5 MG TABLET PO (09:00)
[2024-05-26] MEDS: LORAZEPAM 0.5 MG TABLET PO (10:30)
[2024-05-26] MEDS: ACETAMINOPHEN 500 MG TABLET 1000 MG PO (10:33)
[2024-05-26 11:15] VITALS: O2SAT 93
--- NOTE | 2024-05-26 11:31 | CM.NOTE ---
Rounds made with Dr. Tinajero, pt will discharge to [facility] today via [facility] at 12:30. RN updated and message sent to Guillermina at [facility]. RN given number to call report.
[2024-05-26 11:41] VITALS: BP 140/82; PULSE 62; TEMP 36.6; O2SAT 96
--- NOTE | 2024-05-26 11:57 | CM.NOTE ---
Faxed CRF and discharge medications to Guillermina at [facility]. CARLOTTA completed online.
--- NOTE | 2024-05-26 12:04 | PM.DS1 ---
DS: Providers Provider Date of admission: 05/23/24 08:00 Primary care physician: Ashia Ga MD Attending physician on admission: Staci Tinajero Consults: 05/22/24 Consult to Dietitian Routine Reason for consultation: Poor appetite 05/22/24 20:41 Consult to Case Management Routine Reason for consultation: adult protective services case Has provider been notified: No Consult to Zoology Professor Routine Has provider been notified: No Reason for consult:: Protective Services Occupational Therapy Eval and Treat Routine Reason for consultation: SNF placement Has provider been notified: No Physical Therapy Eval and Treat Routine Reason for consultation: SNF placement Has provider been notified: No Discharging clinician: Staci Tinajero DS: Diagnosis Discharge Diagnosis (1) Rhabdomyolysis: Qualifiers: Encounter type: initial encounter Rhabdomyolysis type: traumatic Qualified Code(s): T79.6XXA - Traumatic ischemia of muscle, initial encounter (2) NICKY (acute kidney injury): (3) Hypomagnesemia: (4) Dehydration: (5) Lumbar stenosis with neurogenic claudication: (6) Parkinson's disease: Qualifiers: Dyskinesia presence: with dyskinesia Fluctuating manifestations: with fluctuating manifestations Qualified Code(s): G20.B2 - Parkinson's disease with dyskinesia, with fluctuations (7) Primary hypertension: (8) Tremors of nervous system: (9) Frequent falls: (10) Severe malnutrition: (11) Hypotension due to hypovolemia: DS: Summary Hospital Course Hospital Course: Patient was admitted on 05/23/24 with rhabdo, NICKY, Dehydration, malnutrition and tremors/movement disorder. She improved on IVF. Her movements/tremors respond well to Ativen 0.5mg PO BID and i have sent rx for this for the custodial. She sees a pain clinic for her back pain and supplied custodial with 1 day of her oxycodone. She will need Ensure and oral magnesium. She also had some hypotensive episodes so her bloop pressure medications were adjusted. She will continue other home meds. Please see progress note dated 05/26/24 for full details. She will be discharged to [facility] today for therpay. Status at Discharge Functional status at discharge: uses cane/walker Overall status at discharge: patient is progressing back to baseline Time Spent with Patient Time attestation: Total time spent providing and/or coordinating discharge services: Time spent: greater than 30 minutes Exam Narrative Exam Narrative: no changes to exam from progress note dated 05/26/24 Constitutional Vital Signs, click to edit/add: Last Vital Signs Temp 97.8 F 05/26/24 11:41 Pulse 62 05/26/24 11:41 Resp 16 05/26/24 11:41 BP 140/82 05/26/24 11:41 Pulse Ox 96 05/26/24 11:41 O2 Del Method Room Air 05/26/24 11:41 O2 Flow Rate 1 05/26/24 03:55 DS: Data Data Completed and Pending Labs on day of discharge: Labs from last 24 hours 05/26/24 05:52 WBC 4.2 RBC 3.26 L Hgb 10.3 L Hct 31.7 L MCV 97.2 MCH 31.6 MCHC 32.5 RDW 12.7 Plt Count 191 MPV 9.9 Neut % (Auto) 72.9 Lymph % (Auto) 14.6 L [place] % (Auto) 8.7 Eos % (Auto) 3.1 Baso % (Auto) 0.5 Neut # (Auto) 3.1 Lymph # (Auto) 0.6 L [place] # (Auto) 0.4 Eos # (Auto) 0.1 Baso # (Auto) 0.0 Abs Immat Gran (auto) 0.01 Imm/Tot Granulo (auto) 0.2 Sodium 138 Potassium 3.6 Chloride 103 Carbon Dioxide 32.9 H Anion Gap 5.7 BUN 16.0 Creatinine 0.64 Est GFR ( Amer) >60 Est GFR (Non-Af Amer) >60 BUN/Creatinine Ratio 25.0 Glucose 87 Calcium 8.5 Magnesium 2.2 Total Bilirubin 0.6 AST 32 ALT <6 L Alkaline Phosphatase 110 Total Creatine Kinase 218 H Total Protein 5.7 L Albumin 2.9 L Globulin 2.8 Albumin/Globulin Ratio 1.0 Discharge Plan Discharge Disposition: Xfer SNF Condition: Fair Discharge Medications: New magnesium oxide 400 mg (241.3 mg magnesium) Tablet 400 mg PO BID 7 Days Qty: 14 0RF lorazepam 0.5 mg Tablet 0.5 mg PO BID 1 Days Qty: 2 0RF Ensure Original 0.04-1.05 gram-kcal/mL Liquid 1 ea PO BID 30 Days Qty: 30 0RF Continued naloxone [Narcan] 4 mg/actuation spray,non-aerosol 4 mg intranasal Q3M PRN (Reason: opioid overdose) Qty: 2 0RF Rx Instructions: spray 1 dose into ONE nostril; alternate nostrils w each dose until help arrives acetaminophen 500 mg capsule 1,000 mg PO TID PRN (Reason: pain) carbidopa-levodopa 25-100 mg tablet 1.5 tab PO .5 times per day Patient Comments: TAKE 1 AND 1/2 TABLETS BY MOUTH AT 7AM, 11 AM, 3PM, AND 7PM. TAKE 1 TABLET AT 11PM EVERY DAY. citalopram 10 mg tablet 10 mg PO DAILY carvedilol [Coreg] 25 mg tablet 25 mg PO BID Rx Instructions: must administer with a meal/food calcium polycarbophil [Fiber (calcium polycarbophil)] 625 mg tablet 1,250 mg PO DAILY levetiracetam 500 mg tablet 500 mg PO Q12H hydrocodone-acetaminophen 7.5-325 mg tablet See Rx Instructions .ROUTE .COMPLEX 1 Days Qty: 4 0RF Rx Instructions: may take 1 tab 2-3 times daily as needed for pain, 75 tabs to last 30 days Changed carbidopa-levodopa 25-100 mg tablet extended release 1 tab PO .5xday Qty: 0 0RF Patient Comments: TAKE 1 AND 1/2 TABLETS AT 7AM AND 11AM THEN 1 TABLET AT 3PM,7PM, AND 11PM lisinopril 40 mg tablet 20 mg PO DAILY Qty: 0 0RF Discontinued amlodipine 5 mg tablet 5 mg PO QDAY Print Language: Bulgarian Forms: Portal Instructions Discharge location: [facility], [facility]
--- NOTE | 2024-05-26 12:12 | CM.NOTE ---
E-mailed CRF, discharge summary and med list to Guillermina at [facility]. Updated RN to call report and complete CRF. Packet given to RN for transport.
== END 2024-05-26 12:54 | DRG 564 ==
LOC: ER 18:22 → MS 20:21
PROVIDERS: Registered Nurse; Admitting Provider Family Medicine; Emergency Provider Emergency Medicine; PCP Family Medicine; Visit Provider Family Medicine
DX: T79.6XXA Traumatic ischemia of muscle, initial encounter (principal); E43 Unspecified severe protein-calorie malnutrition; N17.9 Acute kidney failure, unspecified; R64 Cachexia; Z68.1 Body mass index [BMI] 19.9 or less, adult; Z59.19 Other inadequate housing; S40.812A Abrasion of left upper arm, initial encounter; S40.811A Abrasion of right upper arm, initial encounter; S80.812A Abrasion, left lower leg, initial encounter; S80.811A Abrasion, right lower leg, initial encounter; S00.83XA Contusion of other part of head, initial encounter; W19.XXXA Unspecified fall, initial encounter; G20.B2 Parkinson's disease with dyskinesia, with fluctuations; E86.1 Hypovolemia; R62.7 Adult failure to thrive; M48.062 Spinal stenosis, lumbar region with neurogenic claudication; E86.0 Dehydration; I10 Essential (primary) hypertension; R29.6 Repeated falls; Z79.899 Other long term (current) drug therapy; Z88.0 Allergy status to penicillin
CPT/HCPCS: 36415; 70450; 70486; 71045; 72125; 80053; 80307; 81001; 82140; 82550; 82800; 82948; 83605; 83735; 84443; 84484; 85007; 85025; 85027; 85610; 93005; 94761; 96360; 96361; 97161; 97165; 97530; 99285; G0378; J1650; J2060; J3475

== ENCOUNTER 2024-05-27 08:42 | Emergency (ER) | payer MEDICARE, SELFPAY ==
[2024-05-27] VITALS (11 sets, daily range): BP systolic 82–135; BP diastolic 58–77; PULSE 64–72; TEMP 36.6; O2SAT 95–100; BMI 14.3
[2024-05-27 08:50] LABS: Glucometer 129 mg/dL (74-106)
--- NOTE | 2024-05-27 08:50 | ECG_ITS ---
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 Measurements Intervals [place] Rate: 69 P: 77 SC: 162 QRS: 54 QRSD: 92 T: 80 QT: 428 QTc: 447 Interpretive Statements 1100 Sinus rhythm 2420 RSR (QR) in lead V1/V2, consistent with right ventricular conduction delay 6220 Possible left atrial enlargement 9130 borderline ECG Compared to ECG 05/22/2024 16:53:31 No significant changes Electronically Signed On 05-27-2024 19:08:45 EDT by LAWRENCE LONGORIA M.D.
[2024-05-27 09:12] LABS: Hematocrit 34.6 % (36.0-48.0); Hemoglobin 11.4 g/dL (12.0-16.0); Mean Corpuscular HGB Conc 32.9 g/dL (29.9-35.2); Mean Corpuscular Hemoglobin 32.3 pg (26.7-34.0); Mean Platelet Volume 9.7 fL (9.5-13.5); Platelet Count 219 10^3/uL (150-450); Red Blood Count 3.53 10^6/uL (4.20-5.40); Red Cell Distribution Width 12.9 % (11.0-15.0); White Blood Count 8.4 10^3/uL (4.0-11.0)
--- NOTE | 2024-05-27 09:18 | ED_ITS ---
HPI HPI - General Adult General Chief complaint: Weakness Stated complaint: WEAKNESS Time Seen by Provider: 05/27/24 08:46 Source: patient and medical record Mode of arrival: ambulance Limitations: no limitations History of Present Illness HPI narrative: Patient presents to ED from [facility] for blood pressure issues. They said initially she was hypertensive and then was given her regular morning meds and when they went back to check on her about 45 minutes later she seemed lethargic and they reported a blood pressure of 50/40. When EMS arrived they said they got in the low 100s systolic. Upon arrival here patient is in the 90s systolic. Patient was just discharged yesterday for acute kidney injury and rhabdomyolysis. Patient has a history of Parkinson's with frequent falls. Patient is reportedly a full code. Patient states that she feels tired today but does not have any other complaints overall. She denies chest pain abdominal pain. Her brief was soiled with diarrhea upon arrival. Patient denies any cough or shortness of breath. No fever on arrival. 99% on room air. Patient Nuys any new fall or injury. She does have old bruising on her face from the previous fall. Related Data Home Medications ?Medication ?Instructions ?Recorded ?Confirmed acetaminophen 500 mg capsule 1,000 mg PO TID PRN pain 11/28/22 05/27/24 calcium polycarbophil 625 mg 1,250 mg PO DAILY 11/28/22 05/27/24 tablet (Fiber (calcium polycarbophil)) carbidopa 25 mg-levodopa 100 mg 1 tab PO DAILY 11/28/22 05/27/24 tablet carvedilol 25 mg tablet (Coreg) 25 mg PO BID 11/28/22 05/27/24 citalopram 10 mg tablet 10 mg PO DAILY 11/28/22 05/27/24 levetiracetam 500 mg tablet 500 mg PO Q12H 11/28/22 05/27/24 hydrocodone 7.5 mg-acetaminophen 1 tab PO Q8H PRN pain 05/27/24 05/27/24 325 mg tablet Previous Rx's ?Medication ?Instructions ?Recorded naloxone 4 mg/actuation nasal 4 mg intranasal Q3M PRN opioid 02/20/23 spray (Narcan) overdose #2 ea lisinopril 40 mg tablet 20 mg (1/2 x 40 mg) PO DAILY #0 05/26/24 tabs lorazepam 0.5 mg tablet 0.5 mg PO BID 1 day #2 tabs 05/26/24 magnesium oxide 400 mg (241.3 mg 400 mg PO BID 7 days #14 tabs 05/26/24 magnesium) tablet Allergies Allergy/AdvReac Type Severity Reaction Status Date / Time Penicillins Allergy Hives Verified 05/27/24 08:49 Opioid HPI Opioid Management Most Recent Opioid Data: Last Pain Scale 0 05/26/24 12:55 05/26/24 Last Pain Assessment 05/26/24 12:55 Last ORT Total Score 1 05/22/24 20:27 05/22/24 Last ORT Risk Category Low Risk 05/22/24 20:27 05/22/24 Ur Phencyclidine Scrn Negative (NEGATIVE) 05/22/24 17:06 05/09 07/03 Review of Systems ROS Status of ROS 10 or more systems reviewed and unremark able except as noted in history and below [facility] Medical History (Updated 05/27/24 @ 10:15 by Yamila Andrews DO) Primary hypertension ?I10 - Essential (primary) hypertension (ICD-10) Chronic, continuous use of opioids ?F11.90 - Opioid use, unspecified, uncomplicated (ICD-10) Spondylosis of lumbar region without myelopathy or radiculopathy ?M47.816 - Spondylosis without myelopathy or radiculopathy, lumbar region (ICD-10) Lumbar spondylosis ?M47.816 - Spondylosis without myelopathy or radiculopathy, lumbar region (ICD-10) Tremors of nervous system ?R25.1 - Tremor, unspecified (ICD-10) Lumbar stenosis with neurogenic claudication ?M48.062 - Spinal stenosis, lumbar region with neurogenic claudication (ICD- 10) Parkinson's disease ?G20.A1 - Parkinson's disease without dyskinesia, without mention of fluctuations (ICD-10) Social History Highest level of school completed/degree received: high school graduate Little interest or pleasure in doing things: not at all Feeling down, depressed, or hopeless: not at all Exam Narrative Exam Narrative: Time Seen: [] Vital Signs: [Per nurse's notes.] General: [Alert] lethargic hypotensive Skin: [Warm, dry, no rash.] Head: Ecchymosis around the right eye which is old] Neck: [Supple, trachea midline.] Eye: [Pupils are equal, round and reactive to light, extraocular movements are intact, normal conjunctiva.] Ears, nose, mouth and throat: oral mucosa slightly dry Cardiovascular: [Regular rate and rhythm, no murmur.] Respiratory: [Lungs are clear to auscultation, respirations are non-labored, breath sounds are equal.] Chest wall: [No tenderness, Gastrointestinal: [Soft, nontender, non distended, normal bowel sounds.] Diarrhea MSK: 4 out of 5 muscle strength x 4 extremities no calf pain or edema Psychiatric: [Cooperative, appropriate mood & affect.] Neurological: [Alert and oriented to person, place, time, and situation, no focal neurological deficit observed.] Constitutional Vital Signs, click to edit/add: Last Vital Signs Temp 97.8 F 05/27/24 08:43 Pulse 64 05/27/24 10:00 Resp 16 05/27/24 10:00 BP 135/77 05/27/24 10:00 Pulse Ox 98 05/27/24 09:50 O2 Del Method Room Air 05/27/24 08:43 Course Vital Signs Vital signs: Vital Signs Temperature 97.8 F 05/27/24 08:43 Pulse Rate 72 05/27/24 08:43 Respiratory Rate 18 05/27/24 08:43 Blood Pressure 82/58 L 05/27/24 08:43 Pulse Oximetry 99 05/27/24 08:43 Oxygen Delivery Method Room Air 05/27/24 08:43 Temperature 97.8 F 05/27/24 08:43 Pulse Rate 64 05/27/24 10:00 Respiratory Rate 16 05/27/24 10:00 Blood Pressure 135/77 05/27/24 10:00 Pulse Oximetry 98 05/27/24 09:50 Oxygen Delivery Method Room Air 05/27/24 08:43 Medical Decision Making MDM Narrative Medical decision making narrative: Patient's labs were negative for acute severe findings. The rhabdo and creatinine are continuing to improve. Patient's lactate was still slightly elevated at 2.4. This could be due to dehydration. Patient's blood pressure improved greatly with fluids. No urinary tract infection. No other signs of sepsis. I did speak to Dr. Tinajero who just discharged the patient. She said she is sensitive to her Coreg and to please have them give her half dose in the morning instead of the full thing. This was written on the discharge instructions to do half the dose for her instead of the full dose. Patient was stable to be transferred back to her care facility. Return to ED if worsening symptoms or any further concerns otherwise follow-up with facility physician. Patient comfortable care plan Differential Diagnosis Differential Diagnosis: Sepsis, dehydration, UTI, viral syndrome, electrolyte abnormality, rhabdo Medical Records Medical records reviewed: Yes I reviewed the patient's medical records Lab Data Lab results reviewed: Yes I reviewed the patient's lab results Labs: Lab Results 05/27/24 05/27/24 05/27/24 Range/Units 08:48 08:59 09:45 WBC 8.4 (4.0-11.0) 10^3/uL RBC 3.53 L (4.20-5.40) 10^6/uL Hgb 11.4 L (12.0-16.0) g/dL Hct 34.6 L (36.0-48.0) % MCV 98.0 (81.0-99.0) fL MCH 32.3 (26.7-34.0) pg MCHC 32.9 (29.9-35.2) g/dL RDW 12.9 (11.0-15.0) % Plt Count 219 (150-450) 10^3/uL MPV 9.7 (9.5-13.5) fL Seg Neuts % (Manual) 92.0 H (43.0-75.0) Lymphocytes % (Manual) 7.0 L (20.5-60.0) % Monocytes % (Manual) 1.0 L (1.7-12.0) % Eosinophils % (Manual) 0.0 L (0.9-7.0) % Basophils % (Manual) 0.0 L (0.2-2.0) % Neutrophils # (Manual) 7.72 H (1.4-6.5) 10^3/uL Lymphocytes # (Manual) 0.58 L (1.20-3.80) 10^3/uL Monocytes # (Manual) 0.08 L (0.30-0.80) 10^3/uL Eosinophils # (Manual) 0.00 (0.00-0.70) 10^3/uL Basophils # (Manual) 0.00 (0.00-0.10) 10^3/uL Anisocytosis 1+ Sodium 138 (136-145) mmol/L Potassium 3.6 (3.5-5.1) mmol/L Chloride 101 (98-107) mmol/L Carbon Dioxide 32.5 H (21.0-32.0) mmol/L Anion Gap 8.1 BUN 22.0 H (7.0-18.0) mg/dL Creatinine 0.96 (0.55-1.02) mg/dL Est GFR ( Amer) >60 (>=60 mL/min/1.73m^2) Est GFR (Non-Af Amer) 57 L (>=60 mL/min/1.73m^2) BUN/Creatinine Ratio 22.9 Glucose 125 H (74-106) mg/dL Lactate 2.4 H* (0.4-2.0) mmol/L Calcium 8.6 (8.5-10.1) mg/dL Magnesium 2.0 (1.8-2.4) mg/dL Total Bilirubin 0.4 (0.2-1.0) mg/dL AST 28 (15-37) U/L ALT 13 L (14-59) U/L Alkaline Phosphatase 126 H (46-116) U/L Total Creatine Kinase 102 (26-192) U/L Troponin I High Sens 9.4 (4.0-51.3) pg/mL Total Protein 6.3 L (6.4-8.2) g/dL Albumin 3.2 L (3.4-5.0) g/dL Globulin 3.1 g/dL Albumin/Globulin Ratio 1.0 Urine Color Lt. yellow (YELLOW) Urine Clarity Clear (CLEAR) Urine pH 8.0 (5.0-9.0) Ur Specific [place] 1.015 (1.005-1.025) Urine Protein Negative (NEG/TRACE) mg/dL Urine Glucose (UA) Negative (NEGATIVE) mg/dL Urine Ketones Negative (NEGATIVE) mg/dL Urine Occult Blood Negative (NEGATIVE) Urine Nitrite Negative (NEGATIVE) Urine Bilirubin Negative (NEGATIVE) Urine Urobilinogen 0.2 (0.2-1.0) EU/dL Ur Leukocyte Esterase Negative (NEGATIVE) POC Glucose 129 H (74-106) mg/dL Imaging Data Chest x-ray: Attestation: I have reviewed the pertinent imaging results. ECG Data Attestation: ?I have reviewed the pertinent ECG results. Interpretation: EKG INTERPRETATION Time: [] 901 Rate: [] 69 Rhythm: _ [] Sinus rhythm ST segments: _ [] No acute ST elevation or depression T waves: _ [] Ectopy: _ [] P wave/CA interval: _ [] QRS interval: _ [] QT interval: _ [] Comparison: _ [] Comparison EKG date: [] Performed by: [self] Discharge Plan Discharge Chief Complaint: Weakness Clinical Impression: Dehydration Patient Disposition: Home, Self-Care Time of Disposition Decision: 10:15 Condition: Fair Mode of Transportation: EMS Prescriptions / Home Meds: No Action naloxone [Narcan] 4 mg/actuation spray,non-aerosol 4 mg intranasal Q3M PRN (Reason: opioid overdose) Qty: 2 0RF Rx Instructions: spray 1 dose into ONE nostril; alternate nostrils w each dose until help arrives hydrocodone-acetaminophen 7.5-325 mg tablet 1 tab PO Q8H PRN (Reason: pain) Rx Instructions: may take 1 tab 2-3 times daily as needed for pain, 75 tabs to last 30 days acetaminophen 500 mg capsule 1,000 mg PO TID PRN (Reason: pain) carbidopa-levodopa 25-100 mg tablet 1 tab PO DAILY Patient Comments: TAKE 1 AND 1/2 TABLETS BY MOUTH AT 7AM, 11 AM, 3PM, AND 7PM. TAKE 1 TABLET AT 11PM EVERY DAY. citalopram 10 mg tablet 10 mg PO DAILY carvedilol [Coreg] 25 mg tablet 25 mg PO BID Rx Instructions: must administer with a meal/food calcium polycarbophil [Fiber (calcium polycarbophil)] 625 mg tablet 1,250 mg PO DAILY levetiracetam 500 mg tablet 500 mg PO Q12H magnesium oxide 400 mg (241.3 mg magnesium) Tablet 400 mg PO BID 7 Days Qty: 14 0RF lorazepam 0.5 mg Tablet 0.5 mg PO BID 1 Days Qty: 2 0RF lisinopril 40 mg tablet 20 mg PO DAILY Qty: 0 0RF Print Language: Bahraini Instructions: Dehydration (ED) Additional Instructions: Please give HALF her dose of coreg in the morning. Thank you! Dr. Andrews Referrals: Ashia Ga MD [Primary Care Provider] - 1 week Discharge Date/Time: 05/27/24 12:10
[2024-05-27 09:27] LABS: Lymphocytes Absolute Manual 0.58 10^3/uL (1.20-3.80); Monocytes Absolute Manual 0.08 10^3/uL (0.30-0.80); Segmented Neut Absolute Manual 7.72 10^3/uL (1.4-6.5)
[2024-05-27 09:28] LABS: Anisocytosis 1+
[2024-05-27 09:29] LABS: Alanine Aminotransferase 13 U/L (14-59); Albumin Level 3.2 g/dL (3.4-5.0); Alkaline Phosphatase 126 U/L (46-116); Anion Gap 8.1; Aspartate Amino Transferase 28 U/L (15-37); BUN Creatinine Ratio 22.9; Bilirubin Total 0.4 mg/dL (0.2-1.0); Calcium 8.6 mg/dL (8.5-10.1); Carbon Dioxide 32.5 mmol/L (21.0-32.0); Chloride 101 mmol/L (98-107); Creatine Kinase 102 U/L (26-192); Estimated GFR (African America >60 (>=60 mL/min/1.73m^2); Estimated GFR (Non-African Ame 57 (>=60 mL/min/1.73m^2); Globulin 3.1 g/dL; Glucose 125 mg/dL (74-106); Potassium 3.6 mmol/L (3.5-5.1); Sodium 138 mmol/L (136-145); Total Protein 6.3 g/dL (6.4-8.2); Troponin I High Sensitivity 9.4 pg/mL (4.0-51.3)
--- OUTSIDE RECORDS SUMMARY | 2024-05-27 09:34 | XMS_ITS | CCD ---
Author Organization [facility] Care Team Providers Care Operating Room Nurse Name Role Phone ASHIA LOTT Attending Unavaila [...] LOTT, DR ASHIA Dunham Primary Care Unavailable HAZLETON, DR DIAMANTE Cruz Consult[employer] Unavailable SHAIKH GRAHAM [...] DR LEROY Hamm Attending Unavailable LOTT, DR ASIHA Dunham Primary Care Unavailable DUQUE ., DR [...] Unava ilAshia Brock Hui HELTON, Juno Unavailable [phone] Bren Hansen DO Unavailable Oren NELSON, Ashia Unavailable JUNO AMES Attending Unavailable Allergies Allergy Classification Reported Allergen(s) Allergy Type Date of Onset Reaction(s) Facility Adrenergic Agonists (1 source) Pseudoephedrine Drug Allergy 08-19-19 24 [facility] house dust allergenic extract (1 source) house dust allergenic extract Drug Allergy 08-19-[address] [facility] Penicillins (antibiotic) (1 source) Penicillins Drug Allergy 08-19-[address] [facility] Pneumococcal vaccine (1 source) Pneumococcal vaccine Drug Allergy 08-19-[address] [facility] (3 sources) Penicillins Drug allergy (disorder) 08-22-19 15 Unknown Reaction [facility] (2 sources) House dust mite Propensity to adverse reactions Unknown [employer] Other (2 sources) Penicillin Drug Allergy rash [employer] Other (3 sources) Pseudoephedrine Drug Allergy 09-02-19 24 [facility] (2 sources) Streptococcus pneumoniae type 1 [...] 9V capsular polysaccharide antigen Drug Allergy [facility] [facility] Other (2 sources) Substance with penicillin structure and antibacterial mechanism of action (substance) Drug allergy Unknown [employer] Other (2 sources) Allergies Reconciled Propensity to adverse reactions 12-28-19 21 Unknown [employer] Other (1 source) house dust allergenic extract Drug Allergy 09-02-[address] [facility] (1 source) Pneumococcal vaccine Drug Allergy 09-02-[address] [facility] (3 sources) Penicillins Drug Allergy 09-10-19 [...] Basophils (Bld) [#/Vol] 0.0 10 3/uL 0.0-0.1 [facility] Basophils/100 WBC Auto (Bld) on 09-02-2023 Basophils/100 WBC (Bld) 0.3 % 0.2-2.0 [facility] Eosinophils/100 WBC Auto (Bl d)on 09-02-2023 Eosinophils/100 WBC (Bld) 1.8 % 0.9-7.0 [facility] Erythrocyte distribution wid th Auto (RBC) [Ratio]on 09-02-2023 Erythrocyte distribution width (RBC) [Ratio] 12.0 % 11.0-15.0 [facility] Estimated glomerular filtrat ion rate (GFR) non- Americanon 09-02-2023 GFR/1.73 sq M.predicted among non-blacks MDRD (S/P/Bld) [Vol rate/Area] 60 mL/min/{1.73_m2} >=60 [facility] Globulin Calc (S) [Mass/Vol] on 09-02-2023 Globulin (S) [Mass/Vol] 3.3 g/dL [facility] Hematocrit Auto (Bld) [Volum e fraction]on 09-02-2023 Hematocrit (Bld) [Volume fraction] 31.5 % 36.0-48.0 [facility] Hemoglobin [Mass/volume] in Bloodon 09-02-2023 Hemoglobin (Bld) [Mass/Vol] 10.4 g/dL 12.0-16.0 [facility] Laboratory - Chemistry and C hemistry - challengeon 09-02-2023 Albumin [Mass/Vol] 3.3 g/dL 3.4-5.0 [facility] ALP [Catalytic activity/Vol] 87 U/L 46-116 [facility] ALT [Catalytic activity/Vol] 7 U/L 14-59 [facility] AST [Catalytic activity/Vol] 16 U/L 15-37 [facility] Bilirubin [Mass/Vol] 0.5 mg/dL 0.2-1.0 [facility] Calcium [Mass/Vol] 9.0 mg/dL 8.5-10.1 [facility] Chloride [Moles/Vol] 102 mmol/L 98-107 [facility] CO2 [Moles/Vol] 29.2 mmol/L 21.0-32.0 [facility] Creatinine [Mass/Vol] 0.92 mg/dL 0.55-1.02 [facility] GFR/1.73 sq M.predicted MDRD (S/P/Bld) [Vol rate/Area] mL/min/{1.73_m2} >=60 [facility] Glucose [Mass/Vol] 99 mg/dL 74-106 [facility] Potassium [Moles/Vol] 5.0 mmol/L 3.5-5.1 [facility] Protein [Mass/Vol] 6.6 g/dL 6.4-8.2 [facility] Sodium [Moles/Vol] 138 mmol/L 136-145 [facility] TSH Qn 1.862 m[IU]/L 0.358-3.740 [facility] Urea nitrogen [Mass/Vol] 35.0 mg/dL 7.0-18.0 [facility] Urea nitrogen/Creatinin e [Mass ratio] 38.0 mg/mg [facility] Laboratory - Hematology and Cell countson 09-02-2023 Immature granulocytes/100 WBC (Bld) 0.1 % 0.0-0.5 [facility] Leukocytes [#/volume] correc hema for nucleated erythrocytes in Blood by Automated counon 09-02-2023 WBC corrected for nucl RBC Auto (Bld) [#/Vol] 6.7 10 3/uL 4.0-11.0 [facility] Lymphocytes Auto (Bld) [#/Vo l]on 09-02-2023 Lymphocytes (Bld) [#/Vol] 0.9 10 3/uL 1.2-3.8 [facility] Lymphocytes/100 WBC Auto (Bl d)on 09-02-2023 Lymphocytes/100 WBC (Bld) 13.1 % 20.5-60.0 [facility] MCH Auto (RBC) [Entitic mass ]on 09-02-2023 MCH (RBC) [Entitic mass] 31.8 pg 26.7-34.0 [facility] MCHC Auto (RBC) [Mass/Vol]on 09-02-2023 MCHC (RBC) [Mass/Vol] 33.0 g/dL 29.9-35.2 [facility] MCV Auto (RBC) [Entitic vol] on 09-02-2023 MCV (RBC) [Entitic vol] 96.3 fL 81.0-99.0 [facility] Monocytes Auto (Bld) [#/Vol] on 09-02-2023 Monocytes (Bld) [#/Vol] 0.6 10 3/uL 0.3-0.8 [facility] Monocytes/100 WBC Auto (Bld) on 09-02-2023 Monocytes/100 WBC (Bld) 8.2 % 1.7-12.0 [facility] Neutrophils Auto (Bld) [#/Vo l]on 09-02-2023 Neutrophils (Bld) [#/Vol] 5.2 10 3/uL 1.4-6.5 [facility] Neutrophils/100 WBC Auto (Bl d)on 09-02-2023 Neutrophils/100 WBC (Bld) 76.5 % 43.0-75.0 [facility] No Panel Informationon 09-01 Eosinophils # (Auto) 0.1 10 3/uL 0.0-0.7 [facility] Immature Granulocyte # (Auto) 0.01 10 3/uL 0.00-0.03 [facility] Platelet mean volume Auto (B ld) [Entitic vol]on 09-02-2023 Platelet mean volume (Bld) [Entitic vol] 9.4 fL 9.5-13.5 [facility] Platelets Auto (Bld) [#/Vol] on 09-02-2023 Platelets (Bld) [#/Vol] 235 10 3/uL 150-450 [facility] RBC Auto (Bld) [#/Vol]on RBC (Bld) [#/Vol] 3.27 10 6/uL 4.20-5.40 [facility] Serum or plasma albumin/glob ulin mass ratioon 09-02-2023 Albumin/Globulin [Mass ratio] 1.0 {ratio} [facility] Serum or plasma anion gap de terminationon 09-02-2023 Anion gap [Moles/Vol] 11.8 mmol/L [facility] MG MAMM SCREEN PRETTY W CADon 0 7-12-2022 MG MAMM SCREEN PRETTY W CAD Patient: MARTHA MERCHANT Exam Date: 09/19/2021 : 1950 Gender:F Ordering : DR ASHIA LOTT M.D. Admission #: [id number] Family : SHAIKH Ria GRAHAM . Order #: [id number] CLICK HERE TO VIEW EXAM RADIOLOGY REPORT PROCEDURE: MAMMOGRAM BILATERAL SCREENING DIGITAL WITH COMPUTER AIDED DETECTION COMPARISON: None. INDICATIONS: Screening mammography Calculator Name NCI Breast Cancer Risk Assessment Tool 5 Year Breast Cancer Risk Not Reported. Lifetime Breast Cancer Risk Not Reported. Personal Breast Cancer No Personal Ovarian Cancer No Treatments None Family Cancers None LOCATION: [facility] BREAST COMPOSITION: Extremely dense, which lowers [...] MD on 09/19/2021 at 14:08 Normal [facility] CULTURE URINEon 09-14-2021 CULTURE URINE Culture Observations : LIGHT GROWTH OF MIXED GENITAL ADOLFO. NO POTENTIAL PATHOGENS SEEN. Normal [facility] Comment on above: Performed By: #### U RCX #### [facility] [address] [place] [address] Dr. Ravi Hebert UA RANDOM W/MICROSCOPICon BACTERIA NONE SEEN Normal NONE SEEN [facility] Comment on above: Performed By: #### U AMIC #### [facility] [address] [address] [address] Ravi Hebert Bilirubin Ql (U) Negative Normal NEGATIVE [facility] Comment on above: Performed By: #### U AMIC #### [facility] [address] [place] [address] Dr. Ravi Hebert CAST NONE SEEN Normal NONE SEEN [facility] Comment on above: Performed By: #### U AMIC #### [facility] [address] [address] [address] Ravi Hebert Clarity (U) CLEAR Normal CLEAR [facility] Comment on above: Performed By: #### U AMIC #### [facility] [address] [address] [address] Ravi Hebert Color (U) LT. YELLOW Normal YELLOW [facility] Comment on above: Performed By: #### U AMIC #### [facility] [address] [address] [address] Ravi Hebert Crystals LM Nom (Urine sed) NONE SEEN Normal NONE SEEN [facility] Comment on above: Performed By: #### U AMIC #### [facility] [address] [place] [address] Dr. Ravi Hebert Epithelial cells LM Ql (Urine sed) FEW Abnormal NONE SEEN /RARE [facility] Comment on above: Performed By: #### U AMIC #### [facility] [address] [place] [address] Dr. Ravi Hebert Glucose Ql (U) Negative Normal NEGATIVE [facility] Comment on above: Performed By: #### U AMIC #### [facility] [address] [address] [address] Ravi Hebert Hemoglobin Ql (U) Negative Normal NEGATIVE [facility] Comment on above: Performed By: #### U AMIC #### [facility] [address] [address] [address] Ravi Hebert Ketones Ql (U) Negative Normal NEGATIVE [facility] Comment on above: Performed By: #### U AMIC #### [facility] [address] [address] [address] Ravi Hebert LEUKOCYTES Negative Normal NEGATIVE [facility] Comment on above: Performed By: #### U AMIC #### [facility] [address] [place] [address] Dr. Ravi Hebert MUCOUS NONE SEEN Normal NONE SEEN [facility] Comment on above: Performed By: #### U AMIC #### [facility] [address] [place] [address] Dr. Ravi Hebert Nitrite Ql (U) Negative Normal NEGATIVE [facility] Comment on above: Performed By: #### U AMIC #### [facility] [address] [place] [address] Dr. Ravi Hebert pH (U) 6.0 [pH] Normal 5-9 [facility] Comment on above: Performed By: #### U AMIC #### [facility] [address] [place] [address] Dr. Ravi Hebert RBC NONE SEEN Abnormal 0-2 [facility] Comment on above: Performed By: #### U AMIC #### [facility] [address] [place] [address] Dr. Ravi Hebert SPEC GRAVITY <=1.005 Abnormal 1.005-<=1.02 5 [facility] Comment on above: Performed By: #### U AMIC #### [facility] [address] [place] [address] Dr. Ravi Hebert UA PROTEIN Negative Normal NEGATIVE/ TRACE [facility] Comment on above: Performed By: #### U AMIC #### [facility] [address] [place] [address] Dr. Ravi Hebert Urobilinogen Qn (U) 0.2 {Naveen'U}/dL Normal 0.2 - 1.0 [facility] Comment on above: Performed By: #### U AMIC #### [facility] [address] [place] [address] Dr. Ravi Hebert WBC NONE SEEN Normal NONE SEEN [facility] Comment on above: Performed By: #### U AMIC #### [facility] [address] [place] [address] Dr. Ravi Hebert CBC AUTO DIFFon 09-08-2021 BASO # 0.0 103/ul Normal 0.0-0.1 [facility] Comment on above: Performed By: #### C BC #### [facility] [address] [place] [address] Dr. Ravi Hebert Basophils/100 WBC (Bld) 0.4 % Normal 0.2-2.0 [facility] Comment on above: Performed By: #### C BC #### [facility] [address] [place] [address] Dr. Ravi Hebert EO # 0.1 103/ul Normal 0.0-0.7 [facility] Comment on above: Performed By: #### C BC #### [facility] [address] [place] [address] Dr. Ravi Hebert Eosinophils/100 WBC (Bld) 0.8 % Critically low 0.9-7.0 [facility] Comment on above: Performed By: #### C BC #### [facility] [address] [place] [address] Dr. Ravi Hebert Erythrocyte distribution width (RBC) [Ratio] 11.8 % Normal 11.0-15.0 [facility] Comment on above: Performed By: #### C BC #### [facility] [address] [place] [address] Dr. Ravi Hebert Hematocrit (Bld) [Volume fraction] 32.8 % Critically low 36.0-48.0 [facility] Comment on above: Performed By: #### C BC #### [facility] [address] [place] [address] Dr. Ravi Hebert Hemoglobin (Bld) [Mass/Vol] 10.8 g/dL Critically low 12.0-16.0 [facility] Comment on above: Performed By: #### C BC #### [facility] [address] [place] [address] Dr. Ravi Hebert IG # 0.03 10e3/ul Normal 0.00-0.03 [facility] Comment on above: Performed By: #### C BC #### [facility] [address] [place] [address] Dr. Ravi Hebert IG % 0.4 % Normal 0.0-0.5 [facility] Comment on above: Performed By: #### C BC #### [facility] [address] [place] [address] Dr. Ravi Hebert LYMPH # 0.7 103/ul Critically low 1.2-3.8 [facility] Comment on above: Performed By: #### C BC #### [facility] [address] [place] [address] Dr. Ravi Hebert Lymphocytes/100 WBC (Bld) 9.8 % Critically low 20.5-60.0 [facility] Comment on above: Performed By: #### C BC #### [facility] [address] [place] [address] Dr. Ravi Hebert MANUAL DIFF REQ NO Normal [facility] Comment on above: Performed By: #### C BC #### [facility] [address] [place] [address] Dr. Ravi Hebert MCH (RBC) [Entitic mass] 32.8 pg Normal 26.7-34.0 [facility] Comment on above: Performed By: #### C BC #### [facility] [address] [place] [address] Dr. Ravi Hebert MCHC (RBC) [Mass/Vol] 32.9 g/dL Normal 29.9-35.2 [facility] Comment on above: Performed By: #### C BC #### [facility] [address] [place] [address] Dr. Ravi Hebert MCV (RBC) [Entitic vol] 99.7 fL Critically high 81.0-99.0 [facility] Comment on above: Performed By: #### C BC #### [facility] [address] [place] [address] Dr. Ravi Hebert MONO # 0.4 103/ul Normal 0.3-0.8 [facility] Comment on above: Performed By: #### C BC #### [facility] [address] [place] [address] Dr. Ravi Hebert Monocytes/100 WBC (Bld) 6.0 % Normal 1.7-12.0 [facility] Comment on above: Performed By: #### C BC #### [facility] [address] [place] [address] Dr. Ravi Hebert NEUT # 6.0 103/ul Normal 1.4-6.5 [facility] Comment on above: Performed By: #### C BC #### [facility] [address] [place] [address] Dr. Ravi Hebert Neutrophils/100 WBC (Bld) 82.6 % Critically high 43.0-75.0 [facility] Comment on above: Performed By: #### C BC #### [facility] [address] [place] [address] Dr. Ravi Hebert Platelet mean volume (Bld) [Entitic vol] 9.6 fL Normal 9.5-13.5 [facility] Comment on above: Performed By: #### C BC #### [facility] [address] [place] [address] Dr. Ravi Hebert PLT 223 103/ul Normal 150-450 [facility] Comment on above: Performed By: #### C BC #### [facility] [address] [place] [address] Dr. Ravi Hebert RBC 3.29 106/ul Critically low 4.20-5.40 [facility] Comment on above: Performed By: #### C BC #### [facility] [address] [place] [address] Dr. Ravi Hebert WBC 7.2 103/ul Normal 4.0-11.0 [facility] Comment on above: Performed By: #### C BC #### [facility] [address] [place] [address] Dr. Ravi Hebert PROF 14(COMP METB)on 022 Albumin [Mass/Vol] 3.8 g/dL Normal 3.4-5.0 [facility] Comment on above: Performed By: #### C MP, TSH #### [facility] [address] [place] [address] Dr. Ravi Hebert Albumin/Globulin [Mass ratio] 1.2 {ratio} Normal [facility] Comment on above: Performed By: #### C MP, TSH #### [facility] [address] [place] [address] Dr. Ravi Hebert ALP [Catalytic activity/Vol] 69 U/L Normal 46-116 [facility] Comment on above: Performed By: #### C MP, TSH #### [facility] [address] [address] [address] Ravi Hebert ALT [Catalytic activity/Vol] 10 U/L Critically low 14-59 [facility] Comment on above: Performed By: #### C MP, TSH #### [facility] [address] [address] [address] Ravi Hebert Anion gap [Moles/Vol] 10.7 mmol/L Normal [facility] Comment on above: Performed By: #### C MP, TSH #### [facility] [address] [address] [address] Ravi Hebert AST [Catalytic activity/Vol] 22 U/L Normal 15-37 [facility] Comment on above: Performed By: #### C MP, TSH #### [facility] [address] [address] [address] Ravi Hebert Bilirubin [Mass/Vol] 0.5 mg/dL Normal 0.2-1.0 [facility] Comment on above: Performed By: #### C MP, TSH #### [facility] [address] [address] [address] Ravi Hebert Calcium [Mass/Vol] 8.8 mg/dL Normal 8.5-10.1 [facility] Comment on above: Performed By: #### C MP, TSH #### [facility] [address] [place] [address] Dr. Ravi Hebert Chloride [Moles/Vol] 102 mmol/L Normal 98-107 [facility] Comment on above: Performed By: #### C MP, TSH #### [facility] [address] [address] [address] Ravi Hebert CO2 [Moles/Vol] 29.6 mmol/L Normal 21.0-32.0 [facility] Comment on above: Performed By: #### C MP, TSH #### [facility] [address] [address] [address] Rvai Hebert Creatinine [Mass/Vol] 0.90 mg/dL Normal 0.55-1.02 [facility] Comment on above: Performed By: #### C MP, TSH #### [facility] [address] [address] [address] Ravi Hebert EGFR-AF TURKISH >60 Normal >=60 [facility] Comment on above: Performed By: #### C MP, TSH #### [facility] [address] [address] [address] Ravi Hebert EGFR-NON AF TURKISH >60 Normal >=60 [facility] Comment on above: Performed By: #### C MP, TSH #### [facility] [address] [address] [address] Ravi Hebert Globulin (S) [Mass/Vol] 3.1 g/dL Normal [facility] Comment on above: Performed By: #### C MP, TSH #### [facility] [address] [place] [address] Dr. Ravi Hebert Glucose [Mass/Vol] 94 mg/dL Normal 74-106 [facility] Comment on above: Performed By: #### C MP, TSH #### [facility] [address] [place] [address] Dr. Ravi Hebert Potassium [Moles/Vol] 4.3 mmol/L Normal 3.5-5.1 [facility] Comment on above: Performed By: #### C MP, TSH #### [facility] [address] [place] [address] Dr. Ravi Hebert Protein [Mass/Vol] 6.9 g/dL Normal 6.4-8.2 [facility] Comment on above: Performed By: #### C MP, TSH #### [facility] [address] [place] [address] Dr. Ravi Hebert Sodium [Moles/Vol] 138 mmol/L Normal 136-145 [facility] Comment on above: Performed By: #### C MP, TSH #### [facility] [address] [place] [address] Dr. Ravi Hebert Urea nitrogen [Mass/Vol] 34.0 mg/dL Critically high 7.0-18.0 [facility] Comment on above: Performed By: #### C MP, TSH #### [facility] [address] [address] [address] Ravi Hebert Urea nitrogen/Creatinin e [Mass ratio] 37.8 mg/mg Normal [facility] Comment on above: Performed By: #### C MP, TSH #### [facility] [address] [address] [address] Ravi Hebert TSHon 09-08-2021 TSH 1.350 uIU/mL Normal 0.358-3.740 [facility] Comment on above: Performed By: #### C MP, TSH #### [facility] [address] [address] [address] Ravi Hebert PROGRESSon 06-25-2017 PROGRESS HNO ID: [id number] thor: Nicolas Dotosn: (none)Author Type: PhysicianType: Progress NotesFiled: 06/25/2017 4:47 PMNote Text:Martha FriedyDOB: 1950[facility]Date last seen:PAST MEDICAL HISTORYDiagnosis Date- Constipation- Convulsion [...] 3350 (MIRALAX, GLYCOLAX) 17 gram/dose powderrizatriptan ([employer]FORMATION TECH[employer]Y MANAGER) 10 mg disintegrating tabletNo current facility-administered medications [...] toenail of left footThalvaro Dominguez, DPM Normal [facility] Vital Signs Date Time Vital Sign Value Performing Clinician Facility 09-02-2023 14:55-0400 Body height 162.56 cm [facility] 09-02-2023 14:55-0400 Body mass index (BMI) [Ratio] 14.3 kg/m2 [facility] 09-02-2023 14:55-0400 Body weight 38 kg [facility] 09-02-2023 14:55-0400 Diastolic blood pressure 84 mm[Hg] [facility] 09-02-2023 14:55-0400 Heart rate 88 /min [facility] 09-02-2023 14:55-0400 Systolic blood pressure 138 mm[Hg] [facility] 08-19-2023 13:51-0400 Body height 162.56 cm [facility] 08-19-2023 13:51-0400 Body mass index (BMI) [Ratio] 14.6 kg/m2 [facility] 08-19-2023 13:51-0400 Body temperature 97.4 [degF] [facility] 08-19-2023 13:51-0400 Body weight 38.72 kg [facility] 08-19-2023 13:51-0400 Diastolic blood pressure 67 mm[Hg] [facility] 08-19-2023 13:51-0400 Heart rate 56 /min [facility] 08-19-2023 13:51-0400 Systolic blood pressure 134 mm[Hg] [facility] 02-15-2023 13:30-0500 Body height 162.56 cm Ashia Lott Other [employer] Other 02-15-2023 13:30-0500 Body mass index (BMI) [Ratio] 14.59 kg/m2 Ashia Lott Other [employer] Other 02-15-2023 13:30-0500 Body weight 38.56 kg Ashia Oren Other [employer] Other 02-15-2023 13:30-0500 Diastolic blood pressure 89 mm[Hg] Ashia Oren Other [employer] Other 02-15-2023 13:30-0500 Systolic blood pressure 148 mm[Hg] Ashia Oren Other [employer] Other Encounters Encounter Date Encounter Type Care Provider Facility Start: 05-13-2024 End: 05-13-2024 ambulatory JUNO AMES Not Available Start: 05-13-2024 End: 05-13-2024 Bamboo flowsheet Juno Ames [employer] DEVELOPMENT LEADER Work Phone: [facility] HANSON Start: 05-13-2024 End: 05-13-2024 Bamboo flowsheet Juno Ames PROJECT DEVELOPMENT LEADER Work Phone: ROLANDO HANSON Start: 04-14-2024 End: 04-14-2024 Refill Bren Hansen DO Work Phone: ROLANDO DOMINGUEZ Comment on above: Seizure (CMS/HCC) Start: 03-18-2024 End: 03-18-2024 Refill Juno Ames PROJECT DEVELOPMENT LEADER Work Phone: ROLANDO HANSON Comment on above: Parkinson's disease, unspecified whether dyskinesia present, unspecified whether manifestations fluctuate (CMS/HCC) Start: 09-02-2023 End: 09-02-2023 ambulatory [facility] Work Phone: Start: 09-02-2023 End: 09-02-2023 Patient encounter procedure [facility] Work Phone: Start: 08-19-2023 End: 08-19-2023 ambulatory [facility] Work Phone: Start: 08-19-2023 End: 08-19-2023 Patient encounter procedure [facility] [facility] Work Phone: Start: 03-12-2023 End: 03-12-2023 ambulatory Ashia Lott Other [employer] Other Start: 03-12-2023 Telephone encounter Ashia Lott [facility] Start: 02-15-2023 End: 02-15-2023 ambulatory Ashia Lott Other [employer] Other Start: 02-15-2023 Office outpatient vi sit 15 minutes Ashia Lott [facility] Start: 06-21-2022 ambulatory KELIN BARNARDMIPATHJeff Facility:[facility]1 Start: 04-24-2022 End: 04-25-[address] LEROY DUQUE . Facility:[facility] Start: 2022 End: 01-19-[address] LEROY DUQUE . Facility:[facility] Start: 01-09-2022 Adult health examination Margo Lott Other [employer] Other Start: 10-19-2021 End: 10-20-[address] LEROY DUQUE . Facility:[facility] Start: 09-19-2021 End: 09-20-2021 ambulatory SHAIKH Cleopatra GRAHAM Facility:[facility] Start: 09-15-2021 End: 09-15-[address] ASHIA LOTT Facility:[facility] Start: 09-08-2021 End: 09-09-[address] ASHIA LOTT Facility:[facility] Start: 08-24-[address] ASHIA LOTT Facil ity:[facility]1 Start: 07-20-2021 End: 07-21-[address] LEROY DUQUE . Facility:[facility]1 Start: 05-15-2019 Patient encounter procedure ASHIA LOTT Facility:[facility] Procedures Date Procedure Procedure Detail Performing Clinician Screening for malign ant neoplasm of breast Ashia Lott Other Plan of Treatment Date Care Activity Detail Author Start: 05-25-2024 End: 05-25-2024 Patient encounter procedure 05/25/2024 1:40 PM EDT Office Visit [facility] [place] [address] [place] [id number] Jnuo Ames NP [address] [place], [place] [facility] [place] Start: 05-13-2024 End: 05-13-2024 Patient encounter procedure 05/13/2024 2:20 PM EST Office Visit [facility] [place] [address] [place] [phone] Juno Ames NP [address] [place], [place] Arrived [facility] [place] Comment on above: Arrived Start: 04-02-2024 End: 04-02-2024 Patient encounter procedure 04/02/2024 2:00 PM EST Office Visit [facility] [place] [address] [place] [address] Juno Ames NP [address] [place], [place] [facility] Start: 11-10-2023 Influenza vaccination Influenza Vacc ine (#1) [facility] Start: 06-27-2019 Pneumococcal Vaccine : 65+ Years (2 of 2 - PCV) Pneumococcal Vaccine: 65+ Years (2 of 2 - PCV) [facility] Comprehensive metabo lic 2000 panel - Serum or Plasma [facility] Immunizations Immunization Date Immunization Notes Care Provider Fa cility 03-13-2023 influenza virus vaccine, unspecified formulation Juno Ames [employer]JECT DEVELOPMENT [employer]AD[employer] Work Phone: [facility] 02-27-2022 COVID-19 mRNA Bivale nt Booster (Moderna) [facility] 01-09-2022 influenza virus vaccine, split virus (incl. purified surface antigen) Ashia Lott Other [employer] Other 01-09-2022 influenza virus vaccine, unspecified formulation [facility] 01-17-2021 COVID-19 mRNA-1273 (Moderna) [facility] 06-01-2020 COVID-19 Vaccine Moderna - Documentation Purposes Only Ashia Lott Other [facility] 05-05-2020 COVID-19 Vaccine Moderna - Documentation Purposes Only Ashia Lott Other [facility] 01-07-2020 influenza virus vaccine, split virus (incl. purified surface antigen) Ashia Lott Other [employer] Other 01-07-2020 influenza virus vaccine, unspecified formulation [facility] 01-13-2019 influenza virus vaccine, split virus (incl. purified surface antigen) Ashia Lott Other [employer] Other 01-13-2019 influenza virus vaccine, unspecified formulation [facility] 12-05-2018 tetanus and diphther ia toxoids, adsorbed, preservative free, for adult use (5 Lf of tetanus toxoid and 2 Lf of diphtheria toxoid) [facility] 12-05-2018 tetanus toxoid, reduced diphtheria toxoid, and acellular pertussis vaccine, adsorbed [facility] 12-26-2017 influenza virus vaccine, split virus (incl. purified surface antigen) Ashia Lott Other [employer] [facility] Other 12-26-2017 influenza virus vaccine, unspecified formulation [facility] NEGATED: Highlighted row has not occurred!12-27-2020 influenza virus vaccine, split virus (incl. purified surface antigen) Ashia Lott Other [employer] [facility] Other Payers Date Payer Category Payer Private Health Insurance AARCaryl Kovacs [id number] 2013 Medicare MEDICARE [id number] 1959 Medicare [id number] 1959 Self-pay [id number] 1959 Unknown [id number] 1948 Unknown [id number] .593 1948 Unknown [id number] [id number] .593 1948 Unknown [id number] [id number] .593 1948 Unknown [id number] [id number] .593 1948 Unknown [id number] [id number] .593 1948 Unknown [id number] 2.16.840.1.500618.3.579.2 .593 1948 Unknown [id number] 2.16.840.1.707851.3.579.2 .593 1948 Unknown [id number] 2.16.840.1.313615.3.579.2 .593 1948 Unknown [id number] [id number] .593 1948 Unknown [id number] [id number] .1259 Self-pay Self Pay [id number] Social History Date Type Detail Facility Unknown if ever smoked [facility] Other Start: 07-16-2023 Sex Assigned At N [facility] Other Start: 12-06-2018 End: 07-16-2023 Tobacco smoking status NHIS Never smoked tobacco (finding) [facility] Start: 1950 Sex Assigned At Female F [facility] Start: 07-16-2023 Tobacco use and exposure Smokeless tobacco non-user [facility] Start: 07-16-2023 Alcoholic beverage intake Lifetime non-drinker (finding) [facility] Start: 07-16-2023 History of Social function [facility] Start: 1950 Sex assigned at Not on file N [facility] Clinical Notes 07-20-2021 to 04-14-2024 Telephone [...] the next appt on 05/25/2024. Please advise. [facility] 04-14-2024 Miscellaneous Notes Formattin g of this note might be different from the original. Pharmacy requests refill of keppra. I know there has been some back and forth on compliance issues. Are we able to send the refill in order to get to the next appt on 05/25/2024. Please advise. documented in this encounter [facility] 03-18-2024 Telephone encounter Note Form atting of this note might be different from the original. Received a new rx request for Keppra. The pt has an appt scheduled for 04/02/2024. Per the last tele enc ND agreed to send the med up to March. Okay to send to get to f/u appt? Please advise. Tele enc dated 02/17/2024 [facility] 03-18-2024 Miscellaneous Notes Formattin g of this note might be different from the original. Received a new rx request for Keppra. The pt has an appt scheduled for 04/02/2024. Per the last tele enc ND agreed to send the med up to March. Okay to send to get to f/u appt? Please advise. Tele enc dated 02/17/2024 documented in this encounter [facility] 03-12-2023 Evaluation note Encounter Date Diagnosis Assessment Notes Mar, Lumbar degenerative disc disease (ICD-10 - M51.36) [facility] Other 12-08-2023 Evaluation note* Encounter Date Diagnosis Assessment Notes Treatment Notes Treatment Clinical Notes Feb, Pain, joint, shoulder, left (ICD-10 - M25.512) Agrees to ortho referral Requests Dr. Acosta [facility] Other 02-14-2023 NoteCONSULTATION CONSULTATION DATE: 04/24/2022 CHIEF [...] the patient takes citalopram 30 mg daily, [place] 5/325 b.i.d., clonidine 0.1 mg b.i.d. Celebrex [...] atrophy. PLAN: We will refill the patient's [place] 5/325 b.i.d. X-ray of her lumbar spine and pelvis has been ordered. The patient also has been given a prescription for Ensure HN and/or Boost HN two per day. Education was done with regards to possibly adding glucosamine chondroitin sulfate to improve the discomfort in her hips. The patient and her daughter understand and would like to proceed. CC: Ashia Lott M.D.[facility] [id number] NoteCONSULTATION CONSULTATION DATE: 2022 HISTORY OF PRESENT ILLNESS: This is a 72-year-old female accompanied by her sister to the clinic for a three month follow up for her chronic lower back pain and hip pain. Last procedure the patient had was radiofrequency ablation of her lumbar region in 2018. She is managed medically at this time for pain with [place] 5/325 b.i.d. Other medications include citalopram, clonidine, [...] otherwise indicated. Patient agrees with this plan.[facility] 10-19-2021 NoteCONSULTATION CONSULTATION DATE: 10/19/2021 HISTORY [...] Ensure supplements daily as well. 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 She does use heat to her lower back, which is beneficial. Medications include [place] 5/325 b.i.d., clonidine 0.1 b.i.d., citalopram, Keppra [...] disc disease. PLAN: We will refill the [place] at 5/325 b.i.d. Patient is taking anti-inflammatory [...] plan of care and all questions answered.[facility] [id number] NoteCONSULTATION CONSULTATION DATE: 07/20/2021 This is a [...] or new motor changes. Current medications include [place] 5/325 b.i.d., clonidine, multivitamin, Sinemet, Keppra and [...] PLAN: We will continue to maintain her [place] 5/325 b.i.d. I have discussed with the patient and her sister at prior office visits regarding curcumin supplement named Enhansa that is produced by [employer] [facility]. That information was shared once again with the patient and the sister. Recommended doses were discussed. The patient and sister agreed with the plan of care and we will see her in three months' time unless otherwise indicated. [facility] Signed and Approved by: CINDI ELLIOTT . 07/27/2021 [facility]:09[facility]00[facility] Onset Date Resolution Status Fatigue acute Hypertension acute Hypokalemia acute Hyponatremia acute Nausea acute [facility] Work Phone: Evaluation note* Diagnosis Parkinson's disease, unspecified whether dyskinesia present, unspecified whether manifestations fluctuate (CMS/HCC) [facility] Diagnosis Seizure (CMS/HCC) Other convulsions [facility] this [facility] Narrative - Reported* Type Description Date Medical History PARKINSONS Medical History ANXIETY Medical History HTN Medical History gastritis Medical History hyperlipidemia Surgical History Pelvice Exam Hysterectomy [place] 2003 Surgical History Sinus Endoscopic-Dr. Valdez Surgical History lymphnode removal - abdomen Surgical History RIGHT HIP-NERVE BLOCK-DR DUQUE OCTOBER 2018 Hospitalization History See above Hospitalization History Seizure- inpatient for 3 weeks Apr 2014 Hospitalization History FALL WITH FRACTU RED HIP X2 AND COLLARBONE (RIGHT) [facility] JUNE 2013 Hospitalization History LOW SODIUM ADMITTED TO [facility] APR 2017 [employer] Other Summary Purpose Family History No Family [...] Reason *FU 03/06 Dr. Kyree barnes at [place] - shoulder. Diagnosis 1 Pain, joint, shoulde r, left (M25.512) Referral Organization [facility] Referring Provider First Name Ashia Referring Provider Last Name Oren Referring Provider Specialty Family Medi cine Referred Organization [facility] Referred Provider Andrea Acosta Referred Address [address] [facility],[place],[address] Referred Provider Specialty Orthopaedic Surgery Referral Priority Routine General Notes Shyla Cade 03:35:22 PM >received today, attachments made, notes locked, referral faxed Alyssia Shyla 02/25/2023 11:25:19 AM >faxed first attempt letter Clinical Notes p: [phone] f: [id number] Chief Complaint and Reason for Visit Chief Complaint chills, nausea Reason for Visit Fatigue Hypertension Hypokalemia Hyponatremia Nausea Chief Complaint chills, nausea fell, right rib pain Reason for Visit Fatigue Hypertension Hypokalemia Hyponatremia Nausea Additional Source Comments INFORMATION SOURCE (unrecogn ized section and content) DATE CREATED AUTHOR 09/12/2017 [facility] DATE CREATED AUTHOR AUTHOR'S ORGANIZ ATION 05/15/2019 [facility] DATE CREATED AUTHOR AUTHOR'S ORGANIZ ATION 06/10/2022 [facility] DATE CREATED AUTHOR AUTHOR'S ORGANIZ ATION 05/15/2024 [facility] d[facility] Specialists EPIC REASON FOR VISIT (unrecogniz [...] September 02, 2023 End: September 02, 2023 Operating Room Nurse Relationship Specialty Start Date End Date Juno Ames NP [address] [place], [place] Nurse Practitioner Neurology 01/24/24 Bren [place] DO [address] [place] [address] Referring Physician Neurology 01/24/24 Operating Room Nurse Relationship Specialty Start Date End Date Juno Ames NP [address] [place] Nurse Practitioner Neurology 01/24/24 Bren [place] DO [address] [place] [address] Referring Physician Neurology 01/24/24 Ashia Lott MD [facility] [place] [address] Referring Physician Family Medicine 05/13/24 Goals [...] BE BASED ON THE PRIMARY CLINICAL RECORDS. [employer] provides no warranty or guarantee of the accuracy or completeness of information in this document.
[2024-05-27 09:35] LABS: Lactate/Lactic Acid 2.4 mmol/L (0.4-2.0)
[2024-05-27] MEDS: 0.9 % SODIUM CHLORIDE 1,000 ML 1000 ML IV (09:39)
[2024-05-27 09:59] LABS: Bilirubin Urine NEGATIVE (NEGATIVE); Blood Urine NEGATIVE (NEGATIVE); Clarity Urine CLEAR (CLEAR); Color Urine LT. YELLOW (YELLOW); Glucose Urine UA NEGATIVE (NEGATIVE); Ketones Urine NEGATIVE (NEGATIVE); Leukocyte Esterase Urine NEGATIVE (NEGATIVE); Nitrite Urine NEGATIVE (NEGATIVE); Protein Urine NEGATIVE (NEG/TRACE); Specific Gravity Urine 1.015 (1.005-1.025); Urine Microscopic Indicated NO; Urobilinogen Urine 0.2 EU/dL (0.2-1.0)
--- NOTE | 2024-05-28 12:24 | SWNOTE1 ---
SW sent over ED note to [facility] for continuity of care.
== END 2024-05-27 12:10 | disposition home or self-care (01) ==
PROVIDERS: Emergency Provider Emergency Medicine; PCP Family Medicine
DX: E86.0 Dehydration (principal); R53.1 Weakness; G20.A1 Parkinson's disease without dyskinesia, without mention of fluctuations; Z91.81 History of falling
CPT/HCPCS: 36415; 71045; 80053; 81003; 82550; 83605; 83735; 84484; 85007; 85027; 87040; 93005; 99285

== ENCOUNTER 2024-07-09 13:57 | Outpatient (OUT) | payer MEDICARE, SELFPAY ==
--- NOTE | 2024-07-09 14:39 | PM.CN ---
Consult Note: HPI Data of Consult Patient: known to practice within the last 3 years Requesting Physician: Tammy Worrell NP Primary Care Provider: Ashia Ga MD Consult Narrative Reason for consult: f/u Narrative: Martha Min a pleasant 74 year old female presents for evaluation and management of chronic low back pain. Patient rating pain today 8/10 increasing to 10/10 with activity and ADLs. Patient reports moderate improvement in pain and functional ability with current medication regimen. Patient denies side effects. Continues to f/u with [facility] for parkinsons. Pain increases with sitting too long, standing, walking, activity and sleep. utilizes wheeled walker and wheelchair as needed, has had two falls in the last 6 months without injury. cc:: CC: Tammy Worrell NP Review of Systems ROS Status of ROS 10 or more systems reviewed and unremarkable except as noted in history and below Musculoskeletal Reports: back pain and joint pain [facility] Medical History (Updated 07/09/24 @ 14:40 by Tammy Worrell NP) Primary hypertension ?I10 - Essential (primary) hypertension (ICD-10) Chronic, continuous use of opioids ?F11.90 - Opioid use, unspecified, uncomplicated (ICD-10) Spondylosis of lumbar region without myelopathy or radiculopathy ?M47.816 - Spondylosis without myelopathy or radiculopathy, lumbar region (ICD-10) Lumbar spondylosis ?M47.816 - Spondylosis without myelopathy or radiculopathy, lumbar region (ICD-10) Tremors of nervous system ?R25.1 - Tremor, unspecified (ICD-10) Lumbar stenosis with neurogenic claudication ?M48.062 - Spinal stenosis, lumbar region with neurogenic claudication (ICD-10) Parkinson's disease ?G20.A1 - Parkinson's disease without dyskinesia, without mention of fluctuations (ICD-10) Social History Highest level of school completed/degree received: high school graduate Little interest or pleasure in doing things: not at all Feeling down, depressed, or hopeless: not at all Meds Home Medications and Allergies Home Medications ?Medication ?Instructions ?Recorded ?Confirmed ?Type acetaminophen 500 mg capsule 1,000 mg PO TID PRN pain 11/28/22 05/27/24 History calcium polycarbophil 625 mg 1,250 mg PO DAILY 11/28/22 05/27/24 History tablet (Fiber (calcium polycarbophil)) carbidopa 25 mg-levodopa 100 mg 1 tab PO DAILY 11/28/22 05/27/24 History tablet carvedilol 25 mg tablet (Coreg) 25 mg PO BID 11/28/22 05/27/24 History citalopram 10 mg tablet 10 mg PO DAILY 11/28/22 05/27/24 History levetiracetam 500 mg tablet 500 mg PO Q12H 11/28/22 05/27/24 History naloxone 4 mg/actuation nasal 4 mg intranasal Q3M PRN opioid 02/20/23 05/27/24 Rx spray (Narcan) overdose #2 ea lisinopril 40 mg tablet 20 mg (1/2 x 40 mg) PO DAILY #0 05/26/24 05/27/24 Rx tabs lorazepam 0.5 mg tablet 0.5 mg PO BID 1 day #2 tabs 05/26/24 05/27/24 Rx magnesium oxide 400 mg (241.3 mg 400 mg PO BID 7 days #14 tabs 05/26/24 05/27/24 Rx magnesium) tablet hydrocodone 7.5 mg-acetaminophen 1 tab PO Q8H PRN pain 05/27/24 05/27/24 History 325 mg tablet hydrocodone 7.5 mg-acetaminophen See Rx Instructions .Route 05/28/24 Rx 325 mg tablet .COMPLEX PRN pain #75 tabs Allergies Allergy/AdvReac Type Severity Reaction Status Date / Time Penicillins Allergy Hives Verified 05/27/24 08:49 Exam Constitutional Documenting provider has reviewed patient's vital signs: yes Common normals: no apparent distress, oriented x3, healthy appearing, alert and well nourished Exam limitations: physical limitations General appearance: cooperative Nutritional appearance: thin HENMT Common normals: normocephalic, hearing grossly normal bilaterally and moist oral mucous membranes Head and scalp: normocephalic Eye Common normals: PERRL Pupil: PERRL Neck & C-Spine Common normals: full ROM General: normal visual inspection Chest Common normals: inspection of chest normal Respiratory Common normals: normal respiratory effort, no retractions and no use of accessory muscles Back & Pelvis Lumbar spine/lower back: ROM limited and pain with ROM Sacroiliac joints: SI joint(s) abnormal Other: bilateral facet loading positive strength 4/5 in BLE intermittent heaviness/weakness right sij positive dante(patricks), gaenslens, thigh thrust, compression test Extremity Common normals: full ROM Neuro Common normals: oriented x3 Sensorium/orientation: alert Gait (neuro): antalgic, shuffling and assistive device used (wheelchair and walker at home) Motor exam: no movement abnormalities noted Psych Common normals: mental status grossly normal, thought process normal, cooperative, affect normal, speech normal and activity/motor behavior normal Speech: normal speech Thought process: normal thought process Results Additional Findings Additional findings: If on a controlled substance or opioids, I have checked an [place]ARRS report on this patient and there are no aberrancies noted in the prescribing history.??If on a controlled substance or opioid a drug screen was completed and reviewed within the last year, and if there has not been a drug screen completed we ordered one today to monitor higher risk, state monitored pain medication use. As part of providing excellent, safe, comprehensive care, the following was completed at our patient's visit: 1. A medication reconciliation and review to ensure accurate knowledge of current/active medications, including asking our patients to inform us about any [id number] medications or herbal remedies/nutritional supplements/alternative remedies. 2. A review to specifically ensure our patients have had annual screening for screening for depression, screening for tobacco use, and screening for unhealthy alcohol use. For concerning screenings had a discussion with the patient, provided patient education, and recommended follow-up with primary care provider when appropriate. If patient noted with a risk of falling, they received education on strength, gait, and balance training to prevent future risk of falling. Portions of this note may have been carried over from the previous visit and updated as appropriate. Please note this office utilizes paper charting in addition to the electronic medical record. A list of current medications, vitals, and PMH is available there as the clinical staff outside of myself do not have access to [employer] charting during the clinic day operations. As part of providing quality comprehensive care the current medications, vitals, and PMH were reviewed in the paper chart. Assessment and Plan Assessment and Plan (1) Sacroiliitis: Assessment and Plan: The patient has had over 3 months of moderate to severe low back and right SIJ pain with functional impairment and inadequate response to conservative care including NSAIDS (unless there are contraindication such as concurrent blood thinners), multiple oral or topical pain medications, and home exercise program/physical therapy.? Patient has completed >6 weeks of guided home exercise program and/or formal physical therapy program without relief of their symptoms.? The Oswestry Disability Index was completed, and the patient scored a 68%.? The patient noted the following:?? moderate to severe pain impacting ADLs, sleep, social life, standing, walking We discussed the risks and benefits of the procedure with the patient, and we are NOT planning on using sedation as outlined in the guidelines from Medicare unless there is a documented reason that sedation would be strongly recommended.?? ?The procedure will be completed with fluoroscopic guidance.? (2) Lumbar stenosis with neurogenic claudication: (3) Lumbar spondylosis: (4) Chronic, continuous use of opioids: Assessment and Plan: I feel these medications are improving the patient's quality of life and allow them to tolerate activities of daily living as well as participate in recreational activity.? The patient does not report intolerable side effects. The patient is NOT opioid naive and non-pharmacologic and non-opioid treatment has failed to significantly relieve the patient's pain and improve functionality. The patient has a diagnosis that is related to a somatic or visceral pain etiology. ? ?? I reviewed with the patient the potential risks and side effects with the use of? opioid medications including but not limited to respiratory depression,? sedation, and even . Within the last 12 months I have verified the patient has access to naloxone should? these effects occur. The patient was advised to let? their family know they had Naloxone in case they would need to administer? the medication. I advised the patient to avoid the use of any other? sedation substances including alcohol, THC, and benzodiazepines while? taking opioid medications due to the risk of compounding side effects and? detrimental outcomes. within the last 12 months I have reviewed the RESIDENCE DIRECTOR, pain treatment agreement and urine drug screen.? ?? A drug screen was completed within the last year, and no aberrancies were noted regarding their use of controlled substances. The patient understands they are subject to the terms and conditions of the pain contract that they have signed. ? ?? I have checked an OARRS report on this patient today and there are no aberrancies noted in the prescribing history.? Plan dc ativan, continue hydrocodone-acetaminophen 7.5-325mg TID PRN moderate to severe pain proceed with right SIJ injection under fluoroscopy continue PT and HEP as tolerated f/u 2 weeks after injection
== END 2024-07-09 13:58 | disposition home or self-care (01) ==
LOC: PM 13:58
PROVIDERS: PCP Family Medicine; Visit Provider Nurse Practitioner
DX: M46.1 Sacroiliitis, not elsewhere classified (principal); M48.062 Spinal stenosis, lumbar region with neurogenic claudication; M47.816 Spondylosis without myelopathy or radiculopathy, lumbar region; Z79.891 Long term (current) use of opiate analgesic
CPT/HCPCS: G0463

== ENCOUNTER 2024-07-20 09:33 | Day surgery (SDC) | payer MEDICARE, SELFPAY ==
--- OUTSIDE RECORDS SUMMARY | 2024-07-20 09:53 | XMS_ITS | CCD ---
Author Organization [facility] Care Team Providers Care Land Measurer Name Role Phone ASHIA LOTT Attending Unavaila ble LOTT, ASHIA VALERIO Primary Care Unavaila bhargav LOTT, DR ASHIA Dunham Primary Care Unavailable LOTT, DR ASHIA Dunham Admitting Unavailable LOTT, DR ASHIA Dunham Attending Unavailable LTOT, DR ASHIA Dunham Attending Unavailable LOTT, DR ASHIA Dunham Consulting Unavailable LOTT, DR ASHIA Dunham Primary Care Unavailable LOTT, DR ASHIA Dunham Admitting Unavailable SHAIKH Cleopatra GRAHAM Attending Unavailable LOTT, DR ASHIA Dunham Primary Care Unavailable [place], DR DIAMANTE Cruz Consulting Unavailable GLADYS, H [...] BIGGS Admitting Unava ilAshia Brock Unavailable Hui REJOINER, Juno Unavailable Bren Hansen DO Unavailable Oren NELSON, Ashia Unavailable Oren NELSON, Ashia Unavailable JUNO AMES Attending Unavailable JUNO AMES Attending Unavailable Allergies Allergy Classification Reported Allergen(s) Allergy Type Date of Onset Reaction(s) Facility Adrenergic Agonists (1 source) Pseudoephedrine Drug Allergy 08-19-19 24 [facility] house dust allergenic extract (1 source) house dust allergenic extract Drug Allergy 08-19-19 24 Unknown Reaction [facility] Penicillins (antibiotic) (1 source) Penicillins Drug Allergy 08-19-19 24 Unknown Reaction [facility] Pneumococcal vaccine (1 source) Pneumococcal vaccine Drug Allergy 08-19-19 24 Swelling [facility] (3 sources) Penicillins Drug allergy (disorder) 08-22-19 15 Unknown Reaction [facility] (2 sources) House dust mite Propensity to adverse reactions Unknown [facility] Other (2 sources) Penicillin Drug Allergy rash [facility] Other (4 sources) Pseudoephedrine Drug Allergy 03-08-20 23 [facility] (2 sources) Streptococcus pneumoniae type 1 [...] 9V capsular polysaccharide antigen Drug Allergy SWELLING [facility] [employer] Other (2 sources) Substance with penicillin structure and antibacterial mechanism of action (substance) Drug allergy Unknown [facility] Other (2 sources) Allergies Reconciled Propensity to adverse reactions 12-28-19 21 Unknown [facility] Other (1 source) house dust allergenic extract Drug Allergy 09-02-19 24 Unknown Reaction [facility] (1 source) Pneumococcal vaccine Drug Allergy 09-02-19 24 Swelling [facility] (4 sources) Penicillins Drug Allergy 09-10-19 18 Rash [facility] (1 source) House dust mite Allergy to substance 03-08-20 [facility] (1 source) Streptococcus pneumoniae type 1 capsular polysaccharide antigen Drug Allergy 03-08-20 [facility] Medications Current Medications Medication Drug Class(es) Dates Sig (Normalized) Sig (Original) acetaminophen 325 mg / HYDROcodone bitartrate 7.5 mg oral tablet (10 sources) Opioid Agonist Start: 04-27-2024 HYDROcodone-acetam inophen ([place]) 7.5-325 MG tablet TAKE 1 TABLET BY MOUTH 2-3 TIMES A DAY NEEDED FOR PAIN, MUST LAST 30 DAYS 04/27/2024 Active Start: 04-22-2023 End: 08-19-2023 take 1 tablet by mouth twice daily as needed Hydrocodone-Acetaminophen Discontinued 1 TAB PO Twice daily April 22, 2023 1:00am August 19, 2023 2:02pm [employer] tablet as needed Orally bid prn; Note: Source Status: Start; Refills: 0; Provider: Oren Dunham Start: 03-12-2023 take 1 tablet by maninder twice daily as needed HYDROcodone-Acetaminophen 7.5-325 MG [...] as needed Orally every 6 hrs Not-Taking/PRN aluminum hydroxide 40 mg/ml / magnesium hydroxide 40 mg/ml / simethicone 4 mg/ml oral suspension (2 sources) Start: 12-05-2018 take 1 [tsp_us] by mouth once daily Alum-Mag Hydroxide-Simeth (Antacid) 200-200-20 mg/5 mL Suspension Active 2 TSP PO Daily December 05, 2018 12:00am amLODIPine 5 mg oral tablet (5 sources) Dihydropyridine Calcium Channel [facility] Start: 03-19-2024 take 1 tablet by mouth once daily amLODIPine (Norvasc) 5 MG tablet Take 5 mg by mouth Daily 03/19/2024 Active Start: 04-22-2023 take 1 tablet by maninder th once daily Amlodipine Active 1 TAB PO Daily April 22, 2023 1:00am [employer]: TAKE 1 TABLET BY MOUTH EVERY DAY; Note: Source Status: Taking; Refills: 4; Qty: 90 Tablet; Provider: Oren Ang ( ) take 1 tablet by maninder th once daily amLODIPine Besylate 5 MG TAKE [...] carbidopa 25 mg / levodopa 100 mg extended release oral tablet (20 sources) Aromatic Amino Acid Decarboxylation Inhibitor, Aromatic Amino Acid Start: 07-08-2024 carbidopa-levodopa C R (Sinemet CR) 25-100 MG ER tablet Indications: Parkinson's disease, unspecified whether dyskinesia present, unspecified whether manifestations fluctuate (CMS/HCC) TAKE 1 AND 1/2 TABLETS AT 7AM AND 11AM THEN 1 TABLET AT 3PM,7PM, AND 11PM. DO NOT CRUSH, CHEW, SPLIT 540 tablet 07/08/2024 Active Start: 06-16-2024 carbidopa-levo dopa (Sinemet) 25-100 MG tablet Indications: Parkinson's disease, unspecified whether dyskinesia present, unspecified whether manifestations fluctuate (CMS/HCC) TAKE 1 AND 1/2 TABLETS BY MOUTH AT 7AM, 11 AM, 3PM, AND 7PM. TAKE 1 TABLET AT 11PM EVERY DAY. 630 tablet 06/16/2024 Active Start: 12-11-2023 carbidopa-levo dopa CR (Sinemet [...] day Active carvedilol 25 mg oral tablet (5 sources) alpha-Adrenergic Savage, beta-Adrenergic Savage Start: 03-19-2024 take 1 tablet by mouth in the morning carvedilol (Coreg) 25 MG tablet Take 25 mg by mouth in the morning and 25 mg before bedtime. 03/19/2024 Active Start: 12-05-2018 take 25 mg by mouth twice neeru y Carvedilol Active 25 MG PO Twice daily December 05, 2018 12:00am citalopram 10 mg oral tablet (5 sources) Serotonin Reuptake Inhibitor Start: 03-19-2024 take 1 tablet by mouth once daily citalopram (CeleXA) 10 MG tablet Take 10 mg by mouth Daily 03/19/2024 Active Start: 12-05-2018 take 20 mg by mouth [...] 2018 12:00am levETIRAcetam 500 mg oral tablet (15 sources) Start: 02-13-2024 End: 05-14-2024 take 1 tablet by mouth in the morning levETIRAcetam (Keppra) 500 MG tablet Indications: Seizure (CMS/HCC) Take 1 tablet (500 mg) by mouth in the morning and 1 tablet (500 mg) before bedtime. Do all this for 60 doses. 60 tablet 04/14/2024 Active Start: 07-06-2023 take 1 tablet by [...] hrs Not-Taking/PRN lisinopril 40 mg oral tablet (7 sources) Angiotensin Converting Enzyme Inhibitor Start: 03-19-2024 take 1 tablet by mouth once daily lisinopril 40 MG tablet Take 40 mg by mouth Daily 03/19/2024 Active Start: 12-05-2018 End: 08-16-2023 take 1 tablet [...] BID Not-Taking/PRN rOPINIRole 0.25 mg oral tablet (6 sources) Nonergot Dopamine Agonist Start: 09-02-2023 take [...] as needed Orally every 4 hrs Active amitriptyline hydrochloride 25 mg oral tablet (2 [...] current use of drug therapy; Translations: [Other snf (current) drug therapy] Episodic Other connective tissue [...] Other hereditary and degenerative nervous system conditions (4 sources) Restless legs; Translations: [Restless legs syndrome] Onset: 07-16-2023 07-16-2023 Chronic Other injuries and conditions due to external causes (4 sources) History of fall; Translations: [History of falling] Onset: 09-13-2017 Episodic Other nervous system disorders (5 sources) Chronic pain syndrome; Translations: [CHRONIC PAIN SYNDROME] Onset: 10-23-2021 Chronic Other nervous system disorders (6 sources) Chronic pain; Translations: [Other chronic pain] [...] Translations: [Syncope and collapse] 12-05-2018 Episodic Unclassified (7 sources) Parkinson's disease; Translations: [Parkinson's disease] Onset: 07-16-2023 12-06-2018 Chronic Unclassified (4 sources) LOW BACK PAIN, UNSPECIFIED; Translations: [LOW BACK PAIN, UNSPECIFIED] Onset: 10-23-2021 Past or Other Problems Problem Classification Problem Date Documented Da te Episodic/Chronic Other nervous system disorders (4 sources) Sensory ataxia ; 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 [...] challengeon 09-02-2023 Albumin [Mass/Vol] 3.3 g/dL 3.4-5.0 [facility] ALP [Catalytic activity/Vol] 87 U/L 46-116 [facility] ALT [Catalytic activity/Vol] 7 U/L 14-59 [facility] AST [Catalytic activity/Vol] 16 U/L 15-37 [facility] Bilirubin [Mass/Vol] 0.5 mg/dL 0.2-1.0 [facility] Calcium [Mass/Vol] 9.0 mg/dL 8.5-10.1 [facility] Chloride [Moles/Vol] 102 mmol/L 98-107 [facility] CO2 [Moles/Vol] 29.2 mmol/L 21.0-32.0 [facility] Creatinine [Mass/Vol] 0.92 mg/dL 0.55-1.02 [facility] GFR/1.73 sq M.predicted MDRD (S/P/Bld) [Vol rate/Area] mL/min/{1.73_m2} >=60 [facility] Glucose [Mass/Vol] 99 mg/dL 74-106 [facility] Potassium [Moles/Vol] 5.0 mmol/L 3.5-5.1 [facility] Protein [Mass/Vol] 6.6 g/dL 6.4-8.2 [facility] Sodium [Moles/Vol] 138 mmol/L 136-145 [facility] TSH Qn 1.862 m[IU]/L 0.358-3.740 [facility] [...] [#/Vol] 3.27 10 6/uL 4.20-5.40 [facility] Serum or plasma albumin/glob ulin mass ratioon 09-02-2023 Albumin/Globulin [Mass ratio] 1.0 {ratio} [facility] Serum or plasma anion gap de terminationon 09-02-2023 Anion gap [Moles/Vol] 11.8 mmol/L [facility] MG MAMM SCREEN PRETTY W CADon 0 09-19-2021 MG MAMM SCREEN PRETTY W CAD Patient: SHERI MERCHANTAshley Mcknight Exam Date: 09/19/2021 : 1950 Gender:F Ordering : DR ASHIA LOTT M.D. Admission #: [id number] Family : SHAIKH Ria GRAHAM . Order #: [id number] CLICK HERE TO VIEW EXAM RADIOLOGY REPORT [...] above: Performed By: #### U RCX #### [facility] [address] [place] [address] Dr. Ravi Hebert UA RANDOM W/MICROSCOPICon BACTERIA NONE SEEN Normal NONE SEEN [facility] Comment on above: Performed By: #### U AMIC #### [facility] [address] [place] [address] Dr. Ravi Hebert Bilirubin Ql (U) Negative Normal NEGATIVE [facility] Comment on above: Performed By: #### U AMIC #### [facility] [address] [place] [address] Dr. Ravi Hebert CAST NONE SEEN Normal NONE SEEN [facility] Comment on above: Performed By: #### U AMIC #### [facility] [address] [place] [address] Dr. Ravi Hebert Clarity (U) CLEAR Normal CLEAR [facility] Comment on above: Performed By: #### U AMIC #### [facility] [address] [address] [address] Ravi Hebert Color (U) LT. YELLOW Normal YELLOW [facility] Comment on above: Performed By: #### U AMIC #### [facility] [address] [address] [address] Ravi Hebert Crystals LM Nom (Urine sed) NONE SEEN Normal NONE SEEN [facility] Comment on above: Performed By: #### U AMIC #### [facility] [address] [address] [address] Ravi Hebert Epithelial cells LM Ql (Urine sed) FEW Abnormal NONE SEEN /RARE [facility] Comment on above: Performed By: #### U AMIC #### [facility] [address] [place] [address] Dr. Ravi Hebert Glucose Ql (U) Negative Normal NEGATIVE [facility] Comment on above: Performed By: #### U AMIC #### [facility] [address] [address] [address] Ravi Hebert Hemoglobin Ql (U) Negative Normal NEGATIVE [facility] Comment on above: Performed By: #### U AMIC #### [facility] [address] [place] [address] Dr. Ravi Hebert Ketones Ql (U) Negative Normal NEGATIVE [facility] Comment on above: Performed By: #### U AMIC #### [facility] [address] [address] [address] Ravi Hebert LEUKOCYTES Negative Normal NEGATIVE [facility] Comment on above: Performed By: #### U AMIC #### [facility] [address] [address] [address] Ravi Hebert MUCOUS NONE SEEN Normal NONE SEEN [facility] Comment on above: Performed By: #### U AMIC #### [facility] [address] [place] [address] Dr. Ravi Hebert Nitrite Ql (U) Negative Normal NEGATIVE [facility] Comment on above: Performed By: #### U AMIC #### [facility] [address] [place] [address] Dr. Ravi Hebert pH (U) 6.0 [pH] Normal 5-9 [facility] Comment on above: Performed By: #### U AMIC #### [facility] [address] [place] [address] Dr. Ravi Hebert RBC NONE SEEN Abnormal 0-2 [facility] Comment on above: Performed By: #### U AMIC #### [facility] [address] [place] [address] Dr. Ravi Hbeert SPEC GRAVITY <=1.005 Abnormal 1.005-<=1.02 5 [facility] Comment on above: Performed By: #### U AMIC #### [facility] [address] [place] [address] Dr. Ravi Hebert UA PROTEIN Negative Normal NEGATIVE/ TRACE [facility] Comment on above: Performed By: #### U AMIC #### [facility] [address] [place] [address] Dr. Ravi Hebert Urobilinogen Qn (U) 0.2 {Naveen'U}/dL Normal 0.2 - 1.0 [facility] Comment on above: Performed By: #### U AMIC #### [facility] [address] [place] [address] Dr. Ravi Hebert WBC NONE SEEN Normal NONE SEEN [facility] Comment on above: Performed By: #### U AMIC #### [facility] [address] [place] [address] Dr. Ravi Hebert CBC AUTO DIFFon 09-08-2021 BASO # 0.0 103/ul Normal 0.0-0.1 [facility] Comment on above: Performed By: #### C BC #### [facility] [address] [place] [address] Dr. Ravi Hebert Basophils/100 WBC (Bld) 0.4 % Normal 0.2-2.0 [facility] Comment on above: Performed By: #### C BC #### [facility] [address] [place] [address] Dr. Ravi Hebert EO # 0.1 103/ul Normal 0.0-0.7 [facility] Comment on above: Performed By: #### C BC #### [facility] [address] [place] [address] Dr. Ravi Hebert Eosinophils/100 WBC (Bld) 0.8 % Critically low 0.9-7.0 [facility] Comment on above: Performed By: #### C BC #### [facility] [address] [place] [address] Dr. Ravi Hebert Erythrocyte distribution width (RBC) [Ratio] 11.8 % Normal 11.0-15.0 [facility] Comment on above: Performed By: #### C BC #### [facility] [address] [place] [address] Dr. Ravi Hebert Hematocrit (Bld) [Volume fraction] 32.8 % Critically low 36.0-48.0 [facility] Comment on above: Performed By: #### C BC #### [facility] [address] [place] [address] Dr. Ravi Heebrt Hemoglobin (Bld) [Mass/Vol] 10.8 g/dL Critically low 12.0-16.0 [facility] Comment on above: Performed By: #### C BC #### [facility] [address] [place] [address] Dr. Ravi Hebert IG # 0.03 10e3/ul Normal 0.00-0.03 [facility] Comment on above: Performed By: #### C BC #### [facility] [address] [place] [address] Dr. Ravi Hebert IG % 0.4 % Normal 0.0-0.5 [facility] Comment on above: Performed By: #### C BC #### [facility] [address] [place] [address] Dr. Ravi Hebert LYMPH # 0.7 103/ul Critically low 1.2-3.8 [facility] Comment on above: Performed By: #### C BC #### [facility] [address] [place] [address] Dr. Ravi Hebert Lymphocytes/100 WBC (Bld) 9.8 % Critically low 20.5-60.0 [facility] Comment on above: Performed By: #### C BC #### [facility] [address] [place] [address] Dr. Ravi Hebert MANUAL DIFF REQ NO Normal [facility] Comment on above: Performed By: #### C BC #### [facility] [address] [place] [address] Dr. Ravi Hebert MCH (RBC) [Entitic mass] 32.8 pg Normal 26.7-34.0 [facility] Comment on above: Performed By: #### C BC #### [facility] [address] [place] [address] Dr. Ravi Hebert MCHC (RBC) [Mass/Vol] 32.9 g/dL Normal 29.9-35.2 [facility] Comment on above: Performed By: #### C BC #### [facility] [address] [place] [address] Dr. Ravi Hebert MCV (RBC) [Entitic vol] 99.7 fL Critically high 81.0-99.0 [facility] Comment on above: Performed By: #### C BC #### [facility] [address] [place] [address] Dr. Ravi Hebert MONO # 0.4 103/ul Normal 0.3-0.8 [facility] Comment on above: Performed By: #### C BC #### [facility] [address] [place] [address] Dr. Ravi Hebert Monocytes/100 WBC (Bld) 6.0 % Normal 1.7-12.0 [facility] Comment on above: Performed By: #### C BC #### [facility] [address] [place] [address] Dr. Ravi Hebert NEUT # 6.0 103/ul Normal 1.4-6.5 [facility] Comment on above: Performed By: #### C BC #### [facility] [address] [place] [address] Dr. Ravi Hebert Neutrophils/100 WBC (Bld) 82.6 % Critically high 43.0-75.0 [facility] Comment on above: Performed By: #### C BC #### [facility] [address] [address] [address] Ravi Hebert Platelet mean volume (Bld) [Entitic vol] 9.6 fL Normal 9.5-13.5 [facility] Comment on above: Performed By: #### C BC #### [facility] [address] [place] [address] Dr. Ravi Hebert PLT 223 103/ul Normal 150-450 [facility] Comment on above: Performed By: #### C BC #### [facility] [address] [place] [address] Dr. Ravi Hebert RBC 3.29 106/ul Critically low 4.20-5.40 [facility] Comment on above: Performed By: #### C BC #### [facility] [address] [place] [address] Dr. Ravi Hebert WBC 7.2 103/ul Normal 4.0-11.0 [facility] Comment on above: Performed By: #### C BC #### [facility] [address] [place] [address] Dr. Ravi Hebert PROF 14(COMP METB)on 022 Albumin [Mass/Vol] 3.8 g/dL Normal 3.4-5.0 [facility] Comment on above: Performed By: #### C MP, TSH #### [facility] [address] [place] [address] Dr. Ravi Hebert Albumin/Globulin [Mass ratio] 1.2 {ratio} Normal [facility] Comment on above: Performed By: #### C MP, TSH #### [facility] [address] [place] [address] Dr. Ravi Hebert ALP [Catalytic activity/Vol] 69 U/L Normal 46-116 [facility] Comment on above: Performed By: #### C MP, TSH #### [facility] [address] [place] [address] Dr. Ravi Hebert ALT [Catalytic activity/Vol] 10 U/L Critically low 14-59 [facility] Comment on above: Performed By: #### C MP, TSH #### [facility] [address] [address] [address] Ravi Hebert Anion gap [Moles/Vol] 10.7 mmol/L Normal [facility] Comment on above: Performed By: #### C MP, TSH #### [facility] [address] [address] [address] Ravi Hebert AST [Catalytic activity/Vol] 22 U/L Normal 15-37 [facility] Comment on above: Performed By: #### C MP, TSH #### [facility] [address] [address] [address] Ravi Hebert Bilirubin [Mass/Vol] 0.5 mg/dL Normal 0.2-1.0 [facility] Comment on above: Performed By: #### C MP, TSH #### [facility] [address] [address] [address] Ravi Hebert Calcium [Mass/Vol] 8.8 mg/dL Normal 8.5-10.1 [facility] Comment on above: Performed By: #### C MP, TSH #### [facility] [address] [address] [address] Ravi Hebert Chloride [Moles/Vol] 102 mmol/L Normal 98-107 [facility] Comment on above: Performed By: #### C MP, TSH #### [facility] [address] [address] [address] Ravi Hebert CO2 [Moles/Vol] 29.6 mmol/L Normal 21.0-32.0 [facility] Comment on above: Performed By: #### C MP, TSH #### [facility] [address] [address] [address] Ravi Hebert Creatinine [Mass/Vol] 0.90 mg/dL Normal 0.55-1.02 [facility] Comment on above: Performed By: #### C MP, TSH #### [facility] [address] [address] [address] Ravi Hebert EGFR-AF TUVALUAN >60 Normal >=60 [facility] Comment on above: Performed By: #### C MP, TSH #### [facility] [address] [address] [address] Ravi Hebert EGFR-NON AF TUVALUAN >60 Normal >=60 [facility] Comment on above: Performed By: #### C MP, TSH #### [facility] [address] [address] [address] Ravi Hebert Globulin (S) [Mass/Vol] 3.1 g/dL Normal [facility] Comment on above: Performed By: #### C MP, TSH #### [facility] [address] [address] [address] Ravi Hebert Glucose [Mass/Vol] 94 mg/dL Normal 74-106 [facility] Comment on above: Performed By: #### C MP, TSH #### [facility] [address] [address] [address] Ravi Hebert Potassium [Moles/Vol] 4.3 mmol/L Normal 3.5-5.1 [facility] Comment on above: Performed By: #### C MP, TSH #### [facility] [address] [address] [address] Rvai Hebert Protein [Mass/Vol] 6.9 g/dL Normal 6.4-8.2 [facility] Comment on above: Performed By: #### C MP, TSH #### [facility] [address] [address] [address] Ravi Hebert Sodium [Moles/Vol] 138 mmol/L Normal 136-145 [facility] Comment on above: Performed By: #### C MP, TSH #### [facility] [address] [address] [address] Ravi Hebert Urea nitrogen [Mass/Vol] 34.0 mg/dL Critically high 7.0-18.0 [facility] Comment on above: Performed By: #### C MP, TSH #### [facility] [address] [address] [address] Ravi Hebert Urea nitrogen/Creatinin e [Mass ratio] 37.8 mg/mg Normal [facility] Comment on above: Performed By: #### C MP, TSH #### [facility] [address] [address] [address] Ravi Hebert TSHon 09-08-2021 TSH 1.350 uIU/mL Normal 0.358-3.740 [facility] Comment on above: Performed By: #### C MP, TSH #### [facility] [id number] Ravi Hebert PROGRESSon 06-25-2017 PROGRESS HNO ID: [id number] thor: Nicolas Campbellice: (none)Author Type: PhysicianType: Progress NotesFiled: 06/25/2017 4:47 PMNote Text:Martha WhalenOB: 1950[facility]Date last seen:PAST MEDICAL HISTORYDiagnosis Date- Constipation- [...] 3350 (MIRALAX, GLYCOLAX) 17 gram/dose powderrizatriptan (MAXALT BOTTOM TURNING LATHE TENDER) 10 mg disintegrating tabletNo current facility-administered medications [...] onychomycosis of toenail of left footThomas Roly Dominguez, DPM Normal [facility] Vital Signs Date Time Vital Sign Value Performing Clinician Facility 09-02-2023 14:55-0400 Body height 162.56 cm [facility] 09-02-2023 14:55-0400 Body mass index (BMI) [Ratio] 14.3 kg/m2 [facility] 09-02-2023 14:55-0400 Body weight 38 kg [facility] 09-02-2023 14:55-0400 Diastolic blood pressure 84 mm[Hg] [facility] 09-02-2023 14:55-0400 Heart rate 88 /min [facility] 09-02-2023 14:55-0400 Systolic blood pressure 138 mm[Hg] [facility] 08-19-2023 13:51-0400 Body height 162.56 cm [facility] 08-19-2023 13:51-0400 Body mass index (BMI) [Ratio] 14.6 kg/m2 [facility] 08-19-2023 13:51-0400 Body temperature 97.4 [degF] [facility] 08-19-2023 13:51-0400 Body weight 38.72 kg [facility] 08-19-2023 13:51-0400 Diastolic blood pressure 67 mm[Hg] [facility] 08-19-2023 13:51-0400 Heart rate 56 /min [facility] 08-19-2023 13:51-0400 Systolic blood pressure 134 mm[Hg] [facility] 02-15-2023 13:30-0500 Body height 162.56 cm Ashia Lott Other [facility] 02-15-2023 13:30-0500 Body mass index (BMI) [Ratio] 14.59 kg/m2 Ashia Lott Other [facility] 02-15-2023 13:30-0500 Body weight 38.56 kg Ashia Lott Other [facility] Other 02-15-2023 13:30-0500 Diastolic blood pressure 89 mm[Hg] Ashia Lott Other [facility] Other 02-15-2023 13:30-0500 Systolic blood pressure 148 mm[Hg] Ashia Oren Other [facility] Other Encounters Encounter Date Encounter Type Care Provider Facility Start: 07-16-2024 End: 07-16-2024 Bamboo flowsheet Juno Gillmor REJOINER Work Phone: [facility] Start: 07-16-2024 End: 07-16-2024 Bamboo flowsheet Juno Gillmor REJOINER Work Phone: [facility] Start: 07-16-2024 End: 07-16-2024 ambulatory JUNO GILLMOR Not Available Start: 05-13-2024 End: 05-13-2024 ambulatory JUNO GILLMOR Not Available Start: 05-13-2024 End: 05-13-2024 Bamboo flowsheet Juno Gillmor REJOINER Work Phone: [facility] [place] Start: 05-13-2024 End: 05-13-2024 Bamboo flowsheet Juno Gillmor REJOINER Work Phone: [facility] [place] Start: 04-14-2024 End: 04-14-2024 Refill Bren [place] DO Work Phone: [facility] Comment on above: Seizure (CMS/[facility]) Start: 03-18-2024 End: 03-18-2024 Refill Juno Gillmor REJOINER Work Phone: [facility] [place] Comment on above: Parkinson's disease, unspecified whether dyskinesia present, unspecified whether manifestations fluctuate (CMS/[facility]) Start: 09-02-2023 End: 09-02-2023 ambulatory [facility] Work Phone: Start: 09-02-2023 End: 09-02-2023 Patient encounter procedure [facility] Physician [facility] Work Phone: Start: 08-19-2023 End: 08-19-2023 ambulatory [facility] Work Phone: Start: 08-19-2023 End: 08-19-2023 Patient encounter procedure [facility] Work Phone: Start: 03-12-2023 End: 03-12-2023 ambulatory Ashia Lott Other [employer] Other Start: 03-12-2023 Telephone encounter Ashia Lott [facility] Start: 02-15-2023 End: 02-15-2023 ambulatory Ashia Lott Other [employer] Other Start: 02-15-2023 Office outpatient vi sit 15 minutes Ashia Lott [facility] Start: 06-21-2022 ambulatory NARENDRANMEGHANN LAKSHMIPATHY Facility:[facility]1 Start: 04-24-2022 End: 04-25-[address] LEROY DUQUE . Facility:[facility] Start: 2022 End: 01-19-[address] LEROY DUQUE . Facility:[facility] Start: 01-09-2022 Adult health examination Margo Lott Other [employer] Other Start: 10-19-2021 End: 10-20-[address] [...] Treatment Date Care Activity Detail Author Start: 11-09-2024 Influenza vaccination Influenz a Vaccine (Season Ended) [facility] Start: 05-25-2024 End: 05-25-2024 Patient encounter procedure 05/25/2024 1:40 PM EDT Office Visit [facility] [place] [address] [place] [id number] Juno Ames NP [address] [place], [place] [facility] [place] Start: 05-13-2024 End: 05-13-2024 Patient encounter procedure 05/13/2024 2:20 PM EST Office Visit [facility] [place] [address] [place] [phone] Juno Ames NP [address] [place], [place] Arrived [facility] [place] Comment on above: Arrived Start: 04-02-2024 End: 04-02-2024 Patient encounter procedure 04/02/2024 2:00 PM EST Office Visit [facility] [place] [address] [place] [id number] Juno Ames REJOINER [address] [place] [facility] [place] Start: 11-10-2023 Influenza vaccination Influenza Vacc ine (#1) [facility] Start: 06-27-2019 Pneumococcal Vaccine : 65+ Years (2 of 2 - PCV) Pneumococcal Vaccine: 65+ Years (2 of 2 - PCV) [facility] Comprehensive metabo lic 2000 panel - Serum or Plasma [facility] Immunizations Immunization Date Immunization Notes Care Provider Fa cility 03-13-2023 influenza virus vaccine, unspecified formulation Juno Ames REJOINER Work Phone: [facility] 12-20-2022 COVID-19 mRNA Bivale nt Booster (Moderna) [facility] 01-09-2022 influenza virus vaccine, split virus (incl. purified surface antigen) Ashia Lott Other [employer] [facility] Other 01-09-2022 influenza virus vaccine, unspecified formulation [facility] 01-17-2021 COVID-19 mRNA-1273 (Moderna) [facility] 06-01-2020 COVID-19 Vaccine Moderna - Documentation Purposes Only Ashia Lott Other [facility] 05-05-2020 COVID-19 Vaccine Moderna - Documentation Purposes Only Ashia Lott Other [facility] 01-07-2020 influenza virus vaccine, split virus (incl. purified surface antigen) Ashia Lott Other [facility] Other 01-07-2020 influenza virus vaccine, unspecified formulation [facility] 01-13-2019 influenza virus vaccine, split virus (incl. purified surface antigen) Ashia Lott Other [facility] Other 01-13-2019 influenza virus vaccine, unspecified formulation [facility] 12-05-2018 tetanus and diphther ia toxoids, adsorbed, preservative free, for adult use (5 Lf of tetanus toxoid and 2 Lf of diphtheria toxoid) [facility] 12-05-2018 tetanus toxoid, reduced diphtheria toxoid, and acellular pertussis vaccine, adsorbed [facility] 12-26-2017 influenza virus vaccine, split virus (incl. purified surface antigen) Ashia Lott Other [employer] [facility] Other 12-26-2017 influenza virus vaccine, unspecified formulation [facility] NEGATED: Highlighted row has not occurred!12-27-2020 influenza virus vaccine, split virus (incl. purified surface antigen) Ashia Lott Other [employer] Other Payers Date Payer Category Payer Medicare (Managed Care) LUISANA Huy [facility] [id number] 2024 Private Health Insurance AARP Ar mber [id number] 2024 Medicare [id number] 2013 Medicare MEDICARE [id number] 1959 Medicare [id number] 1959 Self-pay [id number] 1959 Unknown [id number] 1950 Unknown [id number] [id number] .593 1948 Unknown [id number] [id number] .593 1948 Unknown [id number] 2.16.840.1.908470.3.579.2 .593 1948 Unknown [id number] 2.16.840.1.573125.3.579.2 .593 1948 Unknown [id number] 2.16.840.1.231530.3.579.2 .593 1948 Unknown [id number] 2.16.840.1.254057.3.579.2 .593 1948 Unknown [id number] 2.16.840.1.433706.3.579.2 .593 1948 Unknown [id number] 2.16.840.1.839197.3.579.2 .593 1948 Unknown [id number] 2.16.840.1.014999.3.579.2 .593 1948 Unknown [id number] 2.16.840.1.423035.3.579.2 .1259 1948 Unknown [id number] 2.16.840.1.223694.3.579.2 .1259 Self-pay Self Pay [id number] Social History Date Type Detail Facility Unknown if ever smoked [facility] [employer] Other Start: 07-16-2023 Sex Assigned At N [facility] [employer] Other Start: 12-06-2018 End: 07-16-2023 Tobacco smoking status RIIS Never smoked tobacco (finding) [facility] Start: 1950 Sex Assigned At Female F [facility] Start: 07-16-2023 Tobacco use and exposure Smokeless tobacco non-user [facility] Start: 07-16-2023 Alcoholic beverage intake Lifetime non-drinker (finding) [facility] Start: 07-16-2023 History of Social function [facility] Start: 1950 Sex assigned at Not on file N [facility] Clinical Notes 07-20-2021 to 04-14-2024 Telephone Encounter [...] the next appt on 05/25/2024. Please advise. [facility] 04-14-2024 Miscellaneous Notes Formattin g of this note might be different from the original. Pharmacy requests refill of keppra. I know there has been some back and forth on compliance issues. Are we able to send the refill in order to get to the next appt on 05/25/2024. Please advise. documented in this encounter [facility] 03-18-2024 Telephone encounter Note Form atting of this note might be different from the original. Received a new rx request for Keppra. The pt has an appt scheduled for 04/02/2024. Per the last tele enc ND agreed to send the med up to March. Okay to send to get to f/u appt? Please advise. Tele enc dated 02/17/2024 [facility] 03-18-2024 Miscellaneous Notes Formattin g of this note might be different from the original. Received a new rx request for Keppra. The pt has an appt scheduled for 04/02/2024. Per the last tele enc ND agreed to send the med up to March. Okay to send to get to f/u appt? Please advise. Tele enc dated 02/17/2024 documented in this encounter [facility] 03-12-2023 Evaluation note Encounter Date Diagnosis Assessment Notes Mar, Lumbar degenerative disc disease (ICD-10 - M51.36) [facility] 12-08-2023 Evaluation note* Encounter Date Diagnosis Assessment Notes Treatment Notes Treatment Clinical Notes Feb, Pain, joint, shoulder, left (ICD-10 - M25.512) Agrees to ortho referral Requests Dr. Acosta [facility] Other 02-14-2023 NoteCONSULTATION CONSULTATION DATE: 04/24/2022 CHIEF [...] the patient takes citalopram 30 mg daily, [place] 5/325 b.i.d., clonidine 0.1 mg b.i.d. Celebrex [...] atrophy. PLAN: We will refill the patient's [place] 5/325 b.i.d. X-ray of her lumbar spine and pelvis has been ordered. The patient also has been given a prescription for Ensure HN and/or Boost HN two per day. Education was done with regards to possibly adding glucosamine chondroitin sulfate to improve the discomfort in her hips. The patient and her daughter understand and would like to proceed. CC: Ashia Lott M.D.[id number] NoteCONSULTATION CONSULTATION DATE: 2022 HISTORY OF PRESENT ILLNESS: This is a 72-year-old female accompanied by her sister to the clinic for a three month follow up for her chronic lower back pain and hip pain. Last procedure the patient had was radiofrequency ablation of her lumbar region in 2018. She is managed medically at this time for pain with [place] 5/325 b.i.d. Other medications include citalopram, clonidine, [...] otherwise indicated. Patient agrees with this plan.[facility] 10-19-2021 NoteCONSULTATION CONSULTATION DATE: 10/19/2021 HISTORY [...] Ensure supplements daily as well. Standing, walking, clinical neuropsychologist hours and physical activity aggravate her pain. She does use heat to her lower back, which is beneficial. Medications include [place] 5/325 b.i.d., clonidine 0.1 b.i.d., citalopram, Keppra [...] disc disease. PLAN: We will refill the [place] at 5/325 b.i.d. Patient is taking anti-inflammatory [...] plan of care and all questions answered.[facility] [id number] NoteCONSULTATION CONSULTATION DATE: 07/20/2021 This is a [...] or new motor changes. Current medications include [place] 5/325 b.i.d., clonidine, multivitamin, Sinemet, Keppra and [...] PLAN: We will continue to maintain her [place] 5/325 b.i.d. I have discussed with the patient and her sister at prior office visits regarding curcumin supplement named Enhansa that is produced by [facility] pharmacy. That information was shared once again with the patient and the sister. Recommended doses were discussed. The patient and sister agreed with the plan of care and we will see her in three months' time unless otherwise indicated. [facility] Signed and Approved by: CINDI ELLIOTT . 07/27/2021 [facility]09[facility]00[facility] Diagnosis Onset Date Resolution Status Fatigue acute Hypertension acute Hypokalemia acute Hyponatremia acute Nausea acute [facility] Work Phone: Evaluation note* Diagnosis Parkinson's disease, [...] RED HIP X2 AND COLLARBONE (RIGHT) THE [facility] JUNE 2013 Hospitalization History LOW SODIUM ADMITTED TO [facility] APR 2017 [facility] Other Summary Purpose Family History No Family [...] Reason *FU 03/06 Dr. Kyree barnes at [place] - shoulder. Diagnosis 1 Pain, joint, shoulde r, left (M25.512) Referral Organization [facility] brit Referring Provider First Name Ashia Referring Provider Last Name Oren Referring Provider Specialty [facility] Referred Organization [facility] Referred Provider Andrea Acosta Referred Address [address] [place], [place],[address] Referred Provider Specialty Orthopaedic Surgery Referral Priority Routine General Notes Shyla Cade 03:35:22 PM >received today, attachments made, notes locked, referral faxed Shyla Cade 02/25/2023 11:25:19 AM >faxed first attempt letter Clinical Notes p: [id number] f: [id number] Chief Complaint and Reason for Visit Chief Complaint chills, nausea Reason for Visit Fatigue Hypertension Hypokalemia Hyponatremia Nausea Chief Complaint chills, nausea fell, right rib pain Reason for Visit Fatigue Hypertension Hypokalemia Hyponatremia Nausea Additional Source Comments INFORMATION SOURCE (unrecogn ized section and content) DATE CREATED AUTHOR 09/12/2017 [facility] DATE CREATED AUTHOR AUTHOR'S ORGANIZ ATION 05/15/2019 [facility] DATE CREATED AUTHOR AUTHOR'S ORGANIZ ATION 06/10/2022 [facility] [place] [facility] DATE CREATED AUTHOR AUTHOR'S ORGANIZ ATION 07/18/2024 [facility] dical Specialists EPIC REASON FOR VISIT (unrecogniz [...] September 02, 2023 End: September 02, 2023 Land Measurer Relationship Specialty Start Date End Date Juno Ames NP [address] Nurse Practitioner Neurology 01/24/24 Bren Hansen DO [address] [place] [id number] Referring Physician Neurology 01/24/24 Land Measurer Relationship Specialty Start Date End Date Juno Ames NP [address] [address] [place], [place] Nurse Practitioner Neurology 01/24/24 Bren Hansen DO [address] [place] [address] Referring Physician Neurology 01/24/24 Ashia Lott MD [address] [facility] [place] [phone] Referring Physician Family Medicine 05/13/24 Land Measurer Relationship Specialty Start Date End Date Juno Ames NP [address] Nurse Practitioner Neurology 01/24/24 Bren Hansen DO [address] [place] [address] Referring Physician Neurology 01/24/24 Ashia Lott MD [address] [place] [address] Referring Physician Family Medicine 05/13/24 Goals (unrecognized [...] BE BASED ON THE PRIMARY CLINICAL RECORDS. [employer] provides no warranty or guarantee of the accuracy or completeness of information in this document.
[2024-07-20 10:03] VITALS: BP 128/80; PULSE 62; TEMP 36.2; O2SAT 92
[2024-07-20 10:46] VITALS: PULSE 88; O2SAT 98
[2024-07-20 10:47] VITALS: BP 120/69; BP 130/74; PULSE 88; O2SAT 98
--- NOTE | 2024-07-20 10:47 | W.PM.PROCNOT ---
Date of procedure: 07/20/24 Pre-op diagnosis: Pain due to right sacroiliitis Post-op diagnosis: same as pre-op Procedure: Procedure: Right sacroiliac joint injection Medications: Bupivacaine 0.25% 4cc, depomedrol 40mg After informed consent was obtained, the patient was brought to the medical procedure unit and placed in the prone position, when a timeout was completed verifying correct patient, procedure, site, positioning, implant, and/or special equipment.? The skin overlying the area was prepped and draped in standard sterile fashion using alcohol.? A 25-gauge needle was inserted towards the right sacroiliac joint under direct fluoroscopic imaging.? Needle tip was advanced until the joint was encountered.? We instilled a total of 2 mL of solution.? Postoperatively needles were removed.? The patient tolerated the procedure well without complication.? The patient reported reduction in pain symptoms postoperatively. Anesthesia: Local Surgeon: Carlota Huertas Pathology: none sent Condition: stable Disposition: no change
[2024-07-20] MEDS: BUPIVACAINE HCL 0.25% PF 25 MG/10 ML VIAL 2 ML INJ (10:48)
[2024-07-20] MEDS: LIDOCAINE HCL 2% 400 MG/20 ML MDV INJ (10:49)
[2024-07-20] MEDS: METHYLPREDNISOLONE ACETATE 40 MG/ML VIAL INJ (10:49)
[2024-07-20] MEDS: IOHEXOL 240 MG/ML - 10 ML VIAL 12 MG INJ (10:49)
== END 2024-07-20 10:53 | disposition home or self-care (01) ==
PROVIDERS: PCP Family Medicine; Visit Provider Anesthesiology
DX: M46.1 Sacroiliitis, not elsewhere classified (principal); M53.3 Sacrococcygeal disorders, not elsewhere classified
CPT/HCPCS: 27096; J0665; J1010; Q9966

== ENCOUNTER 2024-12-07 09:56 | Emergency (ER) | payer MEDICARE, SELFPAY ==
--- OUTSIDE RECORDS SUMMARY | 2024-07-20 | XMS_ITS ---
Author Name Auto Generated Organization OHIP Care Team Providers Care Professor Of Nursing Name Role Phone JUNO RICHARDSON Attending Unavailable JUNO RICHARDSON Attending Unavailable Aleksandar NELSON, Carlota Weaver Attending Unavailable Sury NELSON, Ashia Dietz Primary Care Unava ilable PROBLEMS No Problem Records Found PROCEDURES No Procedure Records Found RESULTS No Result Records Found ALLERGIES No Allergies Records Found ENCOUNTERS ADMIT/DISCHARGE ACCOUNT NUMBER ADMITTING ENCOUNTER CLASS LOCATION SOURCE 07/20/2024/ 5 [id number] Ambulatory [facility] ding:PM [facility] 07/16/2024/ 5 [id number] Ambulatory Building:[facility] 05/13/2024/ 5 [id number] Ambulatory Building:[facility] PAYERS ENCOUNTER GUARANTOR PAYER SUBSCRIBER SOURCE 07/20/2024 Sondra WhalenOB: [address] [address] Primary Insurance:AnthemPolicy Number: Effective Date:[id number] Name:[id number], [place] [address]LK: Sondra WhalenOB: [id number] [address] [address] [facility] 07/20/2024 Secondary Insurance:AARPPolicy Number: Effective Date:2661-07-74Emrd Name:COMP [address], [place] [address]IB: Sondra Weiss MoreyDOB: [id number] [facility] [address] [address] [facility] 07/16/2024 SONDRA Weiss MOREYDOB: [facility] [address] [place] [address]Dqa: (HP) Primary Insurance:AARPPolicy Number: [id number] Date:2024-03-11 SONDRA WHALENOB: [id number] [address] [place] [address] [facility] 07/16/2024 Secondary Insurance:ANTHEM MEDICARE ADVANTAGEPolicy Number: [id number] Date:2024-03-11 SONDRA Weiss MOREYDOB: [id number] [address] [address] [facility] 05/13/2024 SONDRA WHALENOB: [address] [place] [address]Ajw: (HP) Primary Insurance:MEDICAREPoli cy Number: [id number] Date:[id number] Name:Medicare SONDRA WHALENOB: [id number] [address] [address] [facility] 05/13/2024 Secondary Insurance:AARPPolicy Number: [id number] Date:2024-03-11 SONDRA Weiss MOREYDOB: [id number] [address] [place] [address] [facility]
[2024-12-07 10:06] VITALS: BP 85/64
[2024-12-07 10:10] VITALS: PULSE 76
[2024-12-07 10:13] VITALS: BP 96/66; PULSE 75
[2024-12-07 10:20] VITALS: PULSE 75
[2024-12-07 10:30] VITALS: PULSE 74
--- NOTE | 2024-12-07 10:33 | ECG_ITS ---
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
--- NOTE | 2024-12-07 10:33 | XR_ITS ---
The [address] [address] Patient Name: SONDRA MERCHANT MRN: [id number] date: 1950 Sex: F Assigned Patient Location: ER Current Patient Location: ED.MAIN Accession/Order Number: [id number] Exam Date: 12/07/2024 10:45 Report Date: 12/07/2024 11:12 At the request of: CONNIE VYAS DO Procedure: XR chest 1V PORTABLE AP ERECT CHEST 1047 hours CLINICAL HISTORY: Weakness and hypotension. COMPARISON: 05/27/2024 There is slight elevation of the left hemidiaphragm with underlying air-filled viscus. There is minor adjacent atelectasis at the left base. There is no other consolidation, sizable effusion or pneumothorax. The heart is borderline enlarged. The hilar and mediastinal contours are similar. There are degenerative changes at the shoulders and possible chronic dislocation. There is also chronic deformity at the distal right clavicle. XR/XR chest 1V IMPRESSION: NO ACUTE FINDINGS Impression dictated by: Екатерина Myles M.D. 12/07/2024 11:12 AM Dictation Location: [place] [address] Electronically authenticated by: [id number] Y Date: 12/07/2024 11:12
--- OUTSIDE RECORDS SUMMARY | 2024-12-07 10:56 | XMS_ITS | Encounter Summary ---
Author Organization [employer] Address [id number] [address] [place] [address] Care Team Providers Care Continuous Conveyor Screen Drier Name Role Phone Ashia Ga MD Primary Care Provider [phone] Reason for Visit * Reason Comments Med Refill Encounter Details Date Type Department Care Team (Late st Contact Info) Description 08/02/2018 Refill [facility] [address] [place] [phone] Lion Mclaughlin MD [address] [place] [address] [address] [place] [address] Dyskinesia of esophagus Social History Tobacco Use Types Packs/Day Years Used Date Smoking Tobacco: Never Smokeless Tobacco: Never Childcare Answer Date Recorded Childcare Unknown 06/04/2018 Employment Answer Date Recorded Employment Unknown 06/04/2018 Comments Unknown Sex and Gender Information Value Date Recorded Sex Assigned at Not on file Legal Sex Female 11:45 AM EDT Gender Identity Not on file Sexual Orientation Not on file documented as of this encounter Miscellaneous Notes * Telephone Encounter - Lion Mclaughlin MD - 08/02/2018 8:41 AM EDT Patient was asked to stop amantadine based on suspicion that she had side effects because of worsening renal function. If she has stopped the amantadine, then we d/c the prescription at the pharmacy. * Telephone Encounter - PINEDA Waller - 08/02/2018 8:41 AM EDT Conveyor Mechanic attempted to contact patient in regards to the information below. No answer, I left a message for her to give our office a call back. If she calls back please confirm if the patient stopped the amantadine then route to me. Thank you. PINEDA Waller 08/05/18 1348 * Telephone Encounter - PINEDA Waller - 08/02/2018 8:41 AM EDT Conveyor Mechanic spoke with patient and she isn't taking Amantadine. Called and informed pharmacy and marked as not taking in the patients chart. Thank you. PINEDA Waller 08/06/18 0942 documented in this encounter Plan of Treatment Not on file documented as of this encounter Visit Diagnoses Diagnosis Dyskinesia of esophagus documented in this encounter Care Teams Continuous Conveyor Screen Drier Relationship Specialty Start Date End Date Ashia Ga MD [address] [place] [address] PCP - General 07/17/18 documented as of this encounter
--- OUTSIDE RECORDS SUMMARY | 2024-12-07 10:57 | XMS_ITS | Clinical Summary ---
Author Organization [employer] Address [facility] [place] [facility] [id number] [address] [place] [address] Care Team Providers Care Physical Security Specialist Name Role Phone Ashia Ga MD Primary Care Provider [phone] Allergies Active Allergy Reactions Criticality Noted Date Comments House Dust Mite 11/05/2018 Penicillins 09/09/2017 Medications levETIRAcetam (KEPPRA) 500 mg tablet Take 1 tablet (500 mg total) by mouth 2 (two) times a day. 180 tablet 3 07/18/19 18 Active amLODIPine (NORVASC) 2.5 mg tablet Take 2.5 mg by mouth daily. Active atorvastatin (LIPITOR) 10 mg tablet Take 10 mg by mouth daily. Active azelastine (ASTELIN) 137 mcg (0.1 %) nasal spray Administer 1 spray into each nostril. Use in each nostril as directed Active citalopram (CeleXA) 20 mg tablet Take 20 mg by mouth daily. Active clonazePAM (KlonoPIN) 0.5 mg tablet Take 0.5 mg by mouth nightly as needed for seizures. Active entacapone (COMTAN) 200 mg tablet Take 200 mg by mouth 4 (four) times a day. Active lisinopril (PRINIVIL,ZESTRIL) 40 mg tablet Take 40 mg by mouth daily. Active metoprolol tartrate (LOPRESSOR) 100 mg tablet Take 100 mg by mouth 2 (two) times a day. Active multivitamin (THERAGRAN) tablet Take 1 tablet by mouth daily. Active rizatriptan PROPERTY TECHNICIAN (MAXALT-PROPERTY TECHNICIAN) 10 mg disintegrating tablet Dissolve 10 mg on tongue once as needed for migraine. May repeat in 2 hours if unresolved. Do not exceed 30 mg in 24 hours. Active acetaminophen (TYLENOL) 500 mg tablet Take 500 mg by mouth as needed for pain. Active baclofen (LIORESAL) 10 mg tablet Take 10 mg by mouth as needed for muscle spasms. Active carvedilol (COREG) 25 mg tablet Take 25 mg by mouth 2 (two) times a day with meals. Active dicyclomine (BENTYL) 20 mg tablet Take 20 mg by mouth as needed. Active polycarbophil (FIBERCON) 625 mg tablet Take 625 mg by mouth daily. Active hydroCHLOROthiazid e (HYDRODIURIL) 25 mg tablet Take 25 mg by mouth daily. Active hyoscyamine sulfate (LEVBID ORAL) Take 0.375 mg by mouth daily. Active lidocaine (XYLOCAINE) 5 % ointment Apply 1 application topically as needed for pain. Active linaclotide (LINZESS) 72 mcg capsule Take 72 mcg by mouth every morning before breakfast. Active magnesium 250 mg tablet Take 500 mg by mouth daily. Active mirtazapine (REMERON) 15 mg tablet Take 15 mg by mouth nightly. Active omeprazole 20 mg tablet,disintegrat , delay rel Take 20 mg by mouth daily. Active alum-mag hydroxide-simeth (MAALOX) 200-200-20 mg/5 mL suspension Take 30 mL by mouth every 4 (four) hours as needed for heartburn. Active senna (SENOKOT) 8.6 mg tablet Take 8.6 mg by mouth daily. Active tiZANidine (ZANAFLEX) 2 mg tablet Take 2 mg by mouth 3 (three) times a day. Active amitriptyline (ELAVIL) 25 mg tablet Take 25 mg by mouth nightly. Active hyoscyamine (ANASPAZ,LEVSIN) 0.125 mg tablet Take 0.125 mg by mouth every 3 (three) hours as needed for cramping. Active pantoprazole (PROTONIX) 40 mg EC tablet Take 40 mg by mouth 2 (two) times a day. Active oxyCODONE-acetamin ophen (PERCOCET) 5-325 mg per tablet Take 1 tablet by mouth every 4 (four) hours as needed for pain. Active raNITIdine (ZANTAC) 150 mg tablet Take 150 mg by mouth nightly. Active amantadine (SYMMETREL) 100 mg capsuleIndications :Dyskinesia of esophagus Start taking 100mg at 7am for 2 wks. If improved, may add noon dose 60 capsule 5 10/09/19 18 Active Additional Information Patient not taking.Reported on 08/06/2018 cloNIDine (CATAPRES) 0.1 mg tablet Take 0.1 mg by mouth 2 (two) times a day. Active HYDROcodone-acetam inophen (NORCO) 5-325 mg per tablet Take 1 tablet by mouth every 6 (six) hours as needed for pain. Active cyanocobalamin, vitamin B-12, (VITAMIN B-12 ORAL) Take 1 tablet by mouth daily. Active CALCIUM ORAL Take 1 tablet by mouth daily. Active prasterone, DHEA, (DHEA ORAL) Take 1 tablet by mouth daily. Active ferrous sulfate (IRON ORAL) Take 1 tablet by mouth daily. Active MELATONIN ORAL Take 1 tablet by mouth daily. Active citalopram (CeleXA) 10 mg tabletIndications: [place]'s [place] TAKE 1 TABLET BY MOUTH DAILY. TAKE ALONG WITH 20 MG TAB. TOTAL DAILY DOSE OF 30 MG. 90 tablet 3 10/21/19 21 Active citalopram (CeleXA) 20 mg tabletIndications: [place]'s [place] TAKE 1 TABLET BY MOUTH DAILY. TAKE ALONG WITH 10 MG TABLET. TOTAL DAILY DOSE OF 30 MG. 90 tablet 3 10/21/19 21 Active carbidopa-levodopa (SINEMET CR) 25-100 mg per CR tabletIndications: Parkinson's disease [place] TAKE 1 & 1/2 TABLET BY MOUTH AT 7AM AND 11AM, THEN 1 TABLET AT 3PM, 7PM, AND 11PM 540 tablet 3 01/25/20 21 Active ondansetron (ZOFRAN) 4 mg tabletIndications: Nausea TAKE 1 TABLET BY MOUTH 3 TIMES A DAY NEEDED FOR NAUSEA AND STOMACH CRAMPING 270 tablet 3 01/25/20 21 Active NEUPRO 2 mg/24 hourIndications:Pa rkinson's disease ([facility] 1 PATCH ON THE SKIN DAILY. ROTATE APPLICATION SITES DAILY. 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 Unsteady gait 10/10/2017 Family History Medical History Relation Name Comments Cancer Father Heart disease Father Hypertension Father Relation Name Status Comments Father Social History Tobacco Use Types Packs/Day Years Used Date Smoking Tobacco: Never Smokeless Tobacco: Never Childcare Answer Date Recorded Childcare Unknown 08/14/2018 Employment Answer Date Recorded Employment Unknown 08/14/2018 Purpose - Life Answer Date Recorded Purpose and direction in life Unknown Comments Unknown Sex and Gender Information Value Date Recorded Sex Assigned at Not on file Legal Sex Female 11:45 AM EDT Gender Identity Not on file Sexual Orientation Not on file Last Filed Vital Signs Vital Sign Reading Time Taken Comments Blood Pressure 171/97 11/05/2018 2:18 PM EDT Pulse 78 11/05/2018 2:18 PM EDT Temperature - - Respiratory Rate - - Oxygen Saturation - - Inhaled Oxygen Concentration - - Weight 50.8 kg (112 lb) 11/05/2018 2:18 PM EDT Height 163.8 cm (5' 4.5 ) 11/05/2018 2:18 PM EDT Body Mass Index 18.93 11/05/2018 2:18 PM EDT Plan of Treatment Health Maintenance Due Date Last Done Comments Depression Screening 1962 Tobacco Screening 1962 DTaP,Tdap and Td Vaccines (1 - Tdap) 01/17/1967 Zoster (Shingles) Vaccine (1 of 2) 01/17/1998 Fall Risk Screening 01/17/2013 Influenza Vaccine 11/09/2024 01/07/2020, , 01/09/2017 Medical Devices Not on file Insurance [facility] MEDICARE Care Teams Physical Security Specialist Relationship Specialty Start Date End Date Ashia Ga MD [address] [place] [id number] PCP - General 07/17/18
--- OUTSIDE RECORDS SUMMARY | 2024-12-07 10:57 | XMS_ITS | Encounter Summary ---
Author Organization [employer] Address [facility] [place]-[id number] [address] [place] [address] Care Team Providers Care Drafting Layout Man Name Role Phone Ashia Ga MD Primary Care Provider [phone] Reason for Visit * Reason Comments Med Refill Encounter Details Date Type Department Care Team (Late st Contact Info) Description 01/24/2022 Refill [facility] [address] [place] [phone] Lion Mclaughlin MD [address] [place] [address] [address] [place] [phone] Parkinson's disease ([facility]) Social History Tobacco Use Types Packs/Day Years [...] on file documented as of this encounter Plan of Treatment Not on file documented as of this encounter Visit Diagnoses Diagnosis Parkinson's disease ([facility]) Paralysis agitans documented in this encounter Care Teams Drafting Layout Man Relationship Specialty Start Date End Date Ashia Ga MD [address] [place] [address] PCP - General 07/17/18 documented as of this encounter
--- OUTSIDE RECORDS SUMMARY | 2024-12-07 10:57 | XMS_ITS | Encounter Summary ---
Author Organization [employer] Address [facility] [id number] [address] [place] [address] Care Team Providers Care Validation Leader Name Role Phone Ashia Ga MD Primary Care Provider [phone] Reason for Visit * Reason Comments Med Refill Encounter Details Date Type Department Care Team (Late st Contact Info) Description 01/24/2022 Refill [facility] [address] [place] [phone] Lion Mclaughlin MD [address] [place] [address] [address] [place] [phone] Parkinson's disease ([facility] [place] Social History Tobacco Use Types Packs/Day Years [...] this encounter Visit Diagnoses Diagnosis Parkinson's disease ([facility]) Paralysis agitans documented in this encounter Care Teams Validation Leader Relationship Specialty Start Date End Date Ashia Ga MD [address] [place] [address] PCP - General 07/17/18 documented as of this encounter
--- OUTSIDE RECORDS SUMMARY | 2024-12-07 10:57 | XMS_ITS | Encounter Summary ---
Author Organization [employer] Address [facility] [place]-[id number] [address] [place] [address] Care Team Providers Care Director Critical Care Name Role Phone Ashia Ga MD Primary Care Provider [phone] Reason for Visit * Reason Comments Med Refill Encounter Details Date Type Department Care Team (Late st Contact Info) Description 11/22/2022 Refill [facility] [address] [place] [phone] Lion Mclaughlin MD [address] [place] [address] [address] [place] [phone] Parkinson's disease ([facility] Social History Tobacco Use Types Packs/Day Years [...] Telephone Encounter - Lion Mclaughlin MD - 11/22/2022 9:27 AM EDT Patient has not been seen since 2019. Prescription refill should be done through PCP's office or a local neurologist, if they are seeing someone closer to home. * Telephone Encounter - Kylie France - 11/22/2022 9:27 AM EDT Called and left a message for the patient that the provider Dr. Mclaughlin recommends that she get her Carbidopa-levodopa CR 25-100 mg, Carbidopa-levodopa 25-100 mg should be prescribed by her PCP or a neurologist closer to her home. * Telephone Encounter - Erlindamarily Moise - 11/22/2022 9:27 AM EDT Patients sister called our office in regards to the refill. Patients sister states the request was sent in error by the pharmacy. Patients sister states the patient is seeing a neurologist at [facility]. documented in this encounter Plan of Treatment Not on file documented as of this encounter Visit Diagnoses Diagnosis Parkinson's disease ([facility]) Paralysis agitans documented in this encounter Care Teams Director Critical Care Relationship Specialty Start Date End Date Ashia Ga MD [address] [place] [id number] PCP - General 07/17/18 documented as of this encounter
--- OUTSIDE RECORDS SUMMARY | 2024-12-07 10:57 | XMS_ITS | Encounter Summary ---
Author Organization [employer] Address [facility] [id number] [address] [place] [address] Care Team Providers Care Housecleaner Name Role Phone Ashia Ga MD Primary Care Provider [phone] Reason for Visit * Reason Comments Med Refill Encounter Details Date Type Department Care Team (Late st Contact Info) Description 02/12/2022 Refill [facility] [address] [place] [phone] Lion Mclaughlin MD [address] [place] [address] [address] [place] [phone] Parkinson's disease ([facility] Social History Tobacco Use Types Packs/Day Years [...] Telephone Encounter - Lion Mclaughlin MD - 02/12/2022 10:00 AM EST This patient has not been following up with us. We have to have some sort of follow-up scheduled before we can continue to prescribe the medications. * Telephone Encounter - Melania Aguilar RN - 02/12/2022 10:00 AM EST Called the patient and told her to call back. If she calls back Dr Mclaughlin needs to make and appointment in order to get her script filled.once appointment is made we can fill the script. * Telephone Encounter - PINEDA Oleary - 02/12/2022 10:00 AM EST Patient has been scheduled. Patient wants to do a video. Patient states she will bye a computer so that she can do so. Patient has been scheduled for regular appt. in clinic just in case. Patient will call back to change to video once computer is bought. Also needs link for [employer]. [phone] documented in this encounter Plan of Treatment Not on file documented as of this encounter Visit Diagnoses Diagnosis Parkinson's disease ([facility]) Paralysis agitans documented in this encounter Care Teams Housecleaner Relationship Specialty Start Date End Date Ashia Ga MD [address] [place] [address] PCP - General 07/17/18 documented as of this encounter
--- OUTSIDE RECORDS SUMMARY | 2024-12-07 10:57 | XMS_ITS | Continuity of Care Document ---
Author Organization [facility] Address [address] [place] [address] Insurance Providers Payer Plan Claims Address Claims Phone Policy Number Group Number Relation Employer Guarantor Name Guarantor Guarantor Address Guarantor Phone BJ[employer] Wray [employer] [address], [place] [address] tel:[phone] Henrik Weiss Mechelle [address] [place] [id number] Medic are [address] [address], [place] [address] tel:[phone] [id number] Henrik Weiss Mechelle [address] [place] [address] UNITRoly Wray [employer] [address] [address], [place] [address] tel:[phone] [id number] Self Martha Min [address] [place] [id number] Problems Condition ICD9 code ICD10 code SNOMED code Start Date End Date S tatus Rhabdomyolysis M62.82 05/25/2024 Active Parkinson's disease with dyskinesia, with fluctuations G20.B2 05/25/2024 Active Dehydration E86.0 05/25/2024 Active Acute kidney failure, unspecified N17.9 05/25/2024 Active Unspecified severe protein-calorie malnutrition E43 05/25/2024 Active Other seizures G40.89 05/25/2024 Active Essential (primary) hypertension I10 05/25/2024 Active Spondylosis without myelopathy or radiculopathy, lumbar region M47.816 05/25/2024 Active Spinal stenosis, lumbar region with neurogenic claudication M48.062 05/25/2024 Active Tremor, unspecified R25.1 05/25/2024 A ctive Repeated falls R29.6 05/25/2024 Active Anxiety disorder, unspecified F41.9 05/26/2024 Active Adult failure to thrive R62.7 05/26/2024 Active Difficulty in walking, not elsewhere classified R26.2 05/26/2024 Active Muscle weakness (generalized) M62.81 03/10/2023 Active Dysphagia, oropharyngeal phase R13.12 05/25/2024 Active Cognitive communication deficit R41.841 05/25/2024 Active Limitation of activities due to disability Z73.6 05/28/2024 Active Primary osteoarthritis, 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 07/06/2024 Active Primary osteoarthritis, left shoulder M19.012 07/06/2024 Active Results Test Value / Unit Interpretation Reference Ran ge Tuberculosis reaction wheal[ 58526-2] Tuberculosis reaction wheal [69767-2] 0 mm NEG Tuberculosis reaction wheal[ 50887-1] Tuberculosis reaction wheal [68582-8] See note TB test Tuberculosis reaction wheal[ 94733-8] Tuberculosis reaction wheal [20974-2] 0 mm NEG Allergies, adverse reactions, alerts Substance Reaction Date Status Type No allergies have been recorded Non Drug Penicillins (PCN) Hives (Moderate) 05/26/2024 N on Drug Pneumovax-23 Swelling 06/10/2024 Non Drug Immunizations Vaccine Route Date Status COVID-19 Vaccine Unassigned Route of Administration Completed COVID-19 Vaccine Unassigned Route of Administration Completed COVID-19 Vaccine Unassigned Route of Administration Completed COVID-19 Vaccine Unassigned Route of Administration Completed Tetanus Vaccine Unassigned Route of Administration Completed Medications Medication Instructions Route Dosage Frequency Start Date Stop Date Indications Status acetaminophen 500 mg tablet (acetaminophen ) 1, 000 mg, oral, Three Times A Day - PRN oral 1.0 8.0 h 2024 Rhabdomyolysis Active carbidopa-levo dopa 25-100 mg tablet (carbidopa-lev odopa) one tablet, oral, Once A Day oral 1.0 1.0 d 05/27 Parkinson's disease with dyskinesia, with fluctuations Active citalopram 10 mg tablet (citalopram) 10 mg, oral, Once A Day oral 1.0 1.0 d 2024 Anxiety disorder, unspecified Active Coreg (carvedilol) 25 mg tablet (Coreg (carvedilol)) 25 mg, oral, Twice A Day oral 1.0 12.0 h 05/27 Essential (primary) hypertension Active Fiber (calcium polycarbophil) (calcium polycarbophil) 625 mg tablet (Fiber (calcium polycarbophil) (calcium polycarbophil) ) 1, 250 mg, oral, Once A Day oral 1.0 1.0 d 2024 Adult failure to thrive Active hydrocodone-ac etaminophen 7.5-325 mg tablet (hydrocodone-a cetaminophen) one tablet, oral, Every 8 Hours - PRN oral 1.0 8.0 h 05/27 Rhabdomyolysis Active Keppra (levetiracetam ) 500 mg tablet (Keppra (levetiracetam )) 500 mg, oral, Every 12 Hours oral 1.0 12.0 h 2024 Other seizures Active lisinopril 20 mg tablet (lisinopril) 20 mg, oral, Once A Day oral 1.0 1.0 d 2024 Essential (primary) hypertension Active lorazepam 0.5 mg tablet (lorazepam) 0.5 mg, oral, Twice A Day oral 1.0 12.0 h 05/27 Anxiety disorder, unspecified Active magnesium oxide 400 mg (241.3 mg magnesium) tablet (magnesium oxide) 400 mg, oral, Twice A Day oral 1.0 12.0 h 2024 Anxiety disorder, unspecified Active naloxone 4 mg/actuation spray,non-aero sloan (naloxone) one spray each nostril, nasal, Every 5 Minutes - PRN nasal 1.0 5.0 min 2024 Active hydrocodone-ac etaminophen 7.5-325 mg tablet (hydrocodone-a cetaminophen) one tablet, oral, Every 8 Hours - PRN, for Moderate-dale re pain oral 1.0 8.0 h 2024 Rhabdomyolysis Active carbidopa-levo dopa 25-100 mg tablet (carbidopa-lev odopa) one tablet, oral, 5 Times Per Day oral 1.0 5.0 d 2024 Parkinson's disease with dyskinesia, with fluctuations Active Coreg (carvedilol) 12.5 mg tablet (Coreg (carvedilol)) 12.5 mg, oral, Once A Day oral 1.0 1.0 d 05/27 Essential (primary) hypertension Active Coreg (carvedilol) 25 mg tablet (Coreg (carvedilol)) 25 mg, oral, At Bedtime oral 1.0 05/27 Essential (primary) hypertension Active Coreg (carvedilol) 12.5 mg tablet (Coreg (carvedilol)) 12.5 mg, oral, Twice A Day oral 1.0 12.0 h 2024 Essential (primary) hypertension Active lorazepam 0.5 mg tablet (lorazepam) 0.5 mg, oral, Twice A Day - PRN, as needed for leg spasms due to Parkinson's oral 1.0 12.0 h 05/27 Anxiety disorder, unspecified Active lorazepam 0.5 mg tablet (lorazepam) 0.5 mg, oral, Twice A Day - PRN, as needed for leg spasms due to Parkinson's oral 1.0 12.0 h 06/09 Anxiety disorder, unspecified Active Capvaxive (pneumo 21-lance conj-dip crm(pf)) 0.5 mL syringe (Capvaxive (pneumo 21-lance conj-dip crm(pf))) 0.5ml, intramuscular , Once - One Time intramusc ular 1.0 06/07 Active Ativan (lorazepam) 0.5 mg tablet (Ativan (lorazepam)) 1 tablet, oral, Twice A Day - PRN, Dyskinesia oral 1.0 12.0 h 07/02 Parkinson's disease with dyskinesia, with fluctuations Active Ativan (lorazepam) 0.5 mg tablet (Ativan (lorazepam)) 0.5 mg, oral, Twice A Day - PRN oral 1.0 12.0 h 07/19 Anxiety disorder, unspecified Active ropinirole 0.5 mg tablet (ropinirole) 1 tablet, oral, At Bedtime oral 1.0 2024 Parkinson's disease with dyskinesia, with fluctuations Active Ativan (lorazepam) 0.5 mg tablet (Ativan (lorazepam)) 0.5 mg, oral, Twice A Day - PRN oral 1.0 12.0 h 07/12 Anxiety disorder, unspecified Active Vital Signs Date Vital Result Comment 05/26/2024 02:27 PM Body Height 63 [in_us] 05/26/2024 01:15 PM Temperature 98.4 [degF] Oxygen Saturation 98 % Respiratory Rate 18 /min Heart Rate 90 /min Blood Pressure Systolic 118 mm[Hg] Blood Pressure Diastolic 80 mm[Hg] 05/26/2024 09:53 PM Heart Rate 84 /min Blood Pressure Systolic 113 mm[Hg] Blood Pressure Diastolic 82 mm[Hg] 05/27/2024 02:37 AM Heart Rate 67 /min 05/27/2024 02:36 AM Temperature 97.9 [degF] Oxygen Saturation 98 % Respiratory Rate 14 /min Heart Rate 97 /min Blood Pressure Systolic 134 mm[Hg] Blood Pressure Diastolic 77 mm[Hg] 05/26/2024 10:40 PM Body Weight 87.3 [lb_av] Body Mass Index 15.46 kg/m2 05/27/2024 04:21 AM Temperature 97.8 [degF] Oxygen Saturation 97 % Respiratory Rate 16 /min Heart Rate 72 /min Blood Pressure Systolic 122 mm[Hg] Blood Pressure Diastolic 75 mm[Hg] 05/27/2024 08:44 AM Heart Rate 70 /min Blood Pressure Systolic 180 mm[Hg] Blood Pressure Diastolic 110 mm[Hg] 05/27/2024 09:44 AM Temperature 97.7 [degF] Oxygen Saturation 96 % Respiratory Rate 16 /min 05/28/2024 03:27 AM Temperature 97.9 [degF] Oxygen Saturation 95 % Respiratory Rate 16 /min Heart Rate 75 /min Blood Pressure Systolic 148 mm[Hg] Blood Pressure Diastolic 90 mm[Hg] 05/28/2024 12:30 PM Temperature 97.9 [degF] Oxygen Saturation 97 % Respiratory Rate 16 /min Heart Rate 64 /min Blood Pressure Systolic 109 mm[Hg] Blood Pressure Diastolic 50 mm[Hg] 05/28/2024 03:42 PM Temperature 98.4 [degF] Oxygen Saturation 95 % Respiratory Rate 18 /min Heart Rate 68 /min Blood Pressure Systolic 118 mm[Hg] Blood Pressure Diastolic 62 mm[Hg] 05/29/2024 01:20 AM Temperature 97.6 [degF] Oxygen Saturation 98 % Respiratory Rate 16 /min Heart Rate 74 /min Blood Pressure Systolic 153 mm[Hg] Blood Pressure Diastolic 84 mm[Hg] 05/29/2024 07:45 PM Temperature 98.2 [degF] Oxygen Saturation 98 % Respiratory Rate 18 /min Heart Rate 82 /min Blood Pressure Systolic 148 mm[Hg] Blood Pressure Diastolic 82 mm[Hg] 05/29/2024 08:43 AM Temperature 98.4 [degF] Oxygen Saturation 99 % Respiratory Rate 16 /min Heart Rate 80 /min Blood Pressure Systolic 140 mm[Hg] Blood Pressure Diastolic 82 mm[Hg] 05/30/2024 05:44 AM Temperature 98.3 [degF] Oxygen Saturation 97 % Respiratory Rate 16 /min Heart Rate 68 /min Blood Pressure Systolic 165 mm[Hg] Blood Pressure Diastolic 99 mm[Hg] 05/30/2024 12:50 PM Temperature 98 [degF] Oxygen Saturation 98 % Respiratory Rate 16 /min Heart Rate 70 /min Blood Pressure Systolic 132 mm[Hg] Blood Pressure Diastolic 74 mm[Hg] 05/30/2024 10:22 PM Temperature 98 [degF] Oxygen Saturation 97 % Respiratory Rate 16 /min Heart Rate 72 /min Blood Pressure Systolic 125 mm[Hg] Blood Pressure Diastolic 69 mm[Hg] 05/31/2024 05:30 AM Temperature 98 [degF] Oxygen Saturation 98 % Respiratory Rate 16 /min Heart Rate 77 /min Blood Pressure Systolic 143 mm[Hg] Blood Pressure Diastolic 88 mm[Hg] 05/31/2024 09:46 AM Temperature 98.1 [degF] Oxygen Saturation 98 % Respiratory Rate 16 /min Heart Rate 64 /min Blood Pressure Systolic 132 mm[Hg] Blood Pressure Diastolic 70 mm[Hg] 05/31/2024 08:55 PM Temperature 98 [degF] Oxygen Saturation 97 % Respiratory Rate 16 /min Heart Rate 68 /min Blood Pressure Systolic 125 mm[Hg] Blood Pressure Diastolic 68 mm[Hg] 06/01/2024 12:29 AM Temperature 98 [degF] Oxygen Saturation 96 % Respiratory Rate 18 /min Heart Rate 84 /min Blood Pressure Systolic 137 mm[Hg] Blood Pressure Diastolic 73 mm[Hg] 06/01/2024 01:52 PM Temperature 99.3 [degF] Oxygen Saturation 99 % Respiratory Rate 18 /min Heart Rate 82 /min Blood Pressure Systolic 130 mm[Hg] Blood Pressure Diastolic 82 mm[Hg] 06/01/2024 03:52 PM Temperature 99.4 [degF] Oxygen Saturation 96 % Respiratory Rate 16 /min Heart Rate 82 /min Blood Pressure Systolic 168 mm[Hg] Blood Pressure Diastolic 96 mm[Hg] 06/02/2024 03:12 AM Temperature 97.8 [degF] Oxygen Saturation 97 % Respiratory Rate 18 /min Heart Rate 84 /min Blood Pressure Systolic 164 mm[Hg] Blood Pressure Diastolic 97 mm[Hg] 06/02/2024 07:33 AM Temperature 97.7 [degF] Oxygen Saturation 98 % Respiratory Rate 18 /min Heart Rate 76 /min Blood Pressure Systolic 180 mm[Hg] Blood Pressure Diastolic 98 mm[Hg] 06/02/2024 03:40 PM Temperature 98.6 [degF] Oxygen Saturation 97 % Respiratory Rate 16 /min Heart Rate 78 /min Blood Pressure Systolic 138 mm[Hg] Blood Pressure Diastolic 90 mm[Hg] 06/02/2024 03:02 PM Blood Pressure Systolic 126 mm[Hg] Blood Pressure Diastolic 88 mm[Hg] 06/03/2024 12:46 AM Temperature 98.1 [degF] Oxygen Saturation 96 % Respiratory Rate 18 /min Heart Rate 77 /min Blood Pressure Systolic 159 mm[Hg] Blood Pressure Diastolic 97 mm[Hg] 06/03/2024 07:52 AM Temperature 99 [degF] Oxygen Saturation 97 % Respiratory Rate 16 /min Heart Rate 74 /min Blood Pressure Systolic 121 mm[Hg] Blood Pressure Diastolic 70 mm[Hg] 06/03/2024 04:17 PM Temperature 98.2 [degF] Oxygen Saturation 98 % Respiratory Rate 16 /min Heart Rate 66 /min Blood Pressure Systolic 108 mm[Hg] Blood Pressure Diastolic 68 mm[Hg] 06/03/2024 11:50 PM Temperature 98.1 [degF] Oxygen Saturation 97 % Respiratory Rate 18 /min Heart Rate 80 /min Blood Pressure Systolic 129 mm[Hg] Blood Pressure Diastolic 83 mm[Hg] 06/04/2024 08:11 AM Temperature 98.2 [degF] Oxygen Saturation 98 % Respiratory Rate 16 /min Heart Rate 71 /min Blood Pressure Systolic 165 mm[Hg] Blood Pressure Diastolic 83 mm[Hg] 06/04/2024 05:59 PM Temperature 98.1 [degF] Oxygen Saturation 98 % Respiratory Rate 18 /min Heart Rate 68 /min Blood Pressure Systolic 155 mm[Hg] Blood Pressure Diastolic 75 mm[Hg] 06/05/2024 11:08 AM Temperature 98 [degF] Oxygen Saturation 98 % Respiratory Rate 16 /min Heart Rate 79 /min Blood Pressure Systolic 123 mm[Hg] Blood Pressure Diastolic 80 mm[Hg] 06/05/2024 12:28 AM Temperature 98.3 [degF] Oxygen Saturation 98 % Respiratory Rate 16 /min Heart Rate 74 /min Blood Pressure Systolic 163 mm[Hg] Blood Pressure Diastolic 91 mm[Hg] 06/06/2024 01:27 AM Temperature 98.3 [degF] Oxygen Saturation 96 % Respiratory Rate 18 /min Heart Rate 76 /min Blood Pressure Systolic 166 mm[Hg] Blood Pressure Diastolic 95 mm[Hg] 06/05/2024 10:34 PM Temperature 98.2 [degF] Oxygen Saturation 98 % Respiratory Rate 18 /min Heart Rate 75 /min Blood Pressure Systolic 116 mm[Hg] Blood Pressure Diastolic 67 mm[Hg] 06/06/2024 08:21 AM Temperature 97.9 [degF] Oxygen Saturation 99 % Respiratory Rate 18 /min Heart Rate 87 /min Blood Pressure Systolic 182 mm[Hg] Blood Pressure Diastolic 99 mm[Hg] 06/06/2024 05:25 PM Temperature 98.1 [degF] Oxygen Saturation 97 % Respiratory Rate 16 /min Heart Rate 85 /min Blood Pressure Systolic 113 mm[Hg] Blood Pressure Diastolic 75 mm[Hg] 06/07/2024 12:50 AM Temperature 98.3 [degF] Oxygen Saturation 98 % Respiratory Rate 18 /min Heart Rate 76 /min Blood Pressure Systolic 118 mm[Hg] Blood Pressure Diastolic 84 mm[Hg] 06/07/2024 08:07 AM Temperature 98.5 [degF] Oxygen Saturation 98 % Respiratory Rate 16 /min Heart Rate 74 /min Blood Pressure Systolic 140 mm[Hg] Blood Pressure Diastolic 90 mm[Hg] 06/07/2024 03:43 PM Temperature 98.8 [degF] Oxygen Saturation 96 % Respiratory Rate 16 /min Heart Rate 85 /min Blood Pressure Systolic 135 mm[Hg] Blood Pressure Diastolic 72 mm[Hg] 06/07/2024 11:06 PM Temperature 98.3 [degF] Oxygen Saturation 95 % Respiratory Rate 18 /min Heart Rate 78 /min Blood Pressure Systolic 152 mm[Hg] Blood Pressure Diastolic 88 mm[Hg] 06/08/2024 12:40 AM Temperature 97.7 [degF] Oxygen Saturation 98 % Heart Rate 76 /min Blood Pressure Systolic 152 mm[Hg] Blood Pressure Diastolic 88 mm[Hg] 06/08/2024 01:09 PM Temperature 98.2 [degF] Oxygen Saturation 97 % Respiratory Rate 18 /min Heart Rate 81 /min Blood Pressure Systolic 107 mm[Hg] Blood Pressure Diastolic 70 mm[Hg] 06/08/2024 09:21 PM Oxygen Saturation 96 % 06/08/2024 09:20 PM Temperature 98 [degF] Respiratory Rate 18 /min Heart Rate 75 /min Blood Pressure Systolic 114 mm[Hg] Blood Pressure Diastolic 64 mm[Hg] 06/09/2024 12:46 AM Temperature 98.9 [degF] Oxygen Saturation 96 % Respiratory Rate 18 /min Heart Rate 76 /min Blood Pressure Systolic 173 mm[Hg] Blood Pressure Diastolic 82 mm[Hg] 06/09/2024 11:20 AM Body Weight 78 [lb_av] Body Mass Index 13.82 kg/m2 06/09/2024 09:55 AM Temperature 98.4 [degF] Oxygen Saturation 97 % Respiratory Rate 18 /min Heart Rate 72 /min Blood Pressure Systolic 98 mm[Hg] Blood Pressure Diastolic 52 mm[Hg] 06/09/2024 07:41 PM Temperature 98 [degF] Oxygen Saturation 96 % Respiratory Rate 18 /min Heart Rate 77 /min Blood Pressure Systolic 174 mm[Hg] Blood Pressure Diastolic 98 mm[Hg] 06/10/2024 12:18 AM Temperature 97.7 [degF] Oxygen Saturation 97 % Respiratory Rate 16 /min Heart Rate 78 /min Blood Pressure Systolic 114 mm[Hg] Blood Pressure Diastolic 70 mm[Hg] 06/10/2024 07:54 AM Temperature 98.7 [degF] Oxygen Saturation 99 % Respiratory Rate 16 /min Heart Rate 92 /min Blood Pressure Systolic 121 mm[Hg] Blood Pressure Diastolic 77 mm[Hg] 06/11/2024 01:04 AM Temperature 98.6 [degF] Oxygen Saturation 98 % Respiratory Rate 16 /min Heart Rate 74 /min Blood Pressure Systolic 151 mm[Hg] Blood Pressure Diastolic 109 mm[Hg] 06/11/2024 03:03 PM Temperature 98.1 [degF] Oxygen Saturation 95 % Respiratory Rate 20 /min Heart Rate 84 /min Blood Pressure Systolic 128 mm[Hg] Blood Pressure Diastolic 76 mm[Hg] 06/11/2024 03:52 PM Temperature 97.3 [degF] Oxygen Saturation 97 % Respiratory Rate 18 /min Heart Rate 64 /min Blood Pressure Systolic 126 mm[Hg] Blood Pressure Diastolic 56 mm[Hg] 06/12/2024 01:36 AM Temperature 98.2 [degF] Oxygen Saturation 97 % Respiratory Rate 18 /min Heart Rate 77 /min Blood Pressure Systolic 150 mm[Hg] Blood Pressure Diastolic 91 mm[Hg] 06/12/2024 11:18 AM Temperature 98.3 [degF] Oxygen Saturation 98 % Respiratory Rate 16 /min Heart Rate 88 /min Blood Pressure Systolic 106 mm[Hg] Blood Pressure Diastolic 70 mm[Hg] 06/12/2024 10:55 AM Body Weight 85 [lb_av] Body Mass Index 15.06 kg/m2 06/12/2024 10:46 AM Temperature 98.1 [degF] Oxygen Saturation 99 % Respiratory Rate 16 /min Heart Rate 75 /min Blood Pressure Systolic 126 mm[Hg] Blood Pressure Diastolic 80 mm[Hg] 06/12/2024 09:34 PM Temperature 98.2 [degF] Oxygen Saturation 97 % Respiratory Rate 18 /min Heart Rate 78 /min Blood Pressure Systolic 116 mm[Hg] Blood Pressure Diastolic 68 mm[Hg] 06/13/2024 06:39 AM Temperature 98.4 [degF] Oxygen Saturation 95 % Respiratory Rate 18 /min Heart Rate 77 /min Blood Pressure Systolic 127 mm[Hg] Blood Pressure Diastolic 65 mm[Hg] 06/13/2024 12:02 PM Temperature 98 [degF] Oxygen Saturation 96 % Respiratory Rate 18 /min Heart Rate 76 /min Blood Pressure Systolic 136 mm[Hg] Blood Pressure Diastolic 68 mm[Hg] 06/13/2024 10:54 PM Temperature 98 [degF] Oxygen Saturation 95 % Respiratory Rate 18 /min Heart Rate 75 /min Blood Pressure Systolic 131 mm[Hg] Blood Pressure Diastolic 65 mm[Hg] 06/14/2024 01:41 AM Temperature 98.2 [degF] Oxygen Saturation 96 % Respiratory Rate 18 /min Heart Rate 68 /min Blood Pressure Systolic 152 mm[Hg] Blood Pressure Diastolic 70 mm[Hg] 06/14/2024 08:20 AM Temperature 97.4 [degF] Oxygen Saturation 95 % Respiratory Rate 16 /min Heart Rate 62 /min Blood Pressure Systolic 98 mm[Hg] Blood Pressure Diastolic 62 mm[Hg] 06/15/2024 12:23 AM Temperature 98.2 [degF] Oxygen Saturation 96 % Respiratory Rate 16 /min Heart Rate 65 /min Blood Pressure Systolic 100 mm[Hg] Blood Pressure Diastolic 68 mm[Hg] 06/15/2024 12:39 AM Temperature 97.7 [degF] Oxygen Saturation 96 % Respiratory Rate 18 /min Heart Rate 74 /min Blood Pressure Systolic 160 mm[Hg] Blood Pressure Diastolic 96 mm[Hg] 06/15/2024 08:15 AM Temperature 98.5 [degF] Oxygen Saturation 98 % Respiratory Rate 18 /min Heart Rate 60 /min Blood Pressure Systolic 138 mm[Hg] Blood Pressure Diastolic 98 mm[Hg] 06/15/2024 04:05 PM Temperature 98.3 [degF] Oxygen Saturation 97 % Respiratory Rate 16 /min Heart Rate 86 /min Blood Pressure Systolic 150 mm[Hg] Blood Pressure Diastolic 69 mm[Hg] 06/16/2024 06:42 AM Temperature 98.1 [degF] Oxygen Saturation 96 % Respiratory Rate 16 /min Heart Rate 64 /min Blood Pressure Systolic 138 mm[Hg] Blood Pressure Diastolic 82 mm[Hg] 06/16/2024 12:29 PM Body Weight 78.9 [lb_av] Body Mass Index 13.97 kg/m2 06/17/2024 12:58 AM Temperature 98.4 [degF] Oxygen Saturation 98 % Respiratory Rate 16 /min Heart Rate 74 /min Blood Pressure Systolic 171 mm[Hg] Blood Pressure Diastolic 90 mm[Hg] 06/23/2024 01:07 PM Body Weight 80 [lb_av] Body Mass Index 14.17 kg/m2 06/30/2024 03:38 PM Body Weight 89.5 [lb_av] Body Mass Index 15.85 kg/m2 07/03/2024 12:33 PM Body Weight 88 [lb_av] Body Mass Index 15.59 kg/m2 07/09/2024 09:48 AM Body Weight 78.5 [lb_av] Body Mass Index 13.9 kg/m2 07/07/2024 12:54 PM Body Weight 88.5 [lb_av] Body Mass Index 15.68 kg/m2 07/12/2024 06:58 PM Temperature 98.6 [degF] Oxygen Saturation 94 % Respiratory Rate 18 /min Heart Rate 83 /min Blood Pressure Systolic 150 mm[Hg] Blood Pressure Diastolic 84 mm[Hg] Social History No smoking Hx information available Encounters Type CPT Code Date Location Provider Indication s encounter report 03/11/2023 01:1 5 PM - 03/15/2023 01:45 PM Ashia Ga MD encounter report 05/26/2024 11:17 AM Wanda Ga MD 02 encounter report 05/26/2024 01:31 PM Wanda Ga MD 02 Advance Directives Directive Description Verification Date Supporting Document(s) Other Directive
--- OUTSIDE RECORDS SUMMARY | 2024-12-07 10:57 | XMS_ITS | Encounter Summary ---
Author Organization [employer] Address [id number] [address] [place] [address] Care Team Providers Care Label Operator Name Role Phone Ashia Ga MD Primary Care Provider [phone] Reason for Visit * Reason Comments Med Refill Encounter Details Date Type Department Care Team (Late st Contact Info) Description 05/09/2022 Refill [facility] [address] [place] [id number] Lion Mclaughlin MD [address] [place] [address] [address] [place] [address] Parkinson's disease ([facility]) Social History Tobacco Use Types [...] Telephone Encounter - Lion Mclaughlin MD - 05/09/2022 1:17 AM EST Patient has not been following up with us for years. If she is continuing on this medication, she can get a prescription from PCP or a local neurologist. documented in this encounter Plan of Treatment Not on file documented as of this encounter Visit Diagnoses Diagnosis Parkinson's disease ([facility]) Paralysis agitans documented in this encounter Care Teams Label Operator Relationship Specialty Start Date End Date Ashia Ga MD [address] [id number] PCP - General 07/17/18 documented as of this encounter
--- OUTSIDE RECORDS SUMMARY | 2024-12-07 10:57 | XMS_ITS | Encounter Summary ---
Author Organization [facility] Address [id number] [address] [place] [address] Care Team Providers Care Conveyancer Name Role Phone Ashia Ga MD Primary Care Provider [phone] Reason for Visit * Reason Onset Date Comments reschd appt 05/10/2021 Encounter Details Date Type Department Care Team (Late st Contact Info) Description 05/10/2021 Telephone [facility] [address] [place] [address] Kisha Winchester reschd appt Social History Tobacco Use Types Packs/Day Years [...] encounter Miscellaneous Notes * Telephone Encounter - Kisha Winchester - 05/10/2021 2:41 PM EST Patient's appointment needs to be rescheduled at this time due to provider out of clinic. Called and left message and sent letter. Date: 05/16/21 Provider: Dr. Mclaughlin Rescheduling Instructions: Next Available documented in this encounter Plan of Treatment Not on file documented as of this encounter Visit Diagnoses Not on filedocumented in this encounter Care Teams Conveyancer Relationship Specialty Start Date End Date Ashia Ga MD [address] [place] [address] PCP - General 07/17/18 documented as of this encounter
[2024-12-07 11:04] LABS: Hematocrit 32.7 % (36.0-48.0); Hemoglobin 10.7 g/dL (12.0-16.0); Immature Granulocytes Abs Auto 0.01 10^3/uL (0.00-0.03); Immature Granulocytes Pct Auto 0.2 % (0.0-0.5); Lymphocytes Absolute Auto 0.8 10^3/uL (1.2-3.8); Mean Corpuscular HGB Conc 32.7 g/dL (29.9-35.2); Mean Corpuscular Hemoglobin 31.6 pg (26.7-34.0); Mean Corpuscular Volume 96.5 fL (81.0-99.0); Platelet Count 158 10^3/uL (150-450); Red Blood Count 3.39 10^6/uL (4.20-5.40); White Blood Count 6.4 10^3/uL (4.0-11.0)
[2024-12-07 11:07] LABS: Glucose Urine UA NEGATIVE (NEGATIVE)
[2024-12-07] MEDS: 0.9 % SODIUM CHLORIDE 1,000 ML 1000 ML IV (11:12)
[2024-12-07 11:16] LABS: Cast Seen? NONE SEEN #/LPF (NONE SEEN); Crystals Seen? None Seen #/HPF (None Seen); Urine Culture Indicated NO
[2024-12-07 11:29] LABS: Alanine Aminotransferase 9 U/L (14-59); Albumin Globulin Ratio 1.0; Albumin Level 3.2 g/dL (3.4-5.0); Alkaline Phosphatase 67 U/L (46-116); Anion Gap 12.5; Aspartate Amino Transferase 17 U/L (15-37); Blood Urea Nitrogen 30.0 mg/dL (7.0-18.0); Calcium 8.1 mg/dL (8.5-10.1); Carbon Dioxide 28.0 mmol/L (21.0-32.0); Chloride 107 mmol/L (98-107); Creatine Kinase 91 U/L (26-192); Estimated GFR (African America >60 (>=60 mL/min/1.73m^2); Estimated GFR (Non-African Ame 58 (>=60 mL/min/1.73m^2); Globulin 3.2 g/dL; Glucose 96 mg/dL (74-106); Potassium 4.5 mmol/L (3.5-5.1); Sodium 143 mmol/L (136-145); Total Protein 6.4 g/dL (6.4-8.2)
[2024-12-07 12:19] VITALS: BP 170/100; PULSE 86
--- NOTE | 2024-12-07 13:43 | ED.GENADUL1 ---
HPI HPI - General Adult General Chief complaint: Weakness Stated complaint: LOW BLOOD PRESSURE Time Seen by Provider: 12/07/24 10:07 History of Present Illness HPI narrative: Patient is a 74-year-old female, history significant for Parkinson's disease, presenting to the emergency department from the [facility] for concerns of hypotension. Per the [facility], the patient was somewhat hard to arouse this morning and seemed more drowsy than usual. They also noted blood pressure to be 69/47. On EMS arrival, they started 1 L bolus of normal saline. Her vital signs were otherwise within normal limits. On arrival to ED, the patient is sleeping but easily arousable. She states she has some chronic pain in her lower back and neck, but has no other acute complaints. She denies fevers or chills. No chest pain or shortness breath. No abdominal pain, nausea, or vomiting. No dysuria or hematuria. Related Data Home Medications ?Medication ?Instructions ?Recorded ?Confirmed acetaminophen 500 mg capsule 1,000 mg PO TID PRN pain 11/28/22 07/20/24 calcium polycarbophil 625 mg 1,250 mg PO DAILY 11/28/22 07/20/24 tablet (Fiber (calcium polycarbophil)) carbidopa 25 mg-levodopa 100 mg 1 tab PO DAILY 11/28/22 07/20/24 tablet carvedilol 25 mg tablet (Coreg) 25 mg PO BID 11/28/22 07/20/24 citalopram 10 mg tablet 10 mg PO DAILY 11/28/22 07/20/24 hydrocodone 7.5 mg-acetaminophen 1 tab PO Q8H PRN pain 05/27/24 05/27/24 325 mg tablet Previous Rx's ?Medication ?Instructions ?Recorded naloxone 4 mg/actuation nasal 4 mg intranasal Q3M PRN opioid 02/20/23 spray (Narcan) overdose #2 ea lisinopril 40 mg tablet 20 mg (1/2 x 40 mg) PO DAILY #0 05/26/24 tabs lorazepam 0.5 mg tablet 0.5 mg PO BID 1 day #2 tabs 05/26/24 magnesium oxide 400 mg (241.3 mg 400 mg PO BID 7 days #14 tabs 05/26/24 magnesium) tablet hydrocodone 7.5 mg-acetaminophen See Rx Instructions .Route 05/28/24 325 mg tablet .COMPLEX PRN pain #75 tabs Allergies Allergy/AdvReac Type Severity Reaction Status Date / Time Penicillins Allergy Hives Verified 12/07/24 10:08 Opioid HPI Opioid Management Most Recent Opioid Data: Last Pain Scale 6 07/20/24, 10:03 Last ORT Total Score 1 05/22/24, 20:27 Last ORT Risk Category Low Risk 05/22/24, 20:27 Ur Phencyclidine Scrn, (NEGATIVE) Negative 05/22/24, 17:06 Review of Systems ROS Status of ROS 10 or more systems reviewed and unremarkable except as noted in history and below [facility] Medical History (Updated 12/07/24 @ 12:16 by Chirag Jordan DO) Primary hypertension ?I10 - Essential (primary) hypertension (ICD-10) Chronic, continuous use of opioids ?F11.90 - Opioid use, unspecified, uncomplicated (ICD-10) Spondylosis of lumbar region without myelopathy or radiculopathy ?M47.816 - Spondylosis without myelopathy or radiculopathy, lumbar region (ICD-10) Lumbar spondylosis ?M47.816 - Spondylosis without myelopathy or radiculopathy, lumbar region (ICD-10) Tremors of nervous system ?R25.1 - Tremor, unspecified (ICD-10) Lumbar stenosis with neurogenic claudication ?M48.062 - Spinal stenosis, lumbar region with neurogenic claudication (ICD-10) Parkinson's disease ?G20.A1 - Parkinson's disease without dyskinesia, without mention of fluctuations (ICD-10) Social History Highest level of school completed/degree received: high school graduate Little interest or pleasure in doing things: not at all Feeling down, depressed, or hopeless: not at all Exam Narrative Exam Narrative: CONSTITUTIONAL: Sleeping comfortably in stretcher, no acute distress, answering questions following commands appropriately SKIN: Was warm and dry. EYES: No conjunctival pallor. PERRLA. EARS, NOSE, THROAT: Dry mucous membranes. RESPIRATORY: Clear to auscultation bilaterally, no wheezes, crackles, or stridor, no use of accessory muscles CARDIOVASCULAR: Normal rate and regular rhythm. There is no S3, S4, murmur, rub. GASTROINTESTINAL: Abdomen was soft, non-tender, and non-distended. There is no guarding or rebound tenderness MUSCULOSKELETAL: No peripheral edema. No decubitus ulcers on the back. NEUROLOGIC: Patient is awake and alert. Moving all extremities equally. Facies were symmetrical. Constitutional Vital Signs, click to edit/add: Last Vital Signs Pulse 86 12/07/24 12:19 Resp 20 12/07/24 12:19 BP 170/100 H 12/07/24 12:19 Course Vital Signs Vital signs: Vital Signs Blood Pressure 85/64 L 12/07/24 10:06 Pulse Rate 86 12/07/24 12:19 Respiratory Rate 20 12/07/24 12:19 Blood Pressure 170/100 H 12/07/24 12:19 Medical Decision Making MDM Narrative Medical decision making narrative: Patient is a 74-year-old female, history significant for Parkinson disease, presenting to the emergency department via EMS from the [facility] for concerns of hypotension and somnolence. Vital signs on arrival are significant for hypotension with a blood pressure of 85/64. Her vital signs are otherwise within normal limits. She is afebrile and hemodynamically stable. Examination as noted above. Differential diagnosis includes dehydration, underlying infection such as UTI or pneumonia, ACS, or other electrolyte/metabolic derangement. IV was established and laboratory studies were obtained. She is currently getting an infusion of 1 L bolus of normal saline started by EMS. 12 Lead EKG: Normal sinus rhythm at a rate of 76. Normal axis. Occasional PACs. No ST segment elevations. QRS, CA, and QTc interval within normal limits. Unchanged compared to prior EKG. Final impression: normal sinus rhythm without evidence of acute myocardial ischemia Laboratory studies were overall unremarkable and unchanged from her baseline. She is anemic but at her baseline. No leukocytosis. No electrolyte or metabolic derangement. No evidence of acute renal injury. No transaminitis or hyperbilirubinemia. Normal CPK. Troponin nonelevated. Urinalysis negative. Chest x-ray independently reviewed/interpreted by myself demonstrated no acute cardiopulmonary process. On reevaluation, the patient is still somnolent but is deafly easier to arouse. She is oriented x 3. She is currently asymptomatic. Her repeat a set of vital signs demonstrated resolution of her hypotension. Her blood pressure is now under 170/100. Her presentation is most likely consistent with dehydration as she was quite dry on physical exam. I do believe the patient is stable for discharge. care home staff were updated about the patient's visit. Return precautions were given including any new or worsening symptoms. Patient and staff understand and agrees to the plan. FINAL IMPRESSION: #Acute hypotension, resolved #Acute dehydration #History of Parkinson disease DISPOSITION: Discharged to [facility] CONDITION: Fair Medical Records Medical records reviewed: Yes I reviewed the patient's medical records Lab Data Lab results reviewed: Yes I reviewed the patient's lab results Labs: Lab Results 12/07/24 12/07/24 Range/Units 10:45 10:56 WBC 6.4 (4.0-11.0) 10^3/uL RBC 3.39 L (4.20-5.40) 10^6/uL Hgb 10.7 L (12.0-16.0) g/dL Hct 32.7 L (36.0-48.0) % MCV 96.5 (81.0-99.0) fL MCH 31.6 (26.7-34.0) pg MCHC 32.7 (29.9-35.2) g/dL RDW 12.2 (11.0-15.0) % Plt Count 158 (150-450) 10^3/uL MPV 10.1 (9.5-13.5) fL Neut % (Auto) 78.5 H (43.0-75.0) % Lymph % (Auto) 11.8 L (20.5-60.0) % [place] % (Auto) 7.3 (1.7-12.0) % Eos % (Auto) 1.9 (0.9-7.0) % Baso % (Auto) 0.3 (0.2-2.0) % Neut # (Auto) 5.1 (1.4-6.5) 10^3/uL Lymph # (Auto) 0.8 L (1.2-3.8) 10^3/uL [place] # (Auto) 0.5 (0.3-0.8) 10^3/uL Eos # (Auto) 0.1 (0.0-0.7) 10^3/uL Baso # (Auto) 0.0 (0.0-0.1) 10^3/uL Abs Immat Gran (auto) 0.01 (0.00-0.03) 10^3/uL Imm/Tot Granulo (auto) 0.2 (0.0-0.5) % Sodium 143 (136-145) mmol/L Potassium 4.5 (3.5-5.1) mmol/L Chloride 107 (98-107) mmol/L Carbon Dioxide 28.0 (21.0-32.0) mmol/L Anion Gap 12.5 BUN 30.0 H (7.0-18.0) mg/dL Creatinine 0.94 (0.55-1.02) mg/dL Est GFR ( Amer) >60 (>=60 mL/min/1.73m^2) Est GFR (Non-Af Amer) 58 L (>=60 mL/min/1.73m^2) BUN/Creatinine Ratio 31.9 Glucose 96 (74-106) mg/dL Calcium 8.1 L (8.5-10.1) mg/dL Total Bilirubin 0.4 (0.2-1.0) mg/dL AST 17 (15-37) U/L ALT 9 L (14-59) U/L Alkaline Phosphatase 67 (46-116) U/L Total Creatine Kinase 91 (26-192) U/L Troponin I High Sens 13.6 (4.0-51.3) pg/mL Total Protein 6.4 (6.4-8.2) g/dL Albumin 3.2 L (3.4-5.0) g/dL Globulin 3.2 g/dL Albumin/Globulin Ratio 1.0 Urine Color Lt. yellow (YELLOW) Urine Clarity Clear (CLEAR) Urine pH 7.5 (5.0-9.0) Ur Specific [place] 1.015 (1.005-1.025) Urine Protein Negative (NEG/TRACE) mg/dL Urine Glucose (UA) Negative (NEGATIVE) mg/dL Urine Ketones Negative (NEGATIVE) mg/dL Urine Occult Blood Negative (NEGATIVE) Urine Nitrite Negative (NEGATIVE) Urine Bilirubin Negative (NEGATIVE) Urine Urobilinogen 0.2 (0.2-1.0) EU/dL Ur Leukocyte Esterase Negative (NEGATIVE) Urine RBC None seen (0-2) #/HPF Urine WBC None seen (NONE SEEN) #/HPF Ur Squamous Epith Cells Rare (NONE/RARE) #/LPF Urine Crystals None seen (None Seen) #/HPF Urine Bacteria Trace A (NONE SEEN) #/HPF Urine Casts None seen (NONE SEEN) #/LPF Urine Mucus None seen (NONE SEEN) Ur Culture Indicated? No Imaging Data Chest x-ray: Attestation: I personally reviewed and interpreted this imaging study as follows: Radiologist's impression: ITS Impressions Chest X-Ray 12/07/24 10:33 IMPRESSION: NO ACUTE FINDINGS Impression dictated by: Екатерина Myles M.D. 12/07/2024 11:12 AM Dictation Location: [place] [id number] Electronically authenticated by: [id number] Y Date: 12/07/2024 11:12 ECG Data Attestation: I personally reviewed and interpreted this ECG as follows: Discharge Plan Discharge Chief Complaint: Weakness Clinical Impression: Dehydration Patient Disposition: [facility] Time of Disposition Decision: 12:16 Discharge Location: [facility] Condition: Good Mode of Transportation: EMS
== END 2024-12-07 13:36 | disposition home or self-care (01) ==
PROVIDERS: Emergency Provider Student in an Organized Health Care Education/Training Program; PCP Family Medicine
DX: E86.0 Dehydration (principal); G20.A1 Parkinson's disease without dyskinesia, without mention of fluctuations
CPT/HCPCS: 36415; 71045; 80053; 81001; 82550; 84484; 85025; 93005; 99285